=== PATIENT | male | born 1955 | race American Indian/Alaskan Native ===

== ENCOUNTER 2016-09-02 10:16 | Inpatient (IN) | payer MEDICARE ==
[2016-09-02 11:08] LABS: Basophils % (Auto) 0.3 % (0.0-1.8); Eosinophils % (Auto) 2.5 % (0.0-4.3); Hematocrit 35.3 % (35.5-45.6); Mean Corpuscular HGB Conc 31 % (32-34); Mean Corpuscular Volume 80 fl (84-94); Platelet Count 161 K/mm3 (140-440); Red Cell Distribution Width 15.4 % (13.2-15.2); White Blood Count 7.6 K/mm3 (4.5-11.0)
[2016-09-02 11:09] LABS: Mean Corpuscular Hemoglobin 25 pg (28-32)
[2016-09-02 11:24] LABS: Anion Gap 18 mmol/L; BUN/Creatinine Ratio 12.72; Blood Urea Nitrogen 14 mg/dL (9-20); Calcium 8.6 mg/dL (8.4-10.2); Carbon Dioxide 25 mmol/L (22-30); Chloride 98.9 mmol/L (98-107); Glucose 236 mg/dL (75-100); Potassium 3.7 mmol/L (3.6-5.0); Sodium 138 mmol/L (137-145)
[2016-09-02] MEDS ORDERED: ZOFRAN IV ONE (11:33)
[2016-09-02] MEDS ORDERED: MORPHINE IV ONE (11:33)
[2016-09-02] MEDS ORDERED: NITRO-BID 2% TP ONE (11:33)
--- NOTE | 2016-09-02 11:38 | Emergency Department Report ---
HPI - General Chief Complaint: Dyspnea/Respdistress Time Seen by Provider: 09/02/16 11:25 - HPI HPI: Room 17 The patient is a 60-year-old male presenting with a chief complaint of chest pain. The patient states his symptoms began 2-3 days ago with a cough that became slightly productive this morning. The patient states he coughed up some yellow sputum this morning. The patient states yesterday he developed a constant sharp chest pain unrelated to his cough. Patient admits to shortness of breath and nausea/vomiting with this chest pain. Patient denies diaphoresis. The patient states yesterday he awakened short of breath and had to sit up in order for his symptoms to improve. Patient currently gives his pain a score of 10/10. 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) Hx COPD: Yes (NO HOME ) Additional medical history: high cholesterol - Surgical History Past Surgical History?: Yes Hx Open Heart Surgery: Yes Hx Pacemaker: Yes (2013) Additional Surgical History: Mitral valve replacement (mechanical), left ankle surgery - Family History Family history: no significant - Social History Smoking Status: Former Smoker (none for over 20 years) Substance Use Type: None - Medications Home Medications: Home Medications Medication Instructions Recorded Confirmed Last Taken Type ALBUTEROL Inhaler [ProAir HFA 2 puff IH QID PRN 09/30/13 09/02/16 10/28/13 History Inhaler] Furosemide [Lasix TAB] 80 mg PO BID 09/30/13 09/02/16 09/10/14 History Insulin Aspart [NovoLOG 100 10 unit SQ QAC 09/30/13 09/02/16 09/09/14 History UNITS/ML VIAL] Insulin Glargine,Hum.rec.anlog 40 units SQ QHS 09/30/13 09/02/16 09/09/14 History [Lantus Solostar] Ipratropium (Nf) [Atrovent HFA 2 puff IH Q6HR PRN 09/30/13 09/02/16 09/09/14 History 17MCG/PUFF] Nitroglycerin [Nitrostat] 0.4 mg SL Q5M PRN 09/30/13 09/02/16 07/10/14 History Potassium Chloride 20 meq PO BID 09/30/13 09/02/16 09/10/14 History Ranolazine [Ranexa] 500 mg PO BID 09/30/13 09/02/16 09/10/14 History Tamsulosin [Flomax] 0.4 mg PO QDAY 09/30/13 09/02/16 09/09/14 History Zolpidem Tartrate 6.25 mg PO QHS 09/30/13 09/02/16 09/02/14 History Esomeprazole Magnesium [NexIUM] 40 mg PO DAILY 10/29/13 09/02/16 10/28/13 History Colchicine [Colchicine] 0.6 mg PO DAILY 09/04/14 09/02/16 09/10/14 History Diazepam Tab [Valium] 5 tab PO DAILY 09/04/14 09/02/16 08/27/14 History Gabapentin [Gabapentin] 1 cap PO TID 09/04/14 09/02/16 09/11/14 History Sennosides/Docusate Sodium [Cvs 1 tab PO DAILY 09/04/14 09/02/16 08/10/09 History Stool Softener-Laxative Tb] Spironolactone [Aldactone] 25 mg PO QDAY 11/02/15 09/02/16 Unknown History Warfarin [Coumadin] 5 mg PO QDAY 11/02/15 09/02/16 Unknown History Metolazone [Zaroxolyn] 2.5 mg PO DAILY 09/02/16 09/02/16 Unknown History ED Review of Systems ROS: Stated complaint: CHEST PAIN, COUGH, OFELIA Other details as noted in HPI Comment: All other systems reviewed and negative Constitutional: denies: diaphoresis Eyes: denies: eye pain, eye discharge, vision change ENT: denies: ear pain, throat pain Respiratory: cough, shortness of breath Cardiovascular: chest pain Endocrine: no symptoms reported Gastrointestinal: nausea, vomiting Genitourinary: denies: urgency, dysuria Musculoskeletal: denies: back pain, joint swelling, arthralgia Skin: denies: rash, lesions Neurological: denies: headache, weakness, paresthesias Psychiatric: denies: anxiety, depression Hematological/Lymphatic: denies: easy bleeding, easy bruising Physical Exam - Physical Exam Vital Signs: Vital Signs 09/02/16 09/02/16 09/02/16 10:21 10:30 10:40 Temperature 98.5 F Pulse Rate 74 75 80 Respiratory 9 L 16 20 Rate Blood Pressure 121/89 121/89 Blood Pressure 121/89 [Left] O2 Sat by Pulse 100 98 100 Oximetry 09/02/16 09/02/16 09/02/16 10:46 10:49 11:09 Temperature Pulse Rate 74 78 Respiratory 15 20 Rate Blood Pressure 115/25 Blood Pressure [Left] O2 Sat by Pulse 96 100 Oximetry Physical Exam: GENERAL: The patient is well-developed well-nourished male lying on stretcher not appearing to be in acute distress. [] HEENT: Normocephalic. Atraumatic. Extraocular motions are intact. Patient has moist mucous membranes. NECK: Supple. Trachea midline CHEST/LUNGS: Clear to auscultation. There is no respiratory distress noted. HEART/CARDIOVASCULAR: Regular. There is no tachycardia. ABDOMEN: Abdomen is soft, nontender. Patient has normal bowel sounds. There is no abdominal distention. SKIN: There is no rash. There is no diaphoresis. NEURO: The patient is awake, alert, and oriented. The patient is cooperative. The patient has normal speech MUSCULOSKELETAL: There is no evidence of acute injury. ED Course Vital Signs 09/02/16 09/02/16 09/02/16 10:21 10:30 10:40 Temperature 98.5 F Pulse Rate 74 75 80 Respiratory 9 L 16 20 Rate Blood Pressure 121/89 121/89 Blood Pressure 121/89 [Left] O2 Sat by Pulse 100 98 100 Oximetry 09/02/16 09/02/16 09/02/16 10:46 10:49 11:09 Temperature Pulse Rate 74 78 Respiratory 15 20 Rate Blood Pressure 115/25 Blood Pressure [Left] O2 Sat by Pulse 96 100 Oximetry ED Medical Decision Making - Lab Data Result diagrams: 09/02/16 10:37 09/02/16 10:37 Laboratory Tests 09/02/16 09/02/16 10:37 10:37 WBC 7.6 RBC 4.40 Hgb 11.0 L Hct 35.3 L MCV 80 L MCH 25 L MCHC 31 L RDW 15.4 H Plt Count 161 Lymph % (Auto) 19.8 [place] % (Auto) 7.7 H Eos % (Auto) 2.5 Baso % (Auto) 0.3 Lymph # 1.5 [place] # 0.6 Eos # 0.2 Baso # 0.0 Seg Neutrophils % 69.7 Seg Neutrophils # 5.3 Sodium 138 Potassium 3.7 Chloride 98.9 Carbon Dioxide 25 Anion Gap 18 BUN 14 Creatinine 1.1 Estimated GFR > 60 BUN/Creatinine Ratio 12.72 Glucose 236 H Calcium 8.6 Troponin T 0.026 Laboratory Tests 09/02/16 09/02/16 09/02/16 10:37 10:37 10:37 WBC 7.6 RBC 4.40 Hgb 11.0 L Hct 35.3 L MCV 80 L MCH 25 L MCHC 31 L RDW 15.4 H Plt Count 161 Lymph % (Auto) 19.8 [place] % (Auto) 7.7 H Eos % (Auto) 2.5 Baso % (Auto) 0.3 Lymph # 1.5 [place] # 0.6 Eos # 0.2 Baso # 0.0 Seg Neutrophils % 69.7 Seg Neutrophils # 5.3 PT 24.1 H INR 2.16 H APTT 45.7 H Sodium 138 Potassium 3.7 Chloride 98.9 Carbon Dioxide 25 Anion Gap 18 BUN 14 Creatinine 1.1 Estimated GFR > 60 BUN/Creatinine Ratio 12.72 Glucose 236 H Calcium 8.6 Troponin T 0.026 - EKG Data Rate: normal - EKG Data When compared to previous EKG there are: no significant change Interpretation: unchanged when compared t (04/13/2016), other (left bundle- branch block) - Radiology Data Radiology results: image reviewed (chest x-ray) interpreted by me: Chest [id number]. No pneumothorax, no focal infiltrate - Differential Diagnosis ACS, CHF exacerbation, bronchitis Critical care attestation.: If time is entered above; I have spent that time in minutes in the direct care of this critically ill patient, excluding procedure time. ED Disposition Clinical Impression: Chest pain Disposition: OP ADMITTED IP TO THIS HOSP Is pt being admited?: Yes Does the pt Need Aspirin: No Condition: Fair Instructions: Chest Pain (ED) Referrals: PRIMARY CARE, [Primary Care Provider] - 3-5 Days Time of Disposition: 11:39 (hospitalist paged)
[2016-09-02 11:44] LABS: INR 2.16 (0.87-1.13)
[2016-09-02 11:45] LABS: Partial Thromboplastin Time 45.7 Sec. (24.2-36.6)
--- NOTE | 2016-09-02 12:18 | Admit Criteria Form ---
Admission Criteria Documentation: CHEST PAIN Clinical Indications for Admission to Inpatient Care (Place 'X' for any and all applicable criteria): Admission is indicated for chest pain and ANY ONE of the following(1)(2)(3)(4)(5 ): [ ]I. Angina with acute coronary syndrome (Also use Myocardial Infarction or Angina guideline) [ ]II. Hemodynamic instability [X ]III. Angina needing acute intervention as indicated by ALL of the following (11)(12): [X ]a) Unstable angina is present as indicated by angina that is ANY ONE of the following: [ ]i) New onset [ ]ii) Nocturnal [X ]iii) Prolonged at rest [ ]iv) Progressive [ ]b) Angina warrants acute intervention as indicated by ANY ONE of the following: [ ]i) Recurrent angina (e.g, not responding as previously to treatment) [ ]ii) Angina at rest or with low-level activities despite initial medical therapy [ ]iii) New or presumably new ST-segment depression on ECG [ ]iv) Signs or symptoms of heart failure (eg, dyspnea, pulmonary edema) [ ]v) New or worsening mitral regurgitation [ ]vi) Hemodynamic instability [ ]vii) Dangerous arrhythmia (eg, sustained ventricular tachycardia) [ ]viii) History of percutaneous coronary intervention within 6 months [ ]ix) History of coronary artery bypass graft surgery [ ]x) CRISTO risk score of 2 or greater[A] [X ]xi) History of Diabetes(14) [ ]xii) High-risk cardiac ischemia findings on noninvasive testing (e.g, echocardiogram, treadmill testing, nuclear scan) [ ]xiii) Chronic renal insufficiency (ie, estimated GFR less than 60 mL/min/1.732m) [ ]xiv) Left ventricular ejection fraction less than 40% [ ]IV. Evidence of WI (eg, cardiac biomarkers positive, ST-segment elevation on ECG) also use Myocardial Infarction Criteria Form. [ ]V. Pulmonary edema [ ]. Respiratory distress [ ]VII. Chest pain indicative of serious diagnosis other than coronary artery disease (eg, aortic dissection) [ ]VIII. Contraindications and/or Inappropriate clinical situations for Observational Care in patients with Chest Pain, when ANY ONE of the following is required: [ ]a) Patient with risk factor for pulmonary embolism, acute coronary syndrome and myocardial infarction (18) [ ]b) Patient with Pulmonary embolism require an average LOS of 4.3 days, therefore emergency department observation management is inappropriate 18,23 [ ]c) Painful condition/s in the elderly, have the highest rate of recidivism after emergency department observation management (10.8%) 20,21,22 [ ]d) Elevated cardiac biomarker requires intensive and exhaustive care (19) [ ]IX. General contraindications and/or Inappropriate clinical situations for Observational Care in patients with Chest Pain, when ANY ONE of the following is required: [ ]a) Prediction of prolongation of LOS based on ANY ONE of the following may be considered as a contraindication for observational care 2, 3, 4, 5, 6, 7, 8, 9, 10, 11 [ ]i) Age > 65 yrs. [ ]ii) Patient arriving by ambulance [ ]iii) Patient with high acuity [ ]iv) Patient requiring vital sign monitoring [ ]v) Patient on IV medication [ ]b) Systolic blood pressures 180mmHg 3,12 [ ]c) Patient with altered mental status including delirium and other alteration of consciousness, (3) [ ]d) Patient whose discharge disposition will be to a [facility] home or rehabilitation home should not be managed in Emergency Department Observation Unit. CMS rule requires 3 days hospital stay before such placement. 3,13 [ ]e) Patient with failure to thrive due to broad array of etiologies 3,16,17 [ ]f) Inability to ambulate 3,14 Extended stay beyond goal length of stay may be needed for (1)(28): [ ]a) Specific condition diagnosed after evaluation (eg, pulmonary embolism, aortic dissection) [ ]b) Unstable angina [ ]c) Continued suspicion of acute coronary syndrome with inability to complete needed cardiac evaluation (eg, patient clinically unable to undergo stress testing) [ ]d) Myocardial infarction (Contents from ANGINA and CHEST PAIN clinical indications for admission to inpatient care have been integrated in this form) The original [employer] content created by [employer] has been revised. The portions of the content which have been revised are identified through the use of italic text or in bold, and [facility] [email or web address] has neither reviewed nor approved the modified material. All other unmodified content is copyright [employer]. Please see references footnoted in the original [facility] [email or web address] edition 2016 Admission Criteria Met: Yes
[2016-09-02] MEDS ORDERED: PROAIR IH PRN (14:35)
[2016-09-02] MEDS ORDERED: NITROSTAT SL PRN (14:35)
[2016-09-02] MEDS ORDERED: NON-FORMULARY (Ipratropium (Nf) 2 PUFF) IH PRN (14:35)
[2016-09-02] MEDS ORDERED: SODIUM CHLORIDE FLUSH SYRINGE 10 ML IV PRN (14:43)
[2016-09-02] MEDS ORDERED: NON-FORMULARY (Esomeprazole Magnesium [Nexium] 40 MG) PO SCH (14:45)
[2016-09-02] MEDS ORDERED: NON-FORMULARY (Furosemide [Lasix Tab] 80 MG) PO SCH (14:45)
--- NOTE | 2016-09-02 14:48 | Event Note ---
Date: 09/02/16 See H/p in reports ACS Costochondritis IDDM BPH Paraparesis CHF Gout CAD
--- NOTE | 2016-09-02 14:51 | XRay Report ---
CHEST 2 VIEWS INDICATION: Shortness of breath. COMPARISON: 11/02/2015 FINDINGS: Frontal and lateral chest radiographs, 3 images, demonstrate poorer inspiration with grossly stable, exaggerated cardiomediastinal structures/possible cardiomegaly. Post CABG changes, left-sided pacemaker with dual chamber leads and partially imaged cervicothoracic fusion hardware noted. Prosthetic heart valve. No pleural effusions or CHF. EKG leads. Stable bones, including left shoulder degenerative changes. CONCLUSION: No acute chest process or significant interval change, providing for the difference in technique with cardiomegaly and various iatrogenic changes again noted, as described. Thank you for the opportunity to participate in this patient's care.
[2016-09-02] MEDS ORDERED: RANEXA ER PO SCH (15:00)
[2016-09-02] MEDS ORDERED: POTASSIUM CHLORIDE PO SCH (15:00)
[2016-09-02] MEDS ORDERED: PROVENTIL IH PRN (15:29)
[2016-09-02] MEDS ORDERED: PROTONIX PO SCH (16:00)
[2016-09-02] MEDS: LASIX PO SCH (17:29)
[2016-09-02] MEDS: COUMADIN PO SCH (17:29)
[2016-09-02] MEDS: NOVOLOG SUB-Q SCH ×2 (18:23→22:03)
[2016-09-02 19:24] LABS: Creatine Kinase MB 2.9 ng/mL (0.0-4.0)
[2016-09-02 21:59] LABS: Creatine Kinase MB 3.3 ng/mL (0.0-4.0)
[2016-09-02] MEDS: RANEXA ER PO SCH (22:00)
[2016-09-02] MEDS ORDERED: LEVEMIR SUB-Q SCH (22:00)
[2016-09-02] MEDS ORDERED: AMBIEN PO SCH (22:00)
[2016-09-02] MEDS ORDERED: NON-FORMULARY (Insulin Glargine,Hum.Rec.Anlog [Lantus Solostar] 40 UNITS) SQ SCH (22:00)
[2016-09-02] MEDS: NEURONTIN PO SCH (22:00)
[2016-09-02] MEDS ORDERED: VALIUM PO SCH (22:00)
[2016-09-02] MEDS: POTASSIUM CHLORIDE PO SCH (22:01)
[2016-09-02] MEDS: DILAUDID IV PRN (22:07)
[2016-09-02] MEDS: PROTONIX PO SCH (22:24)
[2016-09-03 03:54] LABS: INR 2.14 (0.87-1.13)
[2016-09-03] MEDS: DILAUDID IV PRN ×2 (05:06→14:02)
[2016-09-03] MEDS: LASIX PO SCH ×2 (05:07→17:39)
[2016-09-03] MEDS ORDERED: LEXISCAN IV ONE ×2 (08:01→08:16)
--- NOTE | 2016-09-03 08:14 | History and Physical Report ---
CHIEF COMPLAINT: Left-sided chest pain for 3 days. 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 More so with cough. Cough is productive. Chest pain is intermittent, not radiating. No diaphoresis. No palpitations. The patient admits to some shortness of breath and nausea. Also, chest wall tenderness present as per patient. Also, cough productive of slightly yellowish sputum. TB score is 0. Insulin-dependent diabetes, continue insulin and coverage. PAST MEDICAL HISTORY: As mentioned, hypertension, congestive heart failure, insulin-dependent diabetes, spinal cord surgery secondary to questionable clot in spinal cord region, COPD, and hyperlipidemia. PAST SURGICAL HISTORY: Open heart surgery, pacemaker insertion 2013, mitral valve replacement, and left ankle surgery. FAMILY HISTORY: No hypertension. No diabetes. SOCIAL HISTORY: Former smoker about 20 years ago. He used to smoke a pack a day. He smoked for ABOUT 20 years from age 20 to 40. CURRENT MEDICATIONS: Insulin 10 units before each meal, Lasix 80 mg twice a day, albuterol 2 puffs q.i.d., Atrovent inhaler 2 puffs q.6., potassium chloride 20 mEq twice a day, tamsulosin 0.4 daily, Nexium 40 mg p.o. daily, colchicine 0.6 p.o. daily, gabapentin 1 cap p.o. t.i.d., spironolactone 25 mg p.o. daily, Coumadin 5 mg p.o. daily, and Zaroxolyn 2.5 mg p.o. daily. REVIEW OF SYSTEMS: CONSTITUTIONAL: No weight loss. No weight gain. No fever. No chills. HEENT: No sore throat. No postnasal drop. CVS: Left-sided intermittent chest pain; more so with coughing and also chest wall tenderness present as per the patient. No diaphoresis. No palpitations. RESPIRATORY: Cough and yellow sputum present. No shortness of breath. GI: No nausea. No vomiting. No diarrhea. GENITOURINARY SYSTEM: No dysuria. No flank pain. Occasional urinary retention present secondary to paraplegia. The patient stated that he was constipated, but now he is paraplegic versus paraparetic. MUSCULOSKELETAL SYSTEMS: No joint pain. No muscle pains. CENTRAL NERVOUS SYSTEM: Significant ____. Wheelchair bound. Occasional intermittent urinary retention present. SKIN: Normal. No rashes. LYMPHATIC AND HEMATOLOGIC SYSTEMS: No rashes. No bruising. No lymphedema. PSYCHIATRIC: No suicidal or homicidal tendencies. No depression. A 14-point review of systems done and essentially negative. PHYSICAL EXAMINATION: GENERAL: Middle-aged male obese weighed about 118 kg. VITAL SIGNS: BMI is 38.6, blood pressure 115/25, temperature is 98.5, pulse is 74, and respirations are 16. HEENT: Unremarkable. Pupils equal and reactive. NECK: Supple. No lymphadenopathy. No thyromegaly. LUNGS: Clear to auscultation and percussion. Good air entry. CVS: S1 and S2 heard. No gallop. No murmur. No rub. Apical impulse in left fifth intercostal space and midclavicular line. Chest wall tenderness present. ABDOMEN: Soft and benign. No hepatosplenomegaly. No guarding. No rigidity. Hernial orifices are normal. EXTREMITIES: Good pedal pulses. Power is 3/5 in both lower extremities. SKIN: Normal. LABORATORY DATA: Significant for white count of 7,600, H and H 11.2 and 35.3, and platelet count is 161,000. INR is 2.16, sodium is 138, potassium is 3.7, bicarb is 25, chloride is 98.9, BUN and creatinine 14 and 1.1, and glucose is 236. Troponin is 0.026. Lipid profile was normal. DIAGNOSTIC DATA: EKG shows normal sinus rhythm. No significant change. Left bundle branch block present. No change from 04/13/2016. Interpreted by me. Chest x-ray shows cardiomegaly. No pneumothorax. No focal infiltrate. ASSESSMENT AND PLAN: 1. Acute coronary syndrome. The patient is to get Lexiscan. The patient got Lexiscan last about a year ago. There is no recent cardiac catheterization. He has cardiac mitral valve surgery. The patient is on Coumadin. I would definitely do a Lexiscan. 2. Chest wall costochondritis. The patient has chest wall tenderness present. I am more in favor of costochondritis. NSAIDs at the time of discharge. Lexiscan was negative. 3. Coronary artery disease. Continue Ranexa and nitroglycerin p.r.n. basis. 4. Chronic obstructive pulmonary disease. Continue albuterol and DuoNeb on a p.r.n. basis. 5. Congestive heart failure. Continue Lasix 80 mg twice a day. 6. Benign prostatic hypertrophy. Continue Flomax 0.4 mg daily. 7. Gastroesophageal reflux disease. Continue Nexium 40 mg p.o. daily. 8. Gout. Continue colchicine 0.6 daily. 9. Anticoagulation adequate. Continue Coumadin 5 mg p.o. daily. 10. Deep vein thrombosis prophylaxis. The patient's anticoagulation is adequate. We will not initiate Lovenox. NSAIDs only. PLAN: In summary, the patient to be ruled out for acute [place]. Probable diagnosis is more in favor of costochondritis because of the chest wall tenderness present and also cough. The patient will be discharged in 24-48 hours depending on the Lexiscan and serial cardiac enzymes [facility]# [id number] JEN/DASH
[2016-09-03] MEDS: NOVOLOG SUB-Q SCH ×6 (08:25→17:41)
[2016-09-03] MEDS: NEURONTIN PO SCH ×2 (09:00→13:54)
[2016-09-03] MEDS ORDERED: COLCRYS PO SCH (10:00)
[2016-09-03] MEDS ORDERED: SENOKOT S PO SCH (10:00)
[2016-09-03] MEDS ORDERED: ZAROXOLYN PO SCH (10:00)
[2016-09-03] MEDS ORDERED: ECOTRIN PO SCH (10:00)
[2016-09-03] MEDS ORDERED: ALDACTONE PO SCH (10:00)
[2016-09-03] MEDS ORDERED: NON-FORMULARY (Colchicine [Colchicine] 0.6 MG) PO SCH (10:00)
[2016-09-03] MEDS ORDERED: COUMADIN PO SCH (10:00)
[2016-09-03] MEDS ORDERED: FLOMAX PO SCH (10:00)
[2016-09-03] MEDS: RANEXA ER PO SCH (13:54)
[2016-09-03] MEDS: POTASSIUM CHLORIDE PO SCH (14:01)
[2016-09-03] MEDS: PROTONIX PO SCH (14:02)
[2016-09-03 15:39] VITALS: BP 117/59
--- NOTE | 2016-09-03 15:49 | Discharge Summary ---
Providers - Providers Date of Admission: 09/02/16 11:39 Attending physician: SHELIA NORTON MD 09/02/16 Consult to Cardiac Rehabilitation [CONS] Routine Reason For Exam: Phase I Primary care physician: BUNDLE SHAKER Hospitalization Condition: Fair Hospital course: 60M w pmh of htn, CHF, DM, hx of Spinal cord surgery leading to paralysis who presents with Chest pain, he went on to have serial troponins that were negative , does have a nuclear stress test that was negative. Chest pain was attributed to costochondritis for which she is advised to take Tylenol as needed. Discharge diagnoses 1. Chest pain due to costochondritis Disposition: DISCHARGED TO HOME OR SELFCARE Time spent for discharge: 35 minutes Core Measure Documentation - Palliative Care Palliative Care/ Comfort Measures: Not Applicable - Core Measures Any of the following diagnoses?: none Exam - Constitutional Vitals: Temp Pulse Resp BP Pulse Ox 97.8 F 72 20 117/59 94 09/03/16 15:38 09/03/16 15:38 09/03/16 15:38 09/03/16 15:38 09/03/16 15:38 General appearance: Present: no acute distress, well-nourished - EENT Eyes: Present: PERRL ENT: hearing intact, clear oral mucosa - Neck Neck: Present: supple, normal ROM - Respiratory Respiratory effort: normal Respiratory: bilateral: CTA - Cardiovascular Rhythm: other (chest wall tender) Heart Sounds: Present: S1 & S2. Absent: rub, click - Extremities Extremities: pulses symmetrical, No edema Peripheral Pulses: within normal limits - Abdominal General gastrointestinal: Present: soft, non-tender, non-distended, normal bowel sounds Male genitourinary: Present: normal - Integumentary Integumentary: Present: clear, warm, dry - Musculoskeletal Musculoskeletal: gait normal, strength equal bilaterally - Psychiatric Psychiatric: appropriate mood/affect, intact judgment & insight - Neurologic Neurologic: CNII-XII intact, moves all extremities Plan Follow up with: PRIMARY CARE, [Primary Care Provider] - 3-5 Days Forms: Warfarin Discharge Instruction Prescriptions: Acetaminophen [Tylenol Arthritis] 650 mg PO Q8H PRN #60 tablet.er PRN Reason: Pain Aspirin EC [Aspirin Enteric Coated TAB] 81 mg PO QDAY #30 tablet.
[2016-09-03] MEDS: COUMADIN PO SCH (17:40)
--- NOTE | 2016-09-05 23:56 | Treadmill Report ---
THALLIUM STRESS TEST LEFT VENTRICLE: Left ventricular chamber size is within normal. Perfusion study demonstrates homogeneous uptake of the tracer in all segments, no significant defects identified. Gated analysis demonstrates normal left ventricular systolic function, ejection fraction 67%. CONCLUSION: Normal myocardial perfusion study. [facility]# [id number] CA/NTS
== END 2016-09-03 18:45 | disposition home or self-care (01) | DRG 206 ==
LOC: ED 10:16 → 4A 11:39
PROVIDERS: ADMIT Internal Medicine; ATTEND Internal Medicine
DX: M94.0 Chondrocostal junction syndrome [Tietze] (principal); I11.0 Hypertensive heart disease with heart failure; I50.9 Heart failure, unspecified; E11.9 Type 2 diabetes mellitus without complications
CPT/HCPCS: 36415; 71020; 78452; 80048; 80061; 82550; 82553; 82962; 83036; 84484; 85025; 85610; 85730; 93005; 93010; 93017; 94640; 96374; 96375; A9502; J1170; J1815; J1818; J2270; J2405; J2785

== ENCOUNTER 2018-08-27 17:12 | Inpatient (IN) | payer MEDICARE ==
[2018-08-27] MEDS ORDERED: ASPIRIN PO ONE (17:34)
[2018-08-27] MEDS ORDERED: PEPCID IV ONE (17:53)
[2018-08-27] MEDS ORDERED: ZOFRAN IV ONE (17:53)
[2018-08-27] MEDS ORDERED: NITROSTAT SL PRN (17:53)
--- NOTE | 2018-08-27 18:03 | Emergency Department Report ---
ED General Adult HPI - General Chief complaint: Chest Pain Stated complaint: CHEST PAIN/OFELIA Time Seen by Provider: 08/27/18 17:39 Source: patient, EMS (ems notes not available at time of chart dictation), RN notes reviewed, old records reviewed Mode of arrival: Stretcher Limitations: Physical Limitation - History of Present Illness Initial comments: This is a 62-year-old gentleman. Cardiology: [facility] Past medical history: Spinal cord injury, lower extremity paraplegia, self catheterizes, diabetes, hypertension, pacemaker, mechanical mitral valve, on systemic anticoagulation had a cardiac catheterization at this hospital May 2018, demonstrated normal angiographic coronary arteries The patient presents to the emergency room today with multiple complaints. He complains of headache, chest pain, shortness of breath, syncope/loss of consciousness, and foul-smelling urine, accompanied by nausea, vomiting. Symptoms are intermittent since Monday, today is Monday, they do not radiate anywhere, they do not appear to have exacerbating or relieving factors. The patient complains of chest pain now, shortness of breath now, and nausea now. He endorses compliance with his medications. He endorses a low-grade fever at home subjectively. Of note, patient admitted to this hospital May 2018, found to have multidrug resistant Escherichia coli, bacteremia, and was discharged on antibiotics. -: Gradual, days(s) Location: head, chest Radiation: non-radiation Severity scale (0 -10): 8 Quality: aching Consistency: intermittent Improves with: none Worsens with: none Associated Symptoms: chest pain, cough, fever/chills, headaches, loss of appetite, malaise, nausea/vomiting, shortness of breath, syncope, weakness. denies: confusion, diaphoresis, rash, seizure - Related Data Home Medications Medication Instructions Recorded Confirmed Last Taken RX: ALBUTEROL Inhaler (OR & NICU) 2 puff IH QID PRN 09/30/13 08/27/18 10/28/13 [ProAir HFA Inhaler] RX: Furosemide [Lasix TAB] 80 mg PO BID 09/30/13 08/27/18 09/10/14 RX: Insulin Aspart [NovoLOG 100 10 unit SQ QAC 09/30/13 08/27/18 09/09/14 UNITS/ML VIAL] RX: Insulin Glargine,Hum.rec.anlog 40 units SQ QHS 09/30/13 08/27/18 09/09/14 [Lantus Solostar] RX: Zolpidem Tartrate 6.25 mg PO QHS 09/30/13 08/27/18 09/02/14 RX: Esomeprazole Magnesium [NexIUM] 40 mg PO DAILY 10/29/13 08/27/18 10/28/13 RX: Gabapentin 1 cap PO TID 09/04/14 08/27/18 09/11/14 RX: Sennosides/Docusate Sodium 1 tab PO DAILY 09/04/14 08/27/18 08/10/09 [[facility] Stool Softener-Laxative Tb] RX: diazePAM TAB [Valium] 5 tab PO DAILY 09/04/14 08/27/18 08/27/14 Previous Rx's Medication Instructions Recorded Last Taken Type RX: Acetaminophen [Tylenol 650 mg PO Q8H PRN #60 tablet.er 09/03/16 Unknown Rx Arthritis] RX: guaiFENesin/CODEINE 5 ml PO Q6H PRN #4 oz 09/03/16 Unknown Rx [Robitussin AC] RX: Aspirin EC [Aspirin Enteric 81 mg PO QDAY #30 tablet.dr 05/12/18 Unknown Rx Coated TAB] RX: Colchicine 0.6 mg PO DAILY #15 powder 05/12/18 Unknown Rx RX: Ipratropium (Nf) [Atrovent HFA 2 puff IH Q6HR PRN #10 inha 05/12/18 Unknown Rx 17MCG/PUFF] RX: Nitroglycerin [Nitrostat] 0.4 mg SL Q5M PRN #30 tablet 05/12/18 Unknown Rx RX: Potassium Chloride 20 meq PO BID #60 packet 05/12/18 Unknown Rx RX: Ranolazine [Ranexa] 500 mg PO BID #60 tab.er.12h 05/12/18 Unknown Rx RX: Spironolactone [Aldactone] 25 mg PO QDAY #30 tablet 05/12/18 Unknown Rx RX: Tamsulosin [Flomax] 0.4 mg PO QDAY #30 capsule 05/12/18 Unknown Rx RX: Warfarin [Coumadin] 2.5 mg PO DAILY@1700 tablet 05/12/18 Unknown Rx RX: Warfarin [Coumadin] 5 mg PO QDAY #30 tablet 05/12/18 Unknown Rx RX: Zolpidem [Ambien] 5 mg PO QHS PRN tablet 05/12/18 Unknown Rx RX: metOLazone [Zaroxolyn] 2.5 mg PO DAILY #30 tablet 05/12/18 Unknown Rx HYDROcodone/APAP 5-325 [[place] 1 each PO Q6HR PRN #10 tablet 05/16/18 Unknown Rx 5/325] Insulin Aspart [Novolog] 5 unit SQ AC #1 vial 05/16/18 Unknown Rx Insulin Glargine,Hum.rec.anlog 20 units SQ QHS #1 pen 05/16/18 Unknown Rx [Lantus Solostar] Allergies Allergy/AdvReac Type Severity Reaction Status Date / Time propoxyphene napsylate Allergy Intermediate Rash Verified 09/04/14 14:39 [From Darvocet-N 100] Sulfa (Sulfonamide Allergy Intermediate Rash Verified 09/04/14 14:39 Antibiotics) ED Review of Systems ROS: Stated complaint: CHEST PAIN/OFELIA Other details as noted in HPI Constitutional: fever, malaise, weakness. denies: chills Eyes: denies: vision change ENT: denies: epistaxis Respiratory: cough, shortness of breath Cardiovascular: chest pain, syncope Gastrointestinal: nausea, vomiting. denies: hematemesis, melena, hematochezia Genitourinary: dysuria, frequency Musculoskeletal: denies: back pain, arthralgia, myalgia Skin: denies: lesions Neurological: weakness Psychiatric: anxiety ED Past Medical Hx - Past Medical History Previous Medical History?: Yes Hx Hypertension: Yes Hx Heart Attack/AMI: No Hx Congestive Heart Failure: Yes Hx Diabetes: Yes Hx Deep Vein Thrombosis: No Hx Pulmonary Embolism: No Hx Liver Disease: No Hx Sickle Cell Disease: No Hx Arthritis: No Hx Asthma: No Hx COPD: Yes (NO HOME 02) Hx Tuberculosis: No Hx HIV: No Additional medical history: high cholesterol, paraplegic, bronchitis, A Fib - Surgical History Hx Coronary Stent: No Hx Open Heart Surgery: Yes Hx Pacemaker: Yes Hx Internal Defibrillator: No Additional Surgical History: Mitral valve replacement (mechanical), left ankle surgery - Social History Smoking Status: Former Smoker Substance Use Type: None - Medications Home Medications: Home Medications Medication Instructions Recorded Confirmed Last Taken Type RX: ALBUTEROL Inhaler (OR & NICU) 2 puff IH QID PRN 09/30/13 08/27/18 10/28/13 History [ProAir HFA Inhaler] RX: Furosemide [Lasix TAB] 80 mg PO BID 09/30/13 08/27/18 09/10/14 History RX: Insulin Aspart [NovoLOG 100 10 unit SQ QAC 09/30/13 08/27/18 09/09/14 History UNITS/ML VIAL] RX: Insulin Glargine,Hum.rec.anlog 40 units SQ QHS 09/30/13 08/27/18 09/09/14 History [Lantus Solostar] RX: Zolpidem Tartrate 6.25 mg PO QHS 09/30/13 08/27/18 09/02/14 History RX: Esomeprazole Magnesium [NexIUM] 40 mg PO DAILY 10/29/13 08/27/18 10/28/13 History RX: Gabapentin 1 cap PO TID 09/04/14 08/27/18 09/11/14 History RX: Sennosides/Docusate Sodium 1 tab PO DAILY 09/04/14 08/27/18 08/10/09 History [[facility] Stool Softener-Laxative Tb] RX: diazePAM TAB [Valium] 5 tab PO DAILY 09/04/14 08/27/18 08/27/14 History RX: Acetaminophen [Tylenol 650 mg PO Q8H PRN #60 tablet.er 09/03/16 08/27/18 Unknown Rx Arthritis] RX: guaiFENesin/CODEINE 5 ml PO Q6H PRN #4 oz 09/03/16 08/27/18 Unknown Rx [Robitussin AC] RX: Aspirin EC [Aspirin Enteric 81 mg PO QDAY #30 tablet.dr 05/12/18 08/27/18 Unknown Rx Coated TAB] RX: Colchicine 0.6 mg PO DAILY #15 powder 05/12/18 08/27/18 Unknown Rx RX: Ipratropium (Nf) [Atrovent HFA 2 puff IH Q6HR PRN #10 inha 05/12/18 08/27/18 Unknown Rx 17MCG/PUFF] RX: Nitroglycerin [Nitrostat] 0.4 mg SL Q5M PRN #30 tablet 05/12/18 08/27/18 Unknown Rx RX: Potassium Chloride 20 meq PO BID #60 packet 05/12/18 08/27/18 Unknown Rx RX: Ranolazine [Ranexa] 500 mg PO BID #60 tab.er.12h 05/12/18 08/27/18 Unknown Rx RX: Spironolactone [Aldactone] 25 mg PO QDAY #30 tablet 05/12/18 08/27/18 Unknown Rx RX: Tamsulosin [Flomax] 0.4 mg PO QDAY #30 capsule 05/12/18 08/27/18 Unknown Rx RX: Warfarin [Coumadin] 2.5 mg PO DAILY@1700 tablet 05/12/18 08/27/18 Unknown Rx RX: Warfarin [Coumadin] 5 mg PO QDAY #30 tablet 05/12/18 08/27/18 Unknown Rx RX: Zolpidem [Ambien] 5 mg PO QHS PRN tablet 05/12/18 08/27/18 Unknown Rx RX: metOLazone [Zaroxolyn] 2.5 mg PO DAILY #30 tablet 05/12/18 08/27/18 Unknown Rx HYDROcodone/APAP 5-325 [[place] 1 each PO Q6HR PRN #10 tablet 05/16/18 08/27/18 Unknown Rx 5/325] Insulin Aspart [Novolog] 5 unit SQ AC #1 vial 05/16/18 08/27/18 Unknown Rx Insulin Glargine,Hum.rec.anlog 20 units SQ QHS #1 pen 05/16/18 08/27/18 Unknown Rx [Lantus Solostar] ED Physical Exam - General Limitations: Physical Limitation General appearance: alert, in no apparent distress - Head Head exam: Present: atraumatic, normocephalic - Eye Eye exam: Present: normal appearance, EOMI. Absent: nystagmus - ENT ENT exam: Present: normal exam, normal orophraynx, mucous membranes moist, normal external ear exam - Neck Neck exam: Present: normal inspection, full ROM. Absent: tenderness, meningismus - Respiratory Respiratory exam: Present: normal lung sounds bilaterally. Absent: respiratory distress - Cardiovascular Cardiovascular Exam: Present: regular rate, normal rhythm, normal heart sounds. Absent: bradycardia, tachycardia, irregular rhythm, systolic murmur, diastolic murmur, rubs, gallop - GI/Abdominal GI/Abdominal exam: Present: soft. Absent: distended, tenderness, guarding, re bound, rigid, pulsatile mass - Rectal Rectal exam: Present: deferred - Extremities Exam Extremities exam: Present: normal inspection, full ROM (full range of motion in the bilateral upper extremities. Baseline paraplegia in the bilateral lower extremities, neither new, worsening or different), pedal edema, other (2+ pulses noted in the bilateral upper, lower extremities. Compartments soft. No long bony tenderness. The pelvis is stable.). Absent: calf tenderness - Back Exam Back exam: Present: normal inspection, full ROM. Absent: tenderness, CVA tenderness (R), paraspinal tenderness, vertebral tenderness - Neurological Exam Neurological exam: Present: alert, oriented X3, motor sensory deficit (there is no facial droop. The tongue is midline. Extraocular movements are intact bilaterally. 5 out of 5 strength in the bilateral upper extremities. 0 out of 5 strength in the bilateral lower extremities.) - Psychiatric Psychiatric exam: Present: anxious - Skin Skin exam: Present: warm, dry, intact, normal color. Absent: rash ED Course Vital Signs 08/27/18 08/27/18 08/27/18 17:39 17:45 17:50 Temperature 98 F Pulse Rate 70 70 70 Respiratory 13 17 12 Rate Blood Pressure 136/56 Blood Pressure 136/56 [Right] O2 Sat by Pulse 100 98 Oximetry 08/27/18 08/27/18 08/27/18 18:00 18:12 18:15 Temperature 98.5 F Pulse Rate 70 70 Respiratory 16 15 Rate Blood Pressure 140/54 140/54 Blood Pressure [Right] O2 Sat by Pulse 98 98 Oximetry 08/27/18 08/27/18 08/27/18 18:22 18:30 18:45 Temperature Pulse Rate 70 70 70 Respiratory 12 15 Rate Blood Pressure 130/61 140/62 132/65 Blood Pressure [Right] O2 Sat by Pulse 93 97 Oximetry 08/27/18 08/27/18 08/27/18 19:00 19:15 19:30 Temperature Pulse Rate 70 70 70 Respiratory 15 12 12 Rate Blood Pressure 137/67 137/68 137/65 Blood Pressure [Right] O2 Sat by Pulse 99 100 100 Oximetry 08/27/18 08/27/18 08/27/18 20:19 20:20 20:31 Temperature Pulse Rate 70 70 Respiratory 16 18 Rate Blood Pressure 143/61 142/60 Blood Pressure [Right] O2 Sat by Pulse 100 Oximetry 08/27/18 08/27/18 08/27/18 20:45 21:01 21:15 Temperature Pulse Rate 71 70 70 Respiratory 13 16 10 L Rate Blood Pressure 125/56 151/69 141/71 Blood Pressure [Right] O2 Sat by Pulse 100 100 Oximetry 08/27/18 08/27/18 08/27/18 21:30 21:45 22:00 Temperature Pulse Rate 70 70 70 Respiratory 15 11 L 14 Rate Blood Pressure 128/63 142/83 143/66 Blood Pressure [Right] O2 Sat by Pulse 99 100 100 Oximetry 08/27/18 08/27/18 08/27/18 22:15 22:45 23:01 Temperature Pulse Rate 70 70 70 Respiratory 12 16 12 Rate Blood Pressure 137/68 140/54 147/63 Blood Pressure [Right] O2 Sat by Pulse 100 99 98 Oximetry - Reevaluation(s) Reevaluation #1: 08/27/18 18:02 Differential diagnosis, including but not limited to: Viral syndrome, pneumonia, bacteremia, viremia, urinary tract infection, intracranial hemorrhage, pulmonary embolus, intra-abdominal hemorrhage, retroperitoneal hematoma, electrolyte derangement, endocarditis, myocarditis, pericarditis, acute coronary syndrome Orthostasis, vagal event, structural cardiac disease Assessment and plan: 62-year-old gentleman with numerous chronic medical conditions, clinically does not appear to be acutely decompensated at this point in time, chronic lower extremity weakness, complaint of headache, chest pain, syncope, shortness of breath, nausea, vomiting, dysuria. We will obtain screening laboratory studies, influenza screen, urinalysis, x-ray of the chest, rectal temperature, in addition to CT scan of the brain, chest, abdomen, pelvis. We will obtain blood cultures, discussed with his private monument setter helper. I clinically do not suspect bacteremia at this point in time, the patient is not tachycardic, not hypoxic, does not appear to have shaking or chills, and thus far does not have a fever. 08/27/18 18:04 Reevaluation #2: 08/27/18 21:42 CT scan of the brain is negative for acute disease. CT scan of the chest is negative for acute disease. CT scan of the abdomen and pelvis is negative for acute disease, with the exception of possible cirrhosis. Patient has not had recurrent syncope or loss of consciousness while in the emergency room. Reevaluation #3: 08/27/18 23:02 Dr. Thapa accepts the patient to the medical service. - Consultations Consultation #1: 08/27/18 18:22 Discussed with cardiology, Dr. Rosana Sandoval, who agrees to follow the patient in consultation. ED Medical Decision Making - Lab Data Result diagrams: 08/27/18 18:04 08/27/18 18:04 Vital Signs 08/27/18 17:50 Temperature 98 F Pulse Rate 70 Respiratory 12 Rate Blood Pressure 136/56 [Right] O2 Sat by Pulse 98 Oximetry - EKG Data -: EKG Interpreted by Ri - EKG Data 08/27/18 18:06 Ventricular paced rhythm, couldn't capture, left axis deviation, QTC prolonged, left anterior fascicular block, not consistent with ST elevation myocardial i nfarction. Unchanged from prior EKG from May 2018. - Radiology Data Radiology results: pending, report reviewed, image reviewed Print Report Referring Physician: CRUZ BURLESON Patient Name: CHARLIE COBURN Date of : 1955 Sex: Male Report Date: 2018-08-27 Report Status: [place] [address] XRay Report Signed Patient: CHARLIE COBURN MR#: [id number] : 1955 Acct:[id number] Age/Sex: 62 / M ADM Date: 08/27/18 Loc: ED Attending Dr: Ordering Physician: CRUZ BURLESON MD Date of Service: 08/27/18 Procedure(s): XR chest 1V ap Accession Number(s): [id number] cc: CRUZ BURLESON MD Fluoro Time In Minutes: FINAL REPORT EXAM: XR CHEST 1V AP HISTORY: chest pain, shortness of breath TECHNIQUE: Chest single AP PRIORS: Comparison is May 16, 2018 FINDINGS: Cardiac silhouette is enlarged. There is a left-sided pacemaker lead wires appear intact. Cardiac valve prosthesis is noted. No focal pulmonary infiltrate identified. No pleural fluid collection seen. There is mild pulmonary vascular congestion. Noted is fusion hardware S cervical thoracic spine. One of the fixation screws appears fractured. IMPRESSION: Cardiomegaly Pacemaker and cardiac valve prosthesis Pulmonary vascular congestion suggestive of mild CHF Transcribed By: CLEMENCIA Dictated By: CEDRIC WOOTEN MD Electronically Authenticated By: CEDRIC WOOTEN MD Signed Date/Time: 08/27/18 1830 Critical care attestation.: If time is entered above; I have spent that time in minutes in the direct care of this critically ill patient, excluding procedure time. ED Disposition Clinical Impression: Syncope, UTI (urinary tract infection) Chest pain Qualifiers: Chest pain type: unspecified Qualified Code(s): R07.9 - Chest pain, unspecified Disposition: DC-09 OP ADMIT IP TO THIS HOSP Is pt being admited?: Yes Does the pt Need Aspirin: Yes Condition: Stable
[2018-08-27] MEDS ORDERED: ROCEPHIN/NS 2 GM/100 ML 2 GM/100 ML BAG IV STA (18:09)
--- NOTE | 2018-08-27 18:30 | XRay Report ---
FINAL REPORT EXAM: XR CHEST 1V AP HISTORY: chest pain, shortness of breath TECHNIQUE: Chest single AP PRIORS: Comparison is May 16, 2018 FINDINGS: Cardiac silhouette is enlarged. There is a left-sided pacemaker lead wires appear intact. Cardiac flakita ve prosthesis is noted. No focal pulmonary infiltrate identified. No pleural fluid collection seen. There is mild pulmonary vascular congestion. Noted is fusion hardware S cervical thoracic spine. One of the fixation screws a ppears fractured. IMPRESSION: Cardiomegaly Pacemaker and cardiac valve prosthesis Pulmonary vascular congestion suggestive of mild CHF
[2018-08-27 18:45] LABS: Bacteria,Urine 4+ /HPF (Negative); Bilirubin,Urine NEG (Negative); Blood,Urine NEG (Negative); Color,Urine Amber (Yellow); Mucus,Urine 1+ /HPF; Protein,Urine <15 mg/dL mg/dL (Negative)
[2018-08-27 18:51] LABS: Hematocrit 30.7 % (35.5-45.6); Mean Corpuscular HGB Conc 33 % (32-34); Mean Corpuscular Volume 76 fl (84-94); Red Blood Count 4.05 M/mm3 (3.65-5.03)
[2018-08-27 19:03] LABS: INR 2.16 (0.87-1.13)
[2018-08-27 19:04] LABS: Partial Thromboplastin Time 43.8 Sec. (24.2-36.6)
[2018-08-27] MEDS ORDERED: TYLENOL PO ONE (19:06)
[2018-08-27 19:08] LABS: Red Cell Distribution Width 21.3 % (13.2-15.2)
[2018-08-27 19:10] LABS: Platelet Count 176 K/mm3 (140-440)
[2018-08-27 19:24] LABS: BUN/Creatinine Ratio 14; Blood Urea Nitrogen 11 mg/dL (9-20); Calcium 8.9 mg/dL (8.4-10.2); Hemolysis Index 29
[2018-08-27 19:50] LABS: Anisocytosis 2+; Basophils % (Manual) 0 % (0.0-1.8); Eosinophils % (Manual) 0 % (0.0-4.3); Poikilocytosis 1+; Total Cells Counted 100
[2018-08-27 19:51] LABS: Hypochromasia 1+; Ovalocytes 1+; Schistocytes Few
[2018-08-27 19:52] LABS: Large Platelets Few; Platelet Estimate Consistent w Auto
--- NOTE | 2018-08-27 21:18 | Cat Scan Report ---
FINAL REPORT EXAM: CT HEAD/BRAIN WO CON HISTORY: plasencia on coumadin syncope TECHNIQUE: CT head without contrast PRIORS: None. FINDINGS: No acute intra-axial or extra-axial hemorrhage is identified. There is no evidence of midline shift or mass effect. The ventricles and sulci are within normal limits. Monterroso-white matter differentiation is intact. No acute parenchymal abnormalities seen. Bony calvarium is grossly intact. Visualized portions of the mastoids and paranasal sinuses are unre markable. IMPRESSION: Negative CT head
--- NOTE | 2018-08-27 21:23 | Cat Scan Report ---
FINAL REPORT EXAM: CT ANGIO CHEST HISTORY: cp syncope on coumadin TECHNIQUE: CT chest CT angiogram with reconstructions PRIORS: None. FINDINGS: There is no evidence of filling defect within the central pulmonary vasculature to suggest the presen ce of acute pulmonary embolus. No evidence of mediastinal pathologic lymph node enlargement Heart and great vessels are unremarkable. The aorta is normal in caliber. No focal pulmonary infiltrate identified. No pleural fluid collection seen. No acute pulmonary abnor mality noted. There is nodular contour the liver suggestive of underlying cirrhosis. Spleen is mildly enlarged 13 c entimeters in length. IMPRESSION: Mild splenomegaly Nodular liver contour suggestive of cirrhosis No CT evidence for acute pulmonary embolus
--- NOTE | 2018-08-27 21:28 | Cat Scan Report ---
FINAL REPORT EXAM: CT ABDOMEN PELVIS W CON HISTORY: n /v on coumadin syncope TECHNIQUE: CT abdomen and pelvis with intravenous contrast PRIORS: None. FINDINGS: No acute abnormality identified in the lung bases. Liver demonstrates heterogeneous enhancement nodular contour likely reflecting cirrhosis. Spleen is mildly enlarged. There is a low-density focus seen posteriorly within the spleen measuring 2 centimeters most likely hemangioma. No pancreatic abnormalities seen. The kidneys demonstrate symmetric contrast enhancement. No evidence of hydronephrosis. The adrenal glands are unremarkable Abdominal aorta is normal in caliber. No pathologically enlarged lymph nodes are identified. No signs of free fluid or free air No evidence of small bowel dilatation. Colon is nondistended. No pericolonic inflammatory change. There is concentric bladder wall thickening. There is some air within the urinary bladder please walt elate for any history of recent instrumentation. IMPRESSION: Findings most consistent with cirrhosis Mild splenomegaly Low-density focus in the spleen probable cyst or hemangioma bladder wall thickening. Some air within the urinary bladder. Please correlate with any history recent instrumentation.
[2018-08-27] MEDS ORDERED: BENTYL PO ONE (22:33)
[2018-08-27] MEDS ORDERED: LIDOCAINE VISCOUS 2% PO ONE (22:33)
[2018-08-27] MEDS ORDERED: TYLENOL PO PRN (22:57)
[2018-08-27] MEDS ORDERED: ZOFRAN IV PRN (22:57)
[2018-08-27] MEDS ORDERED: D50W (25GM) Syringe IV PRN (22:57)
[2018-08-27] MEDS ORDERED: SODIUM CHLORIDE FLUSH SYRINGE 10 ML IV PRN (22:57)
--- NOTE | 2018-08-27 23:00 | History and Physical Report ---
History of Present Illness Date of examination: 08/27/18 History of present illness: 62 year old man with CHF, hypertension, hypertension, diabetes A. fib, diabetes and COPD, BPH came to the emergency room with complaints of chest pain started yesterday, located in the epigastic, intermittent for one hour, relieved pain medication. Admits to nausea, Shortness of breath , palpitations, vomiting diaphoresis. Also stated he had a brief syncopal episode. He had a cardiac cath in May 2018 which showed normal coronaries Review of systems Constitutional: no weight loss Ears, eyes, nose, mouth and throat: no nasal congestion, no nasal discharge, no sinus pressure, no vision change, no red eye. Neck: No neck pain or rigidity. Cardiovascular: no palpitations Respiratory: no cough, shortness of breath Gastrointestinal: no abdominal pain hematochezia Genitourinary : no frequency , no hematuria Musculoskeletal: no joint swelling or muscle ache Integumentary: no rash, no pruritis Neurological: no parathesias, no numbness, no focal weakness Endocrine: no cold or heat intolerance, no polyuria or polydipsia Hematologic/Lymphatic: no easy bruising, no easy bleeding, no gland swelling Allergic/Immunologic: no urticaria, no angioedema. PAST MEDICAL HISTORY: CHF, hypertension, hypertension, diabetes A. fib, diabetes and COPD, BPH PAST SURGICAL HISTORY: Pacemaker, mitral valve replacement SOCIAL HISTORY: Denies alcohol, tobacco, drugs FAMILY HISTORY: Hypertension Medications and Allergies Allergies Allergy/AdvReac Type Severity Reaction Status Date / Time propoxyphene napsylate Allergy Intermediate Rash Verified 09/04/14 14:39 [From Darvocet-N 100] Sulfa (Sulfonamide Allergy Intermediate Rash Verified 09/04/14 14:39 Antibiotics) Home Medications Medication Instructions Recorded Confirmed Last Taken Type ALBUTEROL Inhaler (OR & NICU) 2 puff IH QID PRN 09/30/13 08/27/18 10/28/13 History [ProAir HFA Inhaler] Furosemide [Lasix TAB] 80 mg PO BID 09/30/13 08/27/18 09/10/14 History Insulin Aspart [NovoLOG 100 10 unit SQ QAC 09/30/13 08/27/18 09/09/14 History UNITS/ML VIAL] Insulin Glargine,Hum.rec.anlog 40 units SQ QHS 09/30/13 08/27/18 09/09/14 History [Lantus Solostar] Zolpidem Tartrate 6.25 mg PO QHS 09/30/13 08/27/18 09/02/14 History Esomeprazole Magnesium [NexIUM] 40 mg PO DAILY 10/29/13 08/27/18 10/28/13 History Gabapentin 1 cap PO TID 09/04/14 08/27/18 09/11/14 History Sennosides/Docusate Sodium [Cvs 1 tab PO DAILY 09/04/14 08/27/18 08/10/09 History Stool Softener-Laxative Tb] diazePAM TAB [Valium] 5 tab PO DAILY 09/04/14 08/27/18 08/27/14 History Acetaminophen [Tylenol Arthritis] 650 mg PO Q8H PRN #60 tablet.er 09/03/16 08/27/18 Unknown Rx guaiFENesin/CODEINE [Robitussin AC] 5 ml PO Q6H PRN #4 oz 09/03/16 08/27/18 Unknown Rx Aspirin EC [Aspirin Enteric Coated 81 mg PO QDAY #30 tablet.dr 05/12/18 08/27/18 Unknown Rx TAB] Colchicine 0.6 mg PO DAILY #15 powder 05/12/18 08/27/18 Unknown Rx Ipratropium (Nf) [Atrovent HFA 2 puff IH Q6HR PRN #10 inha 05/12/18 08/27/18 Unknown Rx 17MCG/PUFF] Nitroglycerin [Nitrostat] 0.4 mg SL Q5M PRN #30 tablet 05/12/18 08/27/18 Unknown Rx Potassium Chloride 20 meq PO BID #60 packet 05/12/18 08/27/18 Unknown Rx Ranolazine [Ranexa] 500 mg PO BID #60 tab.er.12h 05/12/18 08/27/18 Unknown Rx Spironolactone [Aldactone] 25 mg PO QDAY #30 tablet 05/12/18 08/27/18 Unknown Rx Tamsulosin [Flomax] 0.4 mg PO QDAY #30 capsule 05/12/18 08/27/18 Unknown Rx Warfarin [Coumadin] 2.5 mg PO DAILY@1700 tablet 05/12/18 08/27/18 Unknown Rx Warfarin [Coumadin] 5 mg PO QDAY #30 tablet 05/12/18 08/27/18 Unknown Rx Zolpidem [Ambien] 5 mg PO QHS PRN tablet 05/12/18 08/27/18 Unknown Rx metOLazone [Zaroxolyn] 2.5 mg PO DAILY #30 tablet 05/12/18 08/27/18 Unknown Rx HYDROcodone/APAP 5-325 [[place] 1 each PO Q6HR PRN #10 tablet 05/16/18 08/27/18 Unknown Rx 5/325] Insulin Aspart [Novolog] 5 unit SQ AC #1 vial 05/16/18 08/27/18 Unknown Rx Insulin Glargine,Hum.rec.anlog 20 units SQ QHS #1 pen 05/16/18 08/27/18 Unknown Rx [Lantus Solostar] Active Meds: Active Medications Nitroglycerin (Nitrostat) 0.4 mg SL .Q5MIN PRN PRN Reason: Chest Pain Last Admin: 08/27/18 18:22 Dose: 0.4 mg Documented by: Exam - Physical Exam Narrative exam: General Apperance: The patient lying in bed, breathing comfortable HEENT: Normocephalic, atraumatic. Pupils equally round and reactive to light, EOMI, no sclericterus or JVD or thyromegaly or nodule. , no carotid bruit, m ucous membranes moist, no exudate or erythema Heart: S1-S2, regular is rhythm Lungs: Clear to auscultation bilaterally, breathing comfortable Abdomen: Positive bowel sounds, soft, nontender, nondistended, no organomegaly Extremities: No edema cyanosis clubbing Skin: no rash, nodule, warm and dry Neuro: cranial nerves 2-12 intact, speech is fluent, motor/sensory intact - Constitutional Vitals: Temp Pulse Resp BP Pulse Ox 98.5 F 70 16 137/65 100 08/27/18 18:12 08/27/18 19:30 08/27/18 20:20 08/27/18 19:30 08/27/18 19:30 Results - Labs CBC & Chem 7: 08/27/18 18:04 08/27/18 18:04 Labs: Abnormal lab results 08/27/18 08/27/18 08/27/18 Range/Units 18:04 18:04 18:04 Hgb 10.0 L (11.8-15.2) gm/dl Hct 30.7 L (35.5-45.6) % MCV 76 L (84-94) fl MCH 25 L (28-32) pg RDW 21.3 H (13.2-15.2) % Monocytes % (Manual) 11.0 H (0.0-7.3) % PT 25.6 H (12.2-14.9) Sec. INR 2.16 H (0.87-1.13) APTT 43.8 H (24.2-36.6) Sec. Glucose 140 H (75-100) mg/dL - Imaging and Cardiology CT scan - chest: report reviewed CT Scan - head: report reviewed Assessment and Plan Assessment Chest pain/syncope CHF, stable hypertension hypertension diabetes A. fib COPD BPH Plan Admit to medicine Check cardiac enzymes, echo, orthostatics, carotid Doppler consult cardiology Continue Coumadin for valve replacement Check finger sticks and initiate insulin sliding scale DVT prophylaxis
[2018-08-27] MEDS: MORPHINE IV PRN (23:23)
[2018-08-28 00:20] LABS: Creatine Kinase MB 2.6 ng/mL (0.0-4.0)
[2018-08-28 02:19] LABS: Chol/HDL Ratio 3.87 %
[2018-08-28] MEDS: MORPHINE IV PRN ×4 (03:10→21:16)
[2018-08-28 06:16] LABS: Hematocrit 30.2 % (35.5-45.6); Hemoglobin 9.7 gm/dl (11.8-15.2); Mean Corpuscular HGB Conc 32 % (32-34); Mean Corpuscular Volume 77 fl (84-94); Red Blood Count 3.93 M/mm3 (3.65-5.03)
[2018-08-28 06:21] LABS: INR 2.02 (0.87-1.13); Partial Thromboplastin Time 41.9 Sec. (24.2-36.6)
[2018-08-28 06:26] LABS: Creatine Kinase MB 2.8 ng/mL (0.0-4.0)
[2018-08-28 06:33] LABS: BUN/Creatinine Ratio 11; Blood Urea Nitrogen 10 mg/dL (9-20); Calcium 8.5 mg/dL (8.4-10.2); Hemolysis Index 2
[2018-08-28 06:51] LABS: Platelet Count 156 K/mm3 (140-440); Red Cell Distribution Width 20.1 % (13.2-15.2)
[2018-08-28 08:40] LABS: Total Cells Counted 100
[2018-08-28 08:42] LABS: Basophils % (Manual) 0 % (0.0-1.8)
[2018-08-28 08:44] LABS: Anisocytosis 2+; Hypochromasia 1+; Ovalocytes 1+; Platelet Estimate Consistent w Auto; Poikilocytosis 1+; Schistocytes Few
[2018-08-28] MEDS: SODIUM CHLORIDE FLUSH SYRINGE 10 ML IV SCH ×2 (09:16→21:18)
--- NOTE | 2018-08-28 09:27 | Consultation ---
History of Present Illness Consult date: 08/28/18 Consult reason: syncope History of present illness: Patient presented with complaints of chest pain, shortness of breath and headaches. Cardiac consultation was requested. Chest x-ray reports cardiomegaly with mild heart failure. Chest CT scan is suggestive of underlying cirrhosis. There is no evidence of pulmonary embolism. Cardiac enzymes are normal and his ECG shows a ventricular paced rhythm. Just 3 months ago patient underwent a cardiac cath that revealed normal coronaries. Left ventricular ejection fraction was not documented. Patient has a history of multiple chronic medical problems. Patient has a cardiac history of mitral valve disease and is status post mechanical mitral valve replacement. After his mechanical mitral valve replacement, he developed heart block, and has an indwelling cardiac pacemaker. He is on Coumadin with therapeutic range of INR recommended at 2.5-3.5. He has an INR of 2.16 on presentation. Medications and Allergies Allergies Allergy/AdvReac Type Severity Reaction Status Date / Time propoxyphene napsylate Allergy Intermediate Rash Verified 09/04/14 14:39 [From Darvocet-N 100] Sulfa (Sulfonamide Allergy Intermediate Rash Verified 09/04/14 14:39 Antibiotics) Home Medications Medication Instructions Recorded Confirmed Last Taken Type ALBUTEROL Inhaler (OR & NICU) 2 puff IH QID PRN 09/30/13 08/27/18 10/28/13 History [ProAir HFA Inhaler] Furosemide [Lasix TAB] 80 mg PO BID 09/30/13 08/27/18 09/10/14 History Insulin Aspart [NovoLOG 100 10 unit SQ QAC 09/30/13 08/27/18 09/09/14 History UNITS/ML VIAL] Insulin Glargine,Hum.rec.anlog 40 units SQ QHS 09/30/13 08/27/18 09/09/14 Hi story [Lantus Solostar] Zolpidem Tartrate 6.25 mg PO QHS 09/30/13 08/27/18 09/02/14 History Esomeprazole Magnesium [NexIUM] 40 mg PO DAILY 10/29/13 08/27/18 10/28/13 History Gabapentin 1 cap PO TID 09/04/14 08/27/18 09/11/14 History Sennosides/Docusate Sodium [Cvs 1 tab PO DAILY 09/04/14 08/27/1808/10/10 History Stool Softener-Laxative Tb] diazePAM TAB [Valium] 5 tab PO DAILY 09/04/14 08/27/18 08/27/14 History Acetaminophen [Tylenol Arthritis] 650 mg PO Q8H PRN #60 tablet.er 09/03/16 08/27/18 Unknown Rx guaiFENesin/CODEINE [Robitussin AC] 5 ml PO Q6H PRN #4 oz 09/03/16 08/27/18 Unknown Rx Aspirin EC [Aspirin Enteric Coated 81 mg PO QDAY #30 tablet.dr 05/12/18 08/27/18 Unknown Rx TAB] Colchicine 0.6 mg PO DAILY #15 powder 05/12/18 08/27/18 Unknown Rx Ipratropium (Nf) [Atrovent HFA 2 puff IH Q6HR PRN #10 inha 05/12/18 08/27/18 Unknown Rx 17MCG/PUFF] Nitroglycerin [Nitrostat] 0.4 mg SL Q5M PRN #30 tablet 05/12/18 08/27/18 Unknown Rx Potassium Chloride 20 meq PO BID #60 packet 05/12/18 08/27/18 Unknown Rx Ranolazine [Ranexa] 500 mg PO BID #60 tab.er.12h 05/12/18 08/27/18 Unknown Rx Spironolactone [Aldactone] 25 mg PO QDAY #30 tablet 05/12/18 08/27/18 Unknown Rx Tamsulosin [Flomax] 0.4 mg PO QDAY #30 capsule 05/12/18 08/27/18 Unknown Rx Warfarin [Coumadin] 2.5 mg PO DAILY@1700 tablet 05/12/18 08/27/18 Unknown Rx Warfarin [Coumadin] 5 mg PO QDAY #30 tablet 05/12/18 08/27/18 Unknown Rx Zolpidem [Ambien] 5 mg PO QHS PRN tablet 05/12/18 08/27/18 Unknown Rx metOLazone [Zaroxolyn] 2.5 mg PO DAILY #30 tablet 05/12/18 08/27/18 Unknown Rx HYDROcodone/APAP 5-325 [[place] 1 each PO Q6HR PRN #10 tablet 05/16/18 08/27/18 Unknown Rx 5/325] Insulin Aspart [Novolog] 5 unit SQ AC #1 vial 05/16/18 08/27/18 Unknown Rx Insulin Glargine,Hum.rec.anlog 20 units SQ QHS #1 pen 05/16/18 08/27/18 Unknown Rx [Lantus Solostar] Active Meds: Active Medications Acetaminophen (Tylenol) 650 mg PO Q4H PRN PRN Reason: Pain MILD(1-3)/Fever >100.5/PRADHAN Dextrose (D50w (25gm) Syringe) 50 ml IV PRN PRN PRN Reason: Hypoglycemia Enoxaparin Sodium (Lovenox) 40 mg SUB-Q QDAY@1000 [facility] Last Admin: 08/28/18 09:16 Dose: 40 mg Documented by: Morphine Sulfate (Morphine) 2 mg IV Q4H PRN PRN Reason: Pain, Moderate (4-6) Last Admin: 08/28/18 09:16 Dose: 2 mg Documented by: Nitroglycerin (Nitrostat) 0.4 mg SL .Q5MIN PRN PRN Reason: Chest Pain Last Admin: 08/27/18 18:22 Dose: 0.4 mg Documented by: Ondansetron HCl (Zofran) 4 mg IV Q8H PRN PRN Reason: Nausea And Vomiting Last Admin: 08/27/18 23:22 Dose: 4 mg Documented by: Sodium Chloride (Sodium Chloride Flush Syringe 10 Ml) 10 ml IV BID [facility] Last Admin: 08/28/18 09:16 Dose: 10 ml Documented by: Sodium Chloride (Sodium Chloride Flush Syringe 10 Ml) 10 ml IV PRN PRN PRN Reason: LINE FLUSH Physical Examination Vital Signs Pulse Resp 70 13 08/27/18 17:39 08/27/18 17:39 Results 08/28/18 04:43 08/28/18 04:43 Cardiac Enzymes 08/27/18 08/28/18 Range/Units 23:19 04:43 CK-MB (CK-2) 2.6 2.8 (0.0-4.0) ng/mL Coagulation 08/27/18 08/28/18 Range/Units 18:04 04:43 PT 25.6 H 24.2 H (12.2-14.9) Sec. INR 2.16 H 2.02 H (0.87-1.13) APTT 43.8 H 41.9 H (24.2-36.6) Sec. Lipids 08/27/18 Range/Units 23:19 Triglycerides 60 (2-149) mg/dL Cholesterol 155 (50-199) mg/dL HDL Cholesterol 40 (40-59) mg/dL Cholesterol/HDL Ratio 3.87 % CBC 08/27/18 08/28/18 Range/Units 18:04 04:43 WBC 4.9 4.2 L (4.5-11.0) K/mm3 RBC 4.05 3.93 (3.65-5.03) M/mm3 Hgb 10.0 L 9.7 L (11.8-15.2) gm/dl Hct 30.7 L 30.2 L (35.5-45.6) % Plt Count 176 156 (140-440) K/mm3 Comprehensive Metabolic Panel 08/27/18 08/28/18 Range/Units 18:04 04:43 Sodium 140 141 (137-145) mmol/L Potassium 4.0 3.8 (3.6-5.0) mmol/L Chloride 102.9 102.8 (98-107) mmol/L Carbon Dioxide 28 28 (22-30) mmol/L BUN 11 10 (9-20) mg/dL Creatinine 0.8 0.9 (0.8-1.5) mg/dL Glucose 140 H 227 H (75-100) mg/dL Calcium 8.9 8.5 (8.4-10.2) mg/dL Assessment and Plan Chest pain, atypical chest CT scan is suggestive of underlying cirrhosis. There is no evidence of pulmonary embolism. normal coronaries by [facility] 05/2018 Mechanical mitral valve replacement He is on Coumadin with therapeutic range of INR recommended at 2.5-3.5. Hx of heart block s/p indwelling pacemaker Hypertension Diabetes Hx of Sleep apnea Resume warfarin for medial management of mechanical MVR. Therapeutic range of INR recommended at 2.5-3.5. Otherwise, conservative cardiac management.
[2018-08-28] MEDS ORDERED: LOVENOX SUB-Q SCH ×2 (10:00)
--- NOTE | 2018-08-28 11:15 | Vascular Lab Report ---
FINAL REPORT EXAM: VL CAROTID DUPLEX BILAT HISTORY: syncope TECHNIQUE: Carotid ultrasound. Degree of carotid stenosis calculated by indirect methods via the pea k systolic velocities of the ICA and CCA and reference with the society of Radiologist and Ultrasound consensus conference radiology 2003. PRIORS: None currently available. FINDINGS: RIGHT CCA, ICA, and ECA (cm/s): 118, 119, and 111. LEFT CCA, ICA, and ECA (cm/s): 94, 130, and 76. There is plaque in both carotids. Both vertebral arteries demonstrate antegrade flow. Normal spectral rhythm is identified. IMPRESSION: No hemodynamically significant (> 50%) stenosis noted based on the ratios, velocities, and color D oppler images.
--- NOTE | 2018-08-28 12:20 | Progress Note ---
Assessment and Plan Chest pain, atypical, likely from GERD - conservative mx per cardiology - chest CT scan is suggestive of underlying cirrhosis. There is no evidence of pulmonary embolism. - normal coronaries by [facility] 05/2018 Dyspnea on exertion, multifactorial, - likely from untreated sleep apnea vs Cor-pulmonale - Echocardiogram this admission reports dilated right heart chambers with moderate to severe pulmonary hypertension, PASP 62mmHg. Findings consistent with cor-pulmonale. Normal left ventricular systolic function, ejection fraction 55- 60%. - will follow up with pulmonary outpt hepatic cirrhosis, likely from right heart failure, hepatitis pannel outpt CHF with RHF, outpt follow up hypertension, stable on home meds diabetes type 2, cont SSI Hx of heart block, s/p indwelling pacemaker h/o mechanical valve - cont coumadon, INR goal 2.5-3.5 - INR suntherapeutic today DVT prophylaxis, coumadin Disposition: home when INR therapeutic brief History: 62 y/o male with h/o mitral valve disease and is status post mechanical mitral valve replacement, heart block, and has an indwelling cardiac pacemaker, anticoa gulated on coumadin presented with complaints of chest pain, shortness of breath and headaches. Chest x-ray reports cardiomegaly with mild heart failure. Chest CT scan is suggestive of underlying cirrhosis. There is no evidence of pulmonary embolism. Cardiac enzymes are normal and his ECG shows a ventricular paced rhythm. Just 3 months ago patient underwent a cardiac cath that revealed normal coronaries. Left ventricular ejection fraction was not documented. cardiology is consulted for further recommendation. He has an INR of 2.16 on presentation. Subjective Date of service: 08/28/18 Interval history: Pt seen and examined tolerating diet, no acute issue denies any chest pain now Objective - Constitutional Vitals: Vital Signs - 12hr 08/28/18 08/28/18 08/28/18 02:23 03:10 03:40 Temperature Pulse Rate Pulse Rate [ 80 Right Radial] Respiratory 17 18 18 Rate Respiratory 18 Rate [ Generalized] Blood Pressure O2 Sat by Pulse Oximetry 08/28/18 08/28/18 04:26 07:46 Temperature 98.0 F 97.8 F Pulse Rate 71 71 Pulse Rate [ Right Radial] Respiratory 18 16 Rate Respiratory Rate [ Generalized] Blood Pressure 129/53 118/51 O2 Sat by Pulse 97 100 Oximetry General appearance: Present: no acute distress, well-nourished - EENT Eyes: PERRL, EOM intact ENT: hearing intact, clear oral mucosa Ears: bilateral: normal - Neck Neck: supple, normal ROM - Respiratory Respiratory effort: normal Respiratory: bilateral: CTA - Cardiovascular Rhythm: regular Heart Sounds: Present: S1 & S2. Absent: gallop, rub Extremities: pulses intact, No edema, normal color, Full ROM - Gastrointestinal General gastrointestinal: Present: soft, non-tender, non-distended, normal bowel sounds - Integumentary Integumentary: clear, warm, dry - Musculoskeletal Musculoskeletal: 1, strength equal bilaterally - Neurologic Neurologic: moves all extremities - Psychiatric Psychiatric: memory intact, appropriate mood/affect, intact judgment & insight - Labs CBC & Chem 7: 08/28/18 04:43 08/29/18 04:20 Labs: Abnormal lab results 08/27/18 08/27/18 08/27/18 Range/Units 18:04 18:04 18:04 WBC (4.5-11.0) K/mm3 Hgb 10.0 L (11.8-15.2) gm/dl Hct 30.7 L (35.5-45.6) % MCV 76 L (84-94) fl MCH 25 L (28-32) pg RDW 21.3 H (13.2-15.2) % Monocytes % (Manual) 11.0 H (0.0-7.3) % Lymphocytes # (Manual) (1.2-5.4) K/mm3 PT 25.6 H (12.2-14.9) Sec. INR 2.16 H (0.87-1.13) APTT 43.8 H (24.2-36.6) Sec. Glucose 140 H (75-100) mg/dL Troponin T (0.00-0.029) ng/mL 08/27/18 08/28/18 08/28/18 Range/Units 23:19 04:43 04:43 WBC 4.2 L (4.5-11.0) K/mm3 Hgb 9.7 L (11.8-15.2) gm/dl Hct 30.2 L (35.5-45.6) % MCV 77 L (84-94) fl MCH 25 L (28-32) pg RDW 20.1 H (13.2-15.2) % Monocytes % (Manual) (0.0-7.3) % Lymphocytes # (Manual) 1.0 L (1.2-5.4) K/mm3 PT (12.2-14.9) Sec. INR (0.87-1.13) APTT (24.2-36.6) Sec. Glucose 227 H (75-100) mg/dL Troponin T 0.035 H D (0.00-0.029) ng/mL 08/28/18 Range/Units 04:43 WBC (4.5-11.0) K/mm3 Hgb (11.8-15.2) gm/dl Hct (35.5-45.6) % MCV (84-94) fl MCH (28-32) pg RDW (13.2-15.2) % Monocytes % (Manual) (0.0-7.3) % Lymphocytes # (Manual) (1.2-5.4) K/mm3 PT 24.2 H (12.2-14.9) Sec. INR 2.02 H (0.87-1.13) APTT 41.9 H (24.2-36.6) Sec. Glucose (75-100) mg/dL Troponin T (0.00-0.029) ng/mL
[2018-08-28] MEDS ORDERED: NON-FORMULARY (Esomeprazole Magnesium [Nexium] 40 MG) PO SCH (16:45)
[2018-08-28] MEDS ORDERED: NON-FORMULARY (Colchicine [Colchicine] 0.6 MG) PO SCH (16:45)
[2018-08-28] MEDS ORDERED: COUMADIN PO SCH (17:00)
[2018-08-28] MEDS: VALIUM PO SCH (17:34)
[2018-08-28] MEDS: NEURONTIN PO SCH (21:17)
[2018-08-28] MEDS ORDERED: LANTUS SUB-Q SCH (22:00)
[2018-08-28] MEDS ORDERED: NON-FORMULARY (Insulin Glargine,Hum.Rec.Anlog [Lantus Solostar] 20 UNITS) SQ SCH (22:00)
[2018-08-28] MEDS ORDERED: AMBIEN PO PRN (22:08)
[2018-08-29 05:39] LABS: INR 2.57 (0.87-1.13)
[2018-08-29 05:51] LABS: BUN/Creatinine Ratio 11; Blood Urea Nitrogen 9 mg/dL (9-20); Calcium 8.5 mg/dL (8.4-10.2); Hemolysis Index 0
[2018-08-29] MEDS ORDERED: INSULIN ASPART 10 UNIT SQ SCH (07:30)
[2018-08-29] MEDS: HumaLOG SUB-Q SCH ×2 (08:19→12:59)
[2018-08-29] MEDS: NEURONTIN PO SCH ×2 (08:20→13:00)
[2018-08-29 08:37] VITALS: BP 122/59
[2018-08-29] MEDS: VALIUM PO SCH (09:22)
[2018-08-29] MEDS: SODIUM CHLORIDE FLUSH SYRINGE 10 ML IV SCH (09:23)
[2018-08-29] MEDS: MORPHINE IV PRN (09:29)
--- NOTE | 2018-08-29 09:31 | Progress Note ---
Assessment and Plan Shortness of breath, multifactorial untreated sleep apnea Cor-pulmonale Chest pain, atypical chest CT scan is suggestive of underlying cirrhosis. There is no evidence of pulmonary embolism. normal coronaries by [facility] 05/2018 Mechanical mitral valve replacement He is on Coumadin with therapeutic range of INR recommended at 2.5-3.5. Hx of heart block s/p indwelling pacemaker Hypertension Diabetes Echocardiogram this admission reports dilated right heart chambers with moderate to severe pulmonary hypertension, PASP 62mmHg. Findings consistent with cor- pulmonale. Normal left ventricular systolic function, ejection fraction 55-60%. Continue medial management of mechanical MVR. Therapeutic range of INR recommended at 2.5-3.5. Otherwise, conservative cardiac management. Subjective Date of service: 08/29/18 Interval history: Patient reports his breathing is better. He denies chest pain. Objective Vital Signs Temp Pulse Resp Resp BP Pulse Ox 08/29/18 08:36 98.1 F 08/29/18 08:35 70 18 122/59 100 08/29/18 04:16 97.9 F 70 19 116/55 97 08/28/18 23:40 98.1 F 65 12 131/47 97 08/28/18 23:00 70 08/28/18 22:00 20 08/28/18 21:16 20 08/28/18 19:22 98.1 F 70 12 123/58 99 08/28/18 15:16 98.0 F 70 16 122/49 99 - Physical Examination General: No Apparent Distress HEENT: Positive: PERRL Cardiac: Positive: Reg Rate and Rhythm Lungs: Positive: Decreased Breath Sounds - Labs and Meds Coagulation 08/29/18 Range/Units 04:20 PT 29.4 H (12.2-14.9) Sec. INR 2.57 H (0.87-1.13) Comprehensive Metabolic Panel 08/29/18 Range/Units 04:20 Sodium 140 (137-145) mmol/L Potassium 3.7 (3.6-5.0) mmol/L Chloride 101.7 (98-107) mmol/L Carbon Dioxide 29 (22-30) mmol/L BUN 9 (9-20) mg/dL Creatinine 0.8 (0.8-1.5) mg/dL Glucose 196 H (75-100) mg/dL Calcium 8.5 (8.4-10.2) mg/dL
[2018-08-29] MEDS ORDERED: COLCHICINE PO SCH (10:00)
[2018-08-29] MEDS ORDERED: PROTONIX PO SCH (10:00)
--- NOTE | 2018-08-29 12:17 | Discharge Summary ---
Providers - Providers Date of Admission: 08/29/18 10:16 Date of discharge: 08/29/18 Attending physician: JORGITO MCCORMACK 08/27/18 17:53 Consult to Physician [CONS] Urgent Comment: Consulting Provider: SHOSHANA HAMPTON Physician Instructions: Reason For Exam: cp syncop Primary care physician: [facility], Hospitalization Reason for admission: chest pain Condition: Stable Pertinent studies: Chest CTA 2d echo CXR head CT abdomen/pelvis CT Hospital course: brief History: 62 y/o male with h/o mitral valve disease and is status post mechanical mitral valve replacement, heart block, and has an indwelling cardiac pacemaker, anticoagulated on coumadin presented with complaints of chest pain, shortness of breath and headaches. Chest x-ray reports cardiomegaly with mild heart failure. Chest CT scan is suggestive of underlying cirrhosis. There is no evidence of pulmonary embolism. Cardiac enzymes are normal and his ECG shows a ventricular paced rhythm. Just 3 months ago patient underwent a cardiac cath that revealed normal coronaries. Left ventricular ejection fraction was not documented. He had an INR of 2.16 on presentation. Patient was admitted for further management, Cardiology was consulted for further recommendation. Discharge diagnosis and management: Chest pain, atypical, likely from GERD - conservative mx per cardiology - chest CT scan is suggestive of underlying cirrhosis. There is no evidence of pulmonary embolism. - normal coronaries by [facility] 05/2018 Dyspnea on exertion, multifactorial, - likely from untreated sleep apnea vs Cor-pulmonale - Echocardiogram this admission reports dilated right heart chambers with moderate to severe pulmonary hypertension, PASP 62mmHg. Findings consistent with cor-pulmonale. Normal left ventricular systolic function, ejection fraction 55- 60%. - Patient will follow up with pulmonary outpt, sleep study outpt hepatic cirrhosis, likely from right heart failure, hepatitis panel outpt CHF with RHF, outpt follow up hypertension, stable on home meds diabetes type 2, cont SSI Hx of heart block, s/p indwelling pacemaker h/o mechanical valve - cont coumadon, INR goal 2.5-3.5 - INR therapeutic on discharge DVT prophylaxis, coumadin Disposition: home Disposition: [id number] HOME UNDER HOME HL Time spent for discharge: 34 minutes Core Measure Documentation - Palliative Care Palliative Care/ Comfort Measures: Not Applicable - Core Measures Any of the following diagnoses?: history only Exam - Physical Exam Narrative exam: General appearance: Present: no acute distress, well-nourished - EENT Eyes: PERRL, EOM intact ENT: hearing intact, clear oral mucosa Ears: bilateral: normal - Neck Neck: supple, normal ROM - Respiratory Respiratory effort: normal Respiratory: bilateral: CTA - Cardiovascular Rhythm: regular Heart Sounds: Present: S1 & S2. Absent: gallop, rub Extremities: pulses intact, No edema, normal color, Full ROM - Gastrointestinal General gastrointestinal: Present: soft, non-tender, non-distended, normal bowel sounds - Integumentary Integumentary: clear, warm, dry - Musculoskeletal Musculoskeletal: 1, strength equal bilaterally - Neurologic Neurologic: moves all extremities - Psychiatric Psychiatric: memory intact, appropriate mood/affect, intact judgment & insight - Constitutional Vitals: Temp Pulse Resp BP Pulse Ox 98.1 F 70 18 122/59 100 08/29/18 08:36 08/29/18 08:35 08/29/18 08:35 08/29/18 08:35 08/29/18 08:35 Plan Activity: advance as tolerated Weight Bearing Status: Non-Weight Bearing Diet: low fat, low salt Additional Instructions: Out f/u for sleep study to pulmonology clinic. need hepatitis pannel outpt Follow up with: OSWALDO SHARP MD [Primary Care Provider] - 3-5 Days FRANKLIN HORTA MD [Staff Physician] - 7 Days Forms: Warfarin Discharge Instruction Prescriptions: Ciprofloxacin HCl [Ciprofloxacin TAB] 500 mg PO Q12HR #10 tab
[2018-08-29] MEDS ORDERED: COUMADIN PO SCH (17:00)
[2018-09-02] MEDS ORDERED: COUMADIN PO SCH (17:00)
== END 2018-08-29 15:31 | disposition home health service (06) | DRG 392 ==
LOC: ED 17:12 → INTOOBSV 22:57 → 4A 22:57 → OBSVTOIN 08-29 10:16
PROVIDERS: ADMIT Internal Medicine; ATTEND Internal Medicine
DX: K21.9 Gastro-esophageal reflux disease without esophagitis (principal); N39.0 Urinary tract infection, site not specified; E11.9 Type 2 diabetes mellitus without complications; K74.60 Unspecified cirrhosis of liver; I50.9 Heart failure, unspecified; I11.0 Hypertensive heart disease with heart failure; I48.91 Unspecified atrial fibrillation; N40.0 Benign prostatic hyperplasia without lower urinary tract symptoms; G47.30 Sleep apnea, unspecified; I27.20 Pulmonary hypertension, unspecified; Z88.2 Allergy status to sulfonamides; Z95.0 Presence of cardiac pacemaker; Z95.1 Presence of aortocoronary bypass graft; Z95.2 Presence of prosthetic heart valve; Z79.4 Long term (current) use of insulin; Z88.8 Allergy status to other drugs, medicaments and biological substances
CPT/HCPCS: 36415; 70450; 71045; 71275; 74177; 80048; 80061; 81001; 82140; 82550; 82553; 82962; 83735; 84484; 85007; 85025; 85610; 85730; 87040; 87076; 87086; 87186; 87400; 93005; 93010; 93306; 93880; G0378; J0696; J1650; J1815; J2270; J2405; Q9967

== ENCOUNTER 2018-10-30 18:58 | Inpatient (IN) | payer MEDICARE ==
[2018-10-30] MEDS ORDERED: ASPIRIN PO ONE (19:46)
--- NOTE | 2018-10-30 20:19 | Emergency Department Report ---
ED Chest Pain HPI - General Chief Complaint: Chest Pain Stated Complaint: CHEST PAIN Time Seen by Provider: 10/30/18 19:54 Source: patient, EMS Mode of arrival: Stretcher Limitations: No Limitations - History of Present Illness Initial Comments: Patient is 63 years old male with history of hypertension, congestive heart failure. Patient brought to the emergency room via EMS from patient a primary care physician office. Patient is complaining of chest pain and shortness of breath. Patient described his chest pain as heaviness, left sided is no rad iation. Pain associated with shortness of breath. Patient has stated that she stopped taking his Lasix for the last 5 days. Patient denied any fever or chills. No cough. Patient had a cardiac cath in 05/2018 with no evidence of obstructive coronary artery disease. MD Complaint: chest pain Onset: during rest Pain Location: left chest Severity scale (0 -10): 6 Quality: heaviness - Related Data Home Medications Medication Instructions Recorded Confirmed Last Taken ALBUTEROL Inhaler (OR & NICU) 2 puff IH QID PRN 09/30/13 08/27/18 10/28/13 [ProAir HFA Inhaler] Furosemide [Lasix TAB] 80 mg PO BID 09/30/13 08/27/18 09/10/14 Insulin Aspart [NovoLOG 100 10 unit SQ QAC 09/30/13 08/27/18 09/09/14 UNITS/ML VIAL] Esomeprazole Magnesium [NexIUM] 40 mg PO DAILY 10/29/13 08/27/18 10/28/13 Gabapentin 1 cap PO TID 09/04/14 08/27/18 09/11/14 Sennosides/Docusate Sodium [Cvs 1 tab PO DAILY 09/04/14 08/27/18 08/10/09 Stool Softener-Laxative Tb] diazePAM TAB [Valium] 5 tab PO DAILY 09/04/14 08/27/18 08/27/14 Previous Rx's Medication Instructions Recorded Last Taken Type Acetaminophen [Tylenol Arthritis] 650 mg PO Q8H PRN #60 tablet.er 09/03/16 Unknown Rx guaiFENesin/CODEINE [Robitussin AC] 5 ml PO Q6H PRN #4 oz 09/03/16 Unknown Rx Aspirin EC [Aspirin Enteric Coated 81 mg PO QDAY #30 tablet. 05/12/18 Unknown Rx TAB] Colchicine 0.6 mg PO DAILY #15 powder 05/12/18 Unknown Rx Ipratropium (Nf) [Atrovent HFA 2 puff IH Q6HR PRN #10 inha 05/12/18 Unknown Rx 17MCG/PUFF] Nitroglycerin [Nitrostat] 0.4 mg SL Q5M PRN #30 tablet 05/12/18 Unknown Rx Potassium Chloride 20 meq PO BID #60 packet 05/12/18 Unknown Rx Ranolazine [Ranexa] 500 mg PO BID #60 tab.er.12h 05/12/18 Unknown Rx Tamsulosin [Flomax] 0.4 mg PO QDAY #30 capsule 05/12/18 Unknown Rx Warfarin [Coumadin] 2.5 mg PO DAILY@1700 tablet 05/12/18 Unknown Rx Warfarin [Coumadin] 5 mg PO QDAY #30 tablet 05/12/18 Unknown Rx Zolpidem [Ambien] 5 mg PO QHS PRN tablet 05/12/18 Unknown Rx HYDROcodone/APAP 5-325 [Mousie 1 each PO Q6HR PRN #10 tablet 05/16/18 Unknown Rx 5-325 mg TAB] Insulin Glargine,Hum.rec.anlog 20 units SQ QHS #1 pen 05/16/18 Unknown Rx [Lantus Solostar] Ciprofloxacin HCl [Ciprofloxacin 500 mg PO Q12HR #10 tab 08/29/18 Unknown Rx TAB] Allergies Allergy/AdvReac Type Severity Reaction Status Date / Time propoxyphene napsylate Allergy Intermediate Rash Verified 09/04/14 14:39 [From Darvocet-N 100] Sulfa (Sulfonamide Allergy Intermediate Rash Verified 09/04/14 14:39 Antibiotics) Heart Score - HEART Score History: Moderately suspicious EKG: Non-specific Age: 45-65 Risk factors: > 3 risk factors or hx of atherosclerotic disease Troponin: < normal limit HEART Score: 5 - Critical Actions Critical Actions: 4-6 pts:12-16.6% risk of adverse cardiac event. Should be admitted ED Review of Systems ROS: Stated complaint: CHEST PAIN Other details as noted in HPI Comment: All other systems reviewed and negative Constitutional: denies: chills, fever Respiratory: orthopnea, shortness of breath, SOB with exertion, SOB at rest. denies: cough Cardiovascular: chest pain. denies: palpitations, dyspnea on exertion, orth opnea Gastrointestinal: denies: abdominal pain, nausea, vomiting, diarrhea, constipation, hematemesis, melena, hematochezia Genitourinary: denies: urgency, dysuria Musculoskeletal: denies: back pain Neurological: weakness (generalized). denies: headache, numbness, paresthesias, confusion, abnormal gait ED Past Medical Hx - Past Medical History Hx Hypertension: Yes Hx Heart Attack/AMI: No Hx Congestive Heart Failure: Yes Hx Diabetes: Yes Hx Deep Vein Thrombosis: No Hx Pulmonary Embolism: No Hx Liver Disease: No Hx Sickle Cell Disease: No Hx Arthritis: No Hx Asthma: No Hx COPD: Yes (Home O2 2L NC) Hx Tuberculosis: No Hx HIV: No Additional medical history: high cholesterol, paraplegic, bronchitis, A Fib - Surgical History Hx Coronary Stent: No Hx Open Heart Surgery: Yes Hx Pacemaker: Yes Hx Internal Defibrillator: No Additional Surgical History: Mitral valve replacement (mechanical), left ankle surgery - Social History Smoking Status: Never Smoker Substance Use Type: None - Medications Home Medications: Home Medications Medication Instructions Recorded Confirmed Last Taken Type ALBUTEROL Inhaler (OR & NICU) 2 puff IH QID PRN 09/30/13 08/27/18 10/28/13 History [ProAir HFA Inhaler] Furosemide [Lasix TAB] 80 mg PO BID 09/30/13 08/27/18 09/10/14 History Insulin Aspart [NovoLOG 100 10 unit SQ QAC 09/30/13 08/27/18 09/09/14 History UNITS/ML VIAL] Esomeprazole Magnesium [NexIUM] 40 mg PO DAILY 10/29/13 08/27/18 10/28/13 H istory Gabapentin 1 cap PO TID 09/04/14 08/27/18 09/11/14 History Sennosides/Docusate Sodium [Cvs 1 tab PO DAILY 09/04/14 08/27/18 08/10/09 History Stool Softener-Laxative Tb] diazePAM TAB [Valium] 5 tab PO DAILY 09/04/14 08/27/18 08/27/14 History Acetaminophen [Tylenol Arthritis] 650 mg PO Q8H PRN #60 tablet.er 09/03/16 08/27/18 Unknown Rx guaiFENesin/CODEINE [Robitussin AC] 5 ml PO Q6H PRN #4 oz 09/03/16 08/27/18 Unknown Rx Aspirin EC [Aspirin Enteric Coated 81 mg PO QDAY #30 tablet.dr 05/12/18 08/27/18 Unknown Rx TAB] Colchicine 0.6 mg PO DAILY #15 powder 05/12/18 08/27/18 Unknown Rx Ipratropium (Nf) [Atrovent HFA 2 puff IH Q6HR PRN #10 inha 05/12/18 08/27/18 U nknown Rx 17MCG/PUFF] Nitroglycerin [Nitrostat] 0.4 mg SL Q5M PRN #30 tablet 05/12/18 08/27/18 Unknown Rx Potassium Chloride 20 meq PO BID #60 packet 05/12/18 08/27/18 Unknown Rx Ranolazine [Ranexa] 500 mg PO BID #60 tab.er.12h 05/12/18 08/27/18 Unknown Rx Tamsulosin [Flomax] 0.4 mg PO QDAY #30 capsule 05/12/18 08/27/18 Unknown Rx Warfarin [Coumadin] 2.5 mg PO DAILY@1700 tablet 05/12/18 08/27/18 Unknown Rx Warfarin [Coumadin] 5 mg PO QDAY #30 tablet 05/12/18 08/27/18 Unknown Rx Zolpidem [Ambien] 5 mg PO QHS PRN tablet 05/12/18 08/27/18 Unknown Rx HYDROcodone/APAP 5-325 [Mousie 1 each PO Q6HR PRN #10 tablet 05/16/18 08/27/18 Unknown Rx 5-325 mg TAB] Insulin Glargine,Hum.rec.anlog 20 units SQ QHS #1 pen 05/16/18 08/27/18 Unknown Rx [Lantus Solostar] Ciprofloxacin HCl [Ciprofloxacin 500 mg PO Q12HR #10 tab 08/29/18 Unknown Rx TAB] ED Physical Exam - General Limitations: No Limitations General appearance: alert, in no apparent distress - Head Head exam: Present: atraumatic, normocephalic, normal inspection - Eye Eye exam: Present: normal appearance, PERRL - ENT ENT exam: Present: normal exam, normal orophraynx, mucous membranes moist - Neck Neck exam: Present: normal inspection, full ROM. Absent: tenderness, meningismus - Respiratory Respiratory exam: Present: normal lung sounds bilaterally, rales. Absent: wheezes, rhonchi, stridor, accessory muscle use, decreased breath sounds, prolonged expiratory - Cardiovascular Cardiovascular Exam: Present: regular rate, normal rhythm, normal heart sounds - GI/Abdominal GI/Abdominal exam: Present: soft, normal bowel sounds. Absent: distended, tenderness, guarding, rebound, rigid, mass, bruit, pulsatile mass - Extremities Exam Extremities exam: Present: normal inspection, full ROM, normal capillary refill, pedal edema - Back Exam Back exam: Present: normal inspection, full ROM. Absent: CVA tenderness (R), CVA tenderness (L), muscle spasm - Neurological Exam Neurological exam: Present: alert, oriented X3, CN II-XII intact - Skin Skin exam: Present: warm, intact, normal color ED Course Vital Signs 10/30/18 10/30/18 10/30/18 19:42 19:47 22:12 Temperature 98 F 98 F Pulse Rate 70 70 77 Respiratory 20 20 13 Rate Blood Pressure 140/71 Blood Pressure 140/71 142/71 [Right] O2 Sat by Pulse 99 99 98 Oximetry - Consultations Consultation #1: 10/30/18 21:03 I discussed the patient is Dr. Valderrama, he stated that he will follow-up with the patient in the hospital. WILLIS score - Willis Score Age > 65: (0) No Aspirin use within the Past 7 Days: (1) Yes 3 or more CAD Risk Factors: (1) Yes 2 or more Angina events in past 24 hrs: (1) Yes Known CAD with more than 50% Stenosis: (0) No Elevated Cardiac Markers: (0) No ST Deviation Greater than 0.5mm: (0) No WILLIS Score: 3 ED Medical Decision Making - Lab Data Result diagrams: 10/30/18 19:52 10/30/18 19:52 - EKG Data -: EKG Interpreted by Me EKG shows normal: sinus rhythm Rate: normal - EKG Data Interpretation: no acute changes - Radiology Data Radiology results: report reviewed Referring Physician: AMERICA RAGLAND Patient Name: CHARLIE COBURN Date of : 1955 Sex: Male Report Date: 2018-10-30 Report Status: Finalized Findings [facility] [address] [place] [address] XRay Report Signed Patient: CHARLIE COBURN MR#: [id number] : 1955 Acct:[id number] Age/Sex: 63 / M ADM Date: 10/30/18 Loc: ED Attending Dr: Ordering Physician: AMERICA RAGLAND Date of Service: 10/30/18 Procedure(s): XR chest 1V ap Accession Number(s): [id number] cc: AMERICA RAGLAND Fluoro Time In Minutes: PROCEDURE: XR CHEST 1V AP TECHNIQUE: Chest radiograph single view. HISTORY: Chest Pain COMPARISONS: May 16, 2018. CT chest May 10 2018 . FINDINGS: Heart: Cardiac silhouette is enlarged.There is evidence of a prosthetic cardiac valve. Mediastinum/Vessels: Sternal sutures and surgical clips are identified. There is evidence of mediastinal widening. Lungs/Pleural space: Lungs are hyperinflated. There are no confluent infiltrates or mass lesions. Pleural spaces are clear.. Bony thorax: No acute osseous abnormality. Life support devices: A bipolar cardiac device is noted on the left side. . IMPRESSION: COPD No acute pulmonary process Widening of the superior mediastinum and enlarged cardiac shadow are consistent with mediastinal lipomatosis as seen on prior CT chest. . This document is electronically signed by Niru Goode MD., October 30 2018 08:31:57 PM ET Transcribed By: [facility] [place] Dictated By: NIRU GOODE Electronically Authenticated By: NIRU GOODE Signed Date/Time: 10/30/182033 DD/ 11 TD/TT: 10/30/182011 - Medical Decision Making Patient is 63 years old male with history of hypertension, congestive heart failure. Patient brought to the emergency room via EMS from patient a primary care physician office. Patient is complaining of chest pain and shortness of breath. Patient described his chest pain as heaviness, left sided is no radiation. Pain associated with shortness of breath. Patient has stated that she stopped taking his Lasix for the last 5 days. Patient denied any fever or chills. No cough. Patient had a cardiac cath in 05/2018 with no evidence of obstructive coronary artery disease. EKG did not show any ST elevation. First set of troponin is slightly elevated at 0.04. I discussed the patient is Dr. Valderrama from cardiology. I also discuss ed the patient is Dr. Vang, he agreed to admit the patient to medical service. Critical Care Time: Yes Critical care time in (mins) excluding proc time.: 30 Critical care attestation.: If time is entered above; I have spent that time in minutes in the direct care of this critically ill patient, excluding procedure time. ED Disposition Clinical Impression: Acute chest pain, Elevated troponin, CHF exacerbation Disposition: OP ADMIT IP TO THIS HOSP Is pt being admited?: Yes Condition: Stable Instructions: Chest Pain (ED) Referrals: SHRUTHI HERCULES MD [Primary Care Provider] - 3-5 Days
[2018-10-30 20:21] LABS: Hemoglobin 9.9 gm/dl (11.8-15.2); Mean Corpuscular HGB Conc 32 % (32-34); Mean Corpuscular Volume 76 fl (84-94); Red Blood Count 4.07 M/mm3 (3.65-5.03)
[2018-10-30 20:22] LABS: INR 2.2 (0.87-1.13)
[2018-10-30 20:23] LABS: Partial Thromboplastin Time 45.6 Sec. (24.2-36.6)
[2018-10-30 20:25] LABS: Platelet Count 172 K/mm3 (140-440); Red Cell Distribution Width 20.7 % (13.2-15.2)
[2018-10-30 20:29] LABS: BUN/Creatinine Ratio 10; Blood Urea Nitrogen 11 mg/dL (9-20); Calcium 8.9 mg/dL (8.4-10.2); Hemolysis Index 13
--- NOTE | 2018-10-30 20:34 | XRay Report ---
PROCEDURE: XR CHEST 1V AP TECHNIQUE: Chest radiograph single view. HISTORY: Chest Pain COMPARISONS: May 16, 2018. CT chest May 10 2018 . FINDINGS: Heart: Cardiac silhouette is enlarged.There is evidence of a prosthetic cardiac valve. Mediastinum/Vessels: Sternal sutures and surgical clips are identified. There is evidence of mediasti nal widening. Lungs/Pleural space: Lungs are hyperinflated. There are no confluent infiltrates or mass lesions. Pl eural spaces are clear.. Bony thorax: No acute osseous abnormality. Life support devices: A bipolar cardiac device is noted on the left side. . IMPRESSION: COPD No acute pulmonary process Widening of the superior mediastinum and enlarged cardiac shadow are consistent with mediastinal lipo matosis as seen on prior CT chest. . This document is electronically signed by Jason Goode MD., October 30 2018 08:31:57 PM ET
[2018-10-30] MEDS ORDERED: LASIX IV ONE (20:43)
[2018-10-30] MEDS ORDERED: MORPHINE IV ONE (20:43)
[2018-10-30] MEDS ORDERED: ZOFRAN IV ONE (20:44)
[2018-10-30 20:52] LABS: Chol/HDL Ratio 3.03 %; HDL Cholesterol 33 mg/dL (40-59); LDL Cholesterol,Direct 66 mg/dL (50-130)
[2018-10-30 21:44] LABS: Anisocytosis 1+; Basophils % (Manual) 0 % (0.0-1.8); Total Cells Counted 100
[2018-10-30 21:45] LABS: Hypochromasia 1+; Schistocytes 1+; Tear Drop Cells 1+
[2018-10-30 21:46] LABS: Platelet Estimate Consistent w Auto
[2018-10-30] MEDS ORDERED: HEPARIN SUB-Q SCH (23:30)
[2018-10-30] MEDS ORDERED: NITROSTAT SL PRN (23:32)
[2018-10-30] MEDS ORDERED: ZOFRAN IV PRN (23:33)
[2018-10-30] MEDS ORDERED: TYLENOL PO PRN (23:34)
[2018-10-30] MEDS ORDERED: PROVENTIL IH PRN (23:39)
[2018-10-30] MEDS ORDERED: HEPARIN ONE (23:54)
[2018-10-31] MEDS ORDERED: MORPHINE ONE (00:07)
[2018-10-31] MEDS: MORPHINE IV PRN ×5 (00:08→22:35)
[2018-10-31 01:20] LABS: Creatine Kinase MB 3.1 ng/mL (0.0-4.0)
[2018-10-31] MEDS ORDERED: D50W (25GM) Syringe IV PRN (04:51)
[2018-10-31] MEDS: NITRO-BID 2% TP SCH ×4 (06:04→17:55)
[2018-10-31] MEDS: HumuLIN R SUB-Q SCH ×5 (06:29→22:35)
--- NOTE | 2018-10-31 09:07 | History and Physical Report ---
CHIEF COMPLAINT: Chest pain. HISTORY OF PRESENT ILLNESS: The patient is a 63-year-old male, who presented to the Emergency Room because of chest pain and shortness of breath. The patient described the chest pain as heaviness and located in the precordial area, was associated with shortness of breath. There was no history of fever or chills. No history of cough. Also there was no history of nausea or vomiting. The patient presented for evaluation. PAST MEDICAL HISTORY: Pertinent for hypertension, congestive heart failure, diabetes mellitus, COPD, home O2 dependent, high cholesterol, paraplegia, bronchitis, and atrial fibrillation. PAST SURGICAL HISTORY: Pertinent for open heart surgery, pacemaker placement, and mitral valve replacement, mechanical valve. Also the patient has left ankle surgery and had cardiac catheterization in 05/2018 with no evidence of blockage seen. FAMILY HISTORY: Noncontributory. SOCIAL HISTORY: The patient does not smoke, does not drink alcohol, and does not use illicit drug. MEDICATIONS: The patient is on albuterol inhaler 2 puffs q.i.d., Lasix 80 mg by mouth twice daily, insulin Aspart 10 units subcutaneously a.c., Nexium 40 mg by mouth daily, gabapentin 1 capsule by mouth 3 times daily, stool softener 1 by mouth daily, diazepam 5 mg by mouth daily, Tylenol 650 mg by mouth every 8 hours as needed for pain and fever, Robitussin-AC 5 mL by mouth every 6 hours as needed for cough. The patient is also on aspirin 81 mg by mouth daily, colchicine 0.6 mg by mouth daily, ipratropium inhaler 2 puffs every 6 hours, Nitrostat 0.4 mg sublingual every 5 minutes as needed for pain, potassium chloride 20 mEq by mouth twice daily, Ranexa 500 mg by mouth twice daily, tamsulosin 0.4 mg by mouth daily, Coumadin 2.5 mg by mouth daily and 5 mg on some days, Ambien 5 mg by mouth at bedtime, Braggs, hydrocodone/APAP 5/325 mg one by mouth every 6 hours as needed for pain. The patient is also on Lantus insulin 20 units subcutaneously at bedtime, and ciprofloxacin 500 mg, he is on ____ the patient is still taking the tablet. ALLERGIES: The patient is allergic to propoxyphene napsylate and sulfa drugs. REVIEW OF SYSTEMS: CONSTITUTIONAL: There is no fever, chills, or diaphoresis. HEENT: There is no headache or sore throat. CARDIOVASCULAR SYSTEM: Chest pain is present. No orthopnea. RESPIRATORY SYSTEM: Shortness of breath is present. No cough. GASTROINTESTINAL SYSTEM: There is no nausea, no vomiting. No abdominal pain, diarrhea or constipation. NEUROLOGICAL SYSTEM: There is no numbness, no dizziness, no altered mental status. MUSCULOSKELETAL SYSTEM: There is no joint pain or swelling. DERMATOLOGICAL SYSTEM: There is no skin rash or itching. GENITOURINARY SYSTEM: There is no dysuria, hematuria or flank pain. Rest of system review is normal. PHYSICAL EXAMINATION: GENERAL: At the time of exam, the patient was found to be alert, oriented x3, and not in acute distress. VITAL SIGNS: At the initial time of presentation shows temperature of 98 degrees Fahrenheit, pulse of 70, respiration 20, blood pressure 140/71, and O2 sat of 99% on room air. HEENT: Showed pupils to be equal, round, and reactive to light and accommodation. Extraocular muscles are intact. NECK: Supple with no JVD or carotid bruit. CARDIOVASCULAR SYSTEM: Showed normal first and second heart sounds, with some irregularly irregular rhythm. RESPIRATORY SYSTEM: Showed good air entry on both sides of the lungs with no abnormal breath sounds. GASTROINTESTINAL SYSTEM: Show abdomen to be full, soft, and nontender with no organomegaly or rigidity. NEUROLOGICAL: Shows no focal deficit. MUSCULOSKELETAL SYSTEM: Shows no joint swelling or tenderness. DERMATOLOGICAL SYSTEM: Shows no skin rash. GENITOURINARY SYSTEM: Showing no costovertebral angle tenderness. PERTINENT LABORATORY DATA AND IMAGING STUDIES: The patient has chest x-ray done that shows COPD picture with no acute pulmonary process. There is widening of the superior mediastinum and enlarged cardiac shadow consistent with mediastinal lipomatosis that is seen on the prior CT chest according to the radiologist. Lab results: The patient has CBC done with normal white count, low hemoglobin of 9.9 and low hematocrit 31.0. CBC differential showed elevated monocyte count of 8%. Coagulation studies show high PT of 25.9 with INR of 2.2, and PTT of 45.6, which is reflective of the patient's treatment with Coumadin. The patient's chemistry showed low blood glucose level of 60 and elevated troponin level of 0.047. The patient's brain natriuretic peptide level is normal. Rest of chemistry is unremarkable. DIAGNOSES: 1. [id number] myocardial infarction. 2. Dyspnea. PLAN OF CARE: 1. The patient will be admitted to telemetry. 2. The patient will have serial cardiac enzymes involving troponin, total CK and CK-MB checked every 6 hours x 2 more levels. 3. The patient will continue Cardiology consult with Dr. Valderrama. Requested by the Emergency Room physician and who said that Dr. Valderrama said to admit the patient and he will take the necessary action of treatment in the morning. 4. The patient will remain NPO until seen by the tool and die maker level five. 5. The patient will be on IV Lasix 40 mg daily. 6. The patient will be on IV morphine 2 mg every 3 hours as needed for pain. 7. The patient will be on IV Zofran 4 mg every 8 hours as needed for nausea and vomiting and will be on nitro paste 1 inch to anterior chest wall q.i.d. 8. The patient will also be on Nitrostat 0.4 mg sublingual every 5 minutes as needed for breakthrough chest pain. 9. The patient will be on Tylenol 650 mg by mouth every 4 hours for fever and headache. 10. The patient will be on oxygen by nasal cannula at 2 liters per minute. JOB# [id number] SHARLENEN/DASH LOWE
--- NOTE | 2018-10-31 09:17 | Consultation ---
History of Present Illness Consult date: 10/31/18 Consult reason: chest pain History of present illness: Patient is a 63 year old male who is admitted with chest pain and and volume overload thus this cardiac consultation. Patient admits he missed a day of his medications and dietary indiscretions. Patient has a cardiac history of mitral valve disease and is status post mechanical mitral valve replacement. After his mechanical mitral valve replacement, he developed heart block, and has an indwelling cardiac pacemaker. He is on Coumadin with therapeutic range of INR recommended at 2.5-3.5. He has an INR of 2.2 on presentation. Chest x-ray reports cardiomegaly but no evidence of interstitial edema. In May of 2018, he underwent a left heart cath that reports normal coronaries. An echocardiogram done 2 months ago reports dilated right heart chambers with moderate to severe pulmonary hypertension, RVSP 66 mmHg. Normal functioning mechanical mitral valve with a normal left ventricular systolic function, ejection fraction 55%. Medications and Allergies Allergies Allergy/AdvReac Type Severity Reaction Status Date / Time propoxyphene napsylate Allergy Intermediate Rash Verified 09/04/14 14:39 [From Darvocet-N 100] Sulfa (Sulfonamide Allergy Intermediate Rash Verified 09/04/14 14:39 Antibiotics) Home Medications Medication Instructions Recorded Confirmed Last Taken Type ALBUTEROL Inhaler (OR & NICU) 2 puff IH QID PRN 09/30/13 10/31/18 10/28/13 History [ProAir HFA Inhaler] Furosemide [Lasix TAB] 80 mg PO BID 09/30/13 10/31/18 10/26/18 History Insulin Aspart [NovoLOG 100 10 unit SQ QAC 09/30/13 10/31/18 09/09/14 History UNITS/ML VIAL] Esomeprazole Magnesium [NexIUM] 40 mg PO DAILY 10/29/13 10/31/18 10/30/18 10:00 History Gabapentin 1 cap PO TID 09/04/14 10/31/18 09/11/14 History Sennosides/Docusate Sodium [Cvs 1 tab PO DAILY 09/04/14 10/31/18 10/30/18 10:00 History Stool Softener-Laxative Tb] diazePAM TAB [Valium] 5 tab PO DAILY 09/04/14 10/31/18 08/27/14 History Acetaminophen [Tylenol Arthritis] 650 mg PO Q8H PRN #60 tablet.er 09/03/16 10/31/18 Unknown Rx guaiFENesin/CODEINE [Robitussin AC] 5 ml PO Q6H PRN #4 oz 09/03/16 10/31/18 Unknown Rx Aspirin EC [Aspirin Enteric Coated 81 mg PO QDAY #30 tablet. 05/12/18 10/31/18 10/29/18 10:00 Rx TAB] Colchicine 0.6 mg PO DAILY #15 powder 05/12/18 10/31/18 10/29/18 10:00 Rx Ipratropium (Nf) [Atrovent HFA 2 puff IH Q6HR PRN #10 inha 05/12/18 10/31/18 Unknown Rx 17MCG/PUFF] Nitroglycerin [Nitrostat] 0.4 mg SL Q5M PRN #30 tablet 05/12/18 10/31/18 10/30/18 10:00 Rx Potassium Chloride 20 meq PO BID #60 packet 05/12/18 10/31/18 10/30/18 10:00 Rx Ranolazine [Ranexa] 500 mg PO BID #60 tab.er.12h 05/12/18 10/31/18 10/30/18 10:00 Rx Tamsulosin [Flomax] 0.4 mg PO QDAY #30 capsule 05/12/18 10/31/18 10/30/18 Rx Warfarin [Coumadin] 2.5 mg PO DAILY@1700 tablet 05/12/18 10/31/18 10/30/18 14:00 Rx Warfarin [Coumadin] 5 mg PO QDAY #30 tablet 05/12/18 10/31/18 10/30/18 14:00 Rx Zolpidem [Ambien] 5 mg PO QHS PRN tablet 05/12/18 10/31/18 10/29/18 22:00 Rx HYDROcodone/APAP 5-325 [[place] 1 each PO Q6HR PRN #10 tablet 05/16/18 10/31/18 10/29/18 21:00 Rx 5-325 mg TAB] Insulin Glargine,Hum.rec.anlog 20 units SQ QHS #1 pen 05/16/18 10/31/18 Unknown Rx [Lantus Solostar] Ciprofloxacin HCl [Ciprofloxacin 500 mg PO Q12HR #10 tab 08/29/18 10/31/18 10/30/18 Rx TAB] Active Meds: Active Medications Acetaminophen (Tylenol) 650 mg PO Q4H PRN PRN Reason: Headache Albuterol (Proventil) 2.5 mg IH Q6HRT PRN PRN Reason: Shortness Of Breath Dextrose (D50w (25gm) Syringe) 50 ml IV PRN PRN PRN Reason: Hypoglycemia Last Admin: 10/31/18 06:36 Dose: 50 ml Documented by: Furosemide (Lasix) 40 mg IV QDAY [facility] Insulin Human Regular (Humulin R) 0 units SUB-Q Q4HR [facility]; Protocol Last Admin: 10/31/18 06:29 Dose: Not Given Documented by: Morphine Sulfate (Morphine) 2 mg IV Q3H PRN PRN Reason: Pain, Moderate (4-6) Last Admin: 10/31/18 03:56 Dose: 2 mg Documented by: Nitroglycerin (Nitrostat) 0.4 mg SL .Q5MIN PRN PRN Reason: Chest Pain Nitroglycerin (Nitro-Bid 2%) 1 inch TP QIDNTG [facility]; Protocol Last Admin: 10/31/18 06:04 Dose: 1 inch Documented by: Ondansetron HCl (Zofran) 4 mg IV Q8H PRN PRN Reason: Nausea And Vomiting Physical Examination Vital Signs Temp Pulse Resp BP Pulse Ox 98 F 70 20 140/71 99 10/30/18 19:42 10/30/18 19:42 10/30/18 19:42 10/30/18 19:42 10/30/18 19:42 General appearance: no acute distress HEENT: Positive: PERRL Cardiac: Positive: Other (v-oaced) Lungs: Positive: Decreased Breath Sounds Neuro: Positive: Grossly Intact Results 10/30/18 19:52 10/30/18 19:52 Cardiac Enzymes 10/31/18 Range/Units 00:48 CK-MB (CK-2) 3.1 (0.0-4.0) ng/mL Coagulation 10/30/18 Range/Units 20:01 PT 25.9 H (12.2-14.9) Sec. INR 2.20 H (0.87-1.13) APTT 45.6 H (24.2-36.6) Sec. Lipids 10/30/18 Range/Units 19:52 Triglycerides 60 (2-149) mg/dL Cholesterol 100 (50-199) mg/dL HDL Cholesterol 33 L (40-59) mg/dL Cholesterol/HDL Ratio 3.03 % CBC 10/30/18 Range/Units 19:52 WBC 5.6 (4.5-11.0) K/mm3 RBC 4.07 (3.65-5.03) M/mm3 Hgb 9.9 L (11.8-15.2) gm/dl Hct 31.0 L (35.5-45.6) % Plt Count 172 (140-440) K/mm3 Lymph # Tab Cutter [place] # Tab Cutter Eos # Tab Cutter Baso # Tab Cutter Comprehensive Metabolic Panel 10/30/18 Range/Units 19:52 Sodium 141 (137-145) mmol/L Potassium 4.1 (3.6-5.0) mmol/L Chloride 105.2 (98-107) mmol/L Carbon Dioxide 25 (22-30) mmol/L BUN 11 (9-20) mg/dL Creatinine 1.1 (0.8-1.5) mg/dL Glucose 60 L (75-100) mg/dL Calcium 8.9 (8.4-10.2) mg/dL Assessment and Plan Cor-pulmonale Chest pain, atypical normal coronaries by [facility] 05/2018 Mechanical mitral valve replacement He is on Coumadin with therapeutic range of INR recommended at 2.5-3.5. Hx of heart block s/p indwelling pacemaker Hypertension Diabetes Echocardiogram 08/2018 reports dilated right heart chambers with moderate to severe pulmonary hypertension, PASP 62mmHg. Findings consistent with cor-p ulmonale. Normal left ventricular systolic function, ejection fraction 55-60%. Continue medial management of mechanical MVR. Therapeutic range of INR recommended at 2.5-3.5. Continue IV diuresis. Conservative cardiac management
[2018-10-31 09:30] LABS: Creatine Kinase MB 3.3 ng/mL (0.0-4.0)
[2018-10-31] MEDS ORDERED: LASIX IV SCH (10:00)
[2018-10-31 15:57] LABS: INR 2.38 (0.87-1.13)
[2018-10-31] MEDS ORDERED: COUMADIN PO SCH ×3 (17:00)
[2018-10-31] MEDS: LASIX IV SCH (17:54)
--- NOTE | 2018-10-31 19:13 | Progress Note ---
Assessment and Plan Assessment and plan: --Cor-pulmonale; continue anti-failure medications Consider pulmonary evaluation if needed --Atypical Chest pain : normal coronaries per [facility] 05/2018 No further cardiac workup intended, cardiology following Optimize medications --Mechanical mitral valve replacement; on Coumadin Therapeutic INR 2.5-3.5, 2.4 today --Hx of heart block: s/p PPM, stable stable --Hypertension; moderate control continue current antihypertensives, When necessary medications --2Diabetes; Accu-Chek sliding scale coverage and ADA diet and insulin --DVT prophylaxis; on Coumadin --Obesity; BMI 34.2 Advised weight reduction when medically stable Plan of care is reviewed with the patient Consultations and recommendations noted and appreciated History Interval history: Patient seen and examined medical records reviewed Patient feels slightly better mild shortness of breath Vital signs noted Hospitalist Physical - Constitutional Vitals: Temp Pulse Resp BP Pulse Ox 97.3 F L 70 18 116/60 99 10/31/18 16:06 10/31/18 17:00 10/31/18 16:06 10/31/18 16:06 10/31/18 13:00 General appearance: Present: no acute distress, well-nourished, obese - EENT Eyes: Present: PERRL, EOM intact - Neck Neck: Present: supple, normal ROM - Respiratory Respiratory effort: normal Respiratory: bilateral: diminished, negative: rales, rhonchi, wheezing - Cardiovascular Rhythm: regular Heart Sounds: Present: S1 & S2 - Extremities Extremities: no ischemia Extremity abnormal: edema - Abdominal General gastrointestinal: soft, non-tender, non-distended, normal bowel sounds - Integumentary Integumentary: Present: clear, warm - Psychiatric Psychiatric: appropriate mood/affect, cooperative - Neurologic Neurologic: CNII-XII intact, moves all extremities Results - Labs CBC & Chem 7: 10/30/18 19:52 10/30/18 19:52 Labs: Laboratory Last Values WBC 5.6 K/mm3 (4.5-11.0) 10/30/18 19:52 RBC 4.07 M/mm3 (3.65-5.03) 10/30/18 19:52 Hgb 9.9 gm/dl (11.8-15.2) L 10/30/18 19:52 Hct 31.0 % (35.5-45.6) L 10/30/18 19:52 MCV 76 fl (84-94) L 10/30/18 19:52 MCH 24 pg (28-32) L 10/30/18 19:52 MCHC 32 % (32-34) 10/30/18 19:52 RDW 20.7 % (13.2-15.2) H 10/30/18 19:52 Plt Count 172 K/mm3 (140-440) 10/30/18 19:52 Lymph % (Auto) Pasteurizer 10/30/18 19:52 [place] % (Auto) Pasteurizer 10/30/18 19:52 Eos % (Auto) Pasteurizer 10/30/18 19:52 Baso % (Auto) Pasteurizer 10/30/18 19:52 Lymph # Pasteurizer 10/30/18 19:52 [place] # Pasteurizer 10/30/18 19:52 Eos # Pasteurizer 10/30/18 19:52 Baso # Pasteurizer 10/30/18 19:52 Add Manual Diff Complete 10/30/18 19:52 Total Counted 100 10/30/18 19:52 Seg Neutrophils % Pasteurizer 10/30/18 19:52 Seg Neuts % (Manual) 68.0 % (40.0-70.0) 10/30/18 19:52 Band Neutrophils % 0 % 10/30/18 19:52 Lymphocytes % (Manual) 22.0 % (13.4-35.0) 10/30/18 19:52 Reactive Lymphs % (Man) 0 % 10/30/18 19:52 Monocytes % (Manual) 8.0 % (0.0-7.3) H 10/30/18 19:52 Eosinophils % (Manual) 2.0 % (0.0-4.3) 10/30/18 19:52 Basophils % (Manual) 0 % (0.0-1.8) 10/30/18 19:52 Metamyelocytes % 0 % 10/30/18 19:52 Myelocytes % 0 % 10/30/18 19:52 Promyelocytes % 0 % 10/30/18 19:52 Blast Cells % 0 % 10/30/18 19:52 Nucleated RBC % Not Reportable 10/30/18 19:52 Seg Neutrophils # Pasteurizer 10/30/18 19:52 Seg Neutrophils # Man 3.8 K/mm3 (1.8-7.7) 10/30/18 19:52 Band Neutrophils # 0.0 K/mm3 10/30/18 19:52 Lymphocytes # (Manual) 1.2 K/mm3 (1.2-5.4) 10/30/18 19:52 Abs React Lymphs (Man) 0.0 K/mm3 10/30/18 19:52 Monocytes # (Manual) 0.4 K/mm3 (0.0-0.8) 10/30/18 19:52 Eosinophils # (Manual) 0.1 K/mm3 (0.0-0.4) 10/30/18 19:52 Basophils # (Manual) 0.0 K/mm3 (0.0-0.1) 10/30/18 19:52 Metamyelocytes # 0.0 K/mm3 10/30/18 19:52 Myelocytes # 0.0 K/mm3 10/30/18 19:52 Promyelocytes # 0.0 K/mm3 10/30/18 19:52 Blast Cells # 0.0 K/mm3 10/30/18 19:52 WBC Morphology Not Reportable 10/30/18 19:52 Hypersegmented Neuts Not Reportable 10/30/18 19:52 Hyposegmented Neuts Not Reportable 10/30/18 19:52 Hypogranular Neuts Not Reportable 10/30/18 19:52 Smudge Cells Not Reportable 10/30/18 19:52 Toxic Granulation Not Reportable 10/30/18 19:52 Toxic Vacuolation Not Reportable 10/30/18 19:52 Dohle Bodies Not Reportable 10/30/18 19:52 Pelger-Huet Anomaly Not Reportable 10/30/18 19:52 Merry Rods Not Reportable 10/30/18 19:52 Platelet Estimate Consistent w auto 10/30/18 19:52 Clumped Platelets Not Reportable 10/30/18 19:52 Plt Clumps, EDTA Not Reportable 10/30/18 19:52 Large Platelets Not Reportable 10/30/18 19:52 Giant Platelets Not Reportable 10/30/18 19:52 Platelet Satelliting Not Reportable 10/30/18 19:52 Plt Morphology Comment Not Reportable 10/30/18 19:52 RBC Morphology Not Reportable 10/30/18 19:52 Dimorphic RBCs Not Reportable 10/30/18 19:52 Polychromasia Not Reportable 10/30/18 19:52 Hypochromasia 1+ 10/30/18 19:52 Poikilocytosis Not Reportable 10/30/18 19:52 Anisocytosis 1+ 10/30/18 19:52 Microcytosis Not Reportable 10/30/18 19:52 Macrocytosis Not Reportable 10/30/18 19:52 Spherocytes Not Reportable 10/30/18 19:52 Pappenheimer Bodies Not Reportable 10/30/18 19:52 Sickle Cells Not Reportable 10/30/18 19:52 Target Cells Not Reportable 10/30/18 19:52 Tear Drop Cells 1+ 10/30/18 19:52 Ovalocytes Not Reportable 10/30/18 19:52 Helmet Cells Not Reportable 10/30/18 19:52 [place] Bodies Not Reportable 10/30/18 19:52 [place] Rings Not Reportable 10/30/18 19:52 Lalo Cells Not Reportable 10/30/18 19:52 Bite Cells Not Reportable 10/30/18 19:52 Crenated Cell Not Reportable 10/30/18 19:52 Elliptocytes Rare 10/30/18 19:52 Acanthocytes (Spur) Not Reportable 10/30/18 19:52 Rouleaux Not Reportable 10/30/18 19:52 Hemoglobin C Crystals Not Reportable 10/30/18 19:52 Schistocytes 1+ 10/30/18 19:52 Malaria parasites Not Reportable 10/30/18 19:52 Jaison Bodies Not Reportable 10/30/18 19:52 Hem Pathologist Commnt No 10/30/18 19:52 PT 27.6 Sec. (12.2-14.9) H 10/31/18 15:14 INR 2.38 (0.87-1.13) H 10/31/18 15:14 APTT 45.6 Sec. (24.2-36.6) H 10/30/18 20:01 Sodium 141 mmol/L (137-145) 10/30/18 19:52 Potassium 4.1 mmol/L (3.6-5.0) 10/30/18 19:52 Chloride 105.2 mmol/L (98-107) 10/30/18 19:52 Carbon Dioxide 25 mmol/L (22-30) 10/30/18 19:52 Anion Gap 15 mmol/L 10/30/18 19:52 BUN 11 mg/dL (9-20) 10/30/18 19:52 Creatinine 1.1 mg/dL (0.8-1.5) 10/30/18 19:52 Estimated GFR > 60 ml/min 10/30/18 19:52 BUN/Creatinine Ratio 10 % 10/30/18 19:52 Glucose 60 mg/dL (75-100) L 10/30/18 19:52 POC Glucose 237 (70-105) H 10/31/18 16:08 Calcium 8.9 mg/dL (8.4-10.2) 10/30/18 19:52 Total Creatine Kinase 275 units/L (55-170) H 10/31/18 Unknown CK-MB (CK-2) 3.3 ng/mL (0.0-4.0) 10/31/18 Unknown CK-MB (CK-2) Rel Index 1.2 (0-4) 10/31/18 Unknown Troponin T 0.053 ng/mL (0.00-0.029) H D 10/31/18 Unknown NT-Pro-B Natriuret Pep 481.1 pg/mL (0-900) 10/30/18 19:52 Triglycerides 60 mg/dL (2-149) 10/30/18 19:52 Cholesterol 100 mg/dL (50-199) 10/30/18 19:52 LDL Cholesterol Direct 66 mg/dL (50-130) 10/30/18 19:52 HDL Cholesterol 33 mg/dL (40-59) L 10/30/18 19:52 Cholesterol/HDL Ratio 3.03 % 10/30/18 19:52 Active Medications - Current Medications Current Medications: Generic Name Dose Route Start Last Admin Trade Name Freq PRN Reason Stop Dose Admin Acetaminophen 650 mg 10/30/18 23:34 Tylenol PO Q4H PRN Headache Albuterol 2.5 mg 10/30/18 23:39 Proventil IH Q6HRT PRN Shortness Of Breath Dextrose 50 ml 10/31/18 04:51 10/31/18 06:36 D50w (25gm) Syringe IV 50 ml PRN PRN Administration Hypoglycemia Furosemide 80 mg 10/31/18 18:00 10/31/18 17:54 Lasix IV 80 mg 0600,1800 [facility] Administration Insulin Human Regular 0 units 10/31/18 06:00 10/31/18 17:54 Humulin R SUB-Q 2 units Q4HR [facility] Administration Protocol Morphine Sulfate 2 mg 10/30/18 23:33 10/31/18 17:56 Morphine IV 2 mg Q3H PRN Administration Pain, Moderate (4-6) Nitroglycerin 0.4 mg 10/30/18 23:32 Nitrostat SL .Q5MIN PRN Chest Pain Nitroglycerin 1 inch 10/31/18 06:00 10/31/18 17:55 Nitro-Bid 2% TP 1 inch QIDNTG [facility] Administration Protocol Ondansetron HCl 4 mg 10/30/18 23:33 Zofran IV Q8H PRN Nausea And Vomiting Potassium Chloride 20 meq 11/01/18 10:00 K-Dur PO QDAY [facility] Warfarin Sodium 7.5 mg 10/31/18 17:00 10/31/18 16:45 Coumadin PO 7.5 mg DAILY@1700 [facility] Administration Nutrition/Malnutrition Assess - Dietary Evaluation Nutrition/Malnutrition Findings: Nutrition Notes Start: 10/31/18 10:37 Freq: Status: Active Protocol: Document 10/31/18 10:37 CP (Rec: 10/31/18 10:49 CP [id number]) Co-Sign 10/31/18 10:37 LP Nutrition Notes Need for Assessment generated from: MD Order,Education Initial or Follow up Assessment Current Diagnosis Respiratory Failure Current Diet NPO after midnight Labs/Tests POC Glu: 56 Pertinent Medications Insulin Height 5 ft 9 in Weight 106 kg [place] Body Weight (kg) 72.72 BMI 34.4 Weight Status Obese Subjective/Other Information MD consult for diet education. Pt had a good understanding of CHO and how it relates to blood sugar. Pt also aware to have consistent vitamin K due to warfarin medication (not noted in chart medication list ). Pt reports taking lantus and novalog at home at the appropriate times. Percent of energy/protein needs met: 0%/0% Burn Absent Trauma Absent Is patient on ventilator? No Is Patient Ambulatory and/or Out of Bed No REE-([facility]-confined to bed) 2231.040 Kcal/Kg value to use for calculation 15 Approximate Energy Requirements Using 1590 kcal/Kg Calculation Used for Recommendations Kcal/kg Additional Notes Pro: 89-107g/day (89kg AdBW 1- 1.2g/kg) Fluid: 1mL/kcal or per MD request Nutrition Intervention Change Diet Order: Advance per MD request Teaching Recipient Patient Learning Readiness Good Teaching Methods Discussion,Handout Response to Teaching Verbalize understanding Education Handouts Provided Heart healthy, consistent carbohydrate Barriers to Learning No Barriers RD phone number provided Yes Patient aware of follow up options Yes Goal #1 Diet advancement Goal #2 Adherence to diet education Anticipated Discharge Needs: Cardiac/consistent carbohydrate Revisit per MD consult or patient Sign Off request:
[2018-11-01] MEDS: HumuLIN R SUB-Q SCH ×4 (03:12→14:00)
[2018-11-01] MEDS: MORPHINE IV PRN ×2 (04:10→11:12)
[2018-11-01] MEDS: LASIX IV SCH (05:26)
[2018-11-01] MEDS: NITRO-BID 2% TP SCH ×3 (05:28→15:45)
[2018-11-01 07:14] LABS: INR 2.41 (0.87-1.13)
[2018-11-01] MEDS ORDERED: K-DUR PO SCH (10:00)
--- NOTE | 2018-11-01 10:16 | Progress Note ---
Assessment and Plan Assessment and plan: --Cor-pulmonale; continue anti-failure medications Consider pulmonary evaluation if needed --Atypical Chest pain : normal coronaries per [facility] 05/2018 No further cardiac workup intended, cardiology following Optimize medications --Mechanical mitral valve replacement; on Coumadin Therapeutic INR 2.5-3.5, 2.4 today --Hx of heart block: s/p PPM, stable stable --Hypertension; moderate control continue current antihypertensives, When necessary medications --2Diabetes; Accu-Chek sliding scale coverage and ADA diet and insulin --DVT prophylaxis; on Coumadin --Obesity; BMI 34.2 Advised weight reduction when medically stable Plan of care is reviewed with the patient Consultations and recommendations noted and appreciated Hospitalist Physical - Constitutional Vitals: Temp Pulse Resp BP Pulse Ox 97.8 F 72 18 123/63 99 11/01/18 08:04 11/01/18 08:04 11/01/18 08:04 11/01/18 08:04 11/01/18 08:04 General appearance: Present: no acute distress Results - Labs CBC & Chem 7: 10/30/18 19:52 10/30/18 19:52 Labs: Laboratory Last Values WBC 5.6 K/mm3 (4.5-11.0) 10/30/18 19:52 RBC 4.07 M/mm3 (3.65-5.03) 10/30/18 19:52 Hgb 9.9 gm/dl (11.8-15.2) L 10/30/18 19:52 Hct 31.0 % (35.5-45.6) L 10/30/18 19:52 MCV 76 fl (84-94) L 10/30/18 19:52 MCH 24 pg (28-32) L 10/30/18 19:52 MCHC 32 % (32-34) 10/30/18 19:52 RDW 20.7 % (13.2-15.2) H 10/30/18 19:52 Plt Count 172 K/mm3 (140-440) 10/30/18 19:52 Lymph % (Auto) [employer]visor [employer] 10/30/18 19:52 [place] % (Auto) [employer] 10/30/18 19:52 Eos % (Auto) [employer] 10/30/18 19:52 Baso % (Auto) [employer] 10/30/18 19:52 Lymph # [employer] 10/30/18 19:52 [place] # [employer]visor [employer] 10/30/18 19:52 Eos # Supervisor [employer] 10/30/18 19:52 Baso # [employer]visor [employer] 10/30/18 19:52 Add Manual Diff Complete 10/30/18 19:52 Total Counted 100 10/30/18 19:52 Seg Neutrophils % [employer] 10/30/18 19:52 Seg Neuts % (Manual) 68.0 % (40.0-70.0) 10/30/18 19:52 Band Neutrophils % 0 % 10/30/18 19:52 Lymphocytes % (Manual) 22.0 % (13.4-35.0) 10/30/18 19:52 Reactive Lymphs % (Man) 0 % 10/30/18 19:52 Monocytes % (Manual) 8.0 % (0.0-7.3) H 10/30/18 19:52 Eosinophils % (Manual) 2.0 % (0.0-4.3) 10/30/18 19:52 Basophils % (Manual) 0 % (0.0-1.8) 10/30/18 19:52 Metamyelocytes % 0 % 10/30/18 19:52 Myelocytes % 0 % 10/30/18 19:52 Promyelocytes % 0 % 10/30/18 19:52 Blast Cells % 0 % 10/30/18 19:52 Nucleated RBC % Not Reportable 10/30/18 19:52 Seg Neutrophils # Supervisor [employer] Maintenance 10/30/18 19:52 Seg Neutrophils # Man 3.8 K/mm3 (1.8-7.7) 10/30/18 19:52 Band Neutrophils # 0.0 K/mm3 10/30/18 19:52 Lymphocytes # (Manual) 1.2 K/mm3 (1.2-5.4) 10/30/18 19:52 Abs React Lymphs (Man) 0.0 K/mm3 10/30/18 19:52 Monocytes # (Manual) 0.4 K/mm3 (0.0-0.8) 10/30/18 19:52 Eosinophils # (Manual) 0.1 K/mm3 (0.0-0.4) 10/30/18 19:52 Basophils # (Manual) 0.0 K/mm3 (0.0-0.1) 10/30/18 19:52 Metamyelocytes # 0.0 K/mm3 10/30/18 19:52 Myelocytes # 0.0 K/mm3 10/30/18 19:52 Promyelocytes # 0.0 K/mm3 10/30/18 19:52 Blast Cells # 0.0 K/mm3 10/30/18 19:52 WBC Morphology Not Reportable 10/30/18 19:52 Hypersegmented Neuts Not Reportable 10/30/18 19:52 Hyposegmented Neuts Not Reportable 10/30/18 19:52 Hypogranular Neuts Not Reportable 10/30/18 19:52 Smudge Cells Not Reportable 10/30/18 19:52 Toxic Granulation Not Reportable 10/30/18 19:52 Toxic Vacuolation Not Reportable 10/30/18 19:52 Dohle Bodies Not Reportable 10/30/18 19:52 Pelger-Huet Anomaly Not Reportable 10/30/18 19:52 Merry Rods Not Reportable 10/30/18 19:52 Platelet Estimate Consistent w auto 10/30/18 19:52 Clumped Platelets Not Reportable 10/30/18 19:52 Plt Clumps, EDTA Not Reportable 10/30/18 19:52 Large Platelets Not Reportable 10/30/18 19:52 Giant Platelets Not Reportable 10/30/18 19:52 Platelet Satelliting Not Reportable 10/30/18 19:52 Plt Morphology Comment Not Reportable 10/30/18 19:52 RBC Morphology Not Reportable 10/30/18 19:52 Dimorphic RBCs Not Reportable 10/30/18 19:52 Polychromasia Not Reportable 10/30/18 19:52 Hypochromasia 1+ 10/30/18 19:52 Poikilocytosis Not Reportable 10/30/18 19:52 Anisocytosis 1+ 10/30/18 19:52 Microcytosis Not Reportable 10/30/18 19:52 Macrocytosis Not Reportable 10/30/18 19:52 Spherocytes Not Reportable 10/30/18 19:52 Pappenheimer Bodies Not Reportable 10/30/18 19:52 Sickle Cells Not Reportable 10/30/18 19:52 Target Cells Not Reportable 10/30/18 19:52 Tear Drop Cells 1+ 10/30/18 19:52 Ovalocytes Not Reportable 10/30/18 19:52 Helmet Cells Not Reportable 10/30/18 19:52 [place] Bodies Not Reportable 10/30/18 19:52 [place] Rings Not Reportable 10/30/18 19:52 [place] Cells Not Reportable 10/30/18 19:52 Bite Cells Not Reportable 10/30/18 19:52 Crenated Cell Not Reportable 10/30/18 19:52 Elliptocytes Rare 10/30/18 19:52 Acanthocytes (Spur) Not Reportable 10/30/18 19:52 Rouleaux Not Reportable 10/30/18 19:52 Hemoglobin C Crystals Not Reportable 10/30/18 19:52 Schistocytes 1+ 10/30/18 19:52 Malaria parasites Not Reportable 10/30/18 19:52 Jaison Bodies Not Reportable 10/30/18 19:52 Hem Pathologist Commnt No 10/30/18 19:52 PT 27.9 Sec. (12.2-14.9) H 11/01/18 05:51 INR 2.41 (0.87-1.13) H 11/01/18 05:51 APTT 45.6 Sec. (24.2-36.6) H 10/30/18 20:01 Sodium 141 mmol/L (137-145) 10/30/18 19:52 Potassium 4.1 mmol/L (3.6-5.0) 10/30/18 19:52 Chloride 105.2 mmol/L (98-107) 10/30/18 19:52 Carbon Dioxide 25 mmol/L (22-30) 10/30/18 19:52 Anion Gap 15 mmol/L 10/30/18 19:52 BUN 11 mg/dL (9-20) 10/30/18 19:52 Creatinine 1.1 mg/dL (0.8-1.5) 10/30/18 19:52 Estimated GFR > 60 ml/min 10/30/18 19:52 BUN/Creatinine Ratio 10 % 10/30/18 19:52 Glucose 60 mg/dL (75-100) L 10/30/18 19:52 POC Glucose 128 (70-105) H 11/01/18 08:09 Calcium 8.9 mg/dL (8.4-10.2) 10/30/18 19:52 Total Creatine Kinase 275 units/L (55-170) H 10/31/18 Unknown CK-MB (CK-2) 3.3 ng/mL (0.0-4.0) 10/31/18 Unknown CK-MB (CK-2) Rel Index 1.2 (0-4) 10/31/18 Unknown Troponin T 0.053 ng/mL (0.00-0.029) H D 10/31/18 Unknown NT-Pro-B Natriuret Pep 481.1 pg/mL (0-900) 10/30/18 19:52 Triglycerides 60 mg/dL (2-149) 10/30/18 19:52 Cholesterol 100 mg/dL (50-199) 10/30/18 19:52 LDL Cholesterol Direct 66 mg/dL (50-130) 10/30/18 19:52 HDL Cholesterol 33 mg/dL (40-59) L 10/30/18 19:52 Cholesterol/HDL Ratio 3.03 % 10/30/18 19:52 Active Medications - Current Medications Current Medications: Generic Name Dose Route Start Last Admin Trade Name Freq PRN Reason Stop Dose Admin Acetaminophen 650 mg 10/30/18 23:34 Tylenol PO Q4H PRN Headache Albuterol 2.5 mg 10/30/18 23:39 Proventil IH Q6HRT PRN Shortness Of Breath Dextrose 50 ml 10/31/18 04:51 10/31/18 06:36 D50w (25gm) Syringe IV 50 ml PRN PRN Administration Hypoglycemia Furosemide 80 mg 10/31/18 18:00 11/01/18 05:26 Lasix IV 80 mg 0600,1800 MADELIN Administration Insulin Human Regular 0 units 10/31/18 06:00 11/01/18 09:50 Humulin R SUB-Q Not Given Q4HR MADELIN Protocol Morphine Sulfate 2 mg 10/30/18 23:33 11/01/18 04:10 Morphine IV 2 mg Q3H PRN Administration Pain, Moderate (4-6) Nitroglycerin 0.4 mg 10/30/18 23:32 Nitrostat SL .Q5MIN PRN Chest Pain Nitroglycerin 1 inch 10/31/18 06:00 11/01/18 09:52 Nitro-Bid 2% TP 1 inch QIDNTG MADELIN Administration Protocol Ondansetron HCl 4 mg 10/30/18 23:33 Zofran IV Q8H PRN Nausea And Vomiting Potassium Chloride 20 meq 11/01/18 10:00 11/01/18 09:52 K-Dur PO 20 meq QDAY MADELIN Administration Warfarin Sodium 7.5 mg 10/31/18 17:00 10/31/18 16:45 Coumadin PO 7.5 mg DAILY@1700 MADELIN Administration Nutrition/Malnutrition Assess - Dietary Evaluation Nutrition/Malnutrition Findings: Nutrition Notes Start: 10/31/18 10:37 Freq: Status: Active Protocol: Document 10/31/18 10:37 CP (Rec: 10/31/18 10:49 CP [id number]) Co-Sign 10/31/18 10:37 LP Nutrition Notes Need for Assessment generated from: MD Order,Education Initial or Follow up Assessment Current Diagnosis Respiratory Failure Current Diet NPO after midnight Labs/Tests POC Glu: 56 Pertinent Medications Insulin Height 5 ft 9 in Weight 106 kg [place] Body Weight (kg) 72.72 BMI 34.4 Weight Status Obese Subjective/Other Information MD consult for diet education. Pt had a good understanding of CHO and how it relates to blood sugar. Pt also aware to have consistent vitamin K due to warfarin medication (not noted in chart medication list ). Pt reports taking lantus and novalog at home at the appropriate times. Percent of energy/protein needs met: 0%/0% Burn Absent Trauma Absent Is patient on ventilator? No Is Patient Ambulatory and/or Out of Bed No REE-([facility]-confined to bed) 2231.040 Kcal/Kg value to use for calculation 15 Approximate Energy Requirements Using 1590 kcal/Kg Calculation Used for Recommendations Kcal/kg Additional Notes Pro: 89-107g/day (89kg AdBW 1- 1.2g/kg) Fluid: 1mL/kcal or per MD request Nutrition Intervention Change Diet Order: Advance per MD request Teaching Recipient Patient Learning Readiness Good Teaching Methods Discussion,Handout Response to Teaching Verbalize understanding Education Handouts Provided Heart healthy, consistent carbohydrate Barriers to Learning No Barriers RD phone number provided Yes Patient aware of follow up options Yes Goal #1 Diet advancement Goal #2 Adherence to diet education Anticipated Discharge Needs: Cardiac/consistent carbohydrate Revisit per MD consult or patient Sign Off request:
--- NOTE | 2018-11-01 12:21 | Progress Note ---
Assessment and Plan Cor-pulmonale Volume overload secondary to noncompliance with fluid restrictions and medications Chest pain, atypical normal coronaries by [facility] 05/2018 Mechanical mitral valve replacement He is on Coumadin with therapeutic range of INR recommended at 2.5-3.5. Hx of heart block s/p indwelling pacemaker Hypertension Diabetes Echocardiogram 08/2018 reports dilated right heart chambers with moderate to severe pulmonary hypertension, PASP 62mmHg. Findings consistent with cor- pulmonale. Normal left ventricular systolic function, ejection fraction 55-60%. Continue warfarin for mechanical MVR. Conservative cardiac management. Stable, cardiac caputo, for discharge. Subjective Date of service: 11/01/18 Interval history: Patient reports he feels much better and wants to go home. Patient admits he is diuresing well. Objective Vital Signs Temp Pulse Pulse Resp BP BP Pulse Ox 11/01/18 08:04 97.8 F 72 18 123/63 99 11/01/18 05:28 71 112/58 11/01/18 04:02 98.2 F 71 20 112/58 96 10/31/18 23:26 98.8 F 71 16 127/57 90 10/31/18 20:00 98.1 F 76 20 146/68 97 10/31/18 17:00 70 10/31/18 16:17 71 10/31/18 16:06 97.3 F L 18 116/60 10/31/18 13:05 97.3 F L 18 132/72 10/31/18 13:00 97.3 F L 70 70 18 132/72 99 - Physical Examination General: No Apparent Distress HEENT: Positive: PERRL Cardiac: Positive: Reg Rate and Rhythm Neuro: Positive: Grossly Intact - Labs and Meds Coagulation 10/31/18 11/01/18 Range/Units 15:14 05:51 PT 27.6 H 27.9 H (12.2-14.9) Sec. INR 2.38 H 2.41 H (0.87-1.13)
--- NOTE | 2018-11-01 12:22 | Progress Note ---
Assessment and Plan - Patient Problems (1) Heart failure with preserved ejection fraction Current Visit: Yes Status: Acute Plan to address problem: Patient looks and feels comfortable, no chest pain and no shortness of breath, he wants to go home. INR is therapeutic at 2.4. Chest x-ray reveals clear lungs, and enlarged cardiac silhouette with the cardiomegaly mostly representing enlargement of the right atrial and left atrial silhouettes. Okay for cardiac discharge on medical therapy. (2) H/O mitral valve replacement with mechanical valve Current Visit: Yes Status: Acute Plan to address problem: Stable cardiac status, INR is 2.4 on warfarin therapy. Okay for discharge. Subjective Date of service: 11/01/18 Interval history: Patient looks and feels comfortable, no chest pain and no shortness of breath, he wants to go home. INR is therapeutic at 2.4. Chest x-ray reveals clear lungs, and enlarged cardiac silhouette with the cardiomegaly mostly representing enlargement of the right atrial and left atrial silhouettes. Objective Vital Signs Temp Pulse Pulse Resp BP BP Pulse Ox 11/01/18 08:04 97.8 F 72 18 123/63 99 11/01/18 05:28 71 112/58 11/01/18 04:02 98.2 F 71 20 112/58 96 10/31/18 23:26 98.8 F 71 16 127/57 90 10/31/18 20:00 98.1 F 76 20 146/68 97 10/31/18 17:00 70 10/31/18 16:17 71 10/31/18 16:06 97.3 F L 18 116/60 10/31/18 13:05 97.3 F L 18 132/72 10/31/18 13:00 97.3 F L 70 70 18 132/72 99 - Physical Examination General: Appears Well, No Apparent Distress HEENT: Positive: PERRL Neck: Positive: neck supple Cardiac: Positive: Irregularly Regular Lungs: Positive: Decreased Breath Sounds Neuro: Positive: Grossly Intact Abdomen: Positive: Soft Skin: Positive: Clear Extremities: Present: +1 Edema - Labs and Meds Coagulation 10/31/18 11/01/18 Range/Units 15:14 05:51 PT 27.6 H 27.9 H (12.2-14.9) Sec. INR 2.38 H 2.41 H (0.87-1.13)
[2018-11-01 13:05] VITALS: BP 130/63
--- NOTE | 2018-11-01 13:43 | Discharge Summary ---
Providers - Providers Date of Admission: 10/30/18 23:23 Date of discharge: 11/01/18 Attending physician: ANDRESSA AVERY 10/30/18 21:02 Consult to Physician [CONS] Stat Comment: Dr. Priest spoke with Dr. Valderrama @ 2058 Consulting Provider: DILEEP VALDERRAMA Physician Instructions: Reason For Exam: chest pain, sob 10/31/18 05:01 Consult to Dietitian/Nutrition [CONS] Routine Physician Instructions: Reason For Exam: Reason for Consult: Diet education 10/31/18 17:34 Physical Therapy Evaluation and Treat [CONS] Routine Comment: walks short distances Reason For Exam: lower extremity weakness, use of wc/walker. Mode of Transport?: Wheelchair Weight bearing status?: Full wt bearing Assistive devices?: Yes: walker Primary care physician: SHRUTHI HERCULES Hospitalization Reason for admission: Chest pain and fluid overload Condition: Stable Pertinent studies: CXR : widened mediastinum and cardiomegaly ,posible lipomatosis, as seen on previous CT scans,f/u cardiology upon dc Hospital course: 63 year old male who is admitted with chest pain and and volume overload, symptomatically managed,evaluated by padded products finisher,medications optimised the medications.Patient has history of MVR with mechanical valve on coumadin,non compliant, with subtherapeutic INR. target INR 2.5 - 3.5 .Patient also has heart block s/p PPM.Resumed his home meds includin coumadin, INR improved to 2.4, Patient advised to comply with medications,verbalised understanding. Today patient is better,no new complaints, Vital signs stable,Physical exam is unremarkable. Cleared by padded products finisher for discharge. Discharge diagnosis; --Cor-pulmonale; continue anti-failure medications --Atypical Chest pain : normal coronaries per [facility] 05/2018 cardiology following No further cardiac workup advised,Optimize medications --Mechanical mitral valve replacement; on Coumadin Therapeutic INR 2.5-3.5, 2.4 today --Hx of heart block: s/p PPM, stable stable --Hypertension; moderate control continue current antihypertensives, When necessary medications --2Diabetes; Accu-Chek sliding scale coverage and ADA diet and insulin --DVT prophylaxis; on Coumadin --Obesity; BMI 34.2 Advised weight reduction when medically stable Stable at discharge Disposition: [id number] HOME UNDER HOME [facility] Time spent for discharge: 32 min Core Measure Documentation - Palliative Care Palliative Care/ Comfort Measures: Not Applicable - Core Measures Any of the following diagnoses?: none Exam - Constitutional Vitals: Temp Pulse Resp BP Pulse Ox 97.9 F 72 18 130/63 94 11/01/18 13:02 11/01/18 13:02 11/01/18 13:02 11/01/18 13:02 11/01/18 13:02 General appearance: Present: no acute distress, well-nourished - EENT Eyes: Present: PERRL, EOM intact - Neck Neck: Present: supple, normal ROM - Respiratory Respiratory effort: normal Respiratory: bilateral: diminished, negative: rales, rhonchi, wheezing - Cardiovascular Rhythm: regular Heart Sounds: Present: S1 & S2 - Extremities Extremities: no ischemia, No edema - Abdominal General gastrointestinal: Present: soft, non-tender, non-distended, normal bowel sounds - Integumentary Integumentary: Present: clear, warm - Musculoskeletal Musculoskeletal: strength equal bilaterally - Psychiatric Psychiatric: appropriate mood/affect, cooperative - Neurologic Neurologic: CNII-XII intact, moves all extremities Plan Activity: advance as tolerated, fall precautions Diet: diabetic, other (cardiac diet) Additional Instructions: Frequent INR checks at PMD/cardiology office. Target INR 2.5-3.5. Next INR check in 2 days. If you notice bleeding stop Coumadin contact M.D. No new prescriptions Follow up with: SHRUTHI HERCULES MD [Primary Care Provider] - 3-5 Days NATALIIA MCNALLY MD [Staff Physician] - 7 Days Forms: Warfarin Discharge Instruction
== END 2018-11-01 16:05 | disposition home health service (06) | DRG 313 ==
LOC: ED 18:58 → 4A 23:23
PROVIDERS: ADMIT Internal Medicine; ATTEND Internal Medicine
DX: R07.89 Other chest pain (principal); E87.70 Fluid overload, unspecified; I27.81 Cor pulmonale (chronic); E11.9 Type 2 diabetes mellitus without complications; E66.9 Obesity, unspecified; I11.0 Hypertensive heart disease with heart failure; I48.91 Unspecified atrial fibrillation; J44.9 Chronic obstructive pulmonary disease, unspecified; I50.9 Heart failure, unspecified; Z71.3 Dietary counseling and surveillance; Z95.0 Presence of cardiac pacemaker; Z95.2 Presence of prosthetic heart valve; Z79.01 Long term (current) use of anticoagulants; Z91.19 Patient's noncompliance with other medical treatment and regimen; Z88.2 Allergy status to sulfonamides; Z91.14 Patient's other noncompliance with medication regimen
CPT/HCPCS: 36415; 71045; 80048; 80061; 82550; 82553; 82962; 83880; 84484; 85007; 85025; 85610; 85730; 93005; 93010; 94760; 96372; 96374; 96375; G0378; J1644; J1815; J1940; J2270; J2405

== ENCOUNTER 2019-01-17 12:30 | Day surgery (SDC) | payer MEDICARE ==
[~2019-01-17 12:30] MED LIST: IOPIDINE ONE; MYDRIACYL ONE; NEOFRIN ONE
[2019-01-17] MEDS ORDERED: NEOFRIN OD ONE (12:57)
[2019-01-17] MEDS ORDERED: MYDRIACYL OD ONE (12:57)
[2019-01-17] MEDS ORDERED: IOPIDINE OD ONE (12:57)
[2019-01-17 15:26] VITALS: BP 121/55
== END 2019-01-17 13:26 | disposition home or self-care (01) ==
LOC: OR 12:30
PROVIDERS: ATTEND Specialist
DX: E11.36 Type 2 diabetes mellitus with diabetic cataract (principal); H26.491 Other secondary cataract, right eye; I11.0 Hypertensive heart disease with heart failure; I50.30 Unspecified diastolic (congestive) heart failure; K21.9 Gastro-esophageal reflux disease without esophagitis; J44.9 Chronic obstructive pulmonary disease, unspecified; G47.30 Sleep apnea, unspecified; F32.9 Major depressive disorder, single episode, unspecified; E78.00 Pure hypercholesterolemia, unspecified; Z95.4 Presence of other heart-valve replacement; Z88.2 Allergy status to sulfonamides; Z79.899 Other long term (current) drug therapy; Z79.4 Long term (current) use of insulin; Z79.82 Long term (current) use of aspirin; Z95.2 Presence of prosthetic heart valve; Z79.01 Long term (current) use of anticoagulants; Z91.14 Patient's other noncompliance with medication regimen; Z87.891 Personal history of nicotine dependence; Z87.440 Personal history of urinary (tract) infections; Z72.89 Other problems related to lifestyle; Z98.890 Other specified postprocedural states; Z83.3 Family history of diabetes mellitus; Z80.8 Family history of malignant neoplasm of other organs or systems; Z88.8 Allergy status to other drugs, medicaments and biological substances; Z86.2 Personal history of diseases of the blood and blood-forming organs and certain disorders involving the immune mechanism; Z82.49 Family history of ischemic heart disease and other diseases of the circulatory system
CPT/HCPCS: 82962

== ENCOUNTER 2019-01-24 12:11 | Day surgery (SDC) | payer MEDICARE ==
[2019-01-24] MEDS ORDERED: IOPIDINE OS ONE ×2 (12:27→13:13)
[2019-01-24] MEDS ORDERED: MYDRIACYL OS ONE (12:27)
[2019-01-24] MEDS ORDERED: NEOFRIN OS ONE (12:27)
[2019-01-24 14:20] VITALS: BP 116/47
== END 2019-01-24 13:44 | disposition home or self-care (01) ==
LOC: OR 12:11
PROVIDERS: ATTEND Specialist
DX: E11.36 Type 2 diabetes mellitus with diabetic cataract (principal); H26.492 Other secondary cataract, left eye; I11.0 Hypertensive heart disease with heart failure; I50.30 Unspecified diastolic (congestive) heart failure; K21.9 Gastro-esophageal reflux disease without esophagitis; E78.00 Pure hypercholesterolemia, unspecified; J44.9 Chronic obstructive pulmonary disease, unspecified; G47.30 Sleep apnea, unspecified; F32.9 Major depressive disorder, single episode, unspecified; Z80.8 Family history of malignant neoplasm of other organs or systems; Z83.3 Family history of diabetes mellitus; Z88.2 Allergy status to sulfonamides; Z79.899 Other long term (current) drug therapy; Z79.01 Long term (current) use of anticoagulants; Z79.4 Long term (current) use of insulin; Z87.891 Personal history of nicotine dependence; Z95.0 Presence of cardiac pacemaker; Z87.440 Personal history of urinary (tract) infections; Z95.2 Presence of prosthetic heart valve; Z95.4 Presence of other heart-valve replacement; Z91.14 Patient's other noncompliance with medication regimen; Z98.41 Cataract extraction status, right eye; Z98.42 Cataract extraction status, left eye; Z72.89 Other problems related to lifestyle; Z98.890 Other specified postprocedural states; Z82.49 Family history of ischemic heart disease and other diseases of the circulatory system
CPT/HCPCS: 82962

== ENCOUNTER 2019-01-24 17:55 | Inpatient (IN) | payer MEDICARE ==
--- NOTE | 2019-01-24 18:35 | Emergency Department Report ---
ED Chest Pain HPI - General Chief Complaint: Chest Pain Stated Complaint: CHEST PAIN/DIZZINESS Time Seen by Provider: 01/24/19 18:25 Source: patient, family, EMS Mode of arrival: Stretcher Limitations: No Limitations - History of Present Illness Initial Comments: Patient is 63 years old male with history of CABG, 20 years ago, congestive heart failure, diabetes hypertension and paraplegia. Patient presented to the ER by EMS stating that his symptoms started yesterday with dizziness associated with nausea but no vomiting. Patient stated that while he is coming to the ER he started having left-sided chest pain, described as heaviness with no radia tion. Patient is also complaining of shortness of breath but denied any fever or cough. MD Complaint: chest pain -: This afternoon Onset: during rest Pain Location: left chest Pain Radiation: none Severity: moderate Severity scale (0 -10): 9 Quality: heaviness Improves With: nitroglycerin - Related Data Home Medications Medication Instructions Recorded Confirmed Last Taken ALBUTEROL Inhaler (OR & NICU) 2 puff IH QID PRN 09/30/13 01/23/19 10/28/13 [ProAir HFA Inhaler] Furosemide [Lasix TAB] 80 mg PO BID 09/30/13 01/23/19 10/26/18 Insulin Aspart [NovoLOG 100 10 unit SQ QAC 09/30/13 01/23/19 09/09/14 UNITS/ML VIAL] Esomeprazole Magnesium [NexIUM] 40 mg PO DAILY 10/29/13 01/23/19 10/30/18 10:00 Gabapentin 1 cap PO TID 09/04/14 01/23/19 09/11/14 Sennosides/Docusate Sodium [[facility]vs 1 tab PO DAILY 09/04/14 01/23/19 10/30/18 10:00 Stool Softener-Laxative Tb] diazePAM TAB [Valium] 5 tab PO DAILY 09/04/14 01/23/19 08/27/14 Previous Rx's Medication Instructions Recorded Last Taken Type Acetaminophen [Tylenol Arthritis] 650 mg PO Q8H PRN #60 tablet.er 09/03/16 Unknown Rx guaiFENesin/CODEINE [Robitussin AC] 5 ml PO Q6H PRN #4 oz 09/03/16 Unknown Rx Aspirin EC 81 mg PO QDAY #30 tablet. 05/12/18 10/29/18 10:00 Rx Colchicine 0.6 mg PO DAILY #15 powder 05/12/18 10/29/18 10:00 Rx Ipratropium (Nf) [Atrovent HFA 2 puff IH Q6HR PRN #10 inha 05/12/18 Unknown Rx 17MCG/PUFF] Nitroglycerin [Nitrostat] 0.4 mg SL Q5M PRN #30 tablet 05/12/18 10/30/18 10:00 Rx Potassium Chloride 20 meq PO BID #60 packet 05/12/18 10/30/18 10:00 Rx Ranolazine [Ranexa] 500 mg PO BID #60 tab.er.12h 05/12/18 10/30/18 10:00 Rx Tamsulosin [Flomax] 0.4 mg PO QDAY #30 capsule 05/12/18 10/30/18 Rx Warfarin [Coumadin] 5 mg PO QDAY #30 tablet 05/12/18 10/30/18 14:00 Rx Zolpidem [Ambien] 5 mg PO QHS PRN tablet 05/12/18 10/29/18 22:00 Rx HYDROcodone/APAP 5-325 [[place] 1 each PO Q6HR PRN #10 tablet 05/16/18 10/29/18 21:00 Rx 5-325 mg TAB] Insulin Glargine,Hum.rec.anlog 20 units SQ QHS #1 pen 05/16/18 Unknown Rx [Lantus Solostar] Allergies Allergy/AdvReac Type Severity Reaction Status Date / Time propoxyphene napsylate Allergy Intermediate Rash Verified 01/23/19 09:50 [From Darvocet-N 100] Sulfa (Sulfonamide Allergy Intermediate Rash Verified 01/23/19 09:50 Antibiotics) Heart Score - HEART Score History: Moderately suspicious EKG: Non-specific Age: 45-65 Risk factors: > 3 risk factors or hx of atherosclerotic disease Troponin: < normal limit HEART Score: 5 - Critical Actions Critical Actions: 4-6 pts:12-16.6% risk of adverse cardiac event. Should be admitted ED Review of Systems ROS: Stated complaint: CHEST PAIN/DIZZINESS Other details as noted in HPI Comment: All other systems reviewed and negative Constitutional: denies: chills, fever Respiratory: orthopnea, shortness of breath Cardiovascular: chest pain Gastrointestinal: nausea. denies: abdominal pain, vomiting, diarrhea Neurological: vertigo ED Past Medical Hx - Past Medical History Hx Hypertension: Yes Hx Congestive Heart Failure: Yes Hx Diabetes: Yes Hx GERD: Yes Hx COPD: Yes Hx HIV: No Additional medical history: high cholesterol, paraplegic, bronchitis, A Fib - Surgical History Hx Open Heart Surgery: Yes Hx Pacemaker: Yes Additional Surgical History: Mitral valve replacement (mechanical), left ankle surgery - Social History Smoking Status: Never Smoker Substance Use Type: None - Medications Home Medications: Home Medications Medication Instructions Recorded Confirmed Last Taken Type ALBUTEROL Inhaler (OR & NICU) 2 puff IH QID PRN 09/30/13 01/23/19 10/28/13 History [ProAir HFA Inhaler] Furosemide [Lasix TAB] 80 mg PO BID 09/30/13 01/23/19 10/26/18 History Insulin Aspart [NovoLOG 100 10 unit SQ QAC 09/30/13 01/23/19 09/09/14 History UNITS/ML VIAL] Esomeprazole Magnesium [NexIUM] 40 mg PO DAILY 10/29/13 01/23/19 10/30/18 10:00 History Gabapentin 1 cap PO TID 09/04/14 01/23/19 09/11/14 History Sennosides/Docusate Sodium [[facility] 1 tab PO DAILY 09/04/14 01/23/19 10/30/18 10:00 History Stool Softener-Laxative Tb] diazePAM TAB [Valium] 5 tab PO DAILY 09/04/14 01/23/19 08/27/14 History Acetaminophen [Tylenol Arthritis] 650 mg PO Q8H PRN #60 tablet.er 09/03/16 01/23/19 Unknown Rx guaiFENesin/CODEINE [Robitussin AC] 5 ml PO Q6H PRN #4 oz 09/03/16 01/23/19 Unknown Rx Aspirin EC 81 mg PO QDAY #30 tablet. 05/12/18 01/23/19 10/29/18 10:00 Rx Colchicine 0.6 mg PO DAILY #15 powder 05/12/18 01/23/19 10/29/18 10:00 Rx Ipratropium (Nf) [Atrovent HFA 2 puff IH Q6HR PRN #10 inha 05/12/18 01/23/19 Unknown Rx 17MCG/PUFF] Nitroglycerin [Nitrostat] 0.4 mg SL Q5M PRN #30 tablet 05/12/18 01/23/19 10/30/18 10:00 Rx Potassium Chloride 20 meq PO BID #60 packet 05/12/18 01/23/19 10/30/18 10:00 Rx Ranolazine [Ranexa] 500 mg PO BID #60 tab.er.12h 05/12/18 01/23/19 10/30/18 10:00 Rx Tamsulosin [Flomax] 0.4 mg PO QDAY #30 capsule 05/12/18 01/23/19 10/30/18 Rx Warfarin [Coumadin] 5 mg PO QDAY #30 tablet 05/12/18 01/23/19 10/30/18 14:00 Rx Zolpidem [Ambien] 5 mg PO QHS PRN tablet 05/12/18 01/23/19 10/29/18 22:00 Rx HYDROcodone/APAP 5-325 [[place] 1 each PO Q6HR PRN #10 tablet 05/16/18 01/23/19 10/29/18 21:00 Rx 5-325 mg TAB] Insulin Glargine,Hum.rec.anlog 20 units SQ QHS #1 pen 05/16/18 01/23/19 Unknown Rx [Lantus Solostar] ED Physical Exam - General Limitations: No Limitations General appearance: alert, in no apparent distress - Head Head exam: Present: atraumatic, normocephalic, normal inspection - Eye Eye exam: Present: normal appearance, PERRL - ENT ENT exam: Present: normal exam, normal orophraynx, mucous membranes moist - Neck Neck exam: Present: normal inspection, full ROM. Absent: tenderness, meningismus, lymphadenopathy, thyromegaly - Respiratory Respiratory exam: Present: normal lung sounds bilaterally - Cardiovascular Cardiovascular Exam: Present: regular rate. Absent: systolic murmur, diastolic murmur - GI/Abdominal GI/Abdominal exam: Present: soft, normal bowel sounds. Absent: distended, tenderness, guarding, rebound, rigid - Extremities Exam Extremities exam: Present: normal inspection, full ROM, normal capillary refill - Back Exam Back exam: Present: normal inspection, full ROM. Absent: tenderness, CVA tenderness (R), CVA tenderness (L), muscle spasm, paraspinal tenderness, vertebral tenderness - Neurological Exam Neurological exam: Present: alert, oriented X3, CN II-XII intact - Skin Skin exam: Present: warm, intact, normal color ED Course Vital Signs 01/24/19 01/24/19 01/24/19 18:16 18:28 18:42 Temperature 98.2 F Pulse Rate 70 70 Respiratory 19 20 18 Rate Blood Pressure Blood Pressure 134/68 126/46 [Left] O2 Sat by Pulse 99 99 100 Oximetry 01/24/19 19:25 Temperature Pulse Rate 70 Respiratory 13 Rate Blood Pressure 160/79 Blood Pressure [Left] O2 Sat by Pulse 95 Oximetry CRISTO score - Cristo Score Age > 65: (0) No Aspirin use within the Past 7 Days: (1) Yes 3 or more CAD Risk Factors: (1) Yes 2 or more Angina events in past 24 hrs: (1) Yes Known CAD with more than 50% Stenosis: (0) No Elevated Cardiac Markers: (0) No ST Deviation Greater than 0.5mm: (0) No CRISTO Score: 3 ED Medical Decision Making - Lab Data Result diagrams: 01/24/19 18:48 01/24/19 18:48 - EKG Data -: EKG Interpreted by Me EKG shows normal: sinus rhythm Rate: normal - EKG Data 01/24/19 20:01 Left bundle branch block. Old. - Radiology Data Radiology results: report reviewed - Medical Decision Making Patient is 63 years old male with history of CABG, 20 years ago, congestive heart failure, diabetes hypertension and paraplegia. Patient presented to the ER by EMS stating that his symptoms started yesterday with dizziness associated with nausea but no vomiting. Patient stated that while he is coming to the ER he started having left-sided chest pain, described as heaviness with no radiation. Patient is also complaining of shortness of breath but denied any fever or cough. EKG showed a left bundle branch block which is old. Labs reviewed and is unremarkable except for slightly elevated d-dimer. Patient had a CTA chest in August of this year and it was negative for PE. I discussed the patient is Dr. Olsen, he agreed to admit the patient to medical service. Critical care attestation.: If time is entered above; I have spent that time in minutes in the direct care of this critically ill patient, excluding procedure time. ED Disposition Clinical Impression: Chest pain Disposition: 09 OP ADMIT IP TO THIS HOSP Is pt being admited?: Yes Condition: Stable Instructions: Chest Pain (ED) Referrals: PRIMARY CARE,MD [Primary Care Provider] - 3-5 Days
--- NOTE | 2019-01-24 19:17 | XRay Report ---
CHEST 1 VIEW INDICATION: Chest Pain. COMPARISON: None. FINDINGS: Support devices: Cardiac leads project in expected position. Heart: Enlarged. Lungs/Pleura: There is pulmonary venous hypertension. No consolidation, significant effusion, or pneu mothorax. IMPRESSION: 1. Enlargement of the cardiac silhouette with pulmonary venous hypertension. Signer Name: Adriano Juarez MD Signed: 01/24/2019 7:12 PM Workstation Name: [id number]
[2019-01-24 19:21] LABS: Hematocrit 32.3 % (35.5-45.6); Hemoglobin 10.3 gm/dl (11.8-15.2); Mean Corpuscular HGB Conc 32 % (32-34); Mean Corpuscular Volume 77 fl (84-94); Red Blood Count 4.19 M/mm3 (3.65-5.03)
[2019-01-24 19:26] LABS: Platelet Count 158 K/mm3 (140-440); Red Cell Distribution Width 23.4 % (13.2-15.2)
[2019-01-24 19:30] LABS: INR 2.55 (0.87-1.13); Partial Thromboplastin Time 47.5 Sec. (24.2-36.6)
[2019-01-24 19:31] LABS: Bilirubin,Urine NEG (Negative); Color,Urine Amber (Yellow)
[2019-01-24 19:32] LABS: Blood,Urine SM (Negative); Mucus,Urine FEW /HPF; Protein,Urine <15 mg/dL mg/dL (Negative)
[2019-01-24 19:35] LABS: BUN/Creatinine Ratio 13; Blood Urea Nitrogen 14 mg/dL (9-20); Calcium 9.1 mg/dL (8.4-10.2); Hemolysis Index 5
[2019-01-24] MEDS ORDERED: MORPHINE IV ONE (19:37)
[2019-01-24] MEDS ORDERED: ZOFRAN IV ONE (19:37)
--- NOTE | 2019-01-24 19:45 | Cat Scan Report ---
CT BRAIN: 01/24/2019 INDICATION / CLINICAL INFORMATION: dizziness. Headache. COMPARISON: None available. FINDINGS: BRAIN/INTRACRANIAL STRUCTURES: Unenhanced CT images of the brain demonstrate no evidence of acute int racranial abnormality. Ventricles and sulci are somewhat prominent in size, consistent with diffuse cerebral atrophy. There is no evidence of acute ischemic injury, hemorrhage, or mass. There are no abnormal extra-axial fluid collections. EXTRACRANIAL STRUCTURES: Unremarkable. IMPRESSION: No acute abnormality. All CT scans at this location are performed using dose reduction to ALARA by means of automated expos ure control. Signer Name: Adonay Hernandez MD Signed: 01/24/2019 7:41 PM Workstation Name: [id number]
[2019-01-24] MEDS ORDERED: TYLENOL PO PRN (20:22)
[2019-01-24] MEDS ORDERED: D50W (25GM) Syringe IV PRN (20:22)
[2019-01-24] MEDS ORDERED: SODIUM CHLORIDE FLUSH SYRINGE 10 ML IV PRN (20:22)
[2019-01-24] MEDS ORDERED: PROVENTIL IH PRN (20:22)
[2019-01-24] MEDS ORDERED: PERCOCET 5/325 PO PRN (20:22)
[2019-01-24] MEDS ORDERED: ZOFRAN IV PRN (20:22)
[2019-01-24] MEDS ORDERED: DILAUDID IV PRN (20:24)
[2019-01-24] MEDS ORDERED: NITROSTAT SL PRN (20:24)
[2019-01-24 20:38] LABS: Basophils % (Manual) 0 % (0.0-1.8); Total Cells Counted 100
[2019-01-24 20:39] LABS: Anisocytosis 1+; Hypochromasia 2+; Schistocytes 1+
[2019-01-24 20:40] LABS: Large Platelets 1+; Platelet Estimate Consistent w Auto; Tear Drop Cells Rare
[2019-01-24] MEDS ORDERED: AMBIEN PO PRN (21:43)
[2019-01-24] MEDS ORDERED: ATROVENT IH PRN (21:49)
--- NOTE | 2019-01-24 21:58 | History and Physical Report ---
History of Present Illness Date of examination: 01/24/19 Date of admission: 01/24/2019 Chief complaint: Chest pain and dizziness History of present illness: 63-year-old -[place] paraplegic male with history of mitral valve disease S/P mitral valve replacement, Heart Block s/p indwelling pacemaker on Coumadin, HTN, pulmonary hypertension, cor-pulmonale, DM2, GERD, and obesity who present to [facility] ED via EMS with c/o chest pain and dizziness. Patient states that he started feeling dizzy and experiencing intermittent left-sided substernal nonradiating chest pain for one day. He describes his pain as heaviness and rates it 5/10. There are no aggravating or relieving factors. Denies: n/v/d, diaphoresis, headache, cough, hemoptysis, or recent contact Past History Past Medical History: COPD, diabetes, GERD, heart failure, hypertension, other (pulmonary hypertension, spinal cord injury paralyzed from waist down, urinary retention) Past Surgical History: CABG (20yrs ago), Other (mitral valve replacement, indwelling pacemaker) Social history: lives with family Family history: no significant family history Medications and Allergies Allergies Allergy/AdvReac Type Severity Reaction Status Date / Time propoxyphene napsylate Allergy Intermediate Rash Verified 01/23/19 09:50 [From Darvocet-N 100] Sulfa (Sulfonamide Allergy Intermediate Rash Verified 01/23/19 09:50 Antibiotics) Home Medications Medication Instructions Recorded Confirmed Last Taken Type ALBUTEROL Inhaler (OR & NICU) 2 puff IH QID PRN 09/30/13 01/24/19 10/28/13 History [ProAir HFA Inhaler] Furosemide [Lasix TAB] 80 mg PO BID 09/30/13 01/24/19 10/26/18 History Insulin Aspart [NovoLOG 100 10 unit SQ QAC 09/30/13 01/24/19 09/09/14 History UNITS/ML VIAL] Esomeprazole Magnesium [NexIUM] 40 mg PO DAILY 10/29/13 01/24/19 10/30/18 10:00 History Gabapentin 1 cap PO TID 09/04/14 01/24/19 09/11/14 History Sennosides/Docusate Sodium [[facility] 1 tab PO DAILY 09/04/14 01/24/19 10/30/18 10:00 History Stool Softener-Laxative Tb] diazePAM TAB [Valium] 5 tab PO DAILY 09/04/14 01/24/19 08/27/14 History Aspirin EC 81 mg PO QDAY #30 tablet. 05/12/18 01/24/19 10/29/18 10:00 Rx Colchicine 0.6 mg PO DAILY #15 powder 05/12/18 01/24/19 10/29/18 10:00 Rx Ipratropium (Nf) [Atrovent HFA 2 puff IH Q6HR PRN #10 inha 05/12/18 01/24/19 Unknown Rx 17MCG/PUFF] Nitroglycerin [Nitrostat] 0.4 mg SL Q5M PRN #30 tablet 05/12/18 01/24/19 10/30/18 10:00 Rx Potassium Chloride 20 meq PO BID #60 packet 05/12/18 01/24/19 10/30/18 10:00 Rx Ranolazine [Ranexa] 500 mg PO BID #60 tab.er.12h 05/12/18 01/24/19 10/30/18 10:00 Rx Tamsulosin [Flomax] 0.4 mg PO QDAY #30 capsule 05/12/18 01/24/19 10/30/18 Rx Warfarin [Coumadin] 5 mg PO QDAY #30 tablet 05/12/18 01/24/19 10/30/18 14:00 Rx Zolpidem [Ambien] 5 mg PO QHS PRN tablet 05/12/18 01/24/19 10/29/18 22:00 Rx Insulin Glargine,Hum.rec.anlog 40 units SQ QHS 01/24/19 01/24/19 Unknown History [Lantus Solostar] Active Meds: Active Medications Acetaminophen (Tylenol) 650 mg PO Q4H PRN PRN Reason: Pain MILD(1-3)/Fever >100.5/PRADHAN Albuterol (Proventil) 2.5 mg IH Q4HRT PRN PRN Reason: Shortness Of Breath Aspirin (Halfprin Ec) 81 mg PO QDAY MADELIN Atorvastatin Calcium (Lipitor) 40 mg PO QHS MADELIN Budesonide (Pulmicort) 0.5 mg IH Q12HRT MADELIN Colchicine (Colchicine) 0.6 mg PO QDAY [facility] Dextrose (D50w (25gm) Syringe) 50 ml IV PRN PRN PRN Reason: Hypoglycemia Docusate Sodium (Colace) 100 mg PO BID [facility] Furosemide (Lasix) 40 mg IV BID [facility] Gabapentin (Neurontin) 300 mg PO TID [facility] Hydromorphone HCl (Dilaudid) 0.5 mg IV Q3H PRN PRN Reason: Pain , Severe (7-10) Stop: 01/25/19 23:59 Insulin Glargine (Lantus) 40 units SUB-Q QHS [facility] Insulin Human Regular (Humulin R) 0 units SUB-Q ACHS [facility]; Protocol Ipratropium [place] (Atrovent) 0.5 mg IH Q4HRT PRN PRN Reason: Shortness Of Breath Morphine Sulfate (Morphine) 2 mg IV Q4H PRN PRN Reason: Pain, Moderate (4-6) Stop: 01/25/19 23:59 Nitroglycerin (Nitrostat) 0.4 mg SL Q5M PRN PRN Reason: Chest Pain Ondansetron HCl (Zofran) 4 mg IV Q8H PRN PRN Reason: Nausea And Vomiting Oxycodone/Acetaminophen (Percocet 5/325) 1 tab PO Q6H PRN PRN Reason: Pain, Moderate (4-6) Pantoprazole Sodium (Protonix) 40 mg PO QDAY [facility] Potassium Chloride (Potassium Chloride) 20 meq PO BID [facility] Ranolazine (Ranexa Er) 500 mg PO BID [facility] Sodium Chloride (Sodium Chloride Flush Syringe 10 Ml) 10 ml IV BID [facility] Sodium Chloride (Sodium Chloride Flush Syringe 10 Ml) 10 ml IV PRN PRN PRN Reason: LINE FLUSH Tamsulosin HCl (Flomax) 0.4 mg PO QDAY [facility] Warfarin Sodium (Coumadin) 5 mg PO DAILY@1700 [facility]; Protocol Zolpidem Tartrate (Ambien) 5 mg PO QHS PRN PRN Reason: Sleep Review of Systems All systems: negative (reviewed and no additional remarkable complaints except as noted below) Cardiovascular: chest pain, leg edema, other (Dora hypertension) Neurological: other (dizzinesss) Exam - Physical Exam Narrative exam: Physical exam General appearance: Present: No acute distress, well-developed, well-nourished -[place] male slightly anxious - EENT Eyes: Present: PERRL, EOM intact ENT: hearing intact, normal dentition - Neck Neck: Present: supple, normal ROM - Respiratory Respiratory effort: Non-labored Respiratory: bilateral: diminished (bases) - Cardiovascular Heart rate: 70 (bpm) Rhythm: V-paced Heart Sounds: Present: S1 & S2. Absent: rub, click - Extremities Extremities: no ischemia, pulses intact, abnormal (bilateral lower extremity pitting edema) - Peripheral Assessment Peripheral Pulses: within normal limits - Abdominal General gastrointestinal: soft, non-tender, normal bowel sounds - Integumentary Integumentary: Present: warm, dry - Musculoskeletal Musculoskeletal: Lives from waist down, able to move upper extremities - Psychiatric Psychiatric: cooperative - Constitutional Vitals: Temp Pulse Resp BP Pulse Ox 98.2 F 70 13 160/79 95 01/24/19 18:28 01/24/19 19:25 01/24/19 19:25 01/24/19 19:25 01/24/19 19:25 Results - Labs CBC & Chem 7: 01/24/19 18:48 01/24/19 18:48 Labs: Laboratory Last Values WBC 4.8 K/mm3 (4.5-11.0) 01/24/19 18:48 RBC 4.19 M/mm3 (3.65-5.03) 01/24/19 18:48 Hgb 10.3 gm/dl (11.8-15.2) L 01/24/19 18:48 Hct 32.3 % (35.5-45.6) L 01/24/19 18:48 MCV 77 fl (84-94) L 01/24/19 18:48 MCH 25 pg (28-32) L 01/24/19 18:48 MCHC 32 % (32-34) 01/24/19 18:48 RDW 23.4 % (13.2-15.2) H 01/24/19 18:48 Plt Count 158 K/mm3 (140-440) 01/24/19 18:48 Add Manual Diff Complete 1819 18:48 Total Counted 100 01/24/19 18:48 Seg Neuts % (Manual) 73.0 % (40.0-70.0) H 01/24/19 18:48 0 % 01/24/19 18:48 16.0 % (13.4-35.0) 01/24/19 18:48 Reactive Lymphs % (Man) 0 % 01/24/19 18:48 8.0 % (0.0-7.3) H 01/24/19 18:48 2.0 % (0.0-4.3) 01/24/19 18:48 0 % (0.0-1.8) 01/24/19 18:48 0 % 01/24/19 18:48 1.0 % 01/24/19 18:48 0 % 01/24/19 18:48 0 % 01/24/19 18:48 Nucleated RBC % Not Reportable 01/24/19 18:48 Seg Neutrophils # Man 3.5 K/mm3 (1.8-7.7) 01/24/19 18:48 Band Neutrophils # 0.0 K/mm3 01/24/19 18:48 0.8 K/mm3 (1.2-5.4) L 01/24/19 18:48 Abs React Lymphs (Man) 0.0 K/mm3 01/24/19 18:48 0.4 K/mm3 (0.0-0.8) 01/24/19 18:48 0.1 K/mm3 (0.0-0.4) 01/24/19 18:48 0.0 K/mm3 (0.0-0.1) 01/24/19 18:48 0.0 K/mm3 01/24/19 18:48 0.0 K/mm3 01/24/19 18:48 0.0 K/mm3 01/24/19 18:48 Blast Cells # 0.0 K/mm3 01/24/19 18:48 WBC Morphology Not Reportable 01/24/19 18:48 Hypersegmented Neuts Not Reportable 01/24/19 18:48 Hyposegmented Neuts Not Reportable 01/24/19 18:48 Hypogranular Neuts Not Reportable 01/24/19 18:48 Not Reportable 01/24/19 18:48 Not Reportable 01/24/19 18:48 Not Reportable 01/24/19 18:48 Not Reportable 01/24/19 18:48 Not Reportable 01/24/19 18:48 Not Reportable 01/24/19 18:48 Consistent w auto 01/24/19 18:48 Not Reportable 01/24/19 18:48 Plt Clumps, EDTA Not Reportable 01/24/19 18:48 1+ 01/24/19 18:48 Not Reportable 01/24/19 18:48 Not Reportable 01/24/19 18:48 Plt Morphology Comment Not Reportable 01/24/19 18:48 RBC Morphology Not Reportable 01/24/19 18:48 Dimorphic RBCs Not Reportable 01/24/19 18:48 Not Reportable 01/24/19 18:48 2+ 01/24/19 18:48 Not Reportable 01/24/19 18:48 1+ 01/24/19 18:48 Not Reportable 01/24/19 18:48 Not Reportable 01/24/19 18:48 Not Reportable 01/24/19 18:48 Not Reportable 01/24/19 18:48 Not Reportable 01/24/19 18:48 Not Reportable 01/24/19 18:48 Rare 01/24/19 18:48 Not Reportable 01/24/19 18:48 Not Reportable 01/24/19 18:48 Not Reportable 01/24/19 18:48 Not Reportable 01/24/19 18:48 Not Reportable 01/24/19 18:48 Not Reportable 01/24/19 18:48 Not Reportable 01/24/19 18:48 Not Reportable 01/24/19 18:48 Acanthocytes (Spur) Not Reportable 01/24/19 18:48 Rouleaux Not Reportable 01/24/19 18:48 Not Reportable 01/24/19 18:48 1+ 01/24/19 18:48 Not Reportable 01/24/19 18:48 Not Reportable 01/24/19 18:48 Hem Pathologist Commnt No 01/24/19 18:48 PT 27.0 Sec. (12.2-14.9) H 01/24/19 18:48 INR 2.55 (0.87-1.13) H 01/24/19 18:48 APTT 47.5 Sec. (24.2-36.6) H 01/24/19 18:48 273.11 ng/mlDDU (0-234) H 01/24/19 18:48 Sodium 140 mmol/L (137-145) 01/24/19 18:48 Potassium 3.3 mmol/L (3.6-5.0) L 01/24/19 18:48 Chloride 98.9 mmol/L (98-107) 01/24/19 18:48 Carbon Dioxide 31 mmol/L (22-30) H 01/24/19 18:48 13 mmol/L 01/24/19 18:48 BUN 14 mg/dL (9-20) 01/24/19 18:48 1.1 mg/dL (0.8-1.5) 18 18:48 Estimated GFR > 60 ml/min 01/24/19 18:48 13 % 01/24/19 18:48 Glucose 84 mg/dL (75-100) 01/24/19 18:48 Calcium 9.1 mg/dL (8.4-10.2) 01/24/19 18:48 0.021 ng/mL (0.00-0.029) 01/24/19 18:48 NT-Pro-B Natriuret Pep 336.1 pg/mL (0-900) 01/24/19 18:48 Maya (Yellow) 01/24/19 18:57 Clear (Clear) 01/24/19 18:57 5.0 (5.0-7.0) 01/24/19 18:57 Ur Specific Frederick 1.014 (1.003-1.030) 01/24/19 18:57 <15 mg/dl mg/dL (Negative) 01/24/19 18:57 Neg mg/dL (Negative) 01/24/19 18:57 Neg mg/dL (Negative) 01/24/19 18:57 Sm (Negative) 01/24/19 18:57 Neg (Negative) 01/24/19 18:57 Neg (Negative) 01/24/19 18:57 4.0 mg/dL (<2.0) 01/24/19 18:57 Ur Leukocyte Esterase Sm (Negative) 01/24/19 18:57 18.0 /HPF (0.0-6.0) H 01/24/19 18:57 3.0 /HPF (0.0-6.0) 01/24/19 18:57 U Epithel Cells (Auto) 2.0 /HPF (0-13.0) 01/24/19 18:57 Few /HPF 01/24/19 18:57 - Imaging and Cardiology Chest x-ray: report reviewed (Lungs/Pleura: There is pulmonary venous hypertension. No consolidation, significant effusion, or pneumothorax. ), image reviewed Imaging and Cardiology: CT Head: FINDINGS: BRAIN/INTRACRANIAL STRUCTURES: Unenhanced CT images of the brain demonstrate no evidence of acute intracranial abnormality. Ventricles and sulci are somewhat prominent in size, consistent with diffuse cerebral atrophy. There is no evidence of acute ischemic injury, hemorrhage, or mass. There are no abnormal extra axial fluid collections. EXTRACRANIAL STRUCTURES: Unremarkable. IMPRESSION: No acute abnormality. Assessment and Plan Assessment and plan: 63-year-old -[place] paraplegic male with history of mitral valve disease S/P mitral valve replacement, Heart Block s/p indwelling pacemaker on Coumadin, HTN, pulmonary hypertension, cor-pulmonale, DM2, GERD, and obesity who present to [facility] ED with c/o chest pain and dizziness. Patient had left heart cath in May, 2018, showed normal coronary arteries. Echocardiogram done Aug, 2018 showed weighted right heart chambers, moderate to severe pulmonary hypertension, EF 55%. CT head negative for acute abnormalities. CXR showed pulmonary venous hypertension with no evidence of consolidation, significant effusion, or pneumothorax. Will admit to Telemetry for further evaluation. Will consult [facility]. Acute chest pain Urinary tract infection Hypokalemia Cor-pulmonale Volume Overload Mechanical mitral valve replacement; on Coumadin Hx of heart block Hypertension Pulmonary hypertension Diabetes type 2 GERD Anemia Obesity Plan: Continue supportive care Cardiology consulted ([facility]) Troponin negative times one, we will continue to trend troponin and defer need for Lexiscan to Cardiology Start IV Lasix 40mg BID Monitor INR; this admission therapeutic at 2.55 Continue Coumadin Monitor electrolytes, replete as needed Continue By mouth potassium 40 mEq 1, continue daily potassium replete of 20Meq BID Start Rocephin 1 g every 24 hours Urine culture pending Monitor BP IV hydralazine when necessary POC BG Monitoring Sliding scale coverage and Lantus 40 units daily at bedtime Pulmicort twice a day, albuterol when necessary, Atrovent when necessary Continue gabapentin Protonix 40 mg daily Continue Flomax 0.4 mg daily Monitor Hgb, Stable for now, no s/s of active bleeding Hgb on admission 10.3; transfuse when necessary DVT PPX on Lovenox Advance Directives: No VTE prophylaxis?: Chemical Plan of care discussed with patient/family: Yes
[2019-01-24] MEDS ORDERED: POTASSIUM CHLORIDE PO SCH (22:00)
[2019-01-24] MEDS ORDERED: NON-FORMULARY (Insulin Glargine,Hum.Rec.Anlog [Lantus Solostar] 20 UNITS) SQ SCH (22:00)
[2019-01-24] MEDS ORDERED: LANTUS SUB-Q SCH ×2 (22:00)
[2019-01-24] MEDS ORDERED: K-DUR PO ONE (22:12)
[2019-01-24] MEDS ORDERED: APRESOLINE IV PRN (22:20)
[2019-01-24 22:43] VITALS: BP 128/68
[2019-01-24] MEDS: LASIX IV SCH (22:57)
[2019-01-24] MEDS: COLACE PO SCH (22:58)
[2019-01-24] MEDS: MORPHINE IV PRN (22:58)
[2019-01-24] MEDS: SODIUM CHLORIDE FLUSH SYRINGE 10 ML IV SCH (22:59)
[2019-01-24] MEDS: HumuLIN R SUB-Q SCH (23:00)
[2019-01-24] MEDS: RANEXA ER PO SCH (23:00)
[2019-01-25] MEDS: MORPHINE IV PRN ×3 (03:27→13:18)
[2019-01-25 04:54] LABS: Hematocrit 33.2 % (35.5-45.6); Hemoglobin 10.8 gm/dl (11.8-15.2); Mean Corpuscular HGB Conc 33 % (32-34); Mean Corpuscular Volume 77 fl (84-94); Red Blood Count 4.33 M/mm3 (3.65-5.03)
[2019-01-25 05:10] LABS: Red Cell Distribution Width 22.7 % (13.2-15.2)
[2019-01-25 05:37] LABS: BUN/Creatinine Ratio 16; Blood Urea Nitrogen 14 mg/dL (9-20); Calcium 8.7 mg/dL (8.4-10.2); Hemolysis Index 43
[2019-01-25] MEDS: HumuLIN R SUB-Q SCH ×2 (07:30→11:30)
[2019-01-25 07:48] LABS: Anisocytosis 1+; Basophils % (Manual) 0 % (0.0-1.8); Hypochromasia 1+; Total Cells Counted 100
[2019-01-25 07:49] LABS: Large Platelets Few; Platelet Estimate Consistent w Auto; Schistocytes 1+; Target Cells Rare; Tear Drop Cells Rare
[2019-01-25 07:50] LABS: Platelet Count 170 K/mm3 (140-440)
[2019-01-25] MEDS ORDERED: PULMICORT IH SCH (08:00)
[2019-01-25] MEDS: K-DUR PO SCH ×2 (08:41→13:17)
[2019-01-25] MEDS: NEURONTIN PO SCH ×2 (08:41→13:17)
--- NOTE | 2019-01-25 08:42 | Consultation ---
History of Present Illness Consult date: 01/25/19 Consult reason: chest pain, other (MVR) History of present illness: This is a 63-year old male with an extensive cardiac history. Patient has a h istory of mitral valve disease and is status post mechanical mitral valve replacement. After his mechanical mitral valve replacement, he developed heart block, and has an indwelling cardiac pacemaker. He is on Coumadin with therapeutic range of INR recommended at 2.5-3.5. In May of 2018, he und erwent a left heart cath that reports normal coronaries. An echocardiogram done 5 months ago reports dilated right heart chambers with moderate to severe pulmonary hypertension, RVSP 66 mmHg. Normal functioning mechanical mitral valve with a normal left ventricular systolic function, ejection fraction 55%. Patient presented with complaints of dizziness, headaches, faint feeling, admitted for further evaluation. Cardiac consultation has been requested. Patient reports symptoms began shortly after he completed outpatient eye surgery. Therapeutic INR of 2.55. Systolic blood pressure of 160 on p [address]ation. Head CT scan is normal. An ECG shows an AV paced rhythm. Past History Past Medical History: COPD, diabetes, GERD, heart failure, hypertension, other (pulmonary hypertension, spinal cord injury paralyzed from waist down, urinary retention) Past Surgical History: CABG (20yrs ago), Other (mitral valve replacement, indwelling pacemaker) Social history: lives with family Family history: no significant family history Medications and Allergies Allergies Allergy/AdvReac Type Severity Reaction Status Date / Time propoxyphene napsylate Allergy Intermediate Rash Verified 01/23/19 09:50 [From Darvocet-N 100] Sulfa (Sulfonamide Allergy Intermediate Rash Verified 01/23/19 09:50 Antibiotics) Home Medications Medication Instructions Recorded Confirmed Last Taken Type ALBUTEROL Inhaler (OR & NICU) 2 puff IH QID PRN 09/30/13 01/24/19 10/28/13 History [ProAir HFA Inhaler] Furosemide [Lasix TAB] 80 mg PO BID 09/30/13 01/24/19 10/26/18 History Insulin Aspart [NovoLOG 100 10 unit SQ QAC 09/30/13 01/24/19 09/09/14 History UNITS/ML VIAL] Esomeprazole Magnesium [NexIUM] 40 mg PO DAILY 10/29/13 01/24/19 10/30/18 10:00 History Gabapentin 1 cap PO TID 09/04/14 01/24/19 09/11/14 History Sennosides/Docusate Sodium [Cvs 1 tab PO DAILY 09/04/14 01/24/19 10/30/18 10:00 History Stool Softener-Laxative Tb] diazePAM TAB [Valium] 5 tab PO DAILY 09/04/14 01/24/19 08/27/14 History Aspirin EC 81 mg PO QDAY #30 tablet.dr 05/12/18 01/24/19 10/29/18 10:00 Rx Colchicine 0.6 mg PO DAILY #15 powder 05/12/18 01/24/19 10/29/18 10:00 Rx Ipratropium (Nf) [Atrovent HFA 2 puff IH Q6HR PRN #10 inha 05/12/18 01/24/19 Unknown Rx 17MCG/PUFF] Nitroglycerin [Nitrostat] 0.4 mg SL Q5M PRN #30 tablet 05/12/18 01/24/19 10/30/18 10:00 Rx Potassium Chloride 20 meq PO BID #60 packet 05/12/18 01/24/19 10/30/18 10:00 Rx Ranolazine [Ranexa] 500 mg PO BID #60 tab.er.12h 05/12/18 01/24/19 10/30/18 10:00 Rx Tamsulosin [Flomax] 0.4 mg PO QDAY #30 capsule 05/12/18 01/24/19 10/30/18 Rx Warfarin [Coumadin] 5 mg PO QDAY #30 tablet 05/12/18 01/24/19 10/30/18 14:00 Rx Zolpidem [Ambien] 5 mg PO QHS PRN tablet 05/12/18 01/24/19 10/29/18 22:00 Rx Insulin Glargine,Hum.rec.anlog 40 units SQ QHS 01/24/19 01/24/19 Unknown History [Lantus Solostar] Active Meds: Active Medications Acetaminophen (Tylenol) 650 mg PO Q4H PRN PRN Reason: Pain MILD(1-3)/Fever >100.5/PRADHAN Albuterol (Proventil) 2.5 mg IH Q4HRT PRN PRN Reason: Shortness Of Breath Last Admin: 07/19/19 07:31 Dose: 2.5 mg Documented by: Aspirin (Halfprin Ec) 81 mg PO QDAY [facility] Atorvastatin Calcium (Lipitor) 40 mg PO QHS [facility] Last Admin: 01/24/19 22:58 Dose: 40 mg Documented by: Budesonide (Pulmicort) 0.5 mg IH Q12HRT [facility] Last Admin: 01/25/19 07:31 Dose: 0.5 mg Documented by: Colchicine (Colchicine) 0.6 mg PO QDAY [facility] Dextrose (D50w (25gm) Syringe) 50 ml IV PRN PRN PRN Reason: Hypoglycemia Docusate Sodium (Colace) 100 mg PO BID [facility] Last Admin: 01/24/19 22:58 Dose: 100 mg Documented by: Furosemide (Lasix) 40 mg IV BID [facility] Last Admin: 01/24/19 22:57 Dose: 40 mg Documented by: Gabapentin (Neurontin) 300 mg PO TID [facility] Hydralazine HCl (Apresoline) 10 mg IV Q4HR PRN PRN Reason: Blood Pressure Hydromorphone HCl (Dilaudid) 0.5 mg IV Q3H PRN PRN Reason: Pain , Severe (7-10) Stop: 01/25/19 23:59 Ceftriaxone Sodium (Rocephin/Ns 1 Gm/50 Ml) 1 gm in 50 mls @ 100 mls/hr IV Q24HR [facility]; Protocol Insulin Glargine (Lantus) 40 units SUB-Q QHS [facility] Last Admin: 01/24/19 23:00 Dose: Not Given Documented by: Insulin Human Regular (Humulin R) 0 units SUB-Q [facility]; Protocol Last Admin: 01/24/19 23:00 Dose: Not Given Documented by: Ipratropium [place] (Atrovent) 0.5 mg IH Q4HRT PRN PRN Reason: Shortness Of Breath Morphine Sulfate (Morphine) 2 mg IV Q4H PRN PRN Reason: Pain, Moderate (4-6) Stop: 01/25/19 23:59 Last Admin: 01/25/19 03:27 Dose: 2 mg Documented by: Nitroglycerin (Nitrostat) 0.4 mg SL Q5M PRN PRN Reason: Chest Pain Ondansetron HCl (Zofran) 4 mg IV Q8H PRN PRN Reason: Nausea And Vomiting Oxycodone/Acetaminophen (Percocet 5/325) 1 tab PO Q6H PRN PRN Reason: Pain, Moderate (4-6) Pantoprazole Sodium (Protonix) 40 mg PO QDAY [facility] Potassium Chloride (K-Dur) 40 meq PO Q6H [facility] Stop: 01/25/19 14:01 Ranolazine (Ranexa Er) 500 mg PO BID [facility] Last Admin: 01/24/19 23:00 Dose: 500 mg Documented by: Sodium Chloride (Sodium Chloride Flush Syringe 10 Ml) 10 ml IV BID [facility] Last Admin: 01/24/19 22:59 Dose: 10 ml Documented by: Sodium Chloride (Sodium Chloride Flush Syringe 10 Ml) 10 ml IV PRN PRN PRN Reason: LINE FLUSH Tamsulosin HCl (Flomax) 0.4 mg PO QDAY [facility] Warfarin Sodium (Coumadin) 5 mg PO DAILY@1700 MADELIN; Protocol Zolpidem Tartrate (Ambien) 5 mg PO QHS PRN PRN Reason: Sleep Last Admin: 01/24/19 23:07 Dose: 5 mg Documented by: Physical Examination Vital Signs Pulse Resp BP Pulse Ox 70 19 134/68 99 01/24/19 18:16 01/24/19 18:16 01/24/19 18:16 01/24/19 18:16 General appearance: no acute distress HEENT: Positive: PERRL Neck: Positive: trachea midline Cardiac: Positive: Other (AV paced) Lungs: Positive: Decreased Breath Sounds Neuro: Positive: Grossly Intact Extremities: Absent: edema Results 01/25/19 04:38 01/25/19 04:38 Cardiac Enzymes 01/24/19 01/24/19 01/24/19 Range/Units 18:48 18:48 18:48 WBC 4.8 (4.5-11.0) K/mm3 RBC 4.19 (3.65-5.03) M/mm3 Hgb 10.3 L (11.8-15.2) gm/dl Hct 32.3 L (35.5-45.6) % MCV 77 L (84-94) fl MCH 25 L (28-32) pg MCHC 32 (32-34) % RDW 23.4 H (13.2-15.2) % Plt Count 158 (140-440) K/mm3 Add Manual Diff Complete Total Counted 100 Seg Neuts % (Manual) 73.0 H (40.0-70.0) % Band Neutrophils % 0 % Lymphocytes % (Manual) 16.0 (13.4-35.0) % Reactive Lymphs % (Man) 0 % Monocytes % (Manual) 8.0 H (0.0-7.3) % Eosinophils % (Manual) 2.0 (0.0-4.3) % Basophils % (Manual) 0 (0.0-1.8) % Metamyelocytes % 0 % Myelocytes % 1.0 % Promyelocytes % 0 % Blast Cells % 0 % Nucleated RBC % Not Reportable Seg Neutrophils # Man 3.5 (1.8-7.7) K/mm3 Band Neutrophils # 0.0 K/mm3 Lymphocytes # (Manual) 0.8 L (1.2-5.4) K/mm3 Abs React Lymphs (Man) 0.0 K/mm3 Monocytes # (Manual) 0.4 (0.0-0.8) K/mm3 Eosinophils # (Manual) 0.1 (0.0-0.4) K/mm3 Basophils # (Manual) 0.0 (0.0-0.1) K/mm3 Metamyelocytes # 0.0 K/mm3 Myelocytes # 0.0 K/mm3 Promyelocytes # 0.0 K/mm3 Blast Cells # 0.0 K/mm3 WBC Morphology Not Reportable Hypersegmented Neuts Not Reportable Hyposegmented Neuts Not Reportable Hypogranular Neuts Not Reportable Smudge Cells Not Reportable Toxic Granulation Not Reportable Toxic Vacuolation Not Reportable Dohle Bodies Not Reportable Pelger-Huet Anomaly Not Reportable Merry Rods Not Reportable Platelet Estimate Consistent w auto Clumped Platelets Not Reportable Plt Clumps, EDTA Not Reportable Large Platelets 1+ Giant Platelets Not Reportable Platelet Satelliting Not Reportable Plt Morphology Comment Not Reportable RBC Morphology Not Reportable Dimorphic RBCs Not Reportable Polychromasia Not Reportable Hypochromasia 2+ Poikilocytosis Not Reportable Anisocytosis 1+ Microcytosis Not Reportable Macrocytosis Not Reportable Spherocytes Not Reportable Pappenheimer Bodies Not Reportable Sickle Cells Not Reportable Target Cells Not Reportable Tear Drop Cells Rare Ovalocytes Not Reportable Helmet Cells Not Reportable Rajan[place] Bodies Not Reportable [place] Rings Not Reportable [place] Cells Not Reportable Bite Cells Not Reportable Crenated Cell Not Reportable Elliptocytes Not Reportable Acanthocytes (Spur) Not Reportable Rouleaux Not Reportable Hemoglobin C Crystals Not Reportable Schistocytes 1+ Malaria parasites Not Reportable Jaison Bodies Not Reportable Hem Pathologist Commnt No PT 27.0 H (12.2-14.9) Sec. INR 2.55 H (0.87-1.13) APTT 47.5 H (24.2-36.6) Sec. D-Dimer 273.11 H (0-234) ng/mlDDU Sodium 140 (137-145) mmol/L Potassium 3.3 L (3.6-5.0) mmol/L Chloride 98.9 (98-107) mmol/L Carbon Dioxide 31 H (22-30) mmol/L Anion Gap 13 mmol/L BUN 14 (9-20) mg/dL Creatinine 1.1 (0.8-1.5) mg/dL Estimated GFR > 60 ml/min BUN/Creatinine Ratio 13 % Glucose 84 (75-100) mg/dL POC Glucose (70-105) Hemoglobin A1c (4-6) % Calcium 9.1 (8.4-10.2) mg/dL Troponin T 0.021 (0.00-0.029) ng/mL NT-Pro-B Natriuret Pep 336.1 (0-900) pg/mL Urine Color (Yellow) Urine Turbidity (Clear) Urine pH (5.0-7.0) Ur Specific [place] (1.003-1.030) Urine Protein (Negative) mg/dL Urine Glucose (UA) (Negative) mg/dL Urine Ketones (Negative) mg/dL Urine Blood (Negative) Urine Nitrite (Negative) Urine Bilirubin (Negative) Urine Urobilinogen (<2.0) mg/dL Ur Leukocyte Esterase (Negative) Urine WBC (Auto) (0.0-6.0) /HPF Urine RBC (Auto) (0.0-6.0) /HPF U Epithel Cells (Auto) (0-13.0) /HPF Urine Mucus /HPF 01/24/19 01/24/19 01/24/19 Range/Units 18:57 21:46 22:47 WBC (4.5-11.0) K/mm3 RBC (3.65-5.03) M/mm3 Hgb (11.8-15.2) gm/dl Hct (35.5-45.6) % MCV (84-94) fl MCH (28-32) pg MCHC (32-34) % RDW (13.2-15.2) % Plt Count (140-440) K/mm3 Add Manual Diff Total Counted Seg Neuts % (Manual) (40.0-70.0) % Band Neutrophils % % Lymphocytes % (Manual) (13.4-35.0) % Reactive Lymphs % (Man) % Monocytes % (Manual) (0.0-7.3) % Eosinophils % (Manual) (0.0-4.3) % Basophils % (Manual) (0.0-1.8) % Metamyelocytes % % Myelocytes % % Promyelocytes % % Blast Cells % % Nucleated RBC % Seg Neutrophils # Man (1.8-7.7) K/mm3 Band Neutrophils # K/mm3 Lymphocytes # (Manual) (1.2-5.4) K/mm3 Abs React Lymphs (Man) K/mm3 Monocytes # (Manual) (0.0-0.8) K/mm3 Eosinophils # (Manual) (0.0-0.4) K/mm3 Basophils # (Manual) (0.0-0.1) K/mm3 Metamyelocytes # K/mm3 Myelocytes # K/mm3 Promyelocytes # K/mm3 Blast Cells # K/mm3 WBC Morphology Hypersegmented Neuts Hyposegmented Neuts Hypogranular Neuts Smudge Cells Toxic Granulation Toxic Vacuolation Dohle Bodies Pelger-Huet Anomaly [place] Platelet Estimate Clumped Platelets Plt Clumps, EDTA Large Platelets Giant Platelets Platelet Satelliting Plt Morphology Comment RBC Morphology Dimorphic RBCs Polychromasia Hypochromasia Poikilocytosis Anisocytosis Microcytosis Macrocytosis Spherocytes Pappenheimer Bodies Sickle Cells Target Cells Tear Drop Cells Ovalocytes Helmet Cells Rajan[place] Bodies [place] Rings [place] Cells Bite Cells Crenated Cell Elliptocytes Acanthocytes (Spur) Rouleaux Hemoglobin C Crystals Schistocytes Malaria parasites Jaison Bodies Hem Pathologist Commnt PT (12.2-14.9) Sec. INR (0.87-1.13) APTT (24.2-36.6) Sec. D-Dimer (0-234) ng/mlDDU Sodium (137-145) mmol/L Potassium (3.6-5.0) mmol/L Chloride (98-107) mmol/L Carbon Dioxide (22-30) mmol/L Anion Gap mmol/L BUN (9-20) mg/dL Creatinine (0.8-1.5) mg/dL Estimated GFR ml/min BUN/Creatinine Ratio % Glucose (75-100) mg/dL POC Glucose 98 (70-105) Hemoglobin A1c (4-6) % Calcium (8.4-10.2) mg/dL Troponin T 0.026 (0.00-0.029) ng/mL NT-Pro-B Natriuret Pep (0-900) pg/mL Urine Color [place] (Yellow) Urine Turbidity Clear (Clear) Urine pH 5.0 (5.0-7.0) Ur Specific [place] 1.014 (1.003-1.030) Urine Protein <15 mg/dl (Negative) mg/dL Urine Glucose (UA) Neg (Negative) mg/dL Urine Ketones Neg (Negative) mg/dL Urine Blood Sm (Negative) Urine Nitrite Neg (Negative) Urine Bilirubin Neg (Negative) Urine Urobilinogen 4.0 (<2.0) mg/dL Ur Leukocyte Esterase Sm (Negative) Urine WBC (Auto) 18.0 H (0.0-6.0) /HPF Urine RBC (Auto) 3.0 (0.0-6.0) /HPF U Epithel Cells (Auto) 2.0 (0-13.0) /HPF Urine Mucus Few /HPF 01/25/19 01/25/19 01/25/19 Range/Units 00:30 04:38 04:38 WBC 5.4 (4.5-11.0) K/mm3 RBC 4.33 (3.65-5.03) M/mm3 Hgb 10.8 L (11.8-15.2) gm/dl Hct 33.2 L (35.5-45.6) % MCV 77 L (84-94) fl MCH 25 L (28-32) pg MCHC 33 (32-34) % RDW 22.7 H (13.2-15.2) % Plt Count 170 (140-440) K/mm3 Add Manual Diff Complete Total Counted 100 Seg Neuts % (Manual) 72.0 H (40.0-70.0) % Band Neutrophils % 0 % Lymphocytes % (Manual) 20.0 (13.4-35.0) % Reactive Lymphs % (Man) 0 % Monocytes % (Manual) 5.0 (0.0-7.3) % Eosinophils % (Manual) 3.0 (0.0-4.3) % Basophils % (Manual) 0 (0.0-1.8) % Metamyelocytes % 0 % Myelocytes % 0 % Promyelocytes % 0 % Blast Cells % 0 % Nucleated RBC % Not Reportable Seg Neutrophils # Man 3.9 (1.8-7.7) K/mm3 Band Neutrophils # 0.0 K/mm3 Lymphocytes # (Manual) 1.1 L (1.2-5.4) K/mm3 Abs React Lymphs (Man) 0.0 K/mm3 Monocytes # (Manual) 0.3 (0.0-0.8) K/mm3 Eosinophils # (Manual) 0.2 (0.0-0.4) K/mm3 Basophils # (Manual) 0.0 (0.0-0.1) K/mm3 Metamyelocytes # 0.0 K/mm3 Myelocytes # 0.0 K/mm3 Promyelocytes # 0.0 K/mm3 Blast Cells # 0.0 K/mm3 WBC Morphology Not Reportable Hypersegmented Neuts Not Reportable Hyposegmented Neuts Not Reportable Hypogranular Neuts Not Reportable Smudge Cells Not Reportable Toxic Granulation Not Reportable Toxic Vacuolation Not Reportable Dohle Bodies Not Reportable Pelger-Huet Anomaly Not Reportable [place]ry Rods Not Reportable Platelet Estimate Consistent w auto Clumped Platelets Not Reportable Plt Clumps, EDTA Not Reportable Large Platelets Few Giant Platelets Not Reportable Platelet Satelliting Not Reportable Plt Morphology Comment Not Reportable RBC Morphology Not Reportable Dimorphic RBCs Not Reportable Polychromasia Not Reportable Hypochromasia 1+ Poikilocytosis Not Reportable Anisocytosis 1+ Microcytosis Not Reportable Macrocytosis Not Reportable Spherocytes Not Reportable Pappenheimer Bodies Not Reportable Sickle Cells Not Reportable Target Cells Rare Tear Drop Cells Rare Ovalocytes Not Reportable Helmet Cells Not Reportable Rajan-[place] Bodies Not Reportable [place] Rings Not Reportable [place] Cells Not Reportable Bite Cells Not Reportable Crenated Cell Not Reportable Elliptocytes Not Reportable Acanthocytes (Spur) Not Reportable Rouleaux Not Reportable Hemoglobin C Crystals Not Reportable Schistocytes 1+ Malaria parasites Not Reportable Jaison Bodies Not Reportable Hem Pathologist Commnt No PT (12.2-14.9) Sec. INR (0.87-1.13) APTT (24.2-36.6) Sec. D-Dimer (0-234) ng/mlDDU Sodium 140 (137-145) mmol/L Potassium 3.5 L (3.6-5.0) mmol/L Chloride 98.7 (98-107) mmol/L Carbon Dioxide 29 (22-30) mmol/L Anion Gap 16 mmol/L BUN 14 (9-20) mg/dL Creatinine 0.9 (0.8-1.5) mg/dL Estimated GFR > 60 ml/min BUN/Creatinine Ratio 16 % Glucose 122 H (75-100) mg/dL POC Glucose (70-105) Hemoglobin A1c (4-6) % Calcium 8.7 (8.4-10.2) mg/dL Troponin T 0.025 (0.00-0.029) ng/mL NT-Pro-B Natriuret Pep (0-900) pg/mL Urine Color (Yellow) Urine Turbidity (Clear) Urine pH (5.0-7.0) Ur Specific [place] (1.003-1.030) Urine Protein (Negative) mg/dL Urine Glucose (UA) (Negative) mg/dL Urine Ketones (Negative) mg/dL Urine Blood (Negative) Urine Nitrite (Negative) Urine Bilirubin (Negative) Urine Urobilinogen (<2.0) mg/dL Ur Leukocyte Esterase (Negative) Urine WBC (Auto) (0.0-6.0) /HPF Urine RBC (Auto) (0.0-6.0) /HPF U Epithel Cells (Auto) (0-13.0) /HPF Urine Mucus /HPF 01/25/19 Range/Units 04:38 WBC (4.5-11.0) K/mm3 RBC (3.65-5.03) M/mm3 Hgb (11.8-15.2) gm/dl Hct (35.5-45.6) % MCV (84-94) fl MCH (28-32) pg MCHC (32-34) % RDW (13.2-15.2) % Plt Count (140-440) K/mm3 Add Manual Diff Total Counted Seg Neuts % (Manual) (40.0-70.0) % Band Neutrophils % % Lymphocytes % (Manual) (13.4-35.0) % Reactive Lymphs % (Man) % Monocytes % (Manual) (0.0-7.3) % Eosinophils % (Manual) (0.0-4.3) % Basophils % (Manual) (0.0-1.8) % Metamyelocytes % % Myelocytes % % Promyelocytes % % Blast Cells % % Nucleated RBC % Seg Neutrophils # Man (1.8-7.7) K/mm3 Band Neutrophils # K/mm3 Lymphocytes # (Manual) (1.2-5.4) K/mm3 Abs React Lymphs (Man) K/mm3 Monocytes # (Manual) (0.0-0.8) K/mm3 Eosinophils # (Manual) (0.0-0.4) K/mm3 Basophils # (Manual) (0.0-0.1) K/mm3 Metamyelocytes # K/mm3 Myelocytes # K/mm3 Promyelocytes # K/mm3 Blast Cells # K/mm3 WBC Morphology Hypersegmented Neuts Hyposegmented Neuts Hypogranular Neuts Smudge Cells Toxic Granulation Toxic Vacuolation Dohle Bodies Pelger-Huet Anomaly [place]s Platelet Estimate Clumped Platelets Plt Clumps, EDTA Large Platelets Giant Platelets Platelet Satelliting Plt Morphology Comment RBC Morphology Dimorphic RBCs Polychromasia Hypochromasia Poikilocytosis Anisocytosis Microcytosis Macrocytosis Spherocytes Pappenheimer Bodies Sickle Cells Target Cells Tear Drop Cells Ovalocytes Helmet Cells Rajan[place] Bodies [place] Rings [place] Cells Bite Cells Crenated Cell Elliptocytes Acanthocytes (Spur) Rouleaux Hemoglobin C Crystals Schistocytes Malaria parasites Jaison Bodies Hem Pathologist Commnt PT (12.2-14.9) Sec. INR (0.87-1.13) APTT (24.2-36.6) Sec. D-Dimer (0-234) ng/mlDDU Sodium (137-145) mmol/L Potassium (3.6-5.0) mmol/L Chloride (98-107) mmol/L Carbon Dioxide (22-30) mmol/L Anion Gap mmol/L BUN (9-20) mg/dL Creatinine (0.8-1.5) mg/dL Estimated GFR ml/min BUN/Creatinine Ratio % Glucose (75-100) mg/dL POC Glucose (70-105) Hemoglobin A1c 5.3 (4-6) % Calcium (8.4-10.2) mg/dL Troponin T (0.00-0.029) ng/mL NT-Pro-B Natriuret Pep (0-900) pg/mL Urine Color (Yellow) Urine Turbidity (Clear) Urine pH (5.0-7.0) Ur Specific [place] (1.003-1.030) Urine Protein (Negative) mg/dL Urine Glucose (UA) (Negative) mg/dL Urine Ketones (Negative) mg/dL Urine Blood (Negative) Urine Nitrite (Negative) Urine Bilirubin (Negative) Urine Urobilinogen (<2.0) mg/dL Ur Leukocyte Esterase (Negative) Urine WBC (Auto) (0.0-6.0) /HPF Urine RBC (Auto) (0.0-6.0) /HPF U Epithel Cells (Auto) (0-13.0) /HPF Urine Mucus /HPF Coagulation 01/24/19 Range/Units 18:48 PT 27.0 H (12.2-14.9) Sec. INR 2.55 H (0.87-1.13) APTT 47.5 H (24.2-36.6) Sec. CBC 01/24/19 01/25/19 Range/Units 18:48 04:38 WBC 4.8 5.4 (4.5-11.0) K/mm3 RBC 4.19 4.33 (3.65-5.03) M/mm3 Hgb 10.3 L 10.8 L (11.8-15.2) gm/dl Hct 32.3 L 33.2 L (35.5-45.6) % Plt Count 158 170 (140-440) K/mm3 Comprehensive Metabolic Panel 01/24/19 01/25/19 Range/Units 18:48 04:38 Sodium 140 140 (137-145) mmol/L Potassium 3.3 L 3.5 L (3.6-5.0) mmol/L Chloride 98.9 98.7 (98-107) mmol/L Carbon Dioxide 31 H 29 (22-30) mmol/L BUN 14 14 (9-20) mg/dL Creatinine 1.1 0.9 (0.8-1.5) mg/dL Glucose 84 122 H (75-100) mg/dL Calcium 9.1 8.7 (8.4-10.2) mg/dL Assessment and Plan Dizziness with headaches post eye surgery head CT can is negative Chest pain, atypical normal coronaries by [facility] 05/2018 Mechanical mitral valve replacement He is on Coumadin with therapeutic range of INR recommended at 2.5-3.5. Hx of heart block s/p indwelling pacemaker Hypertension Diabetes Echocardiogram 08/2018 reports dilated right heart chambers with moderate to severe pulmonary hypertension, PASP 62mmHg. Findings consistent with cor- pulmonale. Normal left ventricular systolic function, ejection fraction 55-60%. Continue warfarin for mechanical MVR. Conservative cardiac management. Stable, cardiac caputo, for discharge.
[2019-01-25] MEDS: RANEXA ER PO SCH (09:41)
[2019-01-25] MEDS: COLACE PO SCH (09:41)
[2019-01-25] MEDS: SODIUM CHLORIDE FLUSH SYRINGE 10 ML IV SCH (09:42)
[2019-01-25] MEDS: LASIX IV SCH (09:42)
[2019-01-25] MEDS ORDERED: COLCHICINE PO SCH (10:00)
[2019-01-25] MEDS ORDERED: ROCEPHIN/NS 1 GM/50 ML 1 GM/50 ML BAG IV SCH (10:00)
[2019-01-25] MEDS ORDERED: FLOMAX PO SCH (10:00)
[2019-01-25] MEDS ORDERED: NON-FORMULARY (Colchicine [Colchicine] 0.6 MG) PO SCH (10:00)
[2019-01-25] MEDS ORDERED: PROTONIX PO SCH (10:00)
[2019-01-25] MEDS ORDERED: HALFPRIN EC PO SCH (10:00)
--- NOTE | 2019-01-25 11:23 | Discharge Summary ---
Providers - Providers Date of Admission: 01/24/19 20:22 Date of discharge: 01/25/19 Attending physician: CRUZ FRANCO 01/24/19 20:24 Consult to Physician [CONS] Routine Comment: Consulting Provider: NATALIIA MCNALLY Physician Instructions: Reason For Exam: acute CP, hx MVR, Pul HTN, Corpulmonale Primary care physician: SHRUTHI HERCULES Hospitalization Condition: Fair Hospital course: Patient is 63-year-old -[place] paraplegic male with history of mitral valve disease S/P mitral valve replacement, Heart Block s/p indwelling pacemaker on Coumadin, HTN, pulmonary hypertension, cor-pulmonale, DM2, GERD, and obesity. He presented to [facility] ED via EMS with c/o chest pain and dizziness for one day. He was seen and evaluated in ED and admitted. Patient was evaluated by cardiology. By then chest pain had resolved. Cardiology determined chest pain is non carduiac. Chest pain due to GERD. He was then discharged home. Disposition: DC- TO HOME OR SELFCARE - Discharge Diagnoses (1) Chest pain Status: Acute (2) Diabetes Status: Chronic (3) HTN (hypertension) Status: Chronic (4) Mechanical heart valve present Status: Chronic (5) Pacemaker Status: Chronic (6) S/P mitral valve replacement with metallic valve Status: Chronic (7) UTI (urinary tract infection) Status: Acute (8) Volume overload Status: Acute (9) GERD (gastroesophageal reflux disease) Status: Acute Core Measure Documentation - Palliative Care Palliative Care/ Comfort Measures: Not Applicable - Core Measures Any of the following diagnoses?: none Exam - Constitutional Vitals: Temp Pulse Resp BP Pulse Ox 98.0 F 70 18 128/68 97 01/24/19 22:37 01/25/19 03:30 01/25/19 03:30 01/24/19 22:37 01/25/19 03:30 Plan Activity: advance as tolerated Diet: low fat, low cholesterol, low salt Additional Instructions: 1.follow up with PCP in 1 week. 2.follow up with Dr. Rees, Cardiology in 1 week. 3.Check INR in 1 week Follow up with: PRIMARY CAREMD [Referring] - 3-5 Days Forms: Warfarin Discharge Instruction Prescriptions: cefUROXime [Ceftin] 500 mg PO Q12H 5 Days #20 tablet
[2019-01-25] MEDS ORDERED: COUMADIN PO SCH (17:00)
== END 2019-01-25 15:47 | disposition home or self-care (01) | DRG 313 ==
LOC: ED 17:55 → 4A 20:22
PROVIDERS: ADMIT Internal Medicine; ATTEND Internal Medicine
PROC: 5A09357 Assistance with Respiratory Ventilation, Less than 24 Consecutive Hours, Continuous Positive Airway Pressure (ICD-10-PCS; principal; 2019-01-25)
DX: R07.89 Other chest pain (principal); N39.0 Urinary tract infection, site not specified; E87.6 Hypokalemia; I27.20 Pulmonary hypertension, unspecified; I11.0 Hypertensive heart disease with heart failure; E11.9 Type 2 diabetes mellitus without complications; K21.9 Gastro-esophageal reflux disease without esophagitis; E66.9 Obesity, unspecified; J44.9 Chronic obstructive pulmonary disease, unspecified; I50.9 Heart failure, unspecified; E87.70 Fluid overload, unspecified; I27.81 Cor pulmonale (chronic); I48.91 Unspecified atrial fibrillation; G47.30 Sleep apnea, unspecified; D64.9 Anemia, unspecified; Z95.2 Presence of prosthetic heart valve; Z68.35 Body mass index [BMI] 35.0-35.9, adult; Z88.2 Allergy status to sulfonamides; Z95.1 Presence of aortocoronary bypass graft; Z79.899 Other long term (current) drug therapy; Z95.0 Presence of cardiac pacemaker; Z79.01 Long term (current) use of anticoagulants
CPT/HCPCS: 36415; 70450; 71045; 80048; 81001; 82962; 83036; 83880; 84484; 85007; 85025; 85379; 85610; 85730; 87076; 87086; 87186; 93005; 93010; 94640; 94660; 94760; 96374; 96375; G0378; A9270-GY; J0696; J1815; J1940; J2270; J2405; J3246

== ENCOUNTER 2019-12-20 11:36 | Emergency (ER) | payer MEDICARE ==
[2019-12-20 13:10] LABS: Hematocrit 27.6 % (35.5-45.6); Hemoglobin 9.1 gm/dl (11.8-15.2); Mean Corpuscular HGB Conc 33 % (32-34); Mean Corpuscular Volume 83 fl (84-94); Red Blood Count 3.33 M/mm3 (3.65-5.03); Red Cell Distribution Width 18.4 % (13.2-15.2)
[2019-12-20] MEDS ORDERED: MORPHINE 4 MG/1 ML INJ IV ONE (13:32)
[2019-12-20] MEDS ORDERED: ONDANSETRON 4 MG/2 ML INJ IV ONE (13:32)
--- NOTE | 2019-12-20 13:39 | XRay Report ---
CHEST 1 VIEW INDICATION: Chest Pain. COMPARISON: 11/23/2019 FINDINGS: Support devices: Cardiac leads unchanged. Heart: Enlarged, unchanged. Lungs/Pleura: No acute pulmonary or pleural findings. IMPRESSION: 1. No acute findings. Signer Name: Adriano Juarez MD Signed: 12/20/2019 1:35 PM Workstation Name: [id number]
[2019-12-20 13:58] LABS: INR 5.93 (0.87-1.13)
[2019-12-20] MEDS ORDERED: FUROSEMIDE 40 MG/4 ML INJ IV ONE (14:05)
[2019-12-20 14:15] LABS: BUN/Creatinine Ratio 46; Blood Urea Nitrogen 55 mg/dL (9-20); Hemolysis Index 10
[2019-12-20 14:21] LABS: Basophils % (Manual) 0 % (0.0-1.8); Total Cells Counted 100
[2019-12-20 14:22] LABS: Anisocytosis 1+; Large Platelets Few; Platelet Estimate Consistent w Auto
[2019-12-20 14:24] LABS: Platelet Count 170 K/mm3 (140-440)
--- NOTE | 2019-12-20 14:37 | Emergency Department Report ---
ED General Adult HPI - General Chief complaint: Chest Pain Stated complaint: ABDNORMAL LABS Time Seen by Provider: 12/20/19 12:54 Source: patient, EMS Mode of arrival: Stretcher Limitations: Physical Limitation - History of Present Illness Initial comments: Mr. Donahue is a 64 yo male with hx of DM, HTN, MVR, GERD, CHF, pulmonary hypertension who presents with elevated INR. 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 He was referred to the ED. He has "pain all over". He has left shoulder pain and chest pain. Pain is persistent at rest. He has been compliant with potassium tablets. He also has persistent lower extremity swelling. 2017 LHC: normal coronary arteries -: This morning Severity scale (0 -10): 10 Consistency: constant Improves with: none Worsens with: none Associated Symptoms: shortness of breath, other (leg swelling bilaterally ) - Related Data Home Medications Medication Instructions Recorded Confirmed Last Taken Albuterol INH(or & Nicu Only) 2 puff IH QID PRN 09/30/13 11/24/19 10/28/13 [ProAir HFA Inhaler] Insulin Aspart (Nf) [NovoLOG 100 10 unit SQ QAC 09/30/13 11/24/19 09/09/14 UNITS/ML VIAL] Esomeprazole Magnesium [NexIUM] 40 mg PO DAILY 10/29/13 11/24/19 10/30/18 10:00 Gabapentin 1 cap PO TID 09/04/14 11/24/19 09/11/14 Sennosides/Docusate Sodium [Cvs 1 tab PO DAILY 09/04/14 11/24/19 10/30/18 10:00 Stool Softener-Laxative Tb] Insulin Glargine,Hum.rec.anlog 40 units SQ QHS 01/24/19 11/24/19 Unknown [Lantus Solostar] Albuterol INH(or & Nicu Only) 2 puff IH QID PRN 11/24/19 11/24/19 Unknown [ProAir HFA Inhaler] Amiodarone [Cordarone 200 MG TAB] 200 mg PO BID 11/24/19 11/24/19 Unknown Docusate Sodium [Colace CAP] 100 mg PO BID PRN 11/24/19 11/24/19 Unknown Pantoprazole [Protonix TAB] 40 mg PO QDAY 11/24/19 11/24/19 Unknown Pravastatin [Pravachol] 20 mg PO QHS 11/24/19 11/24/19 Unknown Warfarin [Coumadin] 7.5 mg PO QDAY 11/24/19 11/24/19 Unknown polyethylene glycoL 3350 [Miralax 17 gm PO QDAY PRN 11/24/19 11/24/19 Unknown 3350] Previous Rx's Medication Instructions Recorded Last Taken Type Aspirin EC [Halfprin EC] 81 mg PO QDAY #30 tablet. 05/12/18 10/29/18 10:00 Rx Colchicine 0.6 mg PO DAILY #15 powder 05/12/18 10/29/18 10:00 Rx Ipratropium (Nf) [Atrovent HFA 2 puff IH Q6HR PRN #10 inha 05/12/18 Unknown Rx 17MCG/PUFF] Nitroglycerin [Nitrostat] 0.4 mg SL Q5M PRN #30 tablet 05/12/18 10/30/18 10:00 Rx Tamsulosin [Flomax] 0.4 mg PO QDAY #30 capsule 05/12/18 10/30/18 Rx Zolpidem [Ambien] 5 mg PO QHS PRN tablet 05/12/18 10/29/18 22:00 Rx Furosemide [Lasix TAB] 40 mg PO QDAY #30 tablet 11/26/19 Unknown Rx Potassium Chloride 20 meq PO DAILY #60 packet 11/26/19 10/30/18 10:00 Rx metOLazone [Metolazone] 5 mg PO DAILY #30 tablet 11/26/19 Unknown Rx oxyCODONE /ACETAMINOPHEN [Percocet 1 tab PO Q6HR PRN #10 tablet 12/20/19 Unknown Rx 5/325] Allergies Allergy/AdvReac Type Severity Reaction Status Date / Time propoxyphene napsylate Allergy Intermediate Rash Verified 01/23/19 09:50 [From [employer]-N 100] Sulfa (Sulfonamide Allergy Intermediate Rash Verified 01/23/19 09:50 Antibiotics) ED Review of Systems ROS: Stated complaint: ABDNORMAL LABS Other details as noted in HPI Comment: All other systems reviewed and negative Constitutional: denies: fever, malaise Respiratory: shortness of breath Cardiovascular: chest pain, edema ED Past Medical Hx - Past Medical History Previous Medical History?: Yes Hx Hypertension: Yes Hx Congestive Heart Failure: Yes Hx Diabetes: Yes Hx GERD: Yes Hx Asthma: Yes Hx COPD: Yes Hx HIV: No Additional medical history: high cholesterol, paraplegic, bronchitis, A Fib - Surgical History Hx Open Heart Surgery: Yes Hx Pacemaker: Yes Additional Surgical History: Mitral valve replacement (mechanical), left ankle surgery - Social History Smoking Status: Former Smoker Substance Use Type: None - Medications Home Medications: Home Medications Medication Instructions Recorded Confirmed Last Taken Type Albuterol INH(or & Nicu Only) 2 puff IH QID PRN 09/30/13 11/24/19 10/28/13 H istory [ProAir HFA Inhaler] Insulin Aspart (Nf) [NovoLOG 100 10 unit SQ QAC 09/30/13 11/24/19 09/09/14 History UNITS/ML VIAL] Esomeprazole Magnesium [NexIUM] 40 mg PO DAILY 10/29/13 11/24/19 10/30/18 10:00 History Gabapentin 1 cap PO TID 09/04/14 11/24/19 09/11/14 History Sennosides/Docusate Sodium [Cvs 1 tab PO DAILY 09/04/14 11/24/19 10/30/18 10:00 History Stool Softener-Laxative Tb] Aspirin EC [Halfprin EC] 81 mg PO QDAY #30 tablet. 05/12/18 11/24/19 10/29/18 10:00 Rx Colchicine 0.6 mg PO DAILY #15 powder 05/12/18 11/24/19 10/29/18 10:00 Rx Ipratropium (Nf) [Atrovent HFA 2 puff IH Q6HR PRN #10 inha 05/12/18 11/24/19 Unknown Rx 17MCG/PUFF] Nitroglycerin [Nitrostat] 0.4 mg SL Q5M PRN #30 tablet 05/12/18 11/24/19 10/30/18 10:00 Rx Tamsulosin [Flomax] 0.4 mg PO QDAY #30 capsule 05/12/18 11/24/19 10/30/18 Rx Zolpidem [Ambien] 5 mg PO QHS PRN tablet 05/12/18 11/24/19 10/29/18 22:00 Rx Insulin Glargine,Hum.rec.anlog 40 units SQ QHS 01/24/19 11/24/19 Unknown History [Lantus Solostar] Albuterol INH(or & Nicu Only) 2 puff IH QID PRN 11/24/19 11/24/19 Unknown History [ProAir HFA Inhaler] Amiodarone [Cordarone 200 MG TAB] 200 mg PO BID 11/24/19 11/24/19 Unknown History Docusate Sodium [Colace CAP] 100 mg PO BID PRN 11/24/19 11/24/19 Unknown History Pantoprazole [Protonix TAB] 40 mg PO QDAY 11/24/19 11/24/19 Unknown History Pravastatin [Pravachol] 20 mg PO QHS 11/24/19 11/24/19 Unknown History Warfarin [Coumadin] 7.5 mg PO QDAY 11/24/19 11/24/19 Unknown History polyethylene glycoL 3350 [Miralax 17 gm PO QDAY PRN 11/24/19 11/24/19 Unknown History 3350] Furosemide [Lasix TAB] 40 mg PO QDAY #30 tablet 11/26/19 Unknown Rx Potassium Chloride 20 meq PO DAILY #60 packet 11/26/19 11/24/19 10/30/18 10:00 Rx metOLazone [Metolazone] 5 mg PO DAILY #30 tablet 11/26/19 Unknown Rx oxyCODONE /ACETAMINOPHEN [Percocet 1 tab PO Q6HR PRN #10 tablet 12/20/19 Unknown Rx 5/325] ED Physical Exam - General Limitations: Physical Limitation General appearance: alert, in no apparent distress - Head Head exam: Present: atraumatic, normocephalic - Eye Eye exam: Present: normal appearance, scleral icterus - ENT ENT exam: Present: mucous membranes moist - Neck Neck exam: Present: normal inspection, full ROM - Respiratory Respiratory exam: Present: normal lung sounds bilaterally. Absent: respiratory distress, wheezes, rales, rhonchi - Cardiovascular Cardiovascular Exam: Present: regular rate, normal rhythm, normal heart sounds. Absent: rubs - GI/Abdominal GI/Abdominal exam: Present: soft. Absent: distended, tenderness, guarding, rebound - Rectal Rectal exam: Present: deferred - Extremities Exam Extremities exam: Present: pedal edema, other (4+ pitting edema with bandages wrapping both extremities) - Neurological Exam Neurological exam: Present: alert, oriented X3 - Psychiatric Psychiatric exam: Present: normal affect, normal mood - Skin Skin exam: Present: warm, dry, normal color. Absent: rash ED Course Vital Signs 12/20/19 12:01 Temperature 98.5 F Pulse Rate 70 Respiratory 18 Rate Blood Pressure 129/63 O2 Sat by Pulse 100 Oximetry ED Medical Decision Making - Lab Data Result diagrams: 12/20/19 12:58 12/20/19 12:58 Laboratory Results - last 24 hr 12/20/19 12/20/19 12/20/19 12:58 12:58 13:04 WBC 5.5 RBC 3.33 L Hgb 9.1 L Hct 27.6 L MCV 83 L MCH 27 L MCHC 33 RDW 18.4 H Plt Count 170 Add Manual Diff Complete Total Counted 100 Seg Neuts % (Manual) 77.0 H Band Neutrophils % 0 Lymphocytes % (Manual) 10.0 L Reactive Lymphs % (Man) 0 Monocytes % (Manual) 9.0 H Eosinophils % (Manual) 4.0 Basophils % (Manual) 0 Metamyelocytes % 0 Myelocytes % 0 Promyelocytes % 0 Blast Cells % 0 Nucleated RBC % Not Reportable Seg Neutrophils # Man 4.2 Band Neutrophils # 0.0 Lymphocytes # (Manual) 0.6 L Abs React Lymphs (Man) 0.0 Monocytes # (Manual) 0.5 Eosinophils # (Manual) 0.2 Basophils # (Manual) 0.0 Metamyelocytes # 0.0 Myelocytes # 0.0 Promyelocytes # 0.0 Blast Cells # 0.0 WBC Morphology Not Reportable Hypersegmented Neuts Not Reportable Hyposegmented Neuts Not Reportable Hypogranular Neuts Not Reportable Smudge Cells Not Reportable Toxic Granulation Not Reportable Toxic Vacuolation Not Reportable Dohle Bodies Not Reportable Pelger-Huet Anomaly Not Reportable Merry Rods Not Reportable Platelet Estimate Consistent w auto Clumped Platelets Not Reportable Plt Clumps, EDTA Not Reportable Large Platelets Few Giant Platelets Not Reportable Platelet Satelliting Not Reportable Plt Morphology Comment Not Reportable RBC Morphology Not Reportable Dimorphic RBCs Not Reportable Polychromasia Not Reportable Hypochromasia Not Reportable Poikilocytosis Not Reportable Anisocytosis 1+ Microcytosis 1+ Macrocytosis Not Reportable Spherocytes Not Reportable Pappenheimer Bodies Not Reportable Sickle Cells Not Reportable Target Cells Not Reportable Tear Drop Cells Not Reportable Ovalocytes Not Reportable Helmet Cells Not Reportable [place] Bodies Not Reportable [place] Rings Not Reportable [place] Cells Not Reportable Bite Cells Not Reportable Crenated Cell Not Reportable Elliptocytes Not Reportable Acanthocytes (Spur) Not Reportable Rouleaux Not Reportable Hemoglobin C Crystals Not Reportable Schistocytes Not Reportable Malaria parasites Not Reportable Jaison Bodies Not Reportable Hem Pathologist Commnt No PT 50.6 H INR 5.93 H* Sodium 136 L Potassium 2.7 L* Chloride 92.9 L Carbon Dioxide 29 Anion Gap 17 BUN 55 H Creatinine 1.2 Estimated GFR > 60 BUN/Creatinine Ratio 46 Glucose 202 H Calcium 9.0 Troponin T 0.129 H* - EKG Data 12/20/19 14:36 EKG obtained at 1359 Paced rhythm at 70 bpm abnormal axis widened QRS no ST elevation - Radiology Data Radiology results: report reviewed Chest radiograph no acute findings AP portable chest 1 view - Medical Decision Making 1. Supratherapeutic INR: 5.9. Patient understands to hold INR until his home monitor registers a level of 3 2. Global pain I do not suspect ACS possibly pain due to hypokalemia. I have encouraged Mr. Donahue to double his potassium doses 3. Persistent bilateral lower extremity edema history of right heart failure: Patient requires IV furosemide. Discharged home. Critical care attestation.: If time is entered above; I have spent that time in minutes in the direct care of this critically ill patient, excluding procedure time. ED Disposition Clinical Impression: Pulmonary hypertension, Supratherapeutic INR, Hypokalemia Disposition: DC-01 TO HOME OR SELFCARE Is pt being admited?: No Does the pt Need Aspirin: No Condition: Stable Additional Instructions: Please double your potassium dose. Please hold warfarin/Coumadin until your home monitor INR gets to a level of 3. Prescriptions: oxyCODONE /ACETAMINOPHEN [Percocet 5/325] 1 tab PO Q6HR PRN #10 tablet PRN Reason: Pain Referrals: SHRUTHI HERCULES MD [Primary Care Provider] - 3-5 Days Forms: Accompanied Note
[2019-12-20 14:38] LABS: HDL Cholesterol 57 mg/dL (40-59); LDL Cholesterol,Direct 62 mg/dL (50-130)
[2019-12-20] MEDS ORDERED: oxyCODONE /ACETAMINOPHEN 5-325MG TAB PO ONE (14:45)
[2019-12-20 16:29] VITALS: BP 113/51
== END 2019-12-20 15:05 | disposition home or self-care (01) ==
LOC: ED 11:36
DX: E87.6 Hypokalemia (principal); I27.20 Pulmonary hypertension, unspecified
CPT/HCPCS: 36415; 71045; 80048; 80061; 83880; 84484; 85007; 85025; 85610; 93005; 96374; 96375; 99285; J1940; J2270; J2405

== ENCOUNTER 2020-01-16 13:03 | Observation (INO) | payer MEDICARE ==
[2020-01-16] MEDS ORDERED: ONDANSETRON 4 MG/2 ML INJ IV ONE (14:48)
[2020-01-16] MEDS ORDERED: fentaNYL 100 MCG/2 ML INJ IV ONE ×2 (14:48→18:46)
[2020-01-16 15:01] LABS: Hematocrit 27.6 % (35.5-45.6); Hemoglobin 8.8 gm/dl (11.8-15.2); Mean Corpuscular HGB Conc 32 % (32-34); Mean Corpuscular Volume 84 fl (84-94); Red Blood Count 3.29 M/mm3 (3.65-5.03); Red Cell Distribution Width 18.9 % (13.2-15.2)
[2020-01-16 15:03] LABS: BUN/Creatinine Ratio 21; Blood Urea Nitrogen 21 mg/dL (9-20); Calcium 8.6 mg/dL (8.4-10.2); Hemolysis Index 8
[2020-01-16] MEDS ORDERED: ASPIRIN 325 MG TAB PO ONE (15:10)
--- NOTE | 2020-01-16 15:12 | XRay Report ---
CHEST 1 VIEW INDICATION: Chest Pain. COMPARISON: 12/20/2019 FINDINGS: Support devices: Cardiac leads are unchanged. Heart: Enlarged, unchanged Lungs/Pleura: No acute pulmonary or pleural findings. IMPRESSION: 1. No significant change. Signer Name: Adriano Juarez MD Signed: 01/16/2020 3:07 PM Workstation Name: [id number]
--- NOTE | 2020-01-16 15:13 | Emergency Department Report ---
HPI - General Chief Complaint: Chest Pain Time Seen by Provider: 01/16/20 14:39 - HPI HPI: Room 5 The patient is a 64-year-old male present with a chief complaint of chest pain. The patient states he developed substernal chest pain yesterday but states it resolved. The patient states when he awakened this morning he felt okay but then the chest pain returned. 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 Patient admits to shortness of breath associated with the chest pain in addition to nausea without vomiting or diaphoresis. Patient currently gives his chest pain score of 9/10 ED Past Medical Hx - Past Medical History Previous Medical History?: Yes Hx Hypertension: Yes Hx Congestive Heart Failure: Yes Hx Diabetes: Yes Hx GERD: Yes Hx Asthma: Yes Hx COPD: Yes Additional medical history: high cholesterol, paraplegic, bronchitis, A Fib - Surgical History Past Surgical History?: Yes Hx Open Heart Surgery: Yes Hx Pacemaker: Yes Additional Surgical History: Mitral valve replacement (mechanical), left ankle surgery - Family History Family history: no significant - Social History Smoking Status: Never Smoker Substance Use Type: None - Medications Home Medications: Home Medications Medication Instructions Recorded Confirmed Last Taken Type Insulin Aspart (Nf) [NovoLOG 100 10 unit SQ QAC 09/30/13 01/16/20 01/15/20 History UNITS/ML VIAL] Esomeprazole Magnesium [NexIUM] 40 mg PO DAILY 10/29/13 01/16/20 01/15/20 History Gabapentin 1 cap PO TID 09/04/14 01/16/20 01/15/20 History Sennosides/Docusate Sodium [Cvs 1 tab PO DAILY 09/04/14 01/16/20 01/15/20 History Stool Softener-Laxative Tb] Aspirin EC [Halfprin EC] 81 mg PO QDAY #30 tablet. 05/12/18 01/16/20 01/15/20 Rx Colchicine 0.6 mg PO DAILY #15 powder 05/12/18 01/16/20 01/15/20 Rx Ipratropium (Nf) [Atrovent HFA 2 puff IH Q6HR PRN #10 inha 05/12/18 01/16/20 01/15/20 Rx 17MCG/PUFF] Nitroglycerin [Nitrostat] 0.4 mg SL Q5M PRN #30 tablet 05/12/18 01/16/20 10/30/18 10:00 Rx Tamsulosin [Flomax] 0.4 mg PO QDAY #30 capsule 05/12/18 01/16/20 01/15/20 Rx Zolpidem [Ambien] 5 mg PO QHS PRN tablet 05/12/18 01/16/20 01/15/20 Rx Insulin Glargine,Hum.rec.anlog 40 units SQ QHS 01/24/19 01/16/20 01/15/20 History [Lantus Solostar] Albuterol Mdi (or & Nicu Only) 2 puff IH QID PRN 11/24/19 01/16/20 01/15/20 History [ProAir HFA Inhaler] Amiodarone [Cordarone 200 MG TAB] 200 mg PO BID 11/24/19 01/16/20 01/15/20 History Pravastatin [Pravachol] 20 mg PO QHS 11/24/19 01/16/20 01/15/20 History Warfarin [Coumadin] 7.5 mg PO QDAY 11/24/19 01/16/20 01/15/20 History Potassium Chloride 20 meq PO DAILY #60 packet 11/26/19 01/16/20 01/15/20 Rx Furosemide [Lasix TAB] 80 mg PO BID 01/16/20 01/16/20 01/15/20 History Oxycodone HCl [oxyCODONE] 10 mg PO Q4H PRN 01/16/20 01/16/20 01/15/20 History ED Review of Systems ROS: Stated complaint: GENERAL WEAKNESS Other details as noted in HPI Constitutional: denies: diaphoresis Eyes: denies: eye pain ENT: denies: throat pain Respiratory: shortness of breath Cardiovascular: chest pain Endocrine: no symptoms reported Gastrointestinal: nausea. denies: vomiting Physical Exam - Physical Exam Vital Signs: Vital Signs 01/16/20 13:38 Temperature 98.1 F Pulse Rate 70 Respiratory 13 Rate Blood Pressure 103/48 O2 Sat by Pulse 100 Oximetry Physical Exam: GENERAL: The patient is well-developed well-nourished male lying on stretcher not appearing to be in acute distress. [] HEENT: Normocephalic. Atraumatic. Extraocular motions are intact. Patient has moist mucous membranes. NECK: Supple. Trachea midline CHEST/LUNGS: Clear to auscultation. There is no respiratory distress noted. HEART/CARDIOVASCULAR: Regular. There is no tachycardia. There is no gallop rub or murmur. ABDOMEN: Abdomen is soft, nontender. Patient has normal bowel sounds. There is no abdominal distention. SKIN: There is no rash. There is no edema. There is no diaphoresis. NEURO: The patient is awake, alert, and oriented. The patient is cooperative. The patient has normal speech MUSCULOSKELETAL: There is no evidence of acute injury. ED Course Vital Signs 01/16/20 13:38 Temperature 98.1 F Pulse Rate 70 Respiratory 13 Rate Blood Pressure 103/48 O2 Sat by Pulse 100 Oximetry - Consultations Consultation #1: 01/16/20 15:55 Case discussed with marine insulator Dr. Rees ED Medical Decision Making - Lab Data Result diagrams: 01/16/20 14:36 01/16/20 14:36 Laboratory Tests 01/16/20 01/16/20 14:36 14:36 WBC 4.3 L RBC 3.29 L Hgb 8.8 L Hct 27.6 L MCV 84 MCH 27 L MCHC 32 RDW 18.9 H Plt Count 169 Sodium 139 Potassium 2.6 L* Chloride 97.2 L Carbon Dioxide 28 Anion Gap 16 BUN 21 H Creatinine 1.0 Estimated GFR > 60 BUN/Creatinine Ratio 21 Glucose 136 H Calcium 8.6 Troponin T 0.111 H* Triglycerides 100 Cholesterol 114 LDL Cholesterol Direct 53 HDL Cholesterol 55 Cholesterol/HDL Ratio 2.07 - EKG Data -: EKG Interpreted by Me Rate: normal - EKG Data When compared to previous EKG there are: previous EKG unavailable Interpretation: other (Ventricularly paced rhythm) - Differential Diagnosis ACS, pericarditis, GERD Critical care attestation.: If time is entered above; I have spent that time in minutes in the direct care of this critically ill patient, excluding procedure time. ED Disposition Clinical Impression: Chest pain, Hypokalemia, Elevated troponin Disposition: OP ADMIT IP TO THIS HOSP Is pt being admited?: Yes Does the pt Need Aspirin: Yes Condition: Fair Instructions: Chest Pain (ED) Time of Disposition: 15:55 (Hospitalist paged (Dr. Otto))
[2020-01-16 15:18] LABS: Platelet Count 169 K/mm3 (140-440)
[2020-01-16] MEDS ORDERED: POTASSIUM CHLORIDE ER 20 MEQ TAB PO ONE (15:30)
[2020-01-16 15:47] LABS: Chol/HDL Ratio 2.07 %; HDL Cholesterol 55 mg/dL (40-59); LDL Cholesterol,Direct 53 mg/dL (50-130)
[2020-01-16 15:55] LABS: Anisocytosis 1+; Basophils % (Manual) 0 % (0.0-1.8); Large Platelets Few; Total Cells Counted 100
[2020-01-16] MEDS: POTASSIUM CHLORIDE 10 MEQ 10 MEQ/100 ML BAG IV SCH ×2 (17:14→20:48)
[2020-01-16] MEDS ORDERED: fentaNYL 100 MCG/2 ML INJ ONE (18:49)
[2020-01-16 20:02] LABS: Bacteria,Urine 1+ /HPF (Negative); Bilirubin,Urine NEG (Negative); Blood,Urine MOD (Negative); Color,Urine Yellow (Yellow); Protein,Urine <15 mg/dL mg/dL (Negative)
[2020-01-16] MEDS ORDERED: HEPARIN 10,000 UNITS/10 ML VIAL IV ONE (22:07)
[2020-01-16] MEDS ORDERED: MORPHINE 2 MG/1 ML INJ IV ONE (22:23)
[2020-01-16] MEDS ORDERED: MORPHINE 2 MG/1 ML INJ ONE (22:43)
[2020-01-16] MEDS ORDERED: HEPARIN 10,000 UNITS/10 ML VIAL ONE (22:43)
[2020-01-16] MEDS ORDERED: HEPARIN 5,000 UNIT/1 ML VIAL ONE (22:43)
[2020-01-16] MEDS ORDERED: CEFEPIME/NS 2 GM/100 ML 0 GM/0 ML BAG IV ONE (22:44)
[2020-01-16] MEDS ORDERED: NITROGLYCERIN 0.4 MG TAB SUBL SL PRN (22:55)
[2020-01-16] MEDS ORDERED: DEXTROSE 50% IN WATER (25GM) 50 ML SYRINGE IV PRN (22:55)
[2020-01-16] MEDS ORDERED: HEPARIN/ 0.45% NACL DRIP 25,000 UNIT/500 ML BAG IV SCH (23:00)
--- NOTE | 2020-01-16 23:10 | History and Physical Report ---
History of Present Illness Date of examination: 01/16/20 Date of admission: 01/16/20 22:08 Chief complaint: Chest pain History of present illness: 64-year-old male with known history of hypertension, atrial fibrillation, hyperlipidemia, diabetes mellitus presents to the emergency room today complaining of chest pain. Chest pain is said to be substernal and started yesterday. Pain resolved yesterday however it woke him up again earlier today. 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 He has had some shortness of breath, nausea but denies any vomiting or diarrhea. He denies any headaches or dizziness and denies any diaphoresis. Patient denies any fever or chills, denies any sick contacts and no recent travel. On a scale of 10 pain was about 9/10 in severity. There is no known relieving or exacerbating factor. There was no radiation of the chest pain. Work-up in the emergency room reveals elevated troponin and hypokalemia. EKG shows a paced rhythm. Past History Past Medical History: COPD, diabetes, GERD, hypertension, hyperlipidemia, other (History of asthma, paraplegia,) Past Surgical History: Other (Left ankle surgery) Social history: no significant social history Family history: no significant family history Medications and Allergies Allergies Allergy/AdvReac Type Severity Reaction Status Date / Time propoxyphene napsylate Allergy Intermediate Rash Verified 01/23/19 09:50 [From Darvocet-N 100] Sulfa (Sulfonamide Allergy Intermediate Rash Verified 01/23/19 09:50 Antibiotics) Home Medications Medication Instructions Recorded Confirmed Last Taken Type Insulin Aspart (Nf) [NovoLOG 100 10 unit SQ QAC 09/30/13 01/16/20 01/15/20 History UNITS/ML VIAL] Esomeprazole Magnesium [NexIUM] 40 mg PO DAILY 10/29/13 01/16/20 01/15/20 History Gabapentin 1 cap PO TID 09/04/14 01/16/20 01/15/20 History Sennosides/Docusate Sodium [Cvs 1 tab PO DAILY 09/04/14 01/16/20 01/15/20 Histo ry Stool Softener-Laxative Tb] Aspirin EC [Halfprin EC] 81 mg PO QDAY #30 tablet. 05/12/18 01/16/20 01/15/20 Rx Colchicine 0.6 mg PO DAILY #15 powder 05/12/18 01/16/20 01/15/20 Rx Ipratropium (Nf) [Atrovent HFA 2 puff IH Q6HR PRN #10 inha 05/12/18 01/16/20 01/15/20 Rx 17MCG/PUFF] Nitroglycerin [Nitrostat] 0.4 mg SL Q5M PRN #30 tablet 05/12/18 01/16/20 10/30/18 10:00 Rx Tamsulosin [Flomax] 0.4 mg PO QDAY #30 capsule 05/12/18 01/16/20 01/15/20 Rx Zolpidem [Ambien] 5 mg PO QHS PRN tablet 05/12/18 01/16/20 01/15/20 Rx Insulin Glargine,Hum.rec.anlog 40 units SQ QHS 01/24/19 01/16/20 01/15/20 History [Lantus Solostar] Albuterol Mdi (or & Nicu Only) 2 puff IH QID PRN 11/24/19 01/16/20 01/15/20 History [ProAir HFA Inhaler] Amiodarone [Cordarone 200 MG TAB] 200 mg PO BID 11/24/19 01/16/20 01/15/20 History Pravastatin [Pravachol] 20 mg PO QHS 11/24/19 01/16/20 01/15/20 History Warfarin [Coumadin] 7.5 mg PO QDAY 11/24/19 01/16/20 01/15/20 History Potassium Chloride 20 meq PO DAILY #60 packet 11/26/19 01/16/20 01/15/20 Rx Furosemide [Lasix TAB] 80 mg PO BID 01/16/20 01/16/20 01/15/20 History Oxycodone HCl [oxyCODONE] 10 mg PO Q4H PRN 01/16/20 01/16/20 01/15/20 History Active Meds: Active Medications Heparin Sodium/Sodium Chloride (Heparin/ 0.45% Nacl-25,000 Unit/500 Ml) 25,000 unit in 500 mls @ 27 mls/hr IV TITR MADELIN; Protocol Review of Systems Constitutional: no fever, no chills Ears, nose, mouth and throat: no nasal congestion, no sore throat Cardiovascular: chest pain, no palpitations Respiratory: no cough, no shortness of breath Gastrointestinal: nausea, no abdominal pain, no vomiting, no diarrhea Genitourinary Male: no dysuria, no hematuria Musculoskeletal: no neck pain, no low back pain Integumentary: no rash, no pruritis Neurological: no headaches, no confusion Psychiatric: no anxiety, no depression Exam - Constitutional Vitals: Temp Pulse Resp BP Pulse Ox 98.1 F 81 12 104/63 100 01/16/20 13:38 01/16/20 20:45 01/16/20 20:45 01/16/20 20:45 01/16/20 20:45 General appearance: Present: no acute distress, well-nourished - EENT Eyes: Present: PERRL, EOM intact. Absent: scleral icterus ENT: hearing intact, clear oral mucosa, dentition normal - Neck Neck: Present: supple, normal ROM - Respiratory Respiratory effort: normal Respiratory: bilateral: CTA - Cardiovascular Rhythm: regular Heart Sounds: Present: S1 & S2, systolic murmur, click. Absent: gallop, diastolic murmur, rub - Extremities Extremities: no ischemia, pulses intact, pulses symmetrical, Full ROM, abnormal (Right renal extremity dressing) Extremity abnormal: edema (1+ bilateral lower extremity edema) Peripheral Pulses: within normal limits - Abdominal General gastrointestinal: Present: soft, non-tender, non-distended, normal bowel sounds. Absent: mass - Integumentary Integumentary: Present: clear, warm, dry. Absent: rash - Musculoskeletal Musculoskeletal: strength equal bilaterally - Psychiatric Psychiatric: appropriate mood/affect, intact judgment & insight, memory intact, cooperative - Neurologic Neurologic: CNII-XII intact, no focal deficits, moves all extremities, no gait normal HEART Score - HEART Score Troponin: Troponin T 0.103 ng/mL (0.00-0.029) H* 01/16/20 19:54 Results - Labs CBC & Chem 7: 01/16/20 22:37 01/17/20 00:28 Labs: Abnormal lab results 01/16/20 01/16/20 01/16/20 Range/Units 14:36 14:36 17:12 WBC 4.3 L (4.5-11.0) K/mm3 RBC 3.29 L (3.65-5.03) M/mm3 Hgb 8.8 L (11.8-15.2) gm/dl Hct 27.6 L (35.5-45.6) % MCH 27 L (28-32) pg RDW 18.9 H (13.2-15.2) % Seg Neuts % (Manual) 80.0 H (40.0-70.0) % Lymphocytes % (Manual) 13.0 L (13.4-35.0) % Lymphocytes # (Manual) 0.6 L (1.2-5.4) K/mm3 Potassium 2.6 L* (3.6-5.0) mmol/L Chloride 97.2 L (98-107) mmol/L BUN 21 H (9-20) mg/dL Glucose 136 H (75-100) mg/dL Troponin T 0.111 H* 0.099 H (0.00-0.029) ng/mL Urine WBC (Auto) (0.0-6.0) /HPF 01/16/20 01/16/20 Range/Units 19:35 19:54 WBC (4.5-11.0) K/mm3 RBC (3.65-5.03) M/mm3 Hgb (11.8-15.2) gm/dl Hct (35.5-45.6) % MCH (28-32) pg RDW (13.2-15.2) % Seg Neuts % (Manual) (40.0-70.0) % Lymphocytes % (Manual) (13.4-35.0) % Lymphocytes # (Manual) (1.2-5.4) K/mm3 Potassium (3.6-5.0) mmol/L Chloride (98-107) mmol/L BUN (9-20) mg/dL Glucose (75-100) mg/dL Troponin T 0.103 H* (0.00-0.029) ng/mL Urine WBC (Auto) 33.0 H (0.0-6.0) /HPF Assessment and Plan - Patient Problems (1) Chest pain Current Visit: Yes Status: Acute Plan to address problem: Patient admitted and placed on telemetry. Will check serial cardiac enzymes. Patient placed on aspirin, sublingual nitroglycerin and IV morphine as needed for chest pain. (2) Non-STEMI (non-ST elevated myocardial infarction) Current Visit: No Status: Acute Plan to address problem: We will await further evaluation by assistant director of financial aid. Patient currently on heparin drip. (3) Hypokalemia Current Visit: Yes Status: Acute Plan to address problem: Potassium will be repleted and will monitor chemistry. (4) DVT prophylaxis Current Visit: No Status: Acute Plan to address problem: Patient currently on anticoagulation. (5) Full code status Current Visit: No Status: Acute
[2020-01-16 23:29] LABS: Hemoglobin 8.6 gm/dl (11.8-15.2); Mean Corpuscular HGB Conc 33 % (32-34); Mean Corpuscular Volume 83 fl (84-94); Red Blood Count 3.14 M/mm3 (3.65-5.03); Red Cell Distribution Width 19.1 % (13.2-15.2)
[2020-01-16 23:37] LABS: Platelet Count 127 K/mm3 (140-440)
[2020-01-16 23:41] LABS: INR 2.77 (0.87-1.13)
[2020-01-16 23:42] LABS: Partial Thromboplastin Time 43.7 Sec. (24.2-36.6)
[2020-01-17 00:12] LABS: Basophils % (Auto) 0.6 % (0.0-1.8); Eosinophils # (Auto) 0.1 K/mm3 (0.0-0.4); Eosinophils % (Auto) 1.8 % (0.0-4.3); Lymphocytes # (Auto) 1.1 K/mm3 (1.2-5.4); Lymphocytes % (Auto) 24.8 % (13.4-35.0); Monocytes # (Auto) 0.4 K/mm3 (0.0-0.8); Monocytes % (Auto) 10.1 % (0.0-7.3)
[2020-01-17] MEDS ORDERED: HEPARIN/ 0.45% NACL DRIP 25,000 UNIT/500 ML BAG ONE (00:15)
[2020-01-17] MEDS ORDERED: HEPARIN 10,000 UNITS/10 ML VIAL ONE ×2 (00:17→01:23)
[2020-01-17 01:00] LABS: BUN/Creatinine Ratio 21; Blood Urea Nitrogen 21 mg/dL (9-20); Calcium 8.4 mg/dL (8.4-10.2); Hemolysis Index 7
[2020-01-17] MEDS: MORPHINE 2 MG/1 ML INJ IV PRN ×3 (02:05→13:04)
[2020-01-17] MEDS ORDERED: POTASSIUM CHLORIDE 10 MEQ 10 MEQ/100 ML BAG IV ONE (06:00)
[2020-01-17 06:17] LABS: Anisocytosis Few; Basophils % (Manual) 0 % (0.0-1.8); Total Cells Counted 100
[2020-01-17 06:18] LABS: Hypochromasia 1+; Platelet Estimate Consistent w Auto; Schistocytes Few
[2020-01-17] MEDS: INSULIN LISPRO 100 UNIT/ML SUB-Q SCH ×2 (07:49→12:05)
[2020-01-17] MEDS ORDERED: REGADENOSON 0.4 MG/5 ML INJ IV ONE (08:47)
[2020-01-17] MEDS ORDERED: ASPIRIN EC 325 MG TAB PO SCH (10:00)
--- NOTE | 2020-01-17 10:58 | Consultation ---
History of Present Illness Consult date: 01/17/20 Consult reason: chest pain, elevated troponin History of present illness: This is a 64-year old male with an extensive cardiac history. Patient has a history of mitral valve disease and is status post mechanical mitral valve replacement. After his mechanical mitral valve replacement, he developed heart block, and has an indwelling cardiac pacemaker. He is on Coumadin with therapeutic range of INR recommended at 2.5-3.5. In May of 2018, he underwent a left heart cath that reports normal coronaries. An echocardiogram done just a month ago reports dilated right heart chambers with moderate to severe pulmonary hypertension, PASP 74 mmHg. Normal functioning mechanical mitral valve with a normal left ventricular systolic function, ejection fraction 55%. Patient was brought in and admitted with hypotension and dehydration. Found with a blood pressure 103/48 on presentation. His furosemide 40mg was placed on hold. Initial labs showed a potassium of 3.1. He had a therapeutic INR of 2.7. An ECG show a ventricular paced rhythm with underlying afib. Past History Past Medical History: COPD, diabetes, GERD, hypertension, hyperlipidemia, other (History of asthma, paraplegia,) Past Surgical History: Other (Left ankle surgery) Social history: no significant social history Family history: no significant family history Medications and Allergies Allergies Allergy/AdvReac Type Severity Reaction Status Date / Time propoxyphene napsylate Allergy Intermediate Rash Verified 01/23/19 09:50 [From Darvocet-N 100] Sulfa (Sulfonamide Allergy Intermediate Rash Verified 01/23/19 09:50 Antibiotics) Home Medications Medication Instructions Recorded Confirmed Last Taken Type Insulin Aspart (Nf) [NovoLOG 100 10 unit SQ QAC 09/30/13 01/16/20 01/15/20 History UNITS/ML VIAL] Esomeprazole Magnesium [NexIUM] 40 mg PO DAILY 10/29/13 01/16/20 01/15/20 History Gabapentin 1 cap PO TID 09/04/14 01/16/20 01/15/20 History Sennosides/Docusate Sodium [Cvs 1 tab PO DAILY 09/04/14 01/16/20 01/15/20 History Stool Softener-Laxative Tb] Aspirin EC [Halfprin EC] 81 mg PO QDAY #30 tablet. 05/12/18 01/16/20 01/15/20 Rx Colchicine 0.6 mg PO DAILY #15 powder 05/12/18 01/16/20 01/15/20 Rx Ipratropium (Nf) [Atrovent HFA 2 puff IH Q6HR PRN #10 inha 05/12/18 01/16/20 01/15/20 Rx 17MCG/PUFF] Nitroglycerin [Nitrostat] 0.4 mg SL Q5M PRN #30 tablet 05/12/18 01/16/20 10/30/18 10:00 Rx Tamsulosin [Flomax] 0.4 mg PO QDAY #30 capsule 05/12/18 01/16/20 01/15/20 Rx Zolpidem [Ambien] 5 mg PO QHS PRN tablet 05/12/18 01/16/20 01/15/20 Rx Insulin Glargine,Hum.rec.anlog 40 units SQ QHS 01/24/19 01/16/20 01/15/20 H istory [Lantus Solostar] Albuterol Mdi (or & Nicu Only) 2 puff IH QID PRN 11/24/19 01/16/20 01/15/20 History [ProAir HFA Inhaler] Amiodarone [Cordarone 200 MG TAB] 200 mg PO BID 11/24/19 01/16/20 01/15/20 History Pravastatin [Pravachol] 20 mg PO QHS 11/24/19 01/16/20 01/15/20 History Warfarin [Coumadin] 7.5 mg PO QDAY 11/24/19 01/16/20 01/15/20 History Potassium Chloride 20 meq PO DAILY #60 packet 11/26/19 01/16/20 01/15/20 Rx Furosemide [Lasix TAB] 80 mg PO BID 01/16/20 01/16/20 01/15/20 History Oxycodone HCl [oxyCODONE] 10 mg PO Q4H PRN 01/16/20 01/16/20 01/15/20 History Active Meds: Active Medications Aspirin (Ecotrin) 325 mg PO QDAY MADELIN Dextrose (D50w (25gm) Syringe) 0 ml IV Q30MIN PRN; Protocol PRN Reason: Hypoglycemia Heparin Sodium/Sodium Chloride (Heparin/ 0.45% Nacl-25,000 Unit/500 Ml) 25,000 unit in 500 mls @ 27 mls/hr IV TITR MADELIN; Protocol Last Titration: 01/17/20 10:15 Dose: 1,450 units/hr, 29 mls/hr Documented by: Insulin Human Lispro (Humalog) 0 unit SUB-Q ACHS MADELIN; Protocol Last Admin: 01/17/20 07:49 Dose: Not Given Documented by: Morphine Sulfate (Morphine) 2 mg IV Q5MIN PRN PRN Reason: Chest Pain unrelieved by NTG Last Admin: 01/17/20 08:28 Dose: 2 mg Documented by: Nitroglycerin (Nitrostat) 0.4 mg SL Q5M PRN PRN Reason: Chest Pain Sodium Chloride (Sodium Chloride Flush Syringe 10 Ml) 10 ml IV PRN PRN PRN Reason: LINE FLUSH Physical Examination Vital Signs Temp Pulse Resp BP Pulse Ox 98.1 F 70 13 103/48 100 01/16/20 13:38 01/16/20 13:38 01/16/20 13:38 01/16/20 13:38 01/16/20 13:38 General appearance: no acute distress HEENT: Positive: PERRL Neck: Positive: trachea midline Cardiac: Positive: Other (v paced) Results 01/16/20 22:37 01/17/20 00:28 Coagulation 01/16/20 Range/Units 22:37 PT 28.5 H (12.2-14.9) Sec. INR 2.77 H (0.87-1.13) APTT 43.7 H (24.2-36.6) Sec. Lipids 01/16/20 Range/Units 14:36 Triglycerides 100 (2-149) mg/dL Cholesterol 114 (50-199) mg/dL HDL Cholesterol 55 (40-59) mg/dL Cholesterol/HDL Ratio 2.07 % CBC 01/16/20 01/16/20 Range/Units 14:36 22:37 WBC 4.3 L 4.4 L (4.5-11.0) K/mm3 RBC 3.29 L 3.14 L (3.65-5.03) M/mm3 Hgb 8.8 L 8.6 L (11.8-15.2) gm/dl Hct 27.6 L 26.0 L (35.5-45.6) % Plt Count 169 127 L (140-440) K/mm3 Lymph # 1.1 L (1.2-5.4) K/mm3 [place] # 0.4 (0.0-0.8) K/mm3 Eos # 0.1 (0.0-0.4) K/mm3 Baso # 0.0 (0.0-0.1) K/mm3 Comprehensive Metabolic Panel 01/16/20 01/17/20 Range/Units 14:36 00:28 Sodium 139 137 (137-145) mmol/L Potassium 2.6 L* 3.1 L (3.6-5.0) mmol/L Chloride 97.2 L 99.1 (98-107) mmol/L Carbon Dioxide 28 26 (22-30) mmol/L BUN 21 H 21 H (9-20) mg/dL Creatinine 1.0 1.0 (0.8-1.5) mg/dL Glucose 136 H 130 H (75-100) mg/dL Calcium 8.6 8.4 (8.4-10.2) mg/dL Assessment and Plan Hypotension -resolved Dehydration Cor-pulmonale Echocardiogram 11/2019 reports dilated right heart chambers with severe pulmonary hypertension, PASP 74mmHg. Findings consistent with cor-pulmonale. Normal left ventricular systolic function, EF 55-60%. Mechanical mitral valve replacement normal function by echo 11/2019 he is on Coumadin with therapeutic range of INR recommended at 2.5-3.5. normal coronaries by [facility] 05/2018 Hx of heart block s/p indwelling pacemaker Diabetes Hx of Sleep apnea Recommendations: Continue warfarin for mechanical MVR. Stable cardiac caputo. On discharge, decrease furosemide 40mg to once a day. Patient will follow up with Dr Peters in 3-5 days.
--- NOTE | 2020-01-17 13:12 | Discharge Summary ---
Providers - Providers Date of Admission: 01/16/20 22:08 Date of discharge: 01/17/20 Attending physician: LESLY ABBOTT 01/16/20 Consult to Cardiac Rehabilitation [CONS] Routine Reason For Exam: Phase I 01/16/20 15:51 Consult to Physician [CONS] Urgent Comment: Consulting Provider: NATALIIA MCANLLY Physician Instructions: Reason For Exam: Chest pain, elevated troponin 01/16/20 22:58 Consult to Dietitian/Nutrition [CONS] Routine Physician Instructions: Reason For Exam: Reason for Consult: Diet education Primary care physician: MANAGER INSIDE Hospitalization Condition: Fair Hospital course: Patient is 62-year-old with history of hypertension A. fib hyperlipidemia diabetes presented with weakness chest pain well-known to the [place] [facility]. Patient had cardiology appointment which showed patient to be tachycardic hypoxemic. And increased troponin. It was secondary to overdiuresis with Lasix. Patient stabilized evaluated by cardiology stable to go home. Will be discharged today. Follow with cardiology 5 to 7 days. Disposition: TO HOME OR SELFCARE - Discharge Diagnoses (1) Acute kidney injury Status: Acute Comment: Secondary to vasomotor nephropathy. (2) Chest pain Status: Acute Comment: Chest pain resolved secondary to vasomotor nephropathy over diuresis. Will decrease Lasix to 40 mg. (3) Elevated troponin Status: Acute Comment: Secondary to volume depletion. Vasomotor nephropathy. Decrease Lasix. (4) Hypokalemia Status: Acute (5) Abnormal EKG Status: Acute (6) Diabetes Status: Chronic Comment: Fair control on current present home medications. Core Measure Documentation - Palliative Care Palliative Care/ Comfort Measures: Not Applicable - Core Measures Any of the following diagnoses?: none Exam - Constitutional Vitals: Temp Pulse Resp BP Pulse Ox 97.6 F 73 20 110/57 97 01/17/20 03:30 01/17/20 09:04 01/17/20 09:04 01/17/20 09:04 01/17/20 09:04 Plan Follow up with: DOREEN FERREIRA MD [Primary Care Provider] - 7 Days
[2020-01-17 18:51] VITALS: BP 98/55
== END 2020-01-17 19:00 | disposition home or self-care (01) ==
LOC: ED 13:03 → 4A 22:08 → INTOOBSV 22:08 → 4A 23:20
PROVIDERS: ADMIT Internal Medicine Geriatric Medicine; ATTEND Internal Medicine
DX: R07.89 Other chest pain (principal); I21.4 Non-ST elevation (NSTEMI) myocardial infarction; I11.0 Hypertensive heart disease with heart failure; I50.9 Heart failure, unspecified; E87.6 Hypokalemia; R74.8 Abnormal levels of other serum enzymes; J44.9 Chronic obstructive pulmonary disease, unspecified; E86.0 Dehydration; G47.30 Sleep apnea, unspecified; K21.9 Gastro-esophageal reflux disease without esophagitis; E11.9 Type 2 diabetes mellitus without complications; E78.5 Hyperlipidemia, unspecified; J45.909 Unspecified asthma, uncomplicated; Z98.890 Other specified postprocedural states; Z79.4 Long term (current) use of insulin; Z79.01 Long term (current) use of anticoagulants; Z79.82 Long term (current) use of aspirin; Z95.0 Presence of cardiac pacemaker; Z79.899 Other long term (current) drug therapy
CPT/HCPCS: 36415; 71045; 80048; 80061; 81001; 82962; 84484; 85007; 85025; 85520; 85610; 85730; 87076; 87086; 87186; 93005; 96365; 96366; 96367; 96368; 96375; 96376; 99285; G0378; J1644; J2270; J2405; J3010; J3480; J0692; J2785

== ENCOUNTER 2020-01-29 10:55 | Emergency (ER) | payer MEDICARE ==
[2020-01-29] MEDS ORDERED: SODIUM CHLORIDE IRRI 500 ML 500 ML IR ONE (12:07)
[2020-01-29] MEDS ORDERED: LIDOCAINE (1%) 10 MG/1 ML VIAL 20 ML MDV ONE (12:07)
[2020-01-29] MEDS ORDERED: MORPHINE 4 MG/1 ML INJ ONE (12:08)
[2020-01-29] MEDS ORDERED: oxyCODONE /ACETAMINOPHEN 5-325MG TAB PO ONE (12:59)
[2020-01-29] MEDS ORDERED: LIDOCAINE (1%) 10 MG/1 ML VIAL 20 ML MDV INFILTRATI ONE (12:59)
[2020-01-29] MEDS ORDERED: MORPHINE 4 MG/1 ML INJ IV ONE (12:59)
[2020-01-29] MEDS ORDERED: SODIUM CHLORIDE 0.9% IRR 500 ML BOTTLE IR ONE (13:00)
--- NOTE | 2020-01-29 13:01 | Emergency Department Report ---
ED Lower Extremity HPI - General Chief Complaint: Laceration/Recheck/Suture Stated Complaint: right toe laceration Time Seen by Provider: 01/29/20 12:58 Source: patient, EMS ( EMS documentation not available at time of chart dictation ), RN notes reviewed, old records reviewed Mode of arrival: Stretcher - History of Present Illness Initial Comments: The patient is a 64-year-old gentleman presenting with a complaint of right plantar great toe laceration, sustained just prior to arrival. The patient has an extensive past medical history, including mechanical mitral valve replacement, A. fib, on Coumadin, diabetes, chronic lower extremity edema, chronic pain, typically on Percocet 10 mg as needed pain. Patient is also on home oxygen for chronic respiratory failure. His main complaint is acute right plantar toe laceration. He endorses chronic pain which is typically relieved with rest and Percocet. He denies additional injuries and denies additional complaints that are new. He specifically denies new onset shortness of breath, worsening edema, chest pain, abdominal pain, hematemesis and bright red blood per rectum. In addition, he was seen and evaluated by ca rdiology earlier on this month. He also has a known history of pulmonary hypertension and cor pulmonale. Patient endorses that he is up-to-date with tetanus vaccination status. MD Complaint: foot injury -: Sudden Injury: Toes: Right Type of Injury: other (Patient reports that he accidentally cut his toe on the corner of an object) Place: home Severity: moderate Improves With: rest Worsens With: movement, palpation Context: other (As per history of present illness) Associated Symptoms: unable to bear weight, other (Sharp throbbing and tingling) - Related Data Home Medications Medication Instructions Recorded Confirmed Last Taken Insulin Aspart (Nf) [NovoLOG 100 10 unit SQ QAC 09/30/13 01/16/20 01/15/20 UNITS/ML VIAL] Esomeprazole Magnesium [NexIUM] 40 mg PO DAILY 10/29/13 01/16/20 01/15/20 Gabapentin 1 cap PO TID 09/04/14 01/16/20 01/15/20 Sennosides/Docusate Sodium [Cvs 1 tab PO DAILY 09/04/14 01/16/20 01/15/20 Stool Softener-Laxative Tb] Insulin Glargine,Hum.rec.anlog 40 units SQ QHS 01/24/19 01/16/20 01/15/20 [Lantus Solostar] Albuterol Mdi (or & Nicu Only) 2 puff IH QID PRN 11/24/19 01/16/20 01/15/20 [ProAir HFA Inhaler] Amiodarone [Cordarone 200 MG TAB] 200 mg PO BID 11/24/19 01/16/20 01/15/20 Pravastatin [Pravachol] 20 mg PO QHS 11/24/19 01/16/20 01/15/20 Warfarin [Coumadin] 7.5 mg PO QDAY 11/24/19 01/16/20 01/15/20 Furosemide [Lasix TAB] 80 mg PO BID 01/16/20 01/16/20 01/15/20 Oxycodone HCl [oxyCODONE] 10 mg PO Q4H PRN 01/16/20 01/16/20 01/15/20 Previous Rx's Medication Instructions Recorded Last Taken Type Aspirin EC [Halfprin EC] 81 mg PO QDAY #30 tablet. 05/12/18 01/15/20 Rx Colchicine 0.6 mg PO DAILY #15 powder 05/12/18 01/15/20 Rx Ipratropium (Nf) [Atrovent HFA 2 puff IH Q6HR PRN #10 inha 05/12/18 01/15/20 Rx 17MCG/PUFF] Nitroglycerin [Nitrostat] 0.4 mg SL Q5M PRN #30 tablet 05/12/18 10/30/18 10:00 Rx Tamsulosin [Flomax] 0.4 mg PO QDAY #30 capsule 05/12/18 01/15/20 Rx Zolpidem [Ambien] 5 mg PO QHS PRN tablet 05/12/18 01/15/20 Rx Potassium Chloride 20 meq PO DAILY #60 packet 11/26/19 01/15/20 Rx Doxycycline Hyclate [Doxycycline 100 mg PO Q12HR #9 tab 01/29/20 Unknown Rx Hyclate TAB] Doxycycline Monohydrate 100 mg PO BID #9 capsule 01/29/20 Unknown Rx [Doxycycline Monohydrate CAP] Potassium Chloride 20 meq PO BID #14 packet 01/29/20 Unknown Rx Allergies Allergy/AdvReac Type Severity Reaction Status Date / Time propoxyphene napsylate Allergy Intermediate Rash Verified 01/23/19 09:50 [From Darvocet-N 100] Sulfa (Sulfonamide Allergy Intermediate Rash Verified 01/23/19 09:50 Antibiotics) ED Review of Systems ROS: Stated complaint: Other details as noted in HPI Constitutional: denies: fever Respiratory: shortness of breath (Chronic shortness of breath). denies: cough Cardiovascular: edema (Chronic edema) Gastrointestinal: denies: hematemesis, melena, hematochezia Musculoskeletal: myalgia Skin: other (Laceration) ED Past Medical Hx - Past Medical History Hx Hypertension: Yes Hx Congestive Heart Failure: Yes Hx Diabetes: Yes Hx GERD: Yes Hx Asthma: Yes Hx COPD: Yes Hx HIV: No Additional medical history: high cholesterol, paraplegic, bronchitis, A Fib - Surgical History Hx Open Heart Surgery: Yes Hx Pacemaker: Yes Additional Surgical History: Mitral valve replacement (mechanical), left ankle surgery - Social History Smoking Status: Never Smoker - Medications Home Medications: Home Medications Medication Instructions Recorded Confirmed Last Taken Type Insulin Aspart (Nf) [NovoLOG 100 10 unit SQ QAC 09/30/13 01/16/20 01/15/20 History UNITS/ML VIAL] Esomeprazole Magnesium [NexIUM] 40 mg PO DAILY 10/29/13 01/16/20 01/15/20 History Gabapentin 1 cap PO TID 09/04/14 01/16/20 01/15/20 History Sennosides/Docusate Sodium [Cvs 1 tab PO DAILY 09/04/14 01/16/20 01/15/20 History Stool Softener-Laxative Tb] Aspirin EC [Halfprin EC] 81 mg PO QDAY #30 tablet. 05/12/18 01/16/20 01/15/20 Rx Colchicine 0.6 mg PO DAILY #15 powder 05/12/18 01/16/20 01/15/20 Rx Ipratropium (Nf) [Atrovent HFA 2 puff IH Q6HR PRN #10 inha 05/12/18 01/16/20 01/15/20 Rx 17MCG/PUFF] Nitroglycerin [Nitrostat] 0.4 mg SL Q5M PRN #30 tablet 05/12/18 01/16/20 10/30/18 10:00 Rx Tamsulosin [Flomax] 0.4 mg PO QDAY #30 capsule 05/12/18 01/16/20 01/15/20 Rx Zolpidem [Ambien] 5 mg PO QHS PRN tablet 05/12/18 01/16/20 01/15/20 Rx Insulin Glargine,Hum.rec.anlog 40 units SQ QHS 01/24/19 01/16/20 01/15/20 History [Lantus Solostar] Albuterol Mdi (or & Nicu Only) 2 puff IH QID PRN 11/24/19 01/16/20 01/15/20 History [ProAir HFA Inhaler] Amiodarone [Cordarone 200 MG TAB] 200 mg PO BID 11/24/19 01/16/20 01/15/20 History Pravastatin [Pravachol] 20 mg PO QHS 11/24/19 01/16/20 01/15/20 History Warfarin [Coumadin] 7.5 mg PO QDAY 11/24/19 01/16/20 01/15/20 History Potassium Chloride 20 meq PO DAILY #60 packet 11/26/19 01/16/20 01/15/20 Rx Furosemide [Lasix TAB] 80 mg PO BID 01/16/20 01/16/20 01/15/20 History Oxycodone HCl [oxyCODONE] 10 mg PO Q4H PRN 01/16/20 01/16/20 01/15/20 History Doxycycline Hyclate [Doxycycline 100 mg PO Q12HR #9 tab 01/29/20 Unknown Rx Hyclate TAB] Doxycycline Monohydrate 100 mg PO BID #9 capsule 01/29/20 Unknown Rx [Doxycycline Monohydrate CAP] Potassium Chloride 20 meq PO BID #14 packet 01/29/20 Unknown Rx ED Physical Exam - General Limitations: Physical Limitation General appearance: alert, anxious, obese - Head Head exam: Present: atraumatic, normocephalic - Eye Eye exam: Present: normal appearance, EOMI. Absent: nystagmus - ENT ENT exam: Present: normal exam, normal orophraynx, mucous membranes moist, normal external ear exam - Neck Neck exam: Present: normal inspection, full ROM. Absent: tenderness, meningismus - Respiratory Respiratory exam: Present: decreased breath sounds. Absent: respiratory distress - Cardiovascular Cardiovascular Exam: Present: regular rate, irregular rhythm. Absent: rubs, gallop - GI/Abdominal GI/Abdominal exam: Present: soft. Absent: distended, tenderness, guarding, rebound, rigid, pulsatile mass - Rectal Rectal exam: Present: deferred - Extremities Exam Extremities exam: Present: pedal edema (3+ edema in the bilateral lower extremities), other (2+ pulses noted in the bilateral upper and lower ex tremities. There is no palpable cord. negative Homans sign. Muscular compartments are soft. The pelvis is stable.). Absent: normal inspection (On the plantar aspect of the right great toe, there is a circumferential sick centimeter laceration. No foreign body is noted. No arterial bleeding is noted. Gentle oozing is noted. Sensation is intact to light touch and pinch in the bilateral upper and lower extremities.) - Back Exam Back exam: Present: normal inspection, full ROM. Absent: tenderness, CVA tenderness (R), CVA tenderness (L), paraspinal tenderness, vertebral tenderness - Neurological Exam Neurological exam: Present: alert, other (No facial droop. Tongue midline. Extraocular movements intact bilaterally. Facial sensation intact to light touch in V1, V2, V3 distribution bilaterally. 5 and a 5 strength in 4 extremities. Sensation intact to light touch in 4 extremities.). Absent: motor sensory deficit - Skin Skin exam: Present: warm, dry, intact, normal color, other (On the plantar aspect of the right second toe, there is a linear 1 cm laceration noted. No foreign body is noted). Absent: rash ED Course - Reevaluation(s) Reevaluation #1: 01/29/20 13:44 While in the emergency room, during laceration repair, the patient developed left-sided nonradiating chest pain, without shortness of breath which is new or different, which is now resolved. Repeat EKG, x-ray the chest, laboratory studies ordered. As per review of recent medical records, patient has no known coronary artery disease, has had multiple cardiac catheterizations, most recently in June 2018, which showed normal coronary arteries. 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 He had an echocardiogram last month which showed evidence of cor pulmonale and dilated right heart chambers, pulmonary hypertension, and pulmonary artery systolic pressure of 74. He has a well-functioning mechanical mitral valve, LV ejection fraction is 60 to 65%. He was supposed to decrease Lasix to 40 mg daily, and follow-up with outpatient cardiology within 3 to 5 days, we will discuss with his private calculus teacher audit control clerk. Reevaluation #2: 01/29/20 13:56 Case discussed with cardiology on-call, Dr. Nikolas Mcnally He is very familiar with this patient. He even consulted on this patient earlier on this month. He advises that no cardiac risk ratification is necess mylene or indicated at this time, patient has had multiple cardiac work-ups in the stratifications within the recent past. Specifically advises that troponin not necessary from a diagnostic or risk ratification standpoint as the patient has a chronically elevated troponin leak, likely secondary to his pulmonary hypertension, and is most likely a chronic type II troponin leak. I will check a CBC, electrolytes, repeat EKG, x-ray of the chest, and reassess. We both agree the patient does not require admission to the hospital for cardiac risk ratification. Patient is not currently tachycardic, tachypneic or acutely hypoxic, he is on chronic home oxygen and he is systemically anticoagulated, the refore, a pulmonary embolism is unlikely. Do not clinically suspect COVID or pneumonia based off of the history. The aforementioned calculus teacher agrees the patient can follow-up in the office as an outpatient. Reevaluation #3: 01/29/20 15:15 EKG #2 was unchanged from prior. Anemia is chronic. Hypokalemia is chronic. Patient has chronic pain. He has already been given 10 of Percocet, and 4 mg of morphine. He can continue his current home medications for his chronic pain. We will replating his potassium at this time. Mild hypoglycemia reviewed and appreciated and asymptomatic. Patient will be fed, and be given dextrose. He is noted to be talking on his cellular phone at this time, and in no acute distress. Reevaluation #4: 01/29/20 15:52 Accu-Chek is improved. X-ray of the chest is reviewed and appreciated. Patient will be given an extra dose of Lasix here. He is not hypoxic on supplemental oxygen and he has not endorsed any additional complaint of shortness of breath. He endorsed chronic edema which is not a new, worsened or different. I have contacted his primary calculus teacher who is agreed to follow him up closely as an outpatient, the patient will need to call to make an appointment. X-ray the right toes reviewed and appreciated, we irrigated the patient very thoroughly, nonspecific high density material the radiologist is referring to in her x-ray report is likely the Xeroform covering that I applied to the lateral laceration site after I repaired the laceration. I thoroughly inspected the laceration sites, I did not find any foreign body. Accu-Chek is improved to greater than 230. Patient observed in this department for hours without clinical decompensation is suitable for discharge at this p oint in time. He is noted to be producing urine. - Laceration /Wound Repair Right Lower Proximal Plantar Toe Wound Location: lower extremity Irrigated w/ Saline (ccs): 6 Betadine Prep?: Yes Anesthesia: 1% Lidocaine Volume Anesthetic (ccs): 10 Wound Debrided: minimal Suture Size/Type: 4:0 (Monofilament interrupted) Number of Sutures: 8 Layer Closure?: No Sterile Dressing Applied?: Yes Right Lower Plantar Toe Wound Location: lower extremity Irrigated w/ Saline (ccs): 1 Betadine Prep?: Yes Anesthesia: 1% Lidocaine Volume Anesthetic (ccs): 5 Suture Size/Type: 4:0 (3 interrupted monofilament) Layer Closure?: No Sterile Dressing Applied?: Yes Progress: Patient found to have a linear 1 cm plantar laceration on the plantar aspect of the second toe. ED Lower Extremity MDM - Lab Data Result diagrams: 01/29/20 13:51 01/29/20 13:51 Lab Results 01/29/20 01/29/20 01/29/20 Range/Units 13:51 13:51 13:51 Hgb 8.7 L (11.8-15.2) gm/dl Hct 26.7 L (35.5-45.6) % Plt Count 168 (140-440) K/mm3 PT 36.6 H (12.2-14.9) Sec. INR 3.59 H (0.87-1.13) Sodium 137 (137-145) mmol/L Potassium 2.4 L* (3.6-5.0) mmol/L Chloride 93.6 L (98-107) mmol/L Carbon Dioxide 31 H (22-30) mmol/L Anion Gap 15 mmol/L BUN 38 H (9-20) mg/dL Creatinine 1.2 (0.8-1.5) mg/dL Estimated GFR > 60 ml/min BUN/Creatinine Ratio 32 % Glucose 73 L (75-100) mg/dL Calcium 8.6 (8.4-10.2) mg/dL Magnesium 1.70 (1.7-2.3) mg/dL - EKG Data -: EKG Interpreted by Sd - EKG Data 01/29/20 13:08 The EKG shows a ventricular paced rate, 71 bpm, good capture, left axis deviation, QTC prolonged, motion artifact, abnormal EKG, not a STEMI - Radiology Data Radiology results: pending, report reviewed, image reviewed Print Report Referring Physician: CRUZ BURLESON Patient Name: CHARLIE COBURN Date of : 1955 Sex: Male Report Date: 2020-01-29 Report Status: [place] [address] XRay Report Signed Patient: CHARLIE COBURN MR#: [id number] : 1955 Acct:[id number] Age/Sex: 64 / M ADM Date: 01/29/20 Loc: ED Attending Dr: Ordering Physician: CRUZ BURLESON MD Date of Service: 01/29/20 Procedure(s): XR toe(s) 2+V RT Accession Number(s): [id number] cc: CRUZ BURLESON MD Fluoro Time In Minutes: RIGHT TOES, 3 VIEWS INDICATION / CLINICAL INFORMATION: right great toe laceration. COMPARISON: None available. FINDINGS: There is a mildly displaced slightly comminuted fracture involving the mid to distal diaphysis of the proximal phalanx of the great toe. No dislocation. No definite intra- articular involvement. There is surrounding soft tissue edema. Soft tissue trauma is noted in the general area. There is high density material in the web region between the first and second digit, unclear if this is within the skin or on top of the scan. The bones are mildly diffusely demineralized. IMPRESSION: There is fracture involving the mid to distal diaphysis of the proximal phalanx of the great toe. There is prominent surrounding soft tissue edema with known laceration. Questionable high density material noted between the first and second digit may be on the skin or very superficially located within the skin. Clinical correlation is recommended. Signer Name: Myranda Blanco MD Signed: 01/29/2020 3:25 PM Workstation Name: [id number] Transcribed By: Dictated By: Myranda Blanco MD Electronically Authenticated By: Myranda Blanco MD Signed Date/Time: 01/29/20 152 DD/ 1522 Print Report Referring Physician: CRUZ BURLESON Patient Name: CHARLIE COBURN Date of : 1955 Sex: Male Report Date: 2020-01-29 Report Status: Finalized Findings [address] [address] XRay Report Signed Patient: CHARLIE COBURN MR#: [id number] : 1955 Acct:[id number] Age/Sex: 64 / M ADM Date: 01/29/20 Loc: ED Attending Dr: Ordering Physician: CRUZ BURLESON MD Date of Service: 01/29/20 Procedure(s): XR chest 1V ap Accession Number(s): [id number] cc: CRUZ BURLESON MD Fluoro Time In Minutes: CHEST 1 VIEW INDICATION: Chest pain. COMPARISON: 01/16/2020 FINDINGS: Support devices: Stable positioning of the pacemaker device. Heart: Stable moderate cardiomegaly. Cardiac valve replacement changes are noted. Lungs/Pleura: Mild interval increase in pulmonary venous congestion. The lungs are clear otherwise. No pleural effusion or pneumothorax. Additional findings: None. IMPRESSION: Cardiomegaly and pulmonary venous congestion Signer Name: Eric Santos Jr, MD Signed: 01/29/2020 3:22 PM Workstation Name: [id number] Transcribed By: MARIBEL Dictated By: ERIC SANTOS JR, MD Electronically Authenticated By: ERIC SANTOS JR, MD Signed Date/Time: 01/29/20 152 DD/ 1521 TD/TT: - Medical Decision Making Blood pressure: 108/46; pulse 70 bpm, respirations 16/min, pulse ox, 100% on supplemental oxygen, chronic, temperature 97 F Differential diagnosis, including but not limited to: Laceration, fracture Assessment and plan: 64-year-old gentleman with multiple chronic medical issues which do not appear to be acutely decompensated, with an acute complaint of right plantar foot laceration. He gave verbal informed consent for laceration repair which was achieved. The laceration site was identified, cleansed with Betadine, and in typical aseptic fashion, irrigated with sterile saline and Betadine at adequate pressure. The wound was explored on a relatively bloodless field, no foreign bodies were noted, no pulsatile bleeding was noted, no hard signs of arterial bleeding was noted. Patient had gross flexion extension intact of the right great toe. After the laceration was repaired, a Xeroform gauze was applied, pressure dressing applied, hard soled shoe was applied, weightbearing as tolerated, prophylactic antibiotics, patient is on chronic Percocet at home for pain, he can therefore take this, no need to follow-up with an outpatient foot and ankle orthopedist or senior director of strategy for further management. Discussed this plan of care with the patient who verbalized understanding. Critical care attestation.: If time is entered above; I have spent that time in minutes in the direct care of this critically ill patient, excluding procedure time. ED Disposition Clinical Impression: S/P mitral valve replacement with metallic valve, Anticoagulant long-term use, History of chest pain, Hypokalemia Laceration of right great toe Qualifiers: Encounter type: initial encounter Damage to nail status: without damage Foreign body presence: without foreign body Qualified Code(s): S91.111A - Laceration without foreign body of right great toe without damage to nail, initial encounter Edema Qualifiers: Edema type: localized Qualified Code(s): R60.0 - Localized edema Laceration of toe Qualifiers: Encounter type: initial encounter Toe: lesser toe Damage to nail status: without damage Foreign body presence: without foreign body Laterality: right Qualified Code(s): S91.114A - Laceration without foreign body of right lesser toe(s) without damage to nail, initial encounter Disposition: - TO HOME OR SELFCARE Is pt being admited?: No Does the pt Need Aspirin: No Condition: Stable Instructions: Chest Pain (ED), Suture Care (ED), Laceration (ED) Additional Instructions: Continue to use home wheelchair. Please continue current outpatient medications. Take the antibiotics as directed. Do not consume alcohol. Wash the laceration with gentle soap and water once every 12-24 hours. Use the hard soled shoe Follow-up with a foot and ankle orthopedist or senior director of strategy within the next 7 days. Please return to the emergency room right away with new pain, worsening pain, migration of pain, projectile vomiting, change in mental status, confusion, inability to tolerate liquid feeds, redness, pus, streaking, or any new, worsened or different symptoms not present on the initial emergency room evaluation Please continue outpatient medications, please follow-up with your outpatient calculus teacher within the next 3 to 5 days. Take the potassium supplementation as directed. Please make certain to eat a cardiac friendly diet low in salt. Prescriptions: Doxycycline Hyclate [Doxycycline Hyclate TAB] 100 mg PO Q12HR #9 tab Doxycycline Monohydrate [Doxycycline Monohydrate CAP] 100 mg PO BID #9 capsule Potassium Chloride 20 meq PO BID #14 packet Referrals: [facility] [Provider Group] - 3-5 Days NURA ESTES DPM [Staff Physician] - 3-5 Days NATALIIA MCNALLY MD [Staff Physician] - 3-5 Days
[2020-01-29 14:04] LABS: Hematocrit 26.7 % (35.5-45.6); Hemoglobin 8.7 gm/dl (11.8-15.2)
[2020-01-29 14:09] LABS: INR 3.59 (0.87-1.13)
[2020-01-29 14:23] LABS: BUN/Creatinine Ratio 32; Blood Urea Nitrogen 38 mg/dL (9-20); Calcium 8.6 mg/dL (8.4-10.2); Hemolysis Index 6
[2020-01-29] MEDS ORDERED: POTASSIUM CHLORIDE ER 20 MEQ TAB PO ONE (14:26)
[2020-01-29] MEDS ORDERED: DEXTROSE 50% IN WATER (25GM) 50 ML SYRINGE IV ONE (14:27)
[2020-01-29] MEDS: POTASSIUM CHLORIDE 10 MEQ 10 MEQ/100 ML BAG IV SCH ×2 (15:01→16:14)
--- NOTE | 2020-01-29 15:27 | XRay Report ---
CHEST 1 VIEW INDICATION: Chest pain. COMPARISON: 01/16/2020 FINDINGS: Support devices: Stable positioning of the pacemaker device. Heart: Stable moderate cardiomegaly. Cardiac valve replacement changes are noted. Lungs/Pleura: Mild interval increase in pulmonary venous congestion. The lungs are clear otherwise. N o pleural effusion or pneumothorax. Additional findings: None. IMPRESSION: Cardiomegaly and pulmonary venous congestion Signer Name: Eric Santos Jr, MD Signed: 01/29/2020 3:22 PM Workstation Name: [id number]
--- NOTE | 2020-01-29 15:30 | XRay Report ---
RIGHT TOES, 3 VIEWS INDICATION / CLINICAL INFORMATION: right great toe laceration. COMPARISON: None available. FINDINGS: There is a mildly displaced slightly comminuted fracture involving the mid to distal diaphysis of the proximal phalanx of the great toe. No dislocation. No definite intra-articular involvement. There is surrounding soft tissue edema. Soft tissue trauma is noted in the general area. There is hig h density material in the web region between the first and second digit, unclear if this is within th e skin or on top of the scan. The bones are mildly diffusely demineralized. IMPRESSION: There is fracture involving the mid to distal diaphysis of the proximal phalanx of the gr eat toe. There is prominent surrounding soft tissue edema with known laceration. Questionable high de nsity material noted between the first and second digit may be on the skin or very superficially loca lyndsey within the skin. Clinical correlation is recommended. Signer Name: Myranda Blanco MD Signed: 01/29/2020 3:25 PM Workstation Name: [id number]
[2020-01-29] MEDS ORDERED: FUROSEMIDE 40 MG/4 ML INJ IV ONE (15:52)
[2020-01-29 18:57] VITALS: BP 105/43
== END 2020-01-29 17:30 | disposition home or self-care (01) ==
LOC: ED 10:55
DX: S91.111A Laceration without foreign body of right great toe without damage to nail, initial encounter (principal); S91.114A Laceration without foreign body of right lesser toe(s) without damage to nail, initial encounter; Z95.2 Presence of prosthetic heart valve; E87.6 Hypokalemia; I11.0 Hypertensive heart disease with heart failure; I50.9 Heart failure, unspecified; E11.9 Type 2 diabetes mellitus without complications; K21.9 Gastro-esophageal reflux disease without esophagitis; J44.9 Chronic obstructive pulmonary disease, unspecified; Z98.890 Other specified postprocedural states; Z79.4 Long term (current) use of insulin; Z79.82 Long term (current) use of aspirin; Z79.01 Long term (current) use of anticoagulants; Z88.2 Allergy status to sulfonamides; Z88.8 Allergy status to other drugs, medicaments and biological substances; W26.8XXA Contact with other sharp object(s), not elsewhere classified, initial encounter; Y93.89 Activity, other specified; Y92.89 Other specified places as the place of occurrence of the external cause; Y99.8 Other external cause status
CPT/HCPCS: 12042; 36415; 71045; 73660; 80048; 82550; 82962; 83735; 85014; 85018; 85049; 85610; 93005; 96365; 96366; 96375; 99284; J1940; J2270; J3480

== ENCOUNTER 2020-03-19 10:13 | Outpatient (CLI) | payer MEDICARE ==
[2020-03-19] MEDS ORDERED: LIDOCAINE (4%) 40 MG/ML TOPICAL SOLN 50 ML BOTTLE TP ONE (10:26)
== END 2020-03-19 10:14 | disposition home or self-care (01) ==
LOC: WOUND 10:13
PROVIDERS: ATTEND Surgery
DX: E11.621 Type 2 diabetes mellitus with foot ulcer (principal); L97.513 Non-pressure chronic ulcer of other part of right foot with necrosis of muscle; E11.622 Type 2 diabetes mellitus with other skin ulcer; L97.822 Non-pressure chronic ulcer of other part of left lower leg with fat layer exposed; L97.222 Non-pressure chronic ulcer of left calf with fat layer exposed; I11.0 Hypertensive heart disease with heart failure; I50.9 Heart failure, unspecified; K21.9 Gastro-esophageal reflux disease without esophagitis; M10.9 Gout, unspecified; J45.909 Unspecified asthma, uncomplicated; I87.8 Other specified disorders of veins; I48.91 Unspecified atrial fibrillation; Z95.0 Presence of cardiac pacemaker; Z87.891 Personal history of nicotine dependence
CPT/HCPCS: 11042; 11043; G0463; 99205; 99215

== ENCOUNTER 2020-03-25 10:02 | Outpatient (CLI) | payer MEDICARE ==
--- NOTE | 2020-03-25 12:39 | Cat Scan Report ---
CT OF THE ABDOMEN AND PELVIS WITHOUT CONTRAST INDICATION / CLINICAL INFORMATION: N39.0 UTI. TECHNIQUE: All CT scans at this location are performed using CT dose reduction for ALARA by means of automated e xposure control. COMPARISON: 08/27/2018. FINDINGS: ABDOMEN: The liver has a cirrhotic contour without focal lesion. The spleen is not enlarged. A small low-density lesion in the posterior spleen is stable. There are multiple calcified stones in the gall bladder. The gallbladder is normal in size without wall thickening or bile duct dilatation. There is mild ascites which is new. Moderate, generalized body wall edema is also a new finding. There is a ne w small right pleural effusion. There is associated right basilar subsegmental atelectasis. The pancreas, adrenal glands, kidneys and bowel demonstrate no significant abnormality. No adenopathy is seen. PELVIS: The distal ureters, urinary bladder and prostate gland are normal. There is moderate pelvic a scites. Generalized body wall edema is present. There is no evidence of appendicitis or diverticuliti s. I do not identify a mass. There is no evidence of hernia. Mild spondylosis is present. IMPRESSION: 1. Findings characteristic of hepatic cirrhosis. Mild ascites and a small right pleural effusion are new. Moderate generalized body wall edema was also not present previously. 2. Cholelithiasis without CT evidence of acute cholecystitis. 3. No urinary tract abnormality is seen on this noncontrast exam. Signer Name: Wilberto Menjivar MD Signed: 03/25/2020 12:34 PM Workstation Name: [id number]
--- NOTE | 2020-03-25 13:54 | Vascular Lab Report ---
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 TECHNIQUE: Duplex doppler imaging was performed through the veins of both lower extremities using ve nous compression and other maneuvers. COMPARISON: No relevant prior imaging study available. FINDINGS: Right Common femoral vein: Negative. Right Superficial femoral vein: Negative. Right Popliteal vein: Negative. Right Calf veins: Negative. Left Common femoral vein: Negative. Left Superficial femoral vein: Negative. Left Popliteal vein: Negative. Left Calf veins: Negative. Additional findings: None.. IMPRESSION: No sonographic evidence for DVT in either lower extremity. Signer Name: Eric Santos Jr, MD Signed: 03/25/2020 1:50 PM Workstation Name: [id number]
--- NOTE | 2020-03-25 14:00 | XRay Report ---
RIGHT FOOT 3 VIEWS INDICATION: L97.513Non-pressure chronic ulcer of other part of right foot wit. COMPARISON: None. IMPRESSION: A mildly displaced fracture is identified through the proximal phalanx of the great toe. The remaining bony structures are intact. No erosive joint pathology. Chronic deformity of the fourt h metatarsal is noted. The bony structures appear mildly demineralized. There is severe diffuse soft tissue swelling or edema. Signer Name: Eric Santos Jr, MD Signed: 03/25/2020 1:56 PM Workstation Name: [id number]
--- NOTE | 2020-03-25 14:08 | Vascular Lab Report ---
DUPLEX DOPPLER LOWER EXTREMITY ARTERIAL, BILATERAL INDICATION: E11.621Type 2 diabetes mellitus with foot ulcer. TECHNIQUE: Arterial duplex examination of both lower extremities performed using B-mode, color flow and spectral Doppler assessment. FINDINGS: RIGHT: Common Femoral Artery: PSV 114 cm/sec. Triphasic waveform. Proximal SFA: PSV 142 cm/sec. Triphasic waveform. Mid SFA: PSV 127 cm/sec. Triphasic waveform. Distal SFA: PSV 135 cm/sec. Triphasic waveform. Popliteal artery: PSV 128 cm/sec. Triphasic waveform. Posterior tibial artery: PSV 84 cm/sec. Biphasic waveform. Dorsalis Pedis Artery: PSV 76 cm/sec. Monophasic waveform. LEFT: Common Femoral Artery: PSV 145 cm/sec. Triphasic waveform. Proximal SFA: PSV 145 cm/sec. Triphasic waveform. Mid SFA: PSV 151 cm/sec. Triphasic waveform. Distal SFA: PSV 141 cm/sec. Triphasic waveform. Popliteal artery: PSV 100 cm/sec. Triphasic waveform. Posterior tibial artery: PSV 66 cm/sec. Monophasic waveform. Dorsalis Pedis Artery: PSV 66 cm/sec. Biphasic waveform. IMPRESSION: Lower extremity arterial structures are patent although monophasic waveforms are noted in the right d orsalis pedis artery and left posterior tibial artery. Doppler Waveform: * Triphasic is normal. * Biphasic is abnormal if clear transition from triphasic signal along vascular tree. * Monophasic is abnormal. Signer Name: Eric Santos Jr, MD Signed: 03/25/2020 2:04 PM Workstation Name: [id number]
== END 2020-03-25 10:03 | disposition home or self-care (01) ==
LOC: CT 10:02
PROVIDERS: ATTEND Urology
DX: S92.411A Displaced fracture of proximal phalanx of right great toe, initial encounter for closed fracture (principal); K74.60 Unspecified cirrhosis of liver; L97.513 Non-pressure chronic ulcer of other part of right foot with necrosis of muscle; N39.0 Urinary tract infection, site not specified; E11.621 Type 2 diabetes mellitus with foot ulcer; J90 Pleural effusion, not elsewhere classified; R60.1 Generalized edema; K80.20 Calculus of gallbladder without cholecystitis without obstruction; X58.XXXA Exposure to other specified factors, initial encounter; Y93.89 Activity, other specified; Y92.89 Other specified places as the place of occurrence of the external cause; Y99.8 Other external cause status
CPT/HCPCS: 74176; 93925; 93970

== ENCOUNTER 2020-04-30 13:11 | Outpatient (CLI) | payer MEDICARE ==
[2020-04-30] MEDS ORDERED: LIDOCAINE (4%) 40 MG/ML TOPICAL SOLN 50 ML BOTTLE TP ONE (13:18)
== END 2020-04-30 13:12 | disposition home or self-care (01) ==
LOC: WOUND 13:11
PROVIDERS: ATTEND Surgery
DX: E11.621 Type 2 diabetes mellitus with foot ulcer (principal); L97.513 Non-pressure chronic ulcer of other part of right foot with necrosis of muscle; E11.622 Type 2 diabetes mellitus with other skin ulcer; L97.822 Non-pressure chronic ulcer of other part of left lower leg with fat layer exposed; L97.222 Non-pressure chronic ulcer of left calf with fat layer exposed; L89.893 Pressure ulcer of other site, stage 3; L98.492 Non-pressure chronic ulcer of skin of other sites with fat layer exposed; R21 Rash and other nonspecific skin eruption; I11.0 Hypertensive heart disease with heart failure; I50.9 Heart failure, unspecified; K21.9 Gastro-esophageal reflux disease without esophagitis; M10.9 Gout, unspecified; J45.909 Unspecified asthma, uncomplicated; I87.8 Other specified disorders of veins; I48.91 Unspecified atrial fibrillation; Z95.0 Presence of cardiac pacemaker; Z87.891 Personal history of nicotine dependence

== ENCOUNTER 2020-06-18 13:02 | Inpatient (IN) | payer MEDICARE ==
--- NOTE | 2020-06-18 14:22 | XRay Report ---
CHEST 1 VIEW INDICATION: AMS. COMPARISON: 03/01/2020 FINDINGS: SUPPORT DEVICES: Stable satisfactory device positioning. HEART: Stable cardiomegaly and sternotomy changes. LUNGS/PLEURA: Persistent mild central vascular congestion and new streaky left basilar airspace disea se. No effusion. ADDITIONAL FINDINGS: None. IMPRESSION: 1. Pulmonary findings as above. Signer Name: Jon Delgado MD Signed: 06/18/2020 2:17 PM Workstation Name: [id number]
[2020-06-18 14:48] LABS: Amphetamine Screen,Urine Negative; Benzodiazepines Screen,Urine Negative; Cannabinoid Screen,Urine Negative; Cocaine Screen,Urine Negative; Methadone Screen,Urine Negative; Opiate Screen,Urine Negative
[2020-06-18 14:48] LABS: Eosinophils % (Auto) 1.5 % (0.0-4.3); Monocytes % (Auto) 8.2 % (0.0-7.3)
[2020-06-18] MEDS ORDERED: SODIUM CHLORIDE 0.9% 1000 ML IV SOLN IV ONE (14:49)
[2020-06-18 14:52] LABS: Hematocrit 22.3 % (35.5-45.6); Hemoglobin 7.6 gm/dl (11.8-15.2); Mean Corpuscular HGB Conc 34 % (32-34); Mean Corpuscular Volume 81 fl (84-94); Red Blood Count 2.75 M/mm3 (3.65-5.03)
[2020-06-18 14:53] LABS: Basophils % (Auto) 0.3 % (0.0-1.8); Eosinophils # (Auto) 0.1 K/mm3 (0.0-0.4); Lymphocytes # (Auto) 0.4 K/mm3 (1.2-5.4); Lymphocytes % (Auto) 3.6 % (13.4-35.0); Monocytes # (Auto) 0.8 K/mm3 (0.0-0.8); Platelet Count 153 K/mm3 (140-440)
[2020-06-18 14:55] LABS: INR 2.14 (0.87-1.13)
[2020-06-18 14:56] LABS: Partial Thromboplastin Time 48.7 Sec. (24.2-36.6)
[2020-06-18] MEDS ORDERED: CEFEPIME/NS 2 GM/100 ML 2 GM/100 ML BAG IV SCH (15:00)
[2020-06-18] MEDS ORDERED: VANCOMYCIN PHARMACY TO DOSE IV SCH (15:00)
[2020-06-18 15:07] LABS: Albumin 3.2 g/dL (3.9-5); Bilirubin,Direct 1.3 mg/dL (0-0.2); Calcium 8.5 mg/dL (8.4-10.2)
[2020-06-18 15:18] LABS: Free T4 (Free Thyroxine) 1.66 ng/dL (0.76-1.46)
[2020-06-18 15:31] LABS: Color,Urine Yellow (Yellow)
[2020-06-18 15:32] LABS: Bilirubin,Urine Negative (Negative); Blood,Urine Moderate (Negative)
[2020-06-18 15:33] LABS: Protein,Urine >500 mg/dL (Negative); RBC,Urine > 182.0 /HPF (0.0-6.0); Urobilinogen,Urine < 2.0 mg/dL (<2.0); WBC,Urine > 182.0 /HPF (0.0-6.0)
[2020-06-18 15:34] LABS: Bacteria,Urine 4+ /HPF (Negative)
--- NOTE | 2020-06-18 15:43 | Cat Scan Report ---
CT head/brain wo con INDICATION / CLINICAL INFORMATION: 64 years Male; AMS. TECHNIQUE: Routine CT head without contrast. All CT scans at this location are performed using CT dos e reduction for ALARA by means of automated exposure control. Motion artifact COMPARISON: 01/24/2019 FINDINGS: BRAIN / INTRACRANIAL CONTENTS: No acute hemorrhage, mass effect, midline shift, hydrocephalus, or acu te, large territorial infarct. cerebral and cerebellar atrophy. There are areas of decreased attenuation in the white matter of the cerebral hemispheres. These are n onspecific findings and may be related to microangiopathy (hypertension, diabetes, atherosclerosis), given the patient's age. It might be difficult to evaluate for small areas of ischemia without diffus ion imaging by MRI. CRANIOCERVICAL JUNCTION: No significant abnormality. ORBITS: No significant abnormality of visualized orbits. SINUSES / MASTOIDS: No significant abnormality in the visualized paranasal sinuses or mastoid air gemma ls. ADDITIONAL FINDINGS: Atherosclerotic disease is seen in the anterior circulation. IMPRESSION: 1. No focal mass, hemorrhage, hydrocephalus, or acute, large territorial infarct. Study somewhat limi lyndsey by motion. Signer Name: Mario Burnham MD, III Signed: 06/18/2020 3:39 PM Workstation Name: [email or web address]
--- NOTE | 2020-06-18 15:55 | Cat Scan Report ---
CT CHEST, ABDOMEN, AND PELVIS WITHOUT IV CONTRAST INDICATION: sepsis. COMPARISON: CT abdomen/pelvis 03/25/2020. No prior chest CTs are available. TECHNIQUE: All CT scans at this location are performed using CT dose reduction for ALARA by means of automated e xposure control. Axial CT images were obtained through the chest, abdomen, and pelvis. FINDINGS: Skeletal System: No acute abnormality. CHEST: Heart: Mitral valve postop changes. Cardiomegaly. No pericardial effusion. Thoracic Aorta: No acute abnormality. Mediastinum & Diamante: No significant abnormality. Lungs: No acute air space or interstitial disease. Pleura: No significant pleural effusion. No pneumothorax. Airways: No significant abnormality. Additional Findings: None. ABDOMEN: Liver: No intrinsic lesions are seen. The liver has a lobular contour, similar to the prior. Gallbladder: No significant abnormality. Bile Ducts: No significant abnormality. Pancreas: No significant abnormality. Spleen: No significant abnormality. Adrenals: No significant abnormality. Right Kidney and Proximal Ureter: No significant abnormality. Left Kidney and Proximal Ureter: No significant abnormality. Stomach and Bowel: No significant abnormality. Lymph Nodes: No significant adenopathy. Aorta: No significant abnormality. IVC: No significant abnormality. Additional Findings: None. PELVIS: Urinary Bladder and Distal Ureters: Moderate gas in the bladder lumen could be due to recent instrume ntation. Appendix: No significant abnormality. Colon: No significant abnormality. Free Fluid: There is trace free fluid in the pelvis. Lymph Nodes: No significant adenopathy. Additional Findings: None. IMPRESSION: 1. No acute process in the chest, abdomen, or pelvis. 2. Moderate gas in the bladder lumen could be due to recent instrumentation but is nonspecific, corre late clinically. 3. As on the prior, the liver has a somewhat nodular configuration suggestive of cirrhosis. 4. There is trace perihepatic fluid and trace free fluid in the pelvis. Signer Name: Adriano Juarez MD Signed: 06/18/2020 3:51 PM Workstation Name: [id number]
[2020-06-18] MEDS ORDERED: VANCOMYCIN 1,750 MG in SODIUM CHLORIDE 0.9% 500 ML 500 ML IV ONE (16:00)
--- NOTE | 2020-06-18 16:21 | Cat Scan Report ---
CT RIGHT LOWER EXTREMITY WITHOUT CONTRAST INDICATION / CLINICAL INFORMATION: sepsis, necrotizing fasciitis. TECHNIQUE: All CT scans at this location are performed using CT dose reduction for ALARA by means of automated e xposure control. COMPARISON: None available. FINDINGS: BONES: No acute fracture. No focal osseous lesion. No evidence of osteomyelitis. JOINT(S): Moderate right hip and knee arthrosis. Moderate knee joint effusion. No intra-articular bod ies. MUSCLES / TENDONS: No significant abnormality. SOFT TISSUES: Circumferential soft tissue swelling and edema is noted of the visualized portion of th e lower extremity, more significant just below the level the knee. No evidence of focal drainable sof t tissue fluid collections or subcutaneous emphysema. ADDITIONAL FINDINGS: Mild vascular calcification are noted. IMPRESSION: 1. Circumferential superficial soft tissue swelling and edema of the lower extremity may represent no nspecific soft tissue edema versus cellulitis given the patient's clinical history. There is no evide nce of focal soft tissue abscess or subcutaneous emphysema. 2. No acute fracture or dislocation. 3. Moderate right hip and knee arthrosis with a moderate knee joint effusion. Signer Name: Ron Mcgraw MD Signed: 06/18/2020 4:17 PM Workstation Name: [id number]
--- NOTE | 2020-06-18 16:28 | Cat Scan Report ---
CT LEFT LOWER EXTREMITY WITHOUT CONTRAST INDICATION / CLINICAL INFORMATION: NECROTIZING FASCITIS. TECHNIQUE: All CT scans at this location are performed using CT dose reduction for ALARA by means of automated e xposure control. COMPARISON: None available. FINDINGS: BONES: No acute fracture. No focal osseous lesion. No evidence of osteomyelitis. JOINT(S): Moderate right hip and knee arthrosis. Small knee joint effusion. No intra-articular bodies . MUSCLES / TENDONS: No significant abnormality. SOFT TISSUES: Mild Circumferential soft tissue swelling and edema is noted of the visualized portion of the lower extremity, more significant just below the level the knee. No evidence of focal drainabl e soft tissue fluid collections or subcutaneous emphysema. ADDITIONAL FINDINGS: Mild vascular calcifications are noted. Partially visualized air noted within th e urinary bladder lumen may be secondary to recent instrumentation. Clinical correlation is a. IMPRESSION: 1. Circumferential superficial soft tissue swelling and edema of the lower extremity may represent no nspecific soft tissue edema versus cellulitis given the patient's clinical history. There is no evide nce of focal soft tissue abscess or subcutaneous emphysema. 2. No acute fracture or dislocation. 3. Moderate right hip and knee arthrosis with a small left knee joint effusion. Signer Name: Ron Mcgraw MD Signed: 06/18/2020 4:24 PM Workstation Name: [id number]
[2020-06-18] MEDS ORDERED: CEFEPIME/NS 1 GM/100 ML 1 GM/100 ML BAG IV SCH (17:00)
[2020-06-18] MEDS: CEFEPIME/NS 1 GM/100 ML 1 GM/100 ML BAG IV SCH ×2 (19:12→21:39)
[2020-06-18] MEDS ORDERED: LIDOCAINE VISCOUS 2% 15 ML ORAL LIQD PO ONE (19:13)
--- NOTE | 2020-06-18 21:07 | Emergency Department Report ---
ED Altered Mental Status HPI - General Chief Complaint: Altered Mental Status Stated Complaint: AMS,HYPERGLYCEMIA PUI?: No Source: EMS Mode of arrival: Stretcher Limitations: Altered Mental Status - History of Present Illness Initial Comments: Chief complaint: Altered mental status, elevated blood sugar HPI: History obtained from EMS electronic medical record and sister per phone. History limited due to patient's altered mental status. HPI: This is a 64-year-old male with history of diastolic heart failure, hypertension, volume overload, mitral valve replacement with metallic valve on warfarin, GERD, sepsis, pulmonary hypertension, atrial fibrillation, insulin- dependent diabetes WHO today patient was evaluated by telehealth nurse. Patient was discovered to be altered with blood glucose greater than 500. Patient treated per EMS. Sister informed triage nurse that patient was recently hospitalized for several weeks at [facility]. He was diagnosed with liver cirrhosis, elevated ammonia, elevated blood sugar, elevated INR. Patient unable to give history due to altered mental status. MD Complaint: altered mental status -: Gradual, days(s) (1 to 2 days), unknown Severity: severe Consistency of Symptoms: waxing and waning Context: diabetes, liver disease Associated Symptoms: other (Unable to obtain due to altered mental status) - Related Data Home Medications Medication Instructions Recorded Confirmed Last Taken Esomeprazole Magnesium [NexIUM] 40 mg PO DAILY 10/29/13 03/02/20 1 Day Ago ~02/04/20 40 mg Gabapentin 1 cap PO TID 09/04/14 03/02/20 1 Day Ago ~02/04/20 1 cap Amiodarone [Cordarone 200 MG TAB] 200 mg PO BID 11/24/19 03/02/20 1 Day Ago ~02/04/20 200 mg Pravastatin [Pravachol] 20 mg PO QHS 11/24/19 03/02/20 1 Day Ago ~02/04/20 20 mg Warfarin [Coumadin] 5 mg PO QDAY 11/24/19 03/02/20 1 Day Ago ~02/04/20 5 mg Previous Rx's Medication Instructions Recorded Last Taken Type Aspirin EC [Halfprin EC] 81 mg PO QDAY #30 tablet. 05/12/18 1 Day Ago Rx ~02/04/20 81 mg Colchicine 0.6 mg PO DAILY #15 powder 05/12/18 1 Day Ago Rx ~02/04/20 0.6 mg Nitroglycerin [Nitrostat] 0.4 mg SL Q5M PRN #30 tablet 05/12/18 10/30/18 10:00 Rx Tamsulosin [Flomax] 0.4 mg PO QDAY #30 capsule 05/12/18 1 Day Ago Rx ~02/04/20 0.4 mg Zolpidem [Ambien] 5 mg PO QHS PRN tablet 05/12/18 2 Days Ago Rx ~02/03/20 5 mg Doxycycline Hyclate [Doxycycline 100 mg PO Q12HR #9 tab 01/29/20 1 Day Ago Rx Hyclate TAB] ~02/04/20 100 mg ALBUTEROL NEB's [Proventil 0.083% 2.5 mg IH QIDRT PRN nebu 02/06/20 Unknown Rx NEBS] Albuterol Mdi (or & Nicu Only) 2 puff IH QID PRN #1 02/06/20 Unknown Rx [ProAir HFA Inhaler] Clindamycin [Clindamycin CAP] 450 mg PO Q6HR #40 capsule 02/06/20 Unknown Rx Furosemide [Lasix TAB] 80 mg PO BID #60 02/06/20 Unknown Rx Insulin Aspart (Nf) [NovoLOG 100 10 unit SQ QAC #5 pen 02/06/20 Unknown Rx UNITS/ML VIAL] Insulin Glargine,Hum.rec.anlog 40 units SQ QHS #5 pen 02/06/20 Unknown Rx [Lantus Solostar] Ipratropium (Nf) [Atrovent HFA 2 puff IH Q6HR PRN 30 Days #10 inha 02/06/20 Unknown Rx 17MCG/PUFF] Oxycodone HCl/Acetaminophen 1 each PO Q6HR PRN #14 tablet 02/06/20 Unknown Rx [Percocet 7.5/325 mg] Pantoprazole [Protonix TAB] 40 mg PO DAILY #30 tablet 02/06/20 Unknown Rx Potassium Chloride 20 meq PO BID packet 02/06/20 Unknown Rx Sennosides/Docusate [Senokot S] 1 tab PO DAILY tablet 02/06/20 Unknown Rx diphenhydrAMINE [Benadryl] 25 mg IV Q4H PRN #30 vial 02/06/20 Unknown Rx oxyCODONE [roxiCODONE] 10 mg PO Q4H PRN tablet 02/06/20 Unknown Rx metOLazone [Zaroxolyn] 5 mg PO QDAY #30 tablet 02/14/20 Unknown Rx Allergies Allergy/AdvReac Type Severity Reaction Status Date / Time propoxyphene napsylate Allergy Intermediate Rash Verified 02/12/20 13:48 [From Darvocet-N 100] Sulfa (Sulfonamide Allergy Intermediate Rash Verified 02/12/20 13:48 Antibiotics) ED Review of Systems ROS: Stated complaint: AMS,HYPERGLYCEMIA Other details as noted in HPI Comment: Unobtainable due to pts medical conditions (Altered mental status) ED Past Medical Hx - Past Medical History Previous Medical History?: Yes Hx Hypertension: Yes Hx Heart Attack/AMI: No Hx Congestive Heart Failure: Yes Hx Diabetes: Yes Hx Deep Vein Thrombosis: No Hx Pulmonary Embolism: No Hx GERD: Yes Hx Liver Disease: Yes (Cirrosis) Hx Asthma: Yes Hx COPD: Yes Hx Tuberculosis: No Hx HIV: No Additional medical history: high cholesterol, paraplegic, bronchitis, A Fib - Surgical History Past Surgical History?: Yes Hx Coronary Stent: No Hx Open Heart Surgery: Yes Hx Pacemaker: Yes Hx Internal Defibrillator: No Additional Surgical History: Mitral valve replacement (mechanical), left ankle surgery, Pace maker - Social History Smoking Status: Unknown if ever smoked Substance Use Type: None - Medications Home Medications: Home Medications Medication Instructions Recorded Confirmed Last Taken Type Esomeprazole Magnesium [NexIUM] 40 mg PO DAILY 10/29/13 03/02/20 1 Day Ago History ~02/04/20 40 mg Gabapentin 1 cap PO TID 09/04/14 03/02/20 1 Day Ago History ~02/04/20 1 cap Aspirin EC [Halfprin EC] 81 mg PO QDAY #30 tablet. 05/12/18 03/02/20 1 Day Ago Rx ~02/04/20 81 mg Colchicine 0.6 mg PO DAILY #15 powder 05/12/18 03/02/20 1 Day Ago Rx ~02/04/20 0.6 mg Nitroglycerin [Nitrostat] 0.4 mg SL Q5M PRN #30 tablet 05/12/18 03/02/20 10/30/18 10:00 Rx Tamsulosin [Flomax] 0.4 mg PO QDAY #30 capsule 05/12/18 03/02/20 1 Day Ago Rx ~02/04/20 0.4 mg Zolpidem [Ambien] 5 mg PO QHS PRN tablet 05/12/18 03/02/20 2 Days Ago Rx ~02/03/20 5 mg Amiodarone [Cordarone 200 MG TAB] 200 mg PO BID 11/24/19 03/02/20 1 Day Ago History ~02/04/20 200 mg Pravastatin [Pravachol] 20 mg PO QHS 11/24/19 03/02/20 1 Day Ago History ~02/04/20 20 mg Warfarin [Coumadin] 5 mg PO QDAY 11/24/19 03/02/20 1 Day Ago History ~02/04/20 5 mg Doxycycline Hyclate [Doxycycline 100 mg PO Q12HR #9 tab 01/29/20 03/02/20 1 Day Ago Rx Hyclate TAB] ~02/04/20 100 mg ALBUTEROL NEB's [Proventil 0.083% 2.5 mg IH QIDRT PRN nebu 02/06/20 03/02/20 Unknown Rx NEBS] Albuterol Mdi (or & Nicu Only) 2 puff IH QID PRN #1 02/06/20 03/02/20 Unknown Rx [ProAir HFA Inhaler] Clindamycin [Clindamycin CAP] 450 mg PO Q6HR #40 capsule 02/06/20 03/02/20 Unknown Rx Furosemide [Lasix TAB] 80 mg PO BID #60 02/06/20 03/02/20 Unknown Rx Insulin Aspart (Nf) [NovoLOG 100 10 unit SQ QAC #5 pen 02/06/20 03/02/20 Unknown Rx UNITS/ML VIAL] Insulin Glargine,Hum.rec.anlog 40 units SQ QHS #5 pen 02/06/20 03/02/20 Unknown Rx [Lantus Solostar] Ipratropium (Nf) [Atrovent HFA 2 puff IH Q6HR PRN 30 Days #10 inha 02/06/20 03/02/20 Unknown Rx 17MCG/PUFF] Oxycodone HCl/Acetaminophen 1 each PO Q6HR PRN #14 tablet 02/06/20 03/02/20 Unknown Rx [Percocet 7.5/325 mg] Pantoprazole [Protonix TAB] 40 mg PO DAILY #30 tablet 02/06/20 03/02/20 Unknown Rx Potassium Chloride 20 meq PO BID packet 02/06/20 03/02/20 Unknown Rx Sennosides/Docusate [Senokot S] 1 tab PO DAILY tablet 02/06/20 03/02/20 Unknown Rx diphenhydrAMINE [Benadryl] 25 mg IV Q4H PRN #30 vial 02/06/20 03/02/20 Unknown Rx oxyCODONE [roxiCODONE] 10 mg PO Q4H PRN tablet 02/06/20 03/02/20 Unknown Rx metOLazone [Zaroxolyn] 5 mg PO QDAY #30 tablet 02/14/20 03/02/20 Unknown Rx ED Physical Exam - General Limitations: Altered Mental Status General appearance: lethargic, other (Appears chronically ill) - Head Head exam: Present: atraumatic, normocephalic - Eye Eye exam: Present: normal appearance - ENT ENT exam: Present: mucous membranes dry (Dry mucous membranes) - Neck Neck exam: Present: normal inspection, full ROM - Respiratory Respiratory exam: Present: normal lung sounds bilaterally. Absent: respiratory distress, wheezes, rales, stridor - Cardiovascular Cardiovascular Exam: Present: regular rate, normal rhythm, normal heart sounds. Absent: systolic murmur, diastolic murmur, rubs, gallop - GI/Abdominal GI/Abdominal exam: Present: soft, normal bowel sounds. Absent: distended, tenderness, guarding, rebound - Neurological Exam Neurological exam: Present: altered - Psychiatric Psychiatric exam: Present: depressed, flat affect - Skin Skin exam: Present: rash, other (Large stage II sacral decubitus ulcer with purulent drainage, multiple hyperpigmented lesions lower extremities) ED Course Vital Signs 06/18/20 06/18/20 06/18/20 13:15 13:38 13:45 Temperature 98.0 F Pulse Rate 72 73 Respiratory 13 12 18 Rate Blood Pressure 95/46 86/53 Blood Pressure [Right] O2 Sat by Pulse 100 99 Oximetry 06/18/20 06/18/20 06/18/20 13:54 14:00 14:15 Temperature 98.0 F Pulse Rate 72 72 72 Respiratory 17 15 20 Rate Blood Pressure 86/53 102/43 Blood Pressure 95/46 [Right] O2 Sat by Pulse 96 99 Oximetry 06/18/20 06/18/20 06/18/20 14:30 14:46 14:50 Temperature Pulse Rate 72 74 74 Respiratory 24 13 13 Rate Blood Pressure 102/43 91/35 Blood Pressure 91/35 [Right] O2 Sat by Pulse 100 98 98 Oximetry 06/18/20 06/18/20 06/18/20 14:53 15:50 16:00 Temperature Pulse Rate Respiratory 13 16 Rate Blood Pressure 91/35 93/33 Blood Pressure [Right] O2 Sat by Pulse 98 98 95 Oximetry 06/18/20 06/18/20 06/18/20 16:16 16:30 16:45 Temperature Pulse Rate Respiratory Rate Blood Pressure 104/26 97/28 104/32 Blood Pressure [Right] O2 Sat by Pulse 96 93 94 Oximetry 06/18/20 06/18/20 06/18/20 17:00 17:16 17:28 Temperature Pulse Rate 74 79 Respiratory 19 18 Rate Blood Pressure 104/32 73/32 Blood Pressure 113/42 [Right] O2 Sat by Pulse 98 98 Oximetry 06/18/20 06/18/20 18:00 20:27 Temperature Pulse Rate 75 73 Respiratory 14 14 Rate Blood Pressure 92/35 Blood Pressure 119/63 [Right] O2 Sat by Pulse 100 98 Oximetry - Lab Data Result diagrams: 06/18/20 14:19 06/18/20 14:19 Lab Results 06/18/20 06/18/20 06/18/20 Range/Units 13:29 14:19 14:19 WBC 9.8 (4.5-11.0) K/mm3 RBC 2.75 L (3.65-5.03) M/mm3 Hgb 7.6 L (11.8-15.2) gm/dl Hct 22.3 L (35.5-45.6) % MCV 81 L (84-94) fl MCH 28 (28-32) pg MCHC 34 (32-34) % RDW 21.0 H (13.2-15.2) % Plt Count 153 (140-440) K/mm3 Lymph % (Auto) 3.6 L (13.4-35.0) % [place] % (Auto) 8.2 H (0.0-7.3) % Eos % (Auto) 1.5 (0.0-4.3) % Baso % (Auto) 0.3 (0.0-1.8) % Lymph # (Auto) 0.4 L (1.2-5.4) K/mm3 [place] # (Auto) 0.8 (0.0-0.8) K/mm3 Eos # (Auto) 0.1 (0.0-0.4) K/mm3 Baso # (Auto) 0.0 (0.0-0.1) K/mm3 Add Manual Diff Complete Seg Neutrophils % 86.4 H (40.0-70.0) % Seg Neutrophils # 8.5 H (1.8-7.7) K/mm3 PT (12.2-14.9) Sec. INR (0.87-1.13) APTT (24.2-36.6) Sec. VBG pH (7.320-7.420) Sodium 115 L* (137-145) mmol/L Potassium 3.4 L (3.6-5.0) mmol/L Chloride 79.5 L (98-107) mmol/L Carbon Dioxide 19 L (22-30) mmol/L Anion Gap 20 mmol/L BUN 52 H (9-20) mg/dL Creatinine 3.7 H (0.8-1.3) mg/dL Estimated GFR 20 ml/min BUN/Creatinine Ratio 14 % Glucose 569 H* (75-100) mg/dL POC Glucose 524 H (70-105) mg/dL Lactic Acid (0.7-2.0) mmol/L Calcium 8.5 (8.4-10.2) mg/dL Total Bilirubin (0.1-1.2) mg/dL Direct Bilirubin (0-0.2) mg/dL Indirect Bilirubin mg/dL AST (5-40) units/L ALT (7-56) units/L Alkaline Phosphatase (35-129) units/L Ammonia (25-60) umol/L Total Protein (6.3-8.2) g/dL Albumin (3.9-5) g/dL Albumin/Globulin Ratio % TSH (0.270-4.200) mlU/mL Free T4 (0.76-1.46) ng/dL Urine Color (Yellow) Urine Turbidity (Clear) Urine pH (5.0-7.0) Ur Specific [place] (1.003-1.030) Urine Protein (Negative) mg/dL Urine Glucose (UA) (Negative) mg/dL Urine Ketones (Negative) mg/dL Urine Blood (Negative) Urine Nitrite (Negative) Urine Bilirubin (Negative) Urine Urobilinogen (<2.0) mg/dL Ur Leukocyte Esterase (Negative) Urine WBC (Auto) (0.0-6.0) /HPF Urine RBC (Auto) (0.0-6.0) /HPF Urine Bacteria (Auto) (Negative) /HPF Urine WBC Clumps /HPF Salicylates (2.8-20.0) mg/dL Urine Opiates Screen Urine Methadone Screen Acetaminophen (10.0-30.0) ug/mL Ur Barbiturates Screen Ur Phencyclidine Scrn Ur Amphetamines Screen U Benzodiazepines Scrn Urine Cocaine Screen U Marijuana (THC) Screen Drugs of Abuse Note Plasma/Serum Alcohol (0-0.07) % 06/18/20 06/18/20 06/18/20 Range/Units 14:19 14:19 14:19 WBC (4.5-11.0) K/mm3 RBC (3.65-5.03) M/mm3 Hgb (11.8-15.2) gm/dl Hct (35.5-45.6) % MCV (84-94) fl MCH (28-32) pg MCHC (32-34) % RDW (13.2-15.2) % Plt Count (140-440) K/mm3 Lymph % (Auto) (13.4-35.0) % [place] % (Auto) (0.0-7.3) % Eos % (Auto) (0.0-4.3) % Baso % (Auto) (0.0-1.8) % Lymph # (Auto) (1.2-5.4) K/mm3 [place] # (Auto) (0.0-0.8) K/mm3 Eos # (Auto) (0.0-0.4) K/mm3 Baso # (Auto) (0.0-0.1) K/mm3 Add Manual Diff Seg Neutrophils % (40.0-70.0) % Seg Neutrophils # (1.8-7.7) K/mm3 PT (12.2-14.9) Sec. INR (0.87-1.13) APTT (24.2-36.6) Sec. VBG pH (7.320-7.420) Sodium (137-145) mmol/L Potassium (3.6-5.0) mmol/L Chloride (98-107) mmol/L Carbon Dioxide (22-30) mmol/L Anion Gap mmol/L BUN (9-20) mg/dL Creatinine (0.8-1.3) mg/dL Estimated GFR ml/min BUN/Creatinine Ratio % Glucose (75-100) mg/dL POC Glucose (70-105) mg/dL Lactic Acid (0.7-2.0) mmol/L Calcium (8.4-10.2) mg/dL Total Bilirubin (0.1-1.2) mg/dL Direct Bilirubin (0-0.2) mg/dL Indirect Bilirubin mg/dL AST (5-40) units/L ALT (7-56) units/L Alkaline Phosphatase (35-129) units/L Ammonia (25-60) umol/L Total Protein (6.3-8.2) g/dL Albumin (3.9-5) g/dL Albumin/Globulin Ratio % TSH (0.270-4.200) mlU/mL Free T4 (0.76-1.46) ng/dL Urine Color (Yellow) Urine Turbidity (Clear) Urine pH (5.0-7.0) Ur Specific [place] (1.003-1.030) Urine Protein (Negative) mg/dL Urine Glucose (UA) (Negative) mg/dL Urine Ketones (Negative) mg/dL Urine Blood (Negative) Urine Nitrite (Negative) Urine Bilirubin (Negative) Urine Urobilinogen (<2.0) mg/dL Ur Leukocyte Esterase (Negative) Urine WBC (Auto) (0.0-6.0) /HPF Urine RBC (Auto) (0.0-6.0) /HPF Urine Bacteria (Auto) (Negative) /HPF Urine WBC Clumps /HPF Salicylates < 0.3 L (2.8-20.0) mg/dL Urine Opiates Screen Urine Methadone Screen Acetaminophen 5.0 L (10.0-30.0) ug/mL Ur Barbiturates Screen Ur Phencyclidine Scrn Ur Amphetamines Screen U Benzodiazepines Scrn Urine Cocaine Screen U Marijuana (THC) Screen Drugs of Abuse Note Plasma/Serum Alcohol < 0.01 (0-0.07) % 06/18/20 06/18/20 06/18/20 Range/Units 14:19 14:19 14:19 WBC (4.5-11.0) K/mm3 RBC (3.65-5.03) M/mm3 Hgb (11.8-15.2) gm/dl Hct (35.5-45.6) % MCV (84-94) fl MCH (28-32) pg MCHC (32-34) % RDW (13.2-15.2) % Plt Count (140-440) K/mm3 Lymph % (Auto) (13.4-35.0) % [place] % (Auto) (0.0-7.3) % Eos % (Auto) (0.0-4.3) % Baso % (Auto) (0.0-1.8) % Lymph # (Auto) (1.2-5.4) K/mm3 [place] # (Auto) (0.0-0.8) K/mm3 Eos # (Auto) (0.0-0.4) K/mm3 Baso # (Auto) (0.0-0.1) K/mm3 Add Manual Diff Seg Neutrophils % (40.0-70.0) % Seg Neutrophils # (1.8-7.7) K/mm3 PT 23.9 H (12.2-14.9) Sec. INR 2.14 H (0.87-1.13) APTT 48.7 H (24.2-36.6) Sec. VBG pH 7.310 L (7.320-7.420) Sodium (137-145) mmol/L Potassium (3.6-5.0) mmol/L Chloride (98-107) mmol/L Carbon Dioxide (22-30) mmol/L Anion Gap mmol/L BUN (9-20) mg/dL Creatinine (0.8-1.3) mg/dL Estimated GFR ml/min BUN/Creatinine Ratio % Glucose (75-100) mg/dL POC Glucose (70-105) mg/dL Lactic Acid (0.7-2.0) mmol/L Calcium (8.4-10.2) mg/dL Total Bilirubin 2.50 H (0.1-1.2) mg/dL Direct Bilirubin 1.3 H (0-0.2) mg/dL Indirect Bilirubin 1.2 mg/dL AST 17 (5-40) units/L ALT 19 (7-56) units/L Alkaline Phosphatase 154 H (35-129) units/L Ammonia (25-60) umol/L Total Protein 6.7 (6.3-8.2) g/dL Albumin 3.2 L (3.9-5) g/dL Albumin/Globulin Ratio 0.9 % TSH (0.270-4.200) mlU/mL Free T4 (0.76-1.46) ng/dL Urine Color (Yellow) Urine Turbidity (Clear) Urine pH (5.0-7.0) Ur Specific [place] (1.003-1.030) Urine Protein (Negative) mg/dL Urine Glucose (UA) (Negative) mg/dL Urine Ketones (Negative) mg/dL Urine Blood (Negative) Urine Nitrite (Negative) Urine Bilirubin (Negative) Urine Urobilinogen (<2.0) mg/dL Ur Leukocyte Esterase (Negative) Urine WBC (Auto) (0.0-6.0) /HPF Urine RBC (Auto) (0.0-6.0) /HPF Urine Bacteria (Auto) (Negative) /HPF Urine WBC Clumps /HPF Salicylates (2.8-20.0) mg/dL Urine Opiates Screen Urine Methadone Screen Acetaminophen (10.0-30.0) ug/mL Ur Barbiturates Screen Ur Phencyclidine Scrn Ur Amphetamines Screen U Benzodiazepines Scrn Urine Cocaine Screen U Marijuana (THC) Screen Drugs of Abuse Note Plasma/Serum Alcohol (0-0.07) % 06/18/20 06/18/20 06/18/20 Range/Units 14:19 14:19 16:07 WBC (4.5-11.0) K/mm3 RBC (3.65-5.03) M/mm3 Hgb (11.8-15.2) gm/dl Hct (35.5-45.6) % MCV (84-94) fl MCH (28-32) pg MCHC (32-34) % RDW (13.2-15.2) % Plt Count (140-440) K/mm3 Lymph % (Auto) (13.4-35.0) % [place] % (Auto) (0.0-7.3) % Eos % (Auto) (0.0-4.3) % Baso % (Auto) (0.0-1.8) % Lymph # (Auto) (1.2-5.4) K/mm3 [place] # (Auto) (0.0-0.8) K/mm3 Eos # (Auto) (0.0-0.4) K/mm3 Baso # (Auto) (0.0-0.1) K/mm3 Add Manual Diff Seg Neutrophils % (40.0-70.0) % Seg Neutrophils # (1.8-7.7) K/mm3 PT (12.2-14.9) Sec. INR (0.87-1.13) APTT (24.2-36.6) Sec. VBG pH (7.320-7.420) Sodium (137-145) mmol/L Potassium (3.6-5.0) mmol/L Chloride (98-107) mmol/L Carbon Dioxide (22-30) mmol/L Anion Gap mmol/L BUN (9-20) mg/dL Creatinine (0.8-1.3) mg/dL Estimated GFR ml/min BUN/Creatinine Ratio % Glucose (75-100) mg/dL POC Glucose (70-105) mg/dL Lactic Acid 2.60 H* 2.80 H* (0.7-2.0) mmol/L Calcium (8.4-10.2) mg/dL Total Bilirubin (0.1-1.2) mg/dL Direct Bilirubin (0-0.2) mg/dL Indirect Bilirubin mg/dL AST (5-40) units/L ALT (7-56) units/L Alkaline Phosphatase (35-129) units/L Ammonia (25-60) umol/L Total Protein (6.3-8.2) g/dL Albumin (3.9-5) g/dL Albumin/Globulin Ratio % TSH 2.480 (0.270-4.200) mlU/mL Free T4 1.66 H (0.76-1.46) ng/dL Urine Color (Yellow) Urine Turbidity (Clear) Urine pH (5.0-7.0) Ur Specific [place] (1.003-1.030) Urine Protein (Negative) mg/dL Urine Glucose (UA) (Negative) mg/dL Urine Ketones (Negative) mg/dL Urine Blood (Negative) Urine Nitrite (Negative) Urine Bilirubin (Negative) Urine Urobilinogen (<2.0) mg/dL Ur Leukocyte Esterase (Negative) Urine WBC (Auto) (0.0-6.0) /HPF Urine RBC (Auto) (0.0-6.0) /HPF Urine Bacteria (Auto) (Negative) /HPF Urine WBC Clumps /HPF Salicylates (2.8-20.0) mg/dL Urine Opiates Screen Urine Methadone Screen Acetaminophen (10.0-30.0) ug/mL Ur Barbiturates Screen Ur Phencyclidine Scrn Ur Amphetamines Screen U Benzodiazepines Scrn Urine Cocaine Screen U Marijuana (THC) Screen Drugs of Abuse Note Plasma/Serum Alcohol (0-0.07) % 06/18/20 06/18/20 06/18/20 Range/Units 17:09 17:40 19:57 WBC (4.5-11.0) K/mm3 RBC (3.65-5.03) M/mm3 Hgb (11.8-15.2) gm/dl Hct (35.5-45.6) % MCV (84-94) fl MCH (28-32) pg MCHC (32-34) % RDW (13.2-15.2) % Plt Count (140-440) K/mm3 Lymph % (Auto) (13.4-35.0) % [place] % (Auto) (0.0-7.3) % Eos % (Auto) (0.0-4.3) % Baso % (Auto) (0.0-1.8) % Lymph # (Auto) (1.2-5.4) K/mm3 [place] # (Auto) (0.0-0.8) K/mm3 Eos # (Auto) (0.0-0.4) K/mm3 Baso # (Auto) (0.0-0.1) K/mm3 Add Manual Diff Seg Neutrophils % (40.0-70.0) % Seg Neutrophils # (1.8-7.7) K/mm3 PT (12.2-14.9) Sec. INR (0.87-1.13) APTT (24.2-36.6) Sec. VBG pH (7.320-7.420) Sodium (137-145) mmol/L Potassium (3.6-5.0) mmol/L Chloride (98-107) mmol/L Carbon Dioxide (22-30) mmol/L Anion Gap mmol/L BUN (9-20) mg/dL Creatinine (0.8-1.3) mg/dL Estimated GFR ml/min BUN/Creatinine Ratio % Glucose (75-100) mg/dL POC Glucose (70-105) mg/dL Lactic Acid 2.50 H* 2.20 H* (0.7-2.0) mmol/L Calcium (8.4-10.2) mg/dL Total Bilirubin (0.1-1.2) mg/dL Direct Bilirubin (0-0.2) mg/dL Indirect Bilirubin mg/dL AST (5-40) units/L ALT (7-56) units/L Alkaline Phosphatase (35-129) units/L Ammonia 69.0 H (25-60) umol/L Total Protein (6.3-8.2) g/dL Albumin (3.9-5) g/dL Albumin/Globulin Ratio % TSH (0.270-4.200) mlU/mL Free T4 (0.76-1.46) ng/dL Urine Color (Yellow) Urine Turbidity (Clear) Urine pH (5.0-7.0) Ur Specific [place] (1.003-1.030) Urine Protein (Negative) mg/dL Urine Glucose (UA) (Negative) mg/dL Urine Ketones (Negative) mg/dL Urine Blood (Negative) Urine Nitrite (Negative) Urine Bilirubin (Negative) Urine Urobilinogen (<2.0) mg/dL Ur Leukocyte Esterase (Negative) Urine WBC (Auto) (0.0-6.0) /HPF Urine RBC (Auto) (0.0-6.0) /HPF Urine Bacteria (Auto) (Negative) /HPF Urine WBC Clumps /HPF Salicylates (2.8-20.0) mg/dL Urine Opiates Screen Urine Methadone Screen Acetaminophen (10.0-30.0) ug/mL Ur Barbiturates Screen Ur Phencyclidine Scrn Ur Amphetamines Screen U Benzodiazepines Scrn Urine Cocaine Screen U Marijuana (THC) Screen Drugs of Abuse Note Plasma/Serum Alcohol (0-0.07) % 06/18/20 06/18/20 Range/Units Unknown Unknown WBC (4.5-11.0) K/mm3 RBC (3.65-5.03) M/mm3 Hgb (11.8-15.2) gm/dl Hct (35.5-45.6) % MCV (84-94) fl MCH (28-32) pg MCHC (32-34) % RDW (13.2-15.2) % Plt Count (140-440) K/mm3 Lymph % (Auto) (13.4-35.0) % [place] % (Auto) (0.0-7.3) % Eos % (Auto) (0.0-4.3) % Baso % (Auto) (0.0-1.8) % Lymph # (Auto) (1.2-5.4) K/mm3 [place] # (Auto) (0.0-0.8) K/mm3 Eos # (Auto) (0.0-0.4) K/mm3 Baso # (Auto) (0.0-0.1) K/mm3 Add Manual Diff Seg Neutrophils % (40.0-70.0) % Seg Neutrophils # (1.8-7.7) K/mm3 PT (12.2-14.9) Sec. INR (0.87-1.13) APTT (24.2-36.6) Sec. VBG pH (7.320-7.420) Sodium (137-145) mmol/L Potassium (3.6-5.0) mmol/L Chloride (98-107) mmol/L Carbon Dioxide (22-30) mmol/L Anion Gap mmol/L BUN (9-20) mg/dL Creatinine (0.8-1.3) mg/dL Estimated GFR ml/min BUN/Creatinine Ratio % Glucose (75-100) mg/dL POC Glucose (70-105) mg/dL Lactic Acid (0.7-2.0) mmol/L Calcium (8.4-10.2) mg/dL Total Bilirubin (0.1-1.2) mg/dL Direct Bilirubin (0-0.2) mg/dL Indirect Bilirubin mg/dL AST (5-40) units/L ALT (7-56) units/L Alkaline Phosphatase (35-129) units/L Ammonia (25-60) umol/L Total Protein (6.3-8.2) g/dL Albumin (3.9-5) g/dL Albumin/Globulin Ratio % TSH (0.270-4.200) mlU/mL Free T4 (0.76-1.46) ng/dL Urine Color Yellow (Yellow) Urine Turbidity Turbid (Clear) Urine pH 5.0 (5.0-7.0) Ur Specific [place] 1.011 (1.003-1.030) Urine Protein >500 (Negative) mg/dL Urine Glucose (UA) 150 (Negative) mg/dL Urine Ketones Negative (Negative) mg/dL Urine Blood Moderate A (Negative) Urine Nitrite Negative (Negative) Urine Bilirubin Negative (Negative) Urine Urobilinogen < 2.0 (<2.0) mg/dL Ur Leukocyte Esterase Moderate (Negative) Urine WBC (Auto) > 182.0 H (0.0-6.0) /HPF Urine RBC (Auto) > 182.0 (0.0-6.0) /HPF Urine Bacteria (Auto) 4+ (Negative) /HPF Urine WBC Clumps 3+ /HPF Salicylates (2.8-20.0) mg/dL Urine Opiates Screen Negative Urine Methadone Screen Negative Acetaminophen (10.0-30.0) ug/mL Ur Barbiturates Screen Negative Ur Phencyclidine Scrn Negative Ur Amphetamines Screen Negative U Benzodiazepines Scrn Negative Urine Cocaine Screen Negative U Marijuana (THC) Screen Negative Drugs of Abuse Note Disclamer Plasma/Serum Alcohol (0-0.07) % Laboratory Results - last 24 hr 06/18/20 06/18/20 06/18/20 13:29 14:19 14:19 WBC 9.8 RBC 2.75 L Hgb 7.6 L Hct 22.3 L MCV 81 L MCH 28 MCHC 34 RDW 21.0 H Plt Count 153 Lymph % (Auto) 3.6 L [place] % (Auto) 8.2 H Eos % (Auto) 1.5 Baso % (Auto) 0.3 Lymph # (Auto) 0.4 L [place] # (Auto) 0.8 Eos # (Auto) 0.1 Baso # (Auto) 0.0 Add Manual Diff Complete Seg Neutrophils % 86.4 H Seg Neutrophils # 8.5 H PT INR APTT VBG pH Sodium 115 L* Potassium 3.4 L Chloride 79.5 L Carbon Dioxide 19 L Anion Gap 20 BUN 52 H Creatinine 3.7 H Estimated GFR 20 BUN/Creatinine Ratio 14 Glucose 569 H* POC Glucose 524 H Lactic Acid Calcium 8.5 Total Bilirubin Direct Bilirubin Indirect Bilirubin AST ALT Alkaline Phosphatase Ammonia Total Protein Albumin Albumin/Globulin Ratio TSH Free T4 Urine Color Urine Turbidity Urine pH Ur Specific [place] Urine Protein Urine Glucose (UA) Urine Ketones Urine Blood Urine Nitrite Urine Bilirubin Urine Urobilinogen Ur Leukocyte Esterase Urine WBC (Auto) Urine RBC (Auto) Urine Bacteria (Auto) Urine WBC Clumps Salicylates Urine Opiates Screen Urine Methadone Screen Acetaminophen Ur Barbiturates Screen Ur Phencyclidine Scrn Ur Amphetamines Screen U Benzodiazepines Scrn Urine Cocaine Screen U Marijuana (THC) Screen Drugs of Abuse Note Plasma/Serum Alcohol 06/18/20 06/18/20 06/18/20 14:19 14:19 14:19 WBC RBC Hgb Hct MCV MCH MCHC RDW Plt Count Lymph % (Auto) [place] % (Auto) Eos % (Auto) Baso % (Auto) Lymph # (Auto) [place] # (Auto) Eos # (Auto) Baso # (Auto) Add Manual Diff Seg Neutrophils % Seg Neutrophils # PT INR APTT VBG pH Sodium Potassium Chloride Carbon Dioxide Anion Gap BUN Creatinine Estimated GFR BUN/Creatinine Ratio Glucose POC Glucose Lactic Acid Calcium Total Bilirubin Direct Bilirubin Indirect Bilirubin AST ALT Alkaline Phosphatase Ammonia Total Protein Albumin Albumin/Globulin Ratio TSH Free T4 Urine Color Urine Turbidity Urine pH Ur Specific [place] Urine Protein Urine Glucose (UA) Urine Ketones Urine Blood Urine Nitrite Urine Bilirubin Urine Urobilinogen Ur Leukocyte Esterase Urine WBC (Auto) Urine RBC (Auto) Urine Bacteria (Auto) Urine WBC Clumps Salicylates < 0.3 L Urine Opiates Screen Urine Methadone Screen Acetaminophen 5.0 L Ur Barbiturates Screen Ur Phencyclidine Scrn Ur Amphetamines Screen U Benzodiazepines Scrn Urine Cocaine Screen U Marijuana (THC) Screen Drugs of Abuse Note Plasma/Serum Alcohol < 0.01 06/18/20 06/18/20 06/18/20 14:19 14:19 14:19 WBC RBC Hgb Hct MCV MCH MCHC RDW Plt Count Lymph % (Auto) [place] % (Auto) Eos % (Auto) Baso % (Auto) Lymph # (Auto) [place] # (Auto) Eos # (Auto) Baso # (Auto) Add Manual Diff Seg Neutrophils % Seg Neutrophils # PT 23.9 H INR 2.14 H APTT 48.7 H VBG pH 7.310 L Sodium Potassium Chloride Carbon Dioxide Anion Gap BUN Creatinine Estimated GFR BUN/Creatinine Ratio Glucose POC Glucose Lactic Acid Calcium Total Bilirubin 2.50 H Direct Bilirubin 1.3 H Indirect Bilirubin 1.2 AST 17 ALT 19 Alkaline Phosphatase 154 H Ammonia Total Protein 6.7 Albumin 3.2 L Albumin/Globulin Ratio 0.9 TSH Free T4 Urine Color Urine Turbidity Urine pH Ur Specific [place] Urine Protein Urine Glucose (UA) Urine Ketones Urine Blood Urine Nitrite Urine Bilirubin Urine Urobilinogen Ur Leukocyte Esterase Urine WBC (Auto) Urine RBC (Auto) Urine Bacteria (Auto) Urine WBC Clumps Salicylates Urine Opiates Screen Urine Methadone Screen Acetaminophen Ur Barbiturates Screen Ur Phencyclidine Scrn Ur Amphetamines Screen U Benzodiazepines Scrn Urine Cocaine Screen U Marijuana (THC) Screen Drugs of Abuse Note Plasma/Serum Alcohol 06/18/20 06/18/20 06/18/20 14:19 14:19 16:07 WBC RBC Hgb Hct MCV MCH MCHC RDW Plt Count Lymph % (Auto) [place] % (Auto) Eos % (Auto) Baso % (Auto) Lymph # (Auto) [place] # (Auto) Eos # (Auto) Baso # (Auto) Add Manual Diff Seg Neutrophils % Seg Neutrophils # PT INR APTT VBG pH Sodium Potassium Chloride Carbon Dioxide Anion Gap BUN Creatinine Estimated GFR BUN/Creatinine Ratio Glucose POC Glucose Lactic Acid 2.60 H* 2.80 H* Calcium Total Bilirubin Direct Bilirubin Indirect Bilirubin AST ALT Alkaline Phosphatase Ammonia Total Protein Albumin Albumin/Globulin Ratio TSH 2.480 Free T4 1.66 H Urine Color Urine Turbidity Urine pH Ur Specific [place] Urine Protein Urine Glucose (UA) Urine Ketones Urine Blood Urine Nitrite Urine Bilirubin Urine Urobilinogen Ur Leukocyte Esterase Urine WBC (Auto) Urine RBC (Auto) Urine Bacteria (Auto) Urine WBC Clumps Salicylates Urine Opiates Screen Urine Methadone Screen Acetaminophen Ur Barbiturates Screen Ur Phencyclidine Scrn Ur Amphetamines Screen U Benzodiazepines Scrn Urine Cocaine Screen U Marijuana (THC) Screen Drugs of Abuse Note Plasma/Serum Alcohol 06/18/20 06/18/20 06/18/20 17:09 17:40 19:57 WBC RBC Hgb Hct MCV MCH MCHC RDW Plt Count Lymph % (Auto) [place] % (Auto) Eos % (Auto) Baso % (Auto) Lymph # (Auto) [place] # (Auto) Eos # (Auto) Baso # (Auto) Add Manual Diff Seg Neutrophils % Seg Neutrophils # PT INR APTT VBG pH Sodium Potassium Chloride Carbon Dioxide Anion Gap BUN Creatinine Estimated GFR BUN/Creatinine Ratio Glucose POC Glucose Lactic Acid 2.50 H* 2.20 H* Calcium Total Bilirubin Direct Bilirubin Indirect Bilirubin AST ALT Alkaline Phosphatase Ammonia 69.0 H Total Protein Albumin Albumin/Globulin Ratio TSH Free T4 Urine Color Urine Turbidity Urine pH Ur Specific [place] Urine Protein Urine Glucose (UA) Urine Ketones Urine Blood Urine Nitrite Urine Bilirubin Urine Urobilinogen Ur Leukocyte Esterase Urine WBC (Auto) Urine RBC (Auto) Urine Bacteria (Auto) Urine WBC Clumps Salicylates Urine Opiates Screen Urine Methadone Screen Acetaminophen Ur Barbiturates Screen Ur Phencyclidine Scrn Ur Amphetamines Screen U Benzodiazepines Scrn Urine Cocaine Screen U Marijuana (THC) Screen Drugs of Abuse Note Plasma/Serum Alcohol 06/18/20 06/18/20 Unknown Unknown WBC RBC Hgb Hct MCV MCH MCHC RDW Plt Count Lymph % (Auto) [place] % (Auto) Eos % (Auto) Baso % (Auto) Lymph # (Auto) [place] # (Auto) Eos # (Auto) Baso # (Auto) Add Manual Diff Seg Neutrophils % Seg Neutrophils # PT INR APTT VBG pH Sodium Potassium Chloride Carbon Dioxide Anion Gap BUN Creatinine Estimated GFR BUN/Creatinine Ratio Glucose POC Glucose Lactic Acid Calcium Total Bilirubin Direct Bilirubin Indirect Bilirubin AST ALT Alkaline Phosphatase Ammonia Total Protein Albumin Albumin/Globulin Ratio TSH Free T4 Urine Color Yellow Urine Turbidity Turbid Urine pH 5.0 Ur Specific [place] 1.011 Urine Protein >500 Urine Glucose (UA) 150 Urine Ketones Negative Urine Blood Moderate A Urine Nitrite Negative Urine Bilirubin Negative Urine Urobilinogen < 2.0 Ur Leukocyte Esterase Moderate Urine WBC (Auto) > 182.0 H Urine RBC (Auto) > 182.0 Urine Bacteria (Auto) 4+ Urine WBC Clumps 3+ Salicylates Urine Opiates Screen Negative Urine Methadone Screen Negative Acetaminophen Ur Barbiturates Screen Negative Ur Phencyclidine Scrn Negative Ur Amphetamines Screen Negative U Benzodiazepines Scrn Negative Urine Cocaine Screen Negative U Marijuana (THC) Screen Negative Drugs of Abuse Note Disclamer Plasma/Serum Alcohol - EKG Data -: EKG Interpreted by Me 06/18/20 21:05 EKG obtained 1650 EKG interpreted by me Ventricular paced rhythm abnormal axis no ST elevation rate [address] elevation - Radiology Data Radiology results: report reviewed Chest radiograph 1 view: Persistent mild central vascular congestion new streaky left basilar airspace disease CT left and right lower extremities without contrast: Soft tissue swelling edema without evidence of abscess or subcutaneous emphysema CT chest abdomen pelvis: No acute process, CT chest revealed mitral valve ca rdiomegaly no effusion, lungs revealed no acute airspace or interstitial disease CT head without contrast: No acute process - Medical Decision Making 1. Acute metabolic toxic encephalopathy due to uremia, sepsis, hyperammonemia. 2. Sepsis: Patient presented with hypotension, without leukocytosis I suspect hypotension is most likely due to hypovolemia volume contraction. Patient takes 2 types of diuretics. He was aggressively diuresed at outside hospital according to sister. Sepsis due to complicated UTI . Patient has chronic indwelling Calderon catheter. Broad-spectrum antibiotics and IV fluid therapy initiated. 3. ELIZABETH: Likely due to recent diuresis at outside hospital sister stated that "a bunch of fluid was pulled off" at outside hospital during several weeks of hospitalization. 4. Infected sacral decubitus ulcer: Anticipate need for wound care 5. Hypovolemic hyponatremia: Corrected value 126. Patient received fluid therapy sepsis protocol normal saline. 6. Acute hyperglycemia: Initially addressed with IV fluid therapy. Will add IV regular insulin. Patient medicine the hospital service in fair condition. Critical Care Time: Yes Critical care time in (mins) excluding proc time.: 70 Critical care attestation.: If time is entered above; I have spent that time in minutes in the direct care of this critically ill patient, excluding procedure time. 70 minutes of critical care time excluding procedures were used in the care of the patient. I came immediately to the bedside upon patient's arrival. I obtained history from EMS at the bedside. I discussed treatment plan with the nursing team members. I reviewed electronic record. I kept the family member informed. I was concerned for septic shock. Concern for impending airway compromise. Patient required multiple interventions and reassessments. ED Disposition Clinical Impression: Acute metabolic encephalopathy, Liver cirrhosis, Diastolic heart failure, S eptic shock, Complicated UTI (urinary tract infection), Chronic indwelling Calderon catheter, Sacral decubitus ulcer, stage II, Wound infection Disposition: OP ADMIT IP TO THIS HOSP Is pt being admited?: Yes Does the pt Need Aspirin: No Condition: Fair
[2020-06-18] MEDS ORDERED: INSULIN REGULAR, HUMAN 100 UNIT/ML 3ML VIAL IV ONE (21:17)
[2020-06-18] MEDS ORDERED: INSULIN REGULAR, HUMAN 100 UNITS/1 ML ONE (21:45)
[2020-06-18] MEDS ORDERED: DEXTROSE 50% IN WATER (25GM) 50 ML SYRINGE IV PRN ×2 (22:32→23:00)
[2020-06-18] MEDS ORDERED: ONDANSETRON 4 MG/2 ML INJ IV PRN (22:32)
[2020-06-18] MEDS ORDERED: MAGNESIUM HYDROXIDE (MOM) ORAL LIQD UDC PO PRN (22:32)
--- NOTE | 2020-06-18 22:41 | History and Physical Report ---
History of Present Illness Date of examination: 06/18/20 Date of admission: 06/18/20 21:14 Chief complaint: Altered mental Status History of present illness: 64-year-old -M[place]ese male with known history of hypertension, diastolic heart failure, history of mitral valve replacement with metallic valve on Coumadin, GERD, pulmonary hypertension, diabetes mellitus, atrial fibrillation and history of sepsis in the past was brought into the emergency room today by EMS for changes in mental status and elevated blood glucose. Patient was evaluated by telehealth nurse who noted that patient had changes in mental status and the blood glucose greater than 500. Most of the history was gotten from the ER staff as patient is not able to give any coherent history. Patient had recently been discharged from [facility] where he was treated for elevated INR, liver cirrhosis and hyperglycemia. Work-up in the emergency room today reveals hyperglycemia, dehydration, hyponatremia and UTI. Patient was commenced on empiric IV antibiotics and IV fluid. Past History Past Medical History: atrial fib, diabetes, GERD, heart failure (Diastolic), hypertension, other (Liver Cirrhosis, Pulmonary hypertension,) Past Surgical History: Other (Mitral valve replacement,Pacemaker placement,Left ankle surgery.) Social history: no significant social history Family history: no significant family history Medications and Allergies Allergies Allergy/AdvReac Type Severity Reaction Status Date / Time propoxyphene napsylate Allergy Intermediate Rash Verified 02/12/20 13:48 [From Darvocet-N 100] Sulfa (Sulfonamide Allergy Intermediate Rash Verified 02/12/20 13:48 Antibiotics) Home Medications Medication Instructions Recorded Confirmed Last Taken Type Esomeprazole Magnesium [NexIUM] 40 mg PO DAILY 10/29/13 03/02/20 1 Day Ago History ~02/04/20 40 mg Gabapentin 1 cap PO TID 09/04/14 03/02/20 1 Day Ago History ~02/04/20 1 cap Aspirin EC [Halfprin EC] 81 mg PO QDAY #30 tablet. 05/12/18 03/02/20 1 Day Ago Rx ~02/04/20 81 mg Colchicine 0.6 mg PO DAILY #15 powder 05/12/18 03/02/20 1 Day Ago Rx ~02/04/20 0.6 mg Nitroglycerin [Nitrostat] 0.4 mg SL Q5M PRN #30 tablet 11/09/2403/02/20 9 10:00 Rx Tamsulosin [Flomax] 0.4 mg PO QDAY #30 capsule 05/12/18 03/02/20 1 Day Ago Rx ~02/04/20 0.4 mg Zolpidem [Ambien] 5 mg PO QHS PRN tablet 05/12/18 03/02/20 2 Days Ago Rx ~02/03/20 5 mg Amiodarone [Cordarone 200 MG TAB] 200 mg PO BID 11/24/19 03/02/20 1 Day Ago History ~02/04/20 200 mg Pravastatin [Pravachol] 20 mg PO QHS 11/24/19 03/02/20 1 Day Ago History ~02/04/20 20 mg Warfarin [Coumadin] 5 mg PO QDAY 11/24/19 03/02/20 1 Day Ago History ~02/04/20 5 mg Doxycycline Hyclate [Doxycycline 100 mg PO Q12HR #9 tab 01/29/20 03/02/20 1 Day Ago Rx Hyclate TAB] ~02/04/20 100 mg ALBUTEROL NEB's [Proventil 0.083% 2.5 mg IH QIDRT PRN nebu 02/06/20 03/02/20 Unknown Rx NEBS] Albuterol Mdi (or & Nicu Only) 2 puff IH QID PRN #1 02/06/20 03/02/20 Unknown Rx [ProAir HFA Inhaler] Clindamycin [Clindamycin CAP] 450 mg PO Q6HR #40 capsule 02/06/20 03/02/20 Unknown Rx Furosemide [Lasix TAB] 80 mg PO BID #60 02/06/20 03/02/20 Unknown Rx Insulin Aspart (Nf) [NovoLOG 100 10 unit SQ QAC #5 pen 02/06/20 03/02/20 Unknown Rx UNITS/ML VIAL] Insulin Glargine,Hum.rec.anlog 40 units SQ QHS #5 pen 02/06/20 03/02/20 Unknown Rx [Lantus Solostar] Ipratropium (Nf) [Atrovent HFA 2 puff IH Q6HR PRN 30 Days #10 inha 02/06/20 03/02/20 Unknown Rx 17MCG/PUFF] Oxycodone HCl/Acetaminophen 1 each PO Q6HR PRN #14 tablet 02/06/20 03/02/20 Unknown Rx [Percocet 7.5/325 mg] Pantoprazole [Protonix TAB] 40 mg PO DAILY #30 tablet 02/06/20 03/02/20 Unknown Rx Potassium Chloride 20 meq PO BID packet 02/06/20 03/02/20 Unknown Rx Sennosides/Docusate [Senokot S] 1 tab PO DAILY tablet 02/06/20 03/02/20 Unknown Rx diphenhydrAMINE [Benadryl] 25 mg IV Q4H PRN #30 vial 02/06/20 03/02/20 Unknown Rx oxyCODONE [roxiCODONE] 10 mg PO Q4H PRN tablet 02/06/20 03/02/20 Unknown Rx metOLazone [Zaroxolyn] 5 mg PO QDAY #30 tablet 02/14/20 03/02/20 Unknown Rx Active Meds: Active Medications Acetaminophen (Acetaminophen 325 Mg Tab) 650 mg PO Q4H PRN PRN Reason: Pain MILD(1-3)/Fever >100.5/PRADHAN Dextrose (Dextrose 50% In Water (25gm) 50 Ml Syringe) 50 ml IV Q30MIN PRN; Protocol PRN Reason: Hypoglycemia Cefepime HCl (Cefepime/Ns 1 Gm/100 Ml) 1 gm in 100 mls @ 200 mls/hr IV Q12H MADELIN Last Admin: 06/18/20 21:39 Dose: Not Given Documented by: Sodium Chloride (Nacl 0.9% 1000 Ml) 1,000 mls @ 125 mls/hr IV DIRECT MADELIN Insulin Human Lispro (Insulin Lispro 100 Unit/Ml Vial 3 Ml) 0 unit SUB-Q ACHS MADELIN; Protocol Magnesium Hydroxide (Magnesium Hydroxide (Mom) Oral Liqd Udc) 30 ml PO Q4H PRN PRN Reason: Constipation Morphine Sulfate (Morphine 2 Mg/1 Ml Inj) 2 mg IV Q4H PRN PRN Reason: Pain, Moderate (4-6) Ondansetron HCl (Ondansetron 4 Mg/2 Ml Inj) 4 mg IV Q8H PRN PRN Reason: Nausea And Vomiting Sodium Chloride (Sodium Chloride 0.9% 10 Ml Flush Syringe) 10 ml IV BID MADELIN Sodium Chloride (Sodium Chloride 0.9% 10 Ml Flush Syringe) 10 ml IV PRN PRN PRN Reason: LINE FLUSH Review of Systems ROS unobtainable: due to mental status Exam - Constitutional Vitals: Temp Pulse Resp BP Pulse Ox 98.0 F 73 19 111/61 100 06/18/20 13:54 06/18/20 21:38 06/18/20 21:38 06/18/20 21:38 06/18/20 21:38 General appearance: Present: no acute distress, well-nourished, obese - EENT Eyes: Present: PERRL, EOM intact. Absent: scleral icterus ENT: hearing intact, clear oral mucosa, dentition normal - Neck Neck: Present: supple, normal ROM - Respiratory Respiratory effort: normal Respiratory: bilateral: CTA - Cardiovascular Rhythm: regular Heart Sounds: Present: S1 & S2, systolic murmur. Absent: gallop, rub - Extremities Extremities: no ischemia, pulses intact, pulses symmetrical, Full ROM Extremity abnormal: edema (trace [place]. ankle edema) Peripheral Pulses: within normal limits - Abdominal General gastrointestinal: Present: soft, non-tender, distended, normal bowel sounds. Absent: mass - Integumentary Integumentary: Present: clear, warm, dry. Absent: rash - Musculoskeletal Musculoskeletal: strength equal bilaterally - Psychiatric Psychiatric: cooperative, other (Appears lethargic.) - Neurologic Neurologic: CNII-XII intact, no focal deficits, moves all extremities - Additional findings Additional findings: Dressing over sacral decubitus. Results - Labs CBC & Chem 7: 06/18/20 14:19 06/18/20 14:19 Labs: Abnormal lab results 06/18/20 06/18/20 06/18/20 Range/Units 13:29 14:19 14:19 RBC 2.75 L (3.65-5.03) M/mm3 Hgb 7.6 L (11.8-15.2) gm/dl Hct 22.3 L (35.5-45.6) % MCV 81 L (84-94) fl RDW 21.0 H (13.2-15.2) % Lymph % (Auto) 3.6 L (13.4-35.0) % [place] % (Auto) 8.2 H (0.0-7.3) % Lymph # (Auto) 0.4 L (1.2-5.4) K/mm3 Seg Neutrophils % 86.4 H (40.0-70.0) % Seg Neutrophils # 8.5 H (1.8-7.7) K/mm3 PT (12.2-14.9) Sec. INR (0.87-1.13) APTT (24.2-36.6) Sec. VBG pH (7.320-7.420) Sodium 115 L* (137-145) mmol/L Potassium 3.4 L (3.6-5.0) mmol/L Chloride 79.5 L (98-107) mmol/L Carbon Dioxide 19 L (22-30) mmol/L BUN 52 H (9-20) mg/dL Creatinine 3.7 H (0.8-1.3) mg/dL Glucose 569 H* (75-100) mg/dL POC Glucose 524 H (70-105) mg/dL Lactic Acid (0.7-2.0) mmol/L Total Bilirubin (0.1-1.2) mg/dL Direct Bilirubin (0-0.2) mg/dL Alkaline Phosphatase (35-129) units/L Ammonia (25-60) umol/L Albumin (3.9-5) g/dL Free T4 (0.76-1.46) ng/dL Urine Blood (Negative) Urine WBC (Auto) (0.0-6.0) /HPF Salicylates (2.8-20.0) mg/dL Acetaminophen (10.0-30.0) ug/mL 06/18/20 06/18/20 06/18/20 Range/Units 14:19 14:19 14:19 RBC (3.65-5.03) M/mm3 Hgb (11.8-15.2) gm/dl Hct (35.5-45.6) % MCV (84-94) fl RDW (13.2-15.2) % Lymph % (Auto) (13.4-35.0) % [place] % (Auto) (0.0-7.3) % Lymph # (Auto) (1.2-5.4) K/mm3 Seg Neutrophils % (40.0-70.0) % Seg Neutrophils # (1.8-7.7) K/mm3 PT (12.2-14.9) Sec. INR (0.87-1.13) APTT (24.2-36.6) Sec. VBG pH 7.310 L (7.320-7.420) Sodium (137-145) mmol/L Potassium (3.6-5.0) mmol/L Chloride (98-107) mmol/L Carbon Dioxide (22-30) mmol/L BUN (9-20) mg/dL Creatinine (0.8-1.3) mg/dL Glucose (75-100) mg/dL POC Glucose (70-105) mg/dL Lactic Acid (0.7-2.0) mmol/L Total Bilirubin (0.1-1.2) mg/dL Direct Bilirubin (0-0.2) mg/dL Alkaline Phosphatase (35-129) units/L Ammonia (25-60) umol/L Albumin (3.9-5) g/dL Free T4 (0.76-1.46) ng/dL Urine Blood (Negative) Urine WBC (Auto) (0.0-6.0) /HPF Salicylates < 0.3 L (2.8-20.0) mg/dL Acetaminophen 5.0 L (10.0-30.0) ug/mL 06/18/20 06/18/20 06/18/20 Range/Units 14:19 14:19 14:19 RBC (3.65-5.03) M/mm3 Hgb (11.8-15.2) gm/dl Hct (35.5-45.6) % MCV (84-94) fl RDW (13.2-15.2) % Lymph % (Auto) (13.4-35.0) % [place] % (Auto) (0.0-7.3) % Lymph # (Auto) (1.2-5.4) K/mm3 Seg Neutrophils % (40.0-70.0) % Seg Neutrophils # (1.8-7.7) K/mm3 PT 23.9 H (12.2-14.9) Sec. INR 2.14 H (0.87-1.13) APTT 48.7 H (24.2-36.6) Sec. VBG pH (7.320-7.420) Sodium (137-145) mmol/L Potassium (3.6-5.0) mmol/L Chloride (98-107) mmol/L Carbon Dioxide (22-30) mmol/L BUN (9-20) mg/dL Creatinine (0.8-1.3) mg/dL Glucose (75-100) mg/dL POC Glucose (70-105) mg/dL Lactic Acid 2.60 H* (0.7-2.0) mmol/L Total Bilirubin 2.50 H (0.1-1.2) mg/dL Direct Bilirubin 1.3 H (0-0.2) mg/dL Alkaline Phosphatase 154 H (35-129) units/L Ammonia (25-60) umol/L Albumin 3.2 L (3.9-5) g/dL Free T4 (0.76-1.46) ng/dL Urine Blood (Negative) Urine WBC (Auto) (0.0-6.0) /HPF Salicylates (2.8-20.0) mg/dL Acetaminophen (10.0-30.0) ug/mL 06/18/20 06/18/20 06/18/20 Range/Units 14:19 16:07 17:09 RBC (3.65-5.03) M/mm3 Hgb (11.8-15.2) gm/dl Hct (35.5-45.6) % MCV (84-94) fl RDW (13.2-15.2) % Lymph % (Auto) (13.4-35.0) % [place] % (Auto) (0.0-7.3) % Lymph # (Auto) (1.2-5.4) K/mm3 Seg Neutrophils % (40.0-70.0) % Seg Neutrophils # (1.8-7.7) K/mm3 PT (12.2-14.9) Sec. INR (0.87-1.13) APTT (24.2-36.6) Sec. VBG pH (7.320-7.420) Sodium (137-145) mmol/L Potassium (3.6-5.0) mmol/L Chloride (98-107) mmol/L Carbon Dioxide (22-30) mmol/L BUN (9-20) mg/dL Creatinine (0.8-1.3) mg/dL Glucose (75-100) mg/dL POC Glucose (70-105) mg/dL Lactic Acid 2.80 H* (0.7-2.0) mmol/L Total Bilirubin (0.1-1.2) mg/dL Direct Bilirubin (0-0.2) mg/dL Alkaline Phosphatase (35-129) units/L Ammonia 69.0 H (25-60) umol/L Albumin (3.9-5) g/dL Free T4 1.66 H (0.76-1.46) ng/dL Urine Blood (Negative) Urine WBC (Auto) (0.0-6.0) /HPF Salicylates (2.8-20.0) mg/dL Acetaminophen (10.0-30.0) ug/mL 06/18/20 06/18/20 06/18/20 Range/Units 17:40 19:57 21:43 RBC (3.65-5.03) M/mm3 Hgb (11.8-15.2) gm/dl Hct (35.5-45.6) % MCV (84-94) fl RDW (13.2-15.2) % Lymph % (Auto) (13.4-35.0) % [place] % (Auto) (0.0-7.3) % Lymph # (Auto) (1.2-5.4) K/mm3 Seg Neutrophils % (40.0-70.0) % Seg Neutrophils # (1.8-7.7) K/mm3 PT (12.2-14.9) Sec. INR (0.87-1.13) APTT (24.2-36.6) Sec. VBG pH (7.320-7.420) Sodium (137-145) mmol/L Potassium (3.6-5.0) mmol/L Chloride (98-107) mmol/L Carbon Dioxide (22-30) mmol/L BUN (9-20) mg/dL Creatinine (0.8-1.3) mg/dL Glucose (75-100) mg/dL POC Glucose 432 H (70-105) mg/dL Lactic Acid 2.50 H* 2.20 H* (0.7-2.0) mmol/L Total Bilirubin (0.1-1.2) mg/dL Direct Bilirubin (0-0.2) mg/dL Alkaline Phosphatase (35-129) units/L Ammonia (25-60) umol/L Albumin (3.9-5) g/dL Free T4 (0.76-1.46) ng/dL Urine Blood (Negative) Urine WBC (Auto) (0.0-6.0) /HPF Salicylates (2.8-20.0) mg/dL Acetaminophen (10.0-30.0) ug/mL 06/18/20 Range/Units Unknown RBC (3.65-5.03) M/mm3 Hgb (11.8-15.2) gm/dl Hct (35.5-45.6) % MCV (84-94) fl RDW (13.2-15.2) % Lymph % (Auto) (13.4-35.0) % [place] % (Auto) (0.0-7.3) % Lymph # (Auto) (1.2-5.4) K/mm3 Seg Neutrophils % (40.0-70.0) % Seg Neutrophils # (1.8-7.7) K/mm3 PT (12.2-14.9) Sec. INR (0.87-1.13) APTT (24.2-36.6) Sec. VBG pH (7.320-7.420) Sodium (137-145) mmol/L Potassium (3.6-5.0) mmol/L Chloride (98-107) mmol/L Carbon Dioxide (22-30) mmol/L BUN (9-20) mg/dL Creatinine (0.8-1.3) mg/dL Glucose (75-100) mg/dL POC Glucose (70-105) mg/dL Lactic Acid (0.7-2.0) mmol/L Total Bilirubin (0.1-1.2) mg/dL Direct Bilirubin (0-0.2) mg/dL Alkaline Phosphatase (35-129) units/L Ammonia (25-60) umol/L Albumin (3.9-5) g/dL Free T4 (0.76-1.46) ng/dL Urine Blood Moderate A (Negative) Urine WBC (Auto) > 182.0 H (0.0-6.0) /HPF Salicylates (2.8-20.0) mg/dL Acetaminophen (10.0-30.0) ug/mL Assessment and Plan - Patient Problems (1) Acute metabolic encephalopathy Current Visit: Yes Status: Acute Plan to address problem: Probably secondary to sepsis from UTI and infected sacral decubitus, hyponatremia and dehydration. We will monitor mental status. (2) Sacral decubitus ulcer, stage II Current Visit: Yes Status: Acute Plan to address problem: We will request evaluation by wound care team. We will continue on empiric IV antibiotics. (3) Atrial fibrillation Current Visit: No Status: Acute Qualifiers: Atrial fibrillation type: persistent (not longstanding) Qualified Code(s): I48.19 - Other persistent atrial fibrillation; I48.1 - Persistent atrial fibrillation Plan to address problem: Rate currently controlled. Patient on anticoagulation. (4) Diabetes mellitus Current Visit: No Status: Acute Plan to address problem: We will monitor Accu-Cheks. (5) UTI (urinary tract infection) Current Visit: No Status: Acute Plan to address problem: Patient placed on empiric IV antibiotics. We await urine culture result. (6) DVT prophylaxis Current Visit: No Status: Acute Plan to address problem: Patient on anticoagulation. (7) Full code status Current Visit: No Status: Acute
--- NOTE | 2020-06-19 09:44 | Progress Note ---
Assessment and Plan Assessment and plan: Sepsis. Etiology secondary to UTI and +/-infected sacral decubitus ulcer. Continue IV antibiotics and consult ID for further evaluation. UTI. Follow-up urine and blood cultures. Continue IV antibiotics. Toxic metabolic encephalopathy. Etiology secondary to sepsis/UTI/hyponatremia. Continue to treat underlying causes. Atrial fibrillation. Continue medications for rate control and anticoagulation. Diastolic heart failure/severe cor pulmonale. Continue diuretics. Cardiology consultation Diabetes mellitus type 2, uncontrolled. Continue Accu-Cheks and sliding scale insulin. Sacral decubitus ulcer. Continue per wound team. Liver cirrhosis. Continue supportive care. Mitral valve replacement/mechanical heart valve. Continue anticoagulation with target INR 2.5-3.5. Coagulopathy. As above. Anemia of chronic disease. Follow-up H&H and transfuse for hemoglobin less than 7. Venous stasis dermatitis bilateral lower extremities/leg ulcers. Pulmonary hypertension. Supportive care. GERD. PPI. History Interval history: No new issues overnight. Hospitalist Physical - Constitutional Vitals: Temp Pulse Resp BP Pulse Ox 98.6 F 74 18 108/68 97 06/19/20 05:00 06/19/20 07:15 06/19/20 07:15 06/19/20 05:00 06/19/20 07:15 General appearance: Present: no acute distress, well-nourished, obese - EENT Eyes: Present: PERRL, EOM intact ENT: hearing intact, clear oral mucosa, dentition normal - Neck Neck: Present: supple, normal ROM - Respiratory Respiratory effort: normal Respiratory: bilateral: CTA - Cardiovascular Rhythm: regular Heart Sounds: Present: S1 & S2. Absent: gallop, rub - Extremities Extremities: no ischemia, No edema, Full ROM - Abdominal General gastrointestinal: soft, non-tender, non-distended, normal bowel sounds - Integumentary Integumentary: Present: clear, warm, dry - Neurologic Neurologic: CNII-XII intact, moves all extremities Results - Labs CBC & Chem 7: 06/18/20 14:19 06/18/20 14:19 Labs: Laboratory Last Values WBC 9.8 K/mm3 (4.5-11.0) 06/18/20 14:19 RBC 2.75 M/mm3 (3.65-5.03) L 06/18/20 14:19 Hgb 7.6 gm/dl (11.8-15.2) L 06/18/20 14:19 Hct 22.3 % (35.5-45.6) L 06/18/20 14:19 MCV 81 fl (84-94) L 06/18/20 14:19 MCH 28 pg (28-32) 06/18/20 14:19 MCHC 34 % (32-34) 06/18/20 14:19 RDW 21.0 % (13.2-15.2) H 06/18/20 14:19 Plt Count 153 K/mm3 (140-440) 06/18/20 14:19 Lymph % (Auto) 3.6 % (13.4-35.0) L 06/18/20 14:19 Emanuel % (Auto) 8.2 % (0.0-7.3) H 06/18/20 14:19 Eos % (Auto) 1.5 % (0.0-4.3) 06/18/20 14:19 Baso % (Auto) 0.3 % (0.0-1.8) 06/18/20 14:19 Lymph # (Auto) 0.4 K/mm3 (1.2-5.4) L 06/18/20 14:19 Emanuel # (Auto) 0.8 K/mm3 (0.0-0.8) 06/18/20 14:19 Eos # (Auto) 0.1 K/mm3 (0.0-0.4) 06/18/20 14:19 Baso # (Auto) 0.0 K/mm3 (0.0-0.1) 06/18/20 14:19 Add Manual Diff Complete 06/18/20 14:19 Seg Neutrophils % 86.4 % (40.0-70.0) H 06/18/20 14:19 Seg Neutrophils # 8.5 K/mm3 (1.8-7.7) H 06/18/20 14:19 PT 23.9 Sec. (12.2-14.9) H 06/18/20 14:19 INR 2.14 (0.87-1.13) H 06/18/20 14:19 APTT 48.7 Sec. (24.2-36.6) H 06/18/20 14:19 VBG pH 7.310 (7.320-7.420) L 06/18/20 14:19 Sodium 115 mmol/L (137-145) L* 06/18/20 14:19 Potassium 3.4 mmol/L (3.6-5.0) L 06/18/20 14:19 Chloride 79.5 mmol/L (98-107) L 06/18/20 14:19 Carbon Dioxide 19 mmol/L (22-30) L 06/18/20 14:19 Anion Gap 20 mmol/L 06/18/20 14:19 BUN 52 mg/dL (9-20) H 06/18/20 14:19 Creatinine 3.7 mg/dL (0.8-1.3) H 06/18/20 14:19 Estimated GFR 20 ml/min 06/18/20 14:19 BUN/Creatinine Ratio 14 % 06/18/20 14:19 Glucose 569 mg/dL (75-100) H* 06/18/20 14:19 POC Glucose 306 mg/dL (70-105) H 06/19/20 08:03 Lactic Acid 2.20 mmol/L (0.7-2.0) H* 06/18/20 19:57 Calcium 8.5 mg/dL (8.4-10.2) 06/18/20 14:19 Total Bilirubin 2.50 mg/dL (0.1-1.2) H 06/18/20 14:19 Direct Bilirubin 1.3 mg/dL (0-0.2) H 06/18/20 14:19 Indirect Bilirubin 1.2 mg/dL 06/18/20 14:19 AST 17 units/L (5-40) 06/18/20 14:19 ALT 19 units/L (7-56) 06/18/20 14:19 Alkaline Phosphatase 154 units/L (35-129) H 06/18/20 14:19 Ammonia 69.0 umol/L (25-60) H 06/18/20 17:09 Total Protein 6.7 g/dL (6.3-8.2) 06/18/20 14:19 Albumin 3.2 g/dL (3.9-5) L 06/18/20 14:19 Albumin/Globulin Ratio 0.9 % 06/18/20 14:19 TSH 2.480 mlU/mL (0.270-4.200) 06/18/20 14:19 Free T4 1.66 ng/dL (0.76-1.46) H 06/18/20 14:19 Urine Color Yellow (Yellow) 06/18/20 Unknown Urine Turbidity Turbid (Clear) 06/18/20 Unknown Urine pH 5.0 (5.0-7.0) 06/18/20 Unknown Ur Specific Bandana 1.011 (1.003-1.030) 06/18/20 Unknown Urine Protein >500 mg/dL (Negative) 06/18/20 Unknown Urine Glucose (UA) 150 mg/dL (Negative) 06/18/20 Unknown Urine Ketones Negative mg/dL (Negative) 06/18/20 Unknown Urine Blood Moderate (Negative) A 06/18/20 Unknown Urine Nitrite Negative (Negative) 06/18/20 Unknown Urine Bilirubin Negative (Negative) 06/18/20 Unknown Urine Urobilinogen < 2.0 mg/dL (<2.0) 06/18/20 Unknown Ur Leukocyte Esterase Moderate (Negative) 06/18/20 Unknown Urine WBC (Auto) > 182.0 /HPF (0.0-6.0) H 06/18/20 Unknown Urine RBC (Auto) > 182.0 /HPF (0.0-6.0) 06/18/20 Unknown Urine Bacteria (Auto) 4+ /HPF (Negative) 06/18/20 Unknown Urine WBC Clumps 3+ /HPF 06/18/20 Unknown Salicylates < 0.3 mg/dL (2.8-20.0) L 06/18/20 14:19 Urine Opiates Screen Negative 06/18/20 Unknown Urine Methadone Screen Negative 06/18/20 Unknown Acetaminophen 5.0 ug/mL (10.0-30.0) L 06/18/20 14:19 Ur Barbiturates Screen Negative 06/18/20 Unknown Ur Phencyclidine Scrn Negative 06/18/20 Unknown Ur Amphetamines Screen Negative 06/18/20 Unknown U Benzodiazepines Scrn Negative 06/18/20 Unknown Urine Cocaine Screen Negative 06/18/20 Unknown U Marijuana (THC) Screen Negative 06/18/20 Unknown Drugs of Abuse Note Disclamer 06/18/20 Unknown Plasma/Serum Alcohol < 0.01 % (0-0.07) 06/18/20 14:19 Microbiology: Microbiology 06/18/20 14:19 Peripheral/Venous Blood Culture - Preliminary Culture in Progress 06/18/20 14:19 Peripheral/Venous Blood Culture - Preliminary Culture in Progress Calderon/IV: Voiding Method Condom Catheter IV Catheter Type [Left Peripheral IV Antecubital] Active Medications - Current Medications Current Medications: Generic Name Dose Route Start Last Admin Trade Name Freq PRN Reason Stop Dose Admin Acetaminophen 650 mg 06/18/20 22:32 Acetaminophen 325 Mg Tab PO Q4H PRN Pain MILD(1-3)/Fever >100.5/PRADHAN Dextrose 0 ml 06/18/20 23:00 Dextrose 50% In Water (25gm) 50 Ml Syringe IV Q30MIN PRN Hypoglycemia Protocol Cefepime HCl 1 gm in 100 mls @ 200 mls/hr 06/18/20 20:00 06/18/20 21:39 Cefepime/Ns 1 Gm/100 Ml IV Not Given Q12H [facility] Sodium Chloride 1,000 mls @ 125 mls/hr 06/18/20 22:45 Nacl 0.9% 1000 Ml IV DIRECT [facility] Insulin Human Lispro 0 unit 06/19/20 07:30 Insulin Lispro 100 Unit/Ml Vial 3 Ml SUB-Q ACHS [facility] Protocol Magnesium Hydroxide 30 ml 06/18/20 22:32 Magnesium Hydroxide (Mom) Oral Liqd Udc PO Q4H PRN Constipation Morphine Sulfate 2 mg 06/18/20 22:32 Morphine 2 Mg/1 Ml Inj IV Q4H PRN Pain, Moderate (4-6) Ondansetron HCl 4 mg 06/18/20 22:32 Ondansetron 4 Mg/2 Ml Inj IV Q8H PRN Nausea And Vomiting Sodium Chloride 10 ml 06/19/20 10:00 Sodium Chloride 0.9% 10 Ml Flush Syringe IV BID MADELIN Sodium Chloride 10 ml 06/18/20 22:32 Sodium Chloride 0.9% 10 Ml Flush Syringe IV PRN PRN LINE FLUSH
[2020-06-19] MEDS: CEFEPIME/NS 1 GM/100 ML 1 GM/100 ML BAG IV SCH (09:50)
[2020-06-19] MEDS: INSULIN LISPRO 100 UNIT/ML VIAL 3 mL SUB-Q SCH ×4 (09:51→21:15)
[2020-06-19] MEDS: SODIUM CHLORIDE 0.9% 1000 ML 1,000 ML IV SCH ×2 (09:51→18:27)
--- NOTE | 2020-06-19 10:18 | Consultation ---
History of Present Illness - Reason for Consult Consult date: 06/19/20 Requesting physician: AGATA GIRARD - History of Present Illness The patient is a 64 YO AAM with history significant for DM type 2, HTN, HFpEF, h/o MV replacement on Coumadin, GERD, Pulmonary hypertension, Atrial fibrillation and LE weakness from neck injury who was brought into the [facility] ED via EMS (06/18) with AMS and elevated blood glucose. Patient is a poor hsitorian. He was evaluated by telehealth nurse who noted that patient had changes in mental status and the blood glucose greater than 500. Patient had recently been discharged from [facility] where he was treate d for elevated INR, Cirrhosis and hyperglycemia. Work-up in the ED revealed blood glucose 569, Hyponatremia, ELIZABETH and UTI. Patient was commenced on empiric IV antibiotics and IV fluids. Nephrology was consulted for further evaluation and treatment of ELIZABETH and hyponatremia. Past History Past Medical History: atrial fib, diabetes, GERD, heart failure (Diastolic), hypertension, other (Liver Cirrhosis, Pulmonary hypertension,) Past Surgical History: Other (Mitral valve replacement,Pacemaker placement,Left ankle surgery.) Social history: no significant social history Family history: no significant family history Medications and Allergies Allergies Allergy/AdvReac Type Severity Reaction Status Date / Time propoxyphene napsylate Allergy Intermediate Rash Verified 02/12/20 13:48 [From Darvocet-N 100] Sulfa (Sulfonamide Allergy Intermediate Rash Verified 02/12/20 13:48 Antibiotics) Home Medications Medication Instructions Recorded Confirmed Last Taken Type Esomeprazole Magnesium [NexIUM] 40 mg PO DAILY 10/29/13 06/19/20 1 Day Ago History ~02/04/20 40 mg Gabapentin 1 cap PO TID 09/04/14 06/19/20 1 Day Ago History ~02/04/20 1 cap Aspirin EC [Halfprin EC] 81 mg PO QDAY #30 tablet. 05/12/18 06/19/20 1 Day Ago Rx ~02/04/20 81 mg Colchicine 0.6 mg PO DAILY #15 powder 05/12/18 06/19/20 1 Day Ago Rx ~02/04/20 0.6 mg Nitroglycerin [Nitrostat] 0.4 mg SL Q5M PRN #30 tablet 05/12/18 06/19/2019 10:00 Rx Tamsulosin [Flomax] 0.4 mg PO QDAY #30 capsule 05/12/18 06/19/20 1 Day Ago Rx ~02/04/20 0.4 mg Amiodarone [Cordarone 200 MG TAB] 200 mg PO BID 11/24/19 06/19/20 1 Day Ago History ~02/04/20 200 mg Pravastatin [Pravachol] 20 mg PO QHS 11/24/19 06/19/20 1 Day Ago History ~02/04/20 20 mg Warfarin [Coumadin] 5 mg PO QDAY 11/24/19 06/19/20 1 Day Ago History ~02/04/20 5 mg ALBUTEROL NEB's [Proventil 0.083% 2.5 mg IH QIDRT PRN nebu 02/06/20 06/19/20 Unknown Rx NEBS] Albuterol Mdi (or & Nicu Only) 2 puff IH QID PRN #1 02/06/20 06/19/20 Unknown Rx [ProAir HFA Inhaler] Insulin Aspart (Nf) [NovoLOG 100 10 unit SQ QAC #5 pen 02/06/20 06/19/20 Unknown Rx UNITS/ML VIAL] Ipratropium (Nf) [Atrovent HFA 2 puff IH Q6HR PRN 30 Days #10 inha 02/06/20 06/19/20 Unknown Rx 17MCG/PUFF] oxyCODONE [roxiCODONE] 10 mg PO Q4H PRN tablet 02/06/20 06/19/20 Unknown Rx metOLazone [Zaroxolyn] 5 mg PO QDAY #30 tablet 02/14/20 06/19/20 Unknown Rx ALPRAZolam [Xanax TAB] 2 mg PO QDAY 06/19/20 06/19/20 Unknown History Bumetanide 2 mg PO QDAY 06/19/20 06/19/20 Unknown History Insulin Glargine,Hum.rec.anlog 16 units SQ QHS 06/19/20 06/19/20 Unknown History [Lantus Solostar] Spironolactone [Aldactone] 12.5 mg PO QDAY 06/19/20 06/19/20 Unknown History metOLazone [Zaroxolyn] 2.5 mg PO QDAY 06/19/20 06/19/20 Unknown History Active Meds: Active Medications Acetaminophen (Acetaminophen 325 Mg Tab) 650 mg PO Q4H PRN PRN Reason: Pain MILD(1-3)/Fever >100.5/PRADHAN Dextrose (Dextrose 50% In Water (25gm) 50 Ml Syringe) 0 ml IV Q30MIN PRN; Protocol PRN Reason: Hypoglycemia Cefepime HCl (Cefepime/Ns 1 Gm/100 Ml) 1 gm in 100 mls @ 200 mls/hr IV Q12H [facility] Last Admin: 06/19/20 09:50 Dose: 200 mls/hr Documented by: Sodium Chloride (Nacl 0.9% 1000 Ml) 1,000 mls @ 125 mls/hr IV DIRECT [facility] Last Admin: 06/19/20 09:51 Dose: 125 mls/hr Documented by: Insulin Human Lispro (Insulin Lispro 100 Unit/Ml Vial 3 Ml) 0 unit SUB-Q ACHS [facility]; Protocol Last Admin: 06/19/20 09:51 Dose: 8 unit Documented by: Magnesium Hydroxide (Magnesium Hydroxide (Mom) Oral Liqd Udc) 30 ml PO Q4H PRN PRN Reason: Constipation Morphine Sulfate (Morphine 2 Mg/1 Ml Inj) 2 mg IV Q4H PRN PRN Reason: Pain, Moderate (4-6) Ondansetron HCl (Ondansetron 4 Mg/2 Ml Inj) 4 mg IV Q8H PRN PRN Reason: Nausea And Vomiting Sodium Chloride (Sodium Chloride 0.9% 10 Ml Flush Syringe) 10 ml IV BID [facility] Last Admin: 06/19/20 09:58 Dose: Not Given Documented by: Sodium Chloride (Sodium Chloride 0.9% 10 Ml Flush Syringe) 10 ml IV PRN PRN PRN Reason: LINE FLUSH Review of Systems Constitutional: fatigue, weakness, poor appetite, no weight loss, no weight gain, no fever, no chills Cardiovascular: high blood pressure, no chest pain, no orthopnea, no edema, no syncope, no lightheadedness, no shortness of breath, no leg edema Respiratory: no cough Gastrointestinal: loss of appetite, no abdominal pain, no nausea, no vomiting, no diarrhea Genitourinary Male: no dysuria, no hematuria Neurological: no seizures, no syncope Exam - Vital Signs Vital signs: Vital Signs Temp Pulse Resp BP 98.0 F 72 13 95/46 06/18/20 13:15 06/18/20 13:15 06/18/20 13:15 06/18/20 13:15 Results - Lab Results 06/19/20 14:48 06/19/20 14:48 Most recent lab results Calcium 8.5 mg/dL (8.4-10.2) 06/18/20 14:19 Assessment and Plan 1. Acute kidney injury: Likely vasomotor nephropathy in the setting of hypotension and volume depletion. CT abdomen negative for hydro. Urine studies ordered. Continue IV fluids. Monitor renal function. Creatinine level is 3.1 from 3.7. Avoid nephrotoxic agents. Meds dosage based on GFR. 2. FEN: Hyponatremia, ?2/2 volume depletion, continue IV fluids. Hypokalemia, replete K. Anion-gap metabolic acidosis, Sod bicarb, monitor. Monitor lytes and volume status. 3. Diabetic hyperosmolar state: Insulin and IV fluids. 4. Sepsis, POA: 2/2 UTI and +/-infected sacral decubitus ulcer. Continue IV antibiotics and ID Consult ID. 5. Toxic metabolic encephalopathy, POA: 2/2 to sepsis/UTI/hyponatremia. Continue to treat underlying causes. 6. Atrial fibrillation: Continue medications for rate control and anticoagulation. 7. Diastolic heart failure/severe Cor pulmonale. 8. Sacral decubitus ulcer, POA. 9. Cirrhosis. 10. Mitral valve replacement/mechanical heart valve. 11. Anemia of chronic disease. Subjective: Patient was seen and examined at the bedside. Examination: General appearance: alert, well-developed, appears stated age, not in distress HEENT: Pupil reacting to light Neck: Trachea midline Respiratory: ctab Cardiology: S1S2, no murmur Abdomen: soft, normoactive bowel sounds, no tenderness, ND Integumentary: L foot dressing Neurologic: AO, LE weakness noted Ext: trace LE edema
--- NOTE | 2020-06-19 11:08 | Consultation ---
<SAULO CAGE - Last Filed: 06/19/20 11:42> History of Present Illness Consult date: 06/19/20 Consult reason: atrial fibrillation History of present illness: This is a 64-year old male known to [facility]. There is no coronary artery disease. He has had multiple cardiac catheterizations most recently June 2018, all showed normal coronary arteries. Patient has a history of mechanical mitral valve for which he is on warfarin therapy. He has an indwelling cardiac pacemaker for heart block which occurred following his mitral valve surgery. An echocardiogram done at this hospital showed evidence of cor pulmonale with dilated right heart chambers, severe pulmonary hypertension with a pulmonary artery systolic pressure of 74. Well-functioning mechanical mitral valve, and normal left ventricular systolic function with ejection fraction 60-65%. Co-morbidities includes sleep apnea, chronic lung disease, chronic cor pulmonale, chronic hypertension, chronic venous insufficiency with chronic lower extremity edema and paraplegia following a poorly documented spinal column pathology. Patient was brought to this hospital with altered mental status. On presentation found hypotensive with systolic blood pressure ranging mid 80's to 90's. Laboratory measurement showed severe hyponatremia with a sodium of 115, acute renal failure with a creatinine of 3.7. There was also uncontrolled diabetes with a glucose near 600. INR is at 2.1. Head CT scan is negative for acute process. An ECG done is ventricular paced rhythm. Past History Past Medical History: diabetes, GERD, heart failure (diastolic), hypertension, other (Liver Cirrhosis, Pulmonary hypertension,) Past Surgical History: Other (Mitral valve replacement,Pacemaker placement,Left ankle surgery.) Social history: no significant social history Family history: no significant family history Medications and Allergies Allergies Allergy/AdvReac Type Severity Reaction Status Date / Time propoxyphene napsylate Allergy Intermediate Rash Verified 02/12/20 13:48 [From Darvocet-N 100] Sulfa (Sulfonamide Allergy Intermediate Rash Verified 02/12/20 13:48 Antibiotics) Home Medications Medication Instructions Recorded Confirmed Last Taken Type Esomeprazole Magnesium [NexIUM] 40 mg PO DAILY 10/29/13 06/19/20 1 Day Ago History ~02/04/20 40 mg Gabapentin 1 cap PO TID 09/04/14 06/19/20 1 Day Ago History ~02/04/20 1 cap Aspirin EC [Halfprin EC] 81 mg PO QDAY #30 tablet. 05/12/18 06/19/20 1 Day Ago Rx ~02/04/20 81 mg Colchicine 0.6 mg PO DAILY #15 powder 05/12/18 06/19/20 1 Day Ago Rx ~02/04/20 0.6 mg Nitroglycerin [Nitrostat] 0.4 mg SL Q5M PRN #30 tablet 05/12/18 06/19/20 10/30/18 10:00 Rx Tamsulosin [Flomax] 0.4 mg PO QDAY #30 capsule 05/12/18 06/19/20 1 Day Ago Rx ~02/04/20 0.4 mg Amiodarone [Cordarone 200 MG TAB] 200 mg PO BID 11/24/19 06/19/20 1 Day Ago History ~02/04/20 200 mg Pravastatin [Pravachol] 20 mg PO QHS 11/24/19 06/19/20 1 Day Ago History ~02/04/20 20 mg Warfarin [Coumadin] 5 mg PO QDAY 11/24/19 06/19/20 1 Day Ago History ~02/04/20 5 mg ALBUTEROL NEB's [Proventil 0.083% 2.5 mg IH QIDRT PRN nebu 02/06/20 06/19/20 Unknown Rx NEBS] Albuterol Mdi (or & Nicu Only) 2 puff IH QID PRN #1 02/06/20 06/19/20 Unknown Rx [ProAir HFA Inhaler] Insulin Aspart (Nf) [NovoLOG 100 10 unit SQ QAC #5 pen 02/06/20 06/19/20 Unknown Rx UNITS/ML VIAL] Ipratropium (Nf) [Atrovent HFA 2 puff IH Q6HR PRN 30 Days #10 inha 02/06/20 06/19/20 Unknown Rx 17MCG/PUFF] oxyCODONE [roxiCODONE] 10 mg PO Q4H PRN tablet 02/06/20 06/19/20 Unknown Rx metOLazone [Zaroxolyn] 5 mg PO QDAY #30 tablet 02/14/20 06/19/20 Unknown Rx ALPRAZolam [Xanax TAB] 2 mg PO QDAY 06/19/20 06/19/20 Unknown History Bumetanide 2 mg PO QDAY 06/19/20 06/19/20 Unknown History Insulin Glargine,Hum.rec.anlog 16 units SQ QHS 06/19/20 06/19/20 Unknown History [Lantus Solostar] Spironolactone [Aldactone] 12.5 mg PO QDAY 06/19/20 06/19/20 Unknown History metOLazone [Zaroxolyn] 2.5 mg PO QDAY 06/19/20 06/19/20 Unknown History Active Meds: Active Medications Acetaminophen (Acetaminophen 325 Mg Tab) 650 mg PO Q4H PRN PRN Reason: Pain MILD(1-3)/Fever >100.5/PRADHAN Dextrose (Dextrose 50% In Water (25gm) 50 Ml Syringe) 0 ml IV Q30MIN PRN; Protocol PRN Reason: Hypoglycemia Cefepime HCl (Cefepime/Ns 1 Gm/100 Ml) 1 gm in 100 mls @ 200 mls/hr IV Q12H MADELIN Last Admin: 06/19/20 09:50 Dose: 200 mls/hr Documented by: Sodium Chloride (Nacl 0.9% 1000 Ml) 1,000 mls @ 125 mls/hr IV DIRECT MADELIN Last Admin: 06/19/20 09:51 Dose: 125 mls/hr Documented by: Insulin Human Lispro (Insulin Lispro 100 Unit/Ml Vial 3 Ml) 0 unit SUB-Q ACHS MADELIN; Protocol Last Admin: 06/19/20 09:51 Dose: 8 unit Documented by: Magnesium Hydroxide (Magnesium Hydroxide (Mom) Oral Liqd Udc) 30 ml PO Q4H PRN PRN Reason: Constipation Morphine Sulfate (Morphine 2 Mg/1 Ml Inj) 2 mg IV Q4H PRN PRN Reason: Pain, Moderate (4-6) Ondansetron HCl (Ondansetron 4 Mg/2 Ml Inj) 4 mg IV Q8H PRN PRN Reason: Nausea And Vomiting Sodium Chloride (Sodium Chloride 0.9% 10 Ml Flush Syringe) 10 ml IV BID [facility] Last Admin: 06/19/20 09:58 Dose: Not Given Documented by: Sodium Chloride (Sodium Chloride 0.9% 10 Ml Flush Syringe) 10 ml IV PRN PRN PRN Reason: LINE FLUSH Review of Systems Cardiovascular: edema, no chest pain, no palpitations, no syncope, no lightheadedness, no shortness of breath Physical Examination Vital Signs Temp Pulse Resp BP 98.0 F 72 13 95/46 06/18/20 13:15 06/18/20 13:15 06/18/20 13:15 06/18/20 13:15 General appearance: no acute distress HEENT: Positive: PERRL Cardiac: Positive: Other (v paced) Lungs: Positive: Decreased Breath Sounds Results 06/18/20 14:19 06/18/20 14:19 Cardiac Enzymes 06/18/20 Range/Units 14:19 AST 17 (5-40) units/L Coagulation 06/18/20 Range/Units 14:19 PT 23.9 H (12.2-14.9) Sec. INR 2.14 H (0.87-1.13) APTT 48.7 H (24.2-36.6) Sec. CBC 06/18/20 Range/Units 14:19 WBC 9.8 (4.5-11.0) K/mm3 RBC 2.75 L (3.65-5.03) M/mm3 Hgb 7.6 L (11.8-15.2) gm/dl Hct 22.3 L (35.5-45.6) % Plt Count 153 (140-440) K/mm3 Lymph # (Auto) 0.4 L (1.2-5.4) K/mm3 [place] # (Auto) 0.8 (0.0-0.8) K/mm3 Eos # (Auto) 0.1 (0.0-0.4) K/mm3 Baso # (Auto) 0.0 (0.0-0.1) K/mm3 Comprehensive Metabolic Panel 06/18/20 06/18/20 Range/Units 14:19 14:19 Sodium 115 L* (137-145) mmol/L Potassium 3.4 L (3.6-5.0) mmol/L Chloride 79.5 L (98-107) mmol/L Carbon Dioxide 19 L (22-30) mmol/L BUN 52 H (9-20) mg/dL Creatinine 3.7 H (0.8-1.3) mg/dL Glucose 569 H* (75-100) mg/dL Calcium 8.5 (8.4-10.2) mg/dL Direct Bilirubin 1.3 H (0-0.2) mg/dL Indirect Bilirubin 1.2 mg/dL AST 17 (5-40) units/L ALT 19 (7-56) units/L Alkaline Phosphatase 154 H (35-129) units/L Total Protein 6.7 (6.3-8.2) g/dL Albumin 3.2 L (3.9-5) g/dL Assessment and Plan Mechanical mitral valve replacement for mitral regurgitation normal function by echo 11/2019 he is on Coumadin with therapeutic range of INR recommended at 2.5-3.5. normal coronaries by C 05/2018 Severe hyponatremia Acute renal failure UTI Decubitus ulcer Diabetes, uncontrolled Hx of sleep apnea Chronic lower extremity edema Paraplegia following a poorly documented spinal column pathology Cor-pulmonale Echocardiogram 11/2019 reports dilated right heart chambers with severe pulmonary hypertension, PASP 74mmHg. Findings consistent with cor-pulmonale. Normal left ventricular systolic function, EF 55-60%. Hx of heart block s/p indwelling pacemaker Recommend: Continue warfarin therapy with a target INR of 2.5-3.5. <BRETT OLMOS - Last Filed: 06/19/20 12:37> History of Present Illness History of present illness: I SAW THIS PT & AGREE WITH THE Dx & Tx PLAN. Medications and Allergies Active Meds: Active Medications Acetaminophen (Acetaminophen 325 Mg Tab) 650 mg PO Q4H PRN PRN Reason: Pain MILD(1-3)/Fever >100.5/PRADHAN Dextrose (Dextrose 50% In Water (25gm) 50 Ml Syringe) 0 ml IV Q30MIN PRN; Protocol PRN Reason: Hypoglycemia Sodium Chloride (Nacl 0.9% 1000 Ml) 1,000 mls @ 125 mls/hr IV DIRECT MADELIN Last Admin: 06/19/20 09:51 Dose: 125 mls/hr Documented by: Cefepime HCl (Cefepime/Ns 1 Gm/100 Ml) 1 gm in 100 mls @ 200 mls/hr IV Q24H MADELIN Insulin Human Lispro (Insulin Lispro 100 Unit/Ml Vial 3 Ml) 0 unit SUB-Q ACHS MADELIN; Protocol Last Admin: 06/19/20 11:45 Dose: 6 unit Documented by: Magnesium Hydroxide (Magnesium Hydroxide (Mom) Oral Liqd Udc) 30 ml PO Q4H PRN PRN Reason: Constipation Morphine Sulfate (Morphine 2 Mg/1 Ml Inj) 2 mg IV Q4H PRN PRN Reason: Pain, Moderate (4-6) Last Admin: 06/19/20 11:15 Dose: 2 mg Documented by: Ondansetron HCl (Ondansetron 4 Mg/2 Ml Inj) 4 mg IV Q8H PRN PRN Reason: Nausea And Vomiting Sodium Chloride (Sodium Chloride 0.9% 10 Ml Flush Syringe) 10 ml IV BID [facility] Last Admin: 06/19/20 09:58 Dose: Not Given Documented by: Sodium Chloride (Sodium Chloride 0.9% 10 Ml Flush Syringe) 10 ml IV PRN PRN PRN Reason: LINE FLUSH Warfarin Sodium (Warfarin 5 Mg Tab) 5 mg PO DAILY@1700 MADELIN Physical Examination Vital Signs Temp Pulse Resp BP 98.0 F 72 13 95/46 06/18/20 13:15 06/18/20 13:15 06/18/20 13:15 06/18/20 13:15 Results 06/18/20 14:19 06/18/20 14:19 Cardiac Enzymes 06/18/20 Range/Units 14:19 AST 17 (5-40) units/L Coagulation 06/18/20 Range/Units 14:19 PT 23.9 H (12.2-14.9) Sec. INR 2.14 H (0.87-1.13) APTT 48.7 H (24.2-36.6) Sec. CBC 06/18/20 Range/Units 14:19 WBC 9.8 (4.5-11.0) K/mm3 RBC 2.75 L (3.65-5.03) M/mm3 Hgb 7.6 L (11.8-15.2) gm/dl Hct 22.3 L (35.5-45.6) % Plt Count 153 (140-440) K/mm3 Lymph # (Auto) 0.4 L (1.2-5.4) K/mm3 [place] # (Auto) 0.8 (0.0-0.8) K/mm3 Eos # (Auto) 0.1 (0.0-0.4) K/mm3 Baso # (Auto) 0.0 (0.0-0.1) K/mm3 Comprehensive Metabolic Panel 06/18/20 06/18/20 Range/Units 14:19 14:19 Sodium 115 L* (137-145) mmol/L Potassium 3.4 L (3.6-5.0) mmol/L Chloride 79.5 L (98-107) mmol/L Carbon Dioxide 19 L (22-30) mmol/L BUN 52 H (9-20) mg/dL Creatinine 3.7 H (0.8-1.3) mg/dL Glucose 569 H* (75-100) mg/dL Calcium 8.5 (8.4-10.2) mg/dL Direct Bilirubin 1.3 H (0-0.2) mg/dL Indirect Bilirubin 1.2 mg/dL AST 17 (5-40) units/L ALT 19 (7-56) units/L Alkaline Phosphatase 154 H (35-129) units/L Total Protein 6.7 (6.3-8.2) g/dL Albumin 3.2 L (3.9-5) g/dL
[2020-06-19] MEDS: MORPHINE 2 MG/1 ML INJ IV PRN (11:15)
[2020-06-19 16:12] LABS: Hematocrit 21.2 % (35.5-45.6); Hemoglobin 7.1 gm/dl (11.8-15.2); Mean Corpuscular HGB Conc 33 % (32-34); Mean Corpuscular Volume 80 fl (84-94); Red Blood Count 2.63 M/mm3 (3.65-5.03)
[2020-06-19 16:13] LABS: Platelet Count 138 K/mm3 (140-440); Red Cell Distribution Width 20.7 % (13.2-15.2)
[2020-06-19 16:18] LABS: Calcium 8.3 mg/dL (8.4-10.2)
[2020-06-19 16:22] LABS: INR 2.16 (0.87-1.13)
[2020-06-19] MEDS: WARFARIN 5 MG TAB PO SCH (16:22)
[2020-06-19] MEDS ORDERED: POTASSIUM CHLORIDE ER 20 MEQ TAB PO ONE ×2 (17:03→21:00)
[2020-06-19 17:20] LABS: Total Cells Counted 100
[2020-06-19 17:21] LABS: Anisocytosis 1+; Hypochromasia Few; Schistocytes Few
[2020-06-19] MEDS ORDERED: SODIUM BICARB 8.4% 50 MEQ/50 ML SYRINGE IV ONE (18:28)
[2020-06-19] MEDS: SODIUM BICARBONATE 650 MG TAB PO SCH (21:12)
[2020-06-19] MEDS: ACETAMINOPHEN 325 MG TAB PO PRN (21:13)
[2020-06-19] MEDS: INSULIN GLARGINE 100 UNITS/ML SUB-Q SCH (21:14)
[2020-06-19 21:44] LABS: Calcium 8.4 mg/dL (8.4-10.2)
[2020-06-19 23:09] LABS: Creatinine,Urine 18.3 mg/dL (0.1-20.0)
[2020-06-19] MEDS ORDERED: KETOROLAC 30 MG/1 ML INJ IM ONE (23:15)
[2020-06-19] MEDS ORDERED: KETOROLAC 30 MG/1 ML INJ IV ONE (23:55)
[2020-06-20] MEDS: SODIUM CHLORIDE 0.9% 1000 ML 1,000 ML IV SCH ×3 (03:00→23:12)
[2020-06-20 08:07] LABS: INR 2.29 (0.87-1.13)
[2020-06-20 08:13] LABS: Calcium 8.3 mg/dL (8.4-10.2)
[2020-06-20 08:35] LABS: Hematocrit 23.1 % (35.5-45.6); Hemoglobin 7.3 gm/dl (11.8-15.2); Mean Corpuscular HGB Conc 32 % (32-34); Mean Corpuscular Volume 83 fl (84-94)
[2020-06-20 08:36] LABS: Basophils % (Auto) 0.5 % (0.0-1.8); Eosinophils # (Auto) 0.1 K/mm3 (0.0-0.4); Eosinophils % (Auto) 1.3 % (0.0-4.3); Lymphocytes # (Auto) 0.6 K/mm3 (1.2-5.4); Lymphocytes % (Auto) 7.3 % (13.4-35.0); Monocytes # (Auto) 0.8 K/mm3 (0.0-0.8); Monocytes % (Auto) 10.2 % (0.0-7.3); Platelet Count 147 K/mm3 (140-440)
[2020-06-20] MEDS ORDERED: POTASSIUM CHLORIDE ER 20 MEQ TAB PO SCH (09:00)
--- NOTE | 2020-06-20 09:05 | Progress Note ---
Assessment and Plan Hypotension Altered mental status Hyponatremia - improving Mechanical mitral valve replacement for mitral regurgitation Normal function by echo 11/2019 he is on Coumadin with therapeutic range of INR recommended at 2.5-3.5. Normal coronaries by [facility] 05/2018 Hx of sleep apnea Chronic lower extremity edema Paraplegia following a poorly documented spinal column pathology. 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 Findings consistent with cor-pulmonale. Normal left ventricular systolic function, EF 55-60%. Hx of heart block s/p indwelling pacemaker Recommendations: Chronically ill patient with several comorbidities and severe deconditioning Continue warfarin therapy Continue intravenous resuscitation No further cardiac work-up needed Subjective Date of service: 06/20/20 Principal diagnosis: Hypotension Interval history: Patient denies chest pain or shortness of breath. Patient is asking to eat this morning. Objective Vital Signs Temp Pulse Resp BP BP Pulse Ox 06/20/20 05:56 98.3 F 79 18 92/47 06/20/20 05:41 20 06/20/20 05:39 79 100 06/20/20 00:52 78 99 06/20/20 00:05 97.8 F 88 92/42 98 06/19/20 22:00 83 20 98 06/19/20 19:30 98.9 F 76 20 97/48 100 06/19/20 16:10 98.9 F 96 H 18 100/68 92 06/19/20 12:29 98.9 F 80 20 78/40 100 - Physical Examination HEENT: Positive: PERRL Cardiac: Positive: irregularly irregular Lungs: Positive: Decreased Breath Sounds Abdomen: Positive: Firm Extremities: Present: edema - Labs and Meds Coagulation 06/19/20 06/20/20 Range/Units 14:48 06:48 PT 24.1 H 25.2 H (12.2-14.9) Sec. INR 2.16 H 2.29 H (0.87-1.13) CBC 06/19/20 06/20/20 Range/Units 14:48 06:48 WBC 9.8 7.9 (4.5-11.0) K/mm3 RBC 2.63 L 2.80 L (3.65-5.03) M/mm3 Hgb 7.1 L 7.3 L (11.8-15.2) gm/dl Hct 21.2 L 23.1 L (35.5-45.6) % Plt Count 138 L 147 (140-440) K/mm3 Lymph # (Auto) 0.6 L (1.2-5.4) K/mm3 [place] # (Auto) 0.8 (0.0-0.8) K/mm3 Eos # (Auto) 0.1 (0.0-0.4) K/mm3 Baso # (Auto) 0.0 (0.0-0.1) K/mm3 Comprehensive Metabolic Panel 06/19/20 06/19/20 06/20/20 Range/Units 14:48 20:45 06:48 Sodium 121 L D 124 L 127 L (137-145) mmol/L Potassium 2.9 L* 3.4 L 3.3 L (3.6-5.0) mmol/L Chloride 88.2 L 91.0 L 93.7 L (98-107) mmol/L Carbon Dioxide 16 L 19 L 19 L (22-30) mmol/L BUN 55 H 52 H 52 H (9-20) mg/dL Creatinine 3.1 H 3.0 H 2.9 H (0.8-1.3) mg/dL Glucose 191 H 127 H 209 H (75-100) mg/dL Calcium 8.3 L 8.4 8.3 L (8.4-10.2) mg/dL
[2020-06-20] MEDS: SODIUM BICARBONATE 650 MG TAB PO SCH ×3 (09:28→21:47)
[2020-06-20] MEDS: INSULIN LISPRO 100 UNIT/ML VIAL 3 mL SUB-Q SCH ×4 (09:29→21:48)
--- NOTE | 2020-06-20 09:45 | Progress Note ---
Assessment and Plan 1. Acute kidney injury: Likely vasomotor nephropathy in the setting of hypotension and volume depletion. CT abdomen negative for hydro. Continue IV fluids. Monitor renal function. Creatinine level is 2.9 from 3.1 from 3.7. Avoid nephrotoxic agents. Meds dosage based on GFR. 2. FEN: Hyponatremia, ?2/2 volume depletion, continue IV fluids. Sodium level is improving appropriately. Hypokalemia, replete K. Anion-gap metabolic acidosis, Sod bicarb, monitor. Monitor lytes and volume status. 3. Diabetic hyperosmolar state: Insulin and IV fluids. 4. Sepsis, POA: 2/2 UTI and +/-infected sacral decubitus ulcer. Continue IV antibiotics. 5. Toxic metabolic encephalopathy, POA: 2/2 to sepsis/UTI/hyponatremia. Continue to treat underlying causes. 6. Atrial fibrillation: Continue medications for rate control and anticoagulation. 7. Diastolic heart failure/severe Cor pulmonale. 8. Sacral decubitus ulcer, POA. 9. Cirrhosis. 10. Mitral valve replacement/mechanical heart valve. 11. Anemia of chronic disease. Subjective: Patient was seen and examined at the bedside. Examination: General appearance: alert, well-developed, appears stated age, not in distress HEENT: Pupil reacting to light Neck: Trachea midline Respiratory: ctab Cardiology: S1S2, no murmur Abdomen: soft, normoactive bowel sounds, no tenderness, ND Integumentary: L leg dressing Neurologic: AO, LE weakness noted Ext: trace LE edema Subjective Date of service: 06/20/20 Principal diagnosis: Hypotension Objective - Vital Signs Vital signs: Vital Signs - 12hr 06/19/20 06/20/20 06/20/20 22:00 00:05 00:52 Temperature 97.8 F Pulse Rate 83 88 78 Respiratory 20 Rate Blood Pressure Blood Pressure 92/42 [Right] O2 Sat by Pulse 98 98 99 Oximetry 06/20/20 06/20/20 06/20/20 05:39 05:41 05:56 Temperature 98.3 F Pulse Rate 79 79 Respiratory 20 18 Rate Blood Pressure Blood Pressure 92/47 [Right] O2 Sat by Pulse 100 Oximetry 06/20/20 07:26 Temperature 97.5 F L Pulse Rate 79 Respiratory 18 Rate Blood Pressure 108/60 Blood Pressure [Right] O2 Sat by Pulse 57 L Oximetry - Lab 06/20/20 06:48 12/12/20 06:48 Most recent lab results Calcium 8.3 mg/dL (8.4-10.2) L 06/20/20 06:48 Urine Creatinine 18.3 mg/dL (0.1-20.0) 06/19/20 Unknown Urine Sodium 66 mmol/L 06/19/20 Unknown Medications & Allergies - Medications Allergies/Adverse Reactions: Allergies propoxyphene napsylate [From Darvocet-N 100] Allergy (Intermediate, Verified 02/12/20 13:48) Rash Sulfa (Sulfonamide Antibiotics) Allergy (Intermediate, Verified 02/12/20 13:48) Rash Home Medications: Home Medications Medication Instructions Recorded Confirmed Last Taken Type Esomeprazole Magnesium [NexIUM] 40 mg PO DAILY 10/29/13 06/19/20 1 Day Ago History ~02/04/20 40 mg Gabapentin 1 cap PO TID 09/04/14 06/19/20 1 Day Ago History ~02/04/20 1 cap Aspirin EC [Halfprin EC] 81 mg PO QDAY #30 tablet. 05/12/18 06/19/20 1 Day Ago Rx ~02/04/20 81 mg Colchicine 0.6 mg PO DAILY #15 powder 05/12/18 06/19/20 1 Day Ago Rx ~02/04/20 0.6 mg Nitroglycerin [Nitrostat] 0.4 mg SL Q5M PRN #30 tablet 05/12/18 06/19/20 10/30/18 10:00 Rx Tamsulosin [Flomax] 0.4 mg PO QDAY #30 capsule 05/12/18 06/19/20 1 Day Ago Rx ~02/04/20 0.4 mg Amiodarone [Cordarone 200 MG TAB] 200 mg PO BID 11/24/19 06/19/20 1 Day Ago History ~02/04/20 200 mg Pravastatin [Pravachol] 20 mg PO QHS 11/24/19 06/19/20 1 Day Ago History ~02/04/20 20 mg Warfarin [Coumadin] 5 mg PO QDAY 11/24/19 06/19/20 1 Day Ago History ~02/04/20 5 mg ALBUTEROL NEB's [Proventil 0.083% 2.5 mg IH QIDRT PRN nebu 02/06/20 06/19/20 Unknown Rx NEBS] Albuterol Mdi (or & Nicu Only) 2 puff IH QID PRN #1 02/06/20 06/19/20 Unknown Rx [ProAir HFA Inhaler] Insulin Aspart (Nf) [NovoLOG 100 10 unit SQ QAC #5 pen 02/06/20 06/19/20 Unknown Rx UNITS/ML VIAL] Ipratropium (Nf) [Atrovent HFA 2 puff IH Q6HR PRN 30 Days #10 inha 02/06/20 06/19/20 Unknown Rx 17MCG/PUFF] oxyCODONE [roxiCODONE] 10 mg PO Q4H PRN tablet 02/06/20 06/19/20 Unknown Rx metOLazone [Zaroxolyn] 5 mg PO QDAY #30 tablet 02/14/20 06/19/20 Unknown Rx ALPRAZolam [Xanax TAB] 2 mg PO QDAY 06/19/20 06/19/20 Unknown History Bumetanide 2 mg PO QDAY 06/19/20 06/19/20 Unknown History Insulin Glargine,Hum.rec.anlog 16 units SQ QHS 06/19/20 06/19/20 Unknown History [Lantus Solostar] Spironolactone [Aldactone] 12.5 mg PO QDAY 06/19/20 06/19/20 Unknown History metOLazone [Zaroxolyn] 2.5 mg PO QDAY 06/19/20 06/19/20 Unknown History Active Medications: Generic Name Dose Route Start Last Admin Trade Name Cezarq PRN Reason Stop Dose Admin Acetaminophen 650 mg 06/18/20 22:32 06/19/20 21:13 Acetaminophen 325 Mg Tab PO 650 mg Q4H PRN Administration Pain MILD(1-3)/Fever >100.5/PRADHAN Dextrose 0 ml 06/18/20 23:00 Dextrose 50% In Water (25gm) 50 Ml Syringe IV Q30MIN PRN Hypoglycemia Protocol Sodium Chloride 1,000 mls @ 125 mls/hr 06/18/20 22:45 06/20/20 03:00 Nacl 0.9% 1000 Ml IV 125 mls/hr DIRECT MADELIN Administration Cefepime HCl 1 gm in 100 mls @ 200 mls/hr 12/12/20 12:00 Cefepime/Ns 1 Gm/100 Ml IV Q24H MADELIN Insulin Glargine 5 units 06/19/20 22:00 06/19/20 21:14 Insulin Glargine 100 Units/Ml SUB-Q 5 units QHS MADELIN Administration Insulin Human Lispro 0 unit 06/19/20 07:30 06/20/20 09:29 Insulin Lispro 100 Unit/Ml Vial 3 Ml SUB-Q 3 unit ACHS [facility] Administration Protocol Magnesium Hydroxide 30 ml 06/18/20 22:32 Magnesium Hydroxide (Mom) Oral Liqd Udc PO Q4H PRN Constipation Morphine Sulfate 2 mg 06/18/20 22:32 06/19/20 11:15 Morphine 2 Mg/1 Ml Inj IV 2 mg Q4H PRN Administration Pain, Moderate (4-6) Ondansetron HCl 4 mg 06/18/20 22:32 Ondansetron 4 Mg/2 Ml Inj IV Q8H PRN Nausea And Vomiting Potassium Chloride 40 meq 06/20/20 09:00 06/20/20 09:28 Potassium Chloride Er 20 Meq Tab PO 06/20/20 12:00 40 meq ONCE MADELIN Administration Sodium Bicarbonate 1,300 mg 06/19/20 20:00 06/20/20 09:28 Sodium Bicarbonate 650 Mg Tab PO 1,300 mg TID MADELIN Administration Sodium Chloride 10 ml 06/19/20 10:00 06/20/20 09:29 Sodium Chloride 0.9% 10 Ml Flush Syringe IV 10 ml BID MADELIN Administration Sodium Chloride 10 ml 06/18/20 22:32 Sodium Chloride 0.9% 10 Ml Flush Syringe IV PRN PRN LINE FLUSH Warfarin Sodium 5 mg 06/19/20 17:00 06/19/20 16:22 Warfarin 5 Mg Tab PO 5 mg DAILY@1700 MADELIN Administration
--- NOTE | 2020-06-20 10:01 | Progress Note ---
Assessment and Plan Assessment and plan: Sepsis. Etiology secondary to UTI and +/-infected sacral decubitus ulcer. Continue IV antibiotics and consult ID for further evaluation. UTI. Follow-up urine and blood cultures. Continue IV antibiotics. Toxic metabolic encephalopathy. Etiology secondary to sepsis/UTI/hyponatremia. Continue to treat underlying causes. Atrial fibrillation. Continue medications for rate control and anticoagulation. Acute kidney injury. Patient's baseline creatinine is 1.0 in February 2020. Diastolic heart failure/severe cor pulmonale. Continue diuretics. Cardiology consultation Diabetes mellitus type 2, uncontrolled. Continue Accu-Cheks and sliding scale insulin. Sacral decubitus ulcer. Continue per wound team. Liver cirrhosis. Continue supportive care. Hyponatremia. Etiology likely secondary to volume depletion. Mitral valve replacement/mechanical heart valve. Continue anticoagulation with target INR 2.5-3.5. Coagulopathy. As above. Anemia of chronic disease. Follow-up H&H and transfuse for hemoglobin less than 7. Venous stasis dermatitis bilateral lower extremities/leg ulcers. Pulmonary hypertension. Supportive care. GERD. PPI. 06/20/2020. Continue to monitor BMP closely and volume status as related to hyponatremia. Etiology of acute kidney injury likely secondary to vasomotor nephropathy from hypotension/dehydration +/-ATN from sepsis. CT scan of the abdomen negative for hydronephrosis. Continue IV fluid hydration per nephrology recommendations. Continue warfarin therapy per cardiology recommendations. Follow-up urine and blood cultures. Continue cefepime and vancomycin. History Interval history: No new issues overnight. Hospitalist Physical - Constitutional Vitals: Temp Pulse Resp BP Pulse Ox 97.5 F L 79 18 108/60 57 L 06/20/20 07:26 06/20/20 07:26 06/20/20 07:26 06/20/20 07:26 06/20/20 07:26 General appearance: Present: no acute distress - EENT Eyes: Present: PERRL, EOM intact ENT: hearing intact, clear oral mucosa, dentition normal - Neck Neck: Present: supple, normal ROM - Respiratory Respiratory effort: normal Respiratory: bilateral: CTA - Cardiovascular Rhythm: regular Heart Sounds: Present: S1 & S2. Absent: gallop, rub - Extremities Extremities: no ischemia, No edema, Full ROM - Abdominal General gastrointestinal: soft, non-tender, non-distended, normal bowel sounds - Integumentary Integumentary: Present: clear, warm, dry - Neurologic Neurologic: CNII-XII intact, moves all extremities Results - Labs CBC & Chem 7: 06/20/20 06:48 06/20/20 06:48 Labs: Laboratory Last Values WBC 7.9 K/mm3 (4.5-11.0) 06/20/20 06:48 RBC 2.80 M/mm3 (3.65-5.03) L 06/20/20 06:48 Hgb 7.3 gm/dl (11.8-15.2) L 06/20/20 06:48 Hct 23.1 % (35.5-45.6) L 06/20/20 06:48 MCV 83 fl (84-94) L 06/20/20 06:48 MCH 26 pg (28-32) L 06/20/20 06:48 MCHC 32 % (32-34) 06/20/20 06:48 RDW 21.0 % (13.2-15.2) H 06/20/20 06:48 Plt Count 147 K/mm3 (140-440) 06/20/20 06:48 Lymph % (Auto) 7.3 % (13.4-35.0) L 06/20/20 06:48 [place] % (Auto) 10.2 % (0.0-7.3) H 06/20/20 06:48 Eos % (Auto) 1.3 % (0.0-4.3) 06/20/20 06:48 Baso % (Auto) 0.5 % (0.0-1.8) 06/20/20 06:48 Lymph # (Auto) 0.6 K/mm3 (1.2-5.4) L 06/20/20 06:48 [place] # (Auto) 0.8 K/mm3 (0.0-0.8) 06/20/20 06:48 Eos # (Auto) 0.1 K/mm3 (0.0-0.4) 06/20/20 06:48 Baso # (Auto) 0.0 K/mm3 (0.0-0.1) 06/20/20 06:48 Add Manual Diff Complete 06/19/20 14:48 Total Counted 100 06/19/20 14:48 Seg Neutrophils % 80.7 % (40.0-70.0) H 06/20/20 06:48 Seg Neuts % (Manual) 84.0 % (40.0-70.0) H 06/19/20 14:48 Lymphocytes % (Manual) 7.0 % (13.4-35.0) L 06/19/20 14:48 Monocytes % (Manual) 9.0 % (0.0-7.3) H 06/19/20 14:48 Nucleated RBC % Not Reportable 06/19/20 14:48 Seg Neutrophils # 6.4 K/mm3 (1.8-7.7) 06/20/20 06:48 Seg Neutrophils # Man 8.2 K/mm3 (1.8-7.7) H 06/19/20 14:48 Band Neutrophils # 0.0 K/mm3 06/19/20 14:48 Lymphocytes # (Manual) 0.7 K/mm3 (1.2-5.4) L 06/19/20 14:48 Abs React Lymphs (Man) 0.0 K/mm3 06/19/20 14:48 Monocytes # (Manual) 0.9 K/mm3 (0.0-0.8) H 06/19/20 14:48 Eosinophils # (Manual) 0.0 K/mm3 (0.0-0.4) 06/19/20 14:48 Basophils # (Manual) 0.0 K/mm3 (0.0-0.1) 06/19/20 14:48 Metamyelocytes # 0.0 K/mm3 06/19/20 14:48 Myelocytes # 0.0 K/mm3 06/19/20 14:48 Promyelocytes # 0.0 K/mm3 06/19/20 14:48 Blast Cells # 0.0 K/mm3 06/19/20 14:48 WBC Morphology Not Reportable 06/19/20 14:48 Hypersegmented Neuts Not Reportable 06/19/20 14:48 Hyposegmented Neuts Not Reportable 06/19/20 14:48 Hypogranular Neuts Not Reportable 06/19/20 14:48 Smudge Cells Not Reportable 06/19/20 14:48 Toxic Granulation Not Reportable 06/19/20 14:48 Toxic Vacuolation Not Reportable 06/19/20 14:48 Dohle Bodies Not Reportable 06/19/20 14:48 Pelger-Huet Anomaly Not Reportable 06/19/20 14:48 Merry Rods Not Reportable 06/19/20 14:48 Platelet Estimate Not Reportable 06/19/20 14:48 Clumped Platelets Not Reportable 06/19/20 14:48 Plt Clumps, EDTA Not Reportable 06/19/20 14:48 Large Platelets Not Reportable 06/19/20 14:48 Giant Platelets Not Reportable 06/19/20 14:48 Platelet Satelliting Not Reportable 06/19/20 14:48 Plt Morphology Comment Not Reportable 06/19/20 14:48 RBC Morphology Not Reportable 06/19/20 14:48 Dimorphic RBCs Not Reportable 06/19/20 14:48 Polychromasia Not Reportable 06/19/20 14:48 Hypochromasia Few 06/19/20 14:48 Poikilocytosis Not Reportable 06/19/20 14:48 Anisocytosis 1+ 06/19/20 14:48 Microcytosis Few 06/19/20 14:48 Macrocytosis Not Reportable 06/19/20 14:48 Spherocytes Not Reportable 06/19/20 14:48 Pappenheimer Bodies Not Reportable 06/19/20 14:48 Sickle Cells Not Reportable 06/19/20 14:48 Target Cells Not Reportable 06/19/20 14:48 Tear Drop Cells Not Reportable 06/19/20 14:48 Ovalocytes Not Reportable 06/19/20 14:48 Helmet Cells Not Reportable 06/19/20 14:48 [place] Bodies Not Reportable 06/19/20 14:48 Howard Rings Not Reportable 06/19/20 14:48 Lalo Cells Not Reportable 06/19/20 14:48 Bite Cells Not Reportable 06/19/20 14:48 Crenated Cell Not Reportable 06/19/20 14:48 Elliptocytes Not Reportable 06/19/20 14:48 Acanthocytes (Spur) Not Reportable 06/19/20 14:48 Rouleaux Not Reportable 06/19/20 14:48 Hemoglobin C Crystals Not Reportable 06/19/20 14:48 Schistocytes Few 06/19/20 14:48 Malaria parasites Not Reportable 06/19/20 14:48 Jaison Bodies Not Reportable 06/19/20 14:48 Hem Pathologist Commnt No 06/19/20 14:48 PT 25.2 Sec. (12.2-14.9) H 06/20/20 06:48 INR 2.29 (0.87-1.13) H 06/20/20 06:48 APTT 48.7 Sec. (24.2-36.6) H 06/18/20 14:19 VBG pH 7.310 (7.320-7.420) L 06/18/20 14:19 Sodium 127 mmol/L (137-145) L 06/20/20 06:48 Potassium 3.3 mmol/L (3.6-5.0) L 06/20/20 06:48 Chloride 93.7 mmol/L (98-107) L 06/20/20 06:48 Carbon Dioxide 19 mmol/L (22-30) L 06/20/20 06:48 Anion Gap 18 mmol/L 06/20/20 06:48 BUN 52 mg/dL (9-20) H 06/20/20 06:48 Creatinine 2.9 mg/dL (0.8-1.3) H 06/20/20 06:48 Estimated GFR 27 ml/min 06/20/20 06:48 BUN/Creatinine Ratio 18 % 06/20/20 06:48 Glucose 209 mg/dL (75-100) H 06/20/20 06:48 POC Glucose 188 mg/dL (70-105) H 06/20/20 07:29 Hemoglobin A1c 7.0 % (4-6) H 06/19/20 14:48 Lactic Acid 2.20 mmol/L (0.7-2.0) H* 06/18/20 19:57 Calcium 8.3 mg/dL (8.4-10.2) L 06/20/20 06:48 Total Bilirubin 2.50 mg/dL (0.1-1.2) H 06/18/20 14:19 Direct Bilirubin 1.3 mg/dL (0-0.2) H 06/18/20 14:19 Indirect Bilirubin 1.2 mg/dL 06/18/20 14:19 AST 17 units/L (5-40) 06/18/20 14:19 ALT 19 units/L (7-56) 06/18/20 14:19 Alkaline Phosphatase 154 units/L (35-129) H 06/18/20 14:19 Ammonia 69.0 umol/L (25-60) H 06/18/20 17:09 Total Protein 6.7 g/dL (6.3-8.2) 06/18/20 14:19 Albumin 3.2 g/dL (3.9-5) L 06/18/20 14:19 Albumin/Globulin Ratio 0.9 % 06/18/20 14:19 TSH 2.480 mlU/mL (0.270-4.200) 06/18/20 14:19 Free T4 1.66 ng/dL (0.76-1.46) H 06/18/20 14:19 Urine Color Yellow (Yellow) 06/18/20 Unknown Urine Turbidity Turbid (Clear) 06/18/20 Unknown Urine pH 5.0 (5.0-7.0) 06/18/20 Unknown Ur Specific [place] 1.011 (1.003-1.030) 06/18/20 Unknown Urine Protein >500 mg/dL (Negative) 06/18/20 Unknown Urine Glucose (UA) 150 mg/dL (Negative) 06/18/20 Unknown Urine Ketones Negative mg/dL (Negative) 06/18/20 Unknown Urine Blood Moderate (Negative) A 06/18/20 Unknown Urine Nitrite Negative (Negative) 06/18/20 Unknown Urine Bilirubin Negative (Negative) 06/18/20 Unknown Urine Urobilinogen < 2.0 mg/dL (<2.0) 06/18/20 Unknown Ur Leukocyte Esterase Moderate (Negative) 06/18/20 Unknown Urine WBC (Auto) > 182.0 /HPF (0.0-6.0) H 06/18/20 Unknown Urine RBC (Auto) > 182.0 /HPF (0.0-6.0) 06/18/20 Unknown Urine Bacteria (Auto) 4+ /HPF (Negative) 06/18/20 Unknown Urine WBC Clumps 3+ /HPF 06/18/20 Unknown Urine Eosinophils <5% (None Seen) 06/19/20 Unknown Urine Creatinine 18.3 mg/dL (0.1-20.0) 06/19/20 Unknown Urine Sodium 66 mmol/L 06/19/20 Unknown Random Vancomycin 9.9 ug/mL (0-40.0) 06/20/20 06:48 Salicylates < 0.3 mg/dL (2.8-20.0) L 06/18/20 14:19 Urine Opiates Screen Negative 06/18/20 Unknown Urine Methadone Screen Negative 06/18/20 Unknown Acetaminophen 5.0 ug/mL (10.0-30.0) L 06/18/20 14:19 Ur Barbiturates Screen Negative 06/18/20 Unknown Ur Phencyclidine Scrn Negative 06/18/20 Unknown Ur Amphetamines Screen Negative 06/18/20 Unknown U Benzodiazepines Scrn Negative 06/18/20 Unknown Urine Cocaine Screen Negative 06/18/20 Unknown U Marijuana (THC) Screen Negative 06/18/20 Unknown Drugs of Abuse Note Disclamer 06/18/20 Unknown Plasma/Serum Alcohol < 0.01 % (0-0.07) 06/18/20 14:19 Microbiology: Microbiology 06/18/20 14:19 Peripheral/Venous Blood Culture - Preliminary 06/18/20 14:19 Peripheral/Venous Blood Culture - Preliminary 06/18/20 14:50 Urine,Catheterized - Straight Catheter Urine Culture - Preliminary Calder[place]/IV: Voiding Method Condom Catheter IV Catheter Type [Left Peripheral IV Antecubital] Active Medications - Current Medications Current Medications: Generic Name Dose Route Start Last Admin Trade Name Freq PRN Reason Stop Dose Admin Acetaminophen 650 mg 06/18/20 22:32 06/19/20 21:13 Acetaminophen 325 Mg Tab PO 650 mg Q4H PRN Administration Pain MILD(1-3)/Fever >100.5/PRADHAN Dextrose 0 ml 06/18/20 23:00 Dextrose 50% In Water (25gm) 50 Ml Syringe IV Q30MIN PRN Hypoglycemia Protocol Sodium Chloride 1,000 mls @ 125 mls/hr 06/18/20 22:45 06/20/20 03:00 Nacl 0.9% 1000 Ml IV 125 mls/hr DIRECT MADELIN Administration Cefepime HCl 1 gm in 100 mls @ 200 mls/hr 06/20/20 12:00 Cefepime/Ns 1 Gm/100 Ml IV Q24H MADELIN Insulin Glargine 5 units 06/19/20 22:00 06/19/20 21:14 Insulin Glargine 100 Units/Ml SUB-Q 5 units QHS MADELIN Administration Insulin Human Lispro 0 unit 06/19/20 07:30 06/20/20 09:29 Insulin Lispro 100 Unit/Ml Vial 3 Ml SUB-Q 3 unit ACHS MADELIN Administration Protocol Magnesium Hydroxide 30 ml 06/18/20 22:32 Magnesium Hydroxide (Mom) Oral Liqd Udc PO Q4H PRN Constipation Morphine Sulfate 2 mg 06/18/20 22:32 06/19/20 11:15 Morphine 2 Mg/1 Ml Inj IV 2 mg Q4H PRN Administration Pain, Moderate (4-6) Ondansetron HCl 4 mg 06/18/20 22:32 Ondansetron 4 Mg/2 Ml Inj IV Q8H PRN Nausea And Vomiting Potassium Chloride 40 meq 06/20/20 09:00 06/20/20 09:28 Potassium Chloride Er 20 Meq Tab PO 06/20/20 12:00 40 meq ONCE MADELIN Administration Sodium Bicarbonate 1,300 mg 06/19/20 20:00 06/20/20 09:28 Sodium Bicarbonate 650 Mg Tab PO 1,300 mg TID MADELIN Administration Sodium Chloride 10 ml 06/19/20 10:00 06/20/20 09:29 Sodium Chloride 0.9% 10 Ml Flush Syringe IV 10 ml BID MADELIN Administration Sodium Chloride 10 ml 06/18/20 22:32 Sodium Chloride 0.9% 10 Ml Flush Syringe IV PRN PRN LINE FLUSH Warfarin Sodium 5 mg 06/19/20 17:00 06/19/20 16:22 Warfarin 5 Mg Tab PO 5 mg DAILY@1700 MADELIN Administration Nutrition/Malnutrition Assess - Dietary Evaluation Nutrition/Malnutrition Findings: Nutrition Notes Start: 06/19/20 11:17 Freq: Status: Active Protocol: Document 06/19/20 11:17 AT (Rec: 06/19/20 11:32 AT [id number]) Co-Sign 06/19/20 11:17 LP Nutrition Notes Need for Assessment generated from: dam tender assistant Initial or Follow up Assessment Current Diagnosis Acute Kidney Injury,COPD, Decubitus(Pressure Ulcer), Diabetes,Sepsis,Hypertension, Heart Failure Other Pertinent Diagnosis AMS, Cirrohsis, UTI, Cellulitis, Wound Infection Current Diet Cardiac/Consistent CHO Labs/Tests BG 569 Na 115 Pertinent Medications Humalog NS at 125 mL/hr Height 5 ft 9 in Weight 89.176 kg [place] Body Weight (kg) 72.72 BMI 29.0 Intake Prior to Admission Good Weight Status Overweight Subjective/Other Information Screen for skin risk, pt has Sacral Decubitis Ulcer (Stage II) with a wound infection. Clay score of 15. Pt has AMS , was unable to obtain accurate nutrition hx. Per chart, pt has a distended abdomen and bilat ankle edema. Visited pt at bedside, and pt had consumed 0 - 25% of breakfast. Pt states that he needs assistance to eat. Pt reports no changes in appetite , but reports possible weight loss. Visited patient after lunch, pt reports consuming 75 % without any difficulties swallowing. Burn Absent Trauma Absent GI Symptoms None Difficulty In Swallowing Current % PO Negligible Minimum of two criteria Yes Fluid Accumulation Mild (non-severe) Reduced Glass Cleaner Strength Measurably Reduced (severe) #3 Nutrition Diagnosis Increased nutrient needs ( specify in comment below) Comments: protein Etiology increased demand for wound healing As Evidenced by Signs and Symptoms Sacral pressure ulcer (stage II) #2 Nutrition Diagnosis Malnutrition Etiology chronic illness As Evidenced by Signs and Symptoms bilateral edema and measurably reduced pharmacy specialist strength #1 Nutrition Diagnosis Inadequate oral intake Etiology chronic illness As Evidenced by Signs and Symptoms negligible intake at breakfast Is patient on ventilator? No Is Patient Ambulatory and/or Out of Bed No REE-(Barnhart-St. Jeor-confined to bed) 2022.440 Calculation Used for Recommendations [facility] Additional Notes PRO needs: 111-134g (1.25-1.5 g/kg) Fluid needs: 1500-1900mL or per MD Nutrition Intervention Change Diet Order: Continue Add Supplement/Snack (indicate name/kcal [place] BID /protein ) Provides kCal: 190 Provides Protein (gm) 5 Goal #1 Meet at least 75% of estimated energy and protein needs Goal #2 Wound healing Follow-Up By: 06/22/20 Additional Comments F/U on intakes and Waylon administration
[2020-06-20] MEDS ORDERED: VANCOMYCIN 1,250 MG in SODIUM CHLORIDE 0.9% 250ML 250 ML IV ONE (12:00)
[2020-06-20] MEDS: CEFEPIME/NS 1 GM/100 ML 1 GM/100 ML BAG IV SCH (13:06)
[2020-06-20] MEDS: WARFARIN 5 MG TAB PO SCH (17:46)
[2020-06-20] MEDS: INSULIN GLARGINE 100 UNITS/ML SUB-Q SCH (21:48)
[2020-06-21] MEDS: ACETAMINOPHEN 325 MG TAB PO PRN ×3 (02:00→21:45)
[2020-06-21 06:50] LABS: INR 2.42 (0.87-1.13)
[2020-06-21 07:03] LABS: Calcium 8.2 mg/dL (8.4-10.2)
[2020-06-21] MEDS: SODIUM CHLORIDE 0.9% 1000 ML 1,000 ML IV SCH ×2 (07:23→17:37)
[2020-06-21] MEDS: INSULIN LISPRO 100 UNIT/ML VIAL 3 mL SUB-Q SCH ×4 (07:30→21:44)
--- NOTE | 2020-06-21 09:30 | Progress Note ---
Assessment and Plan Assessment and plan: Sepsis. Etiology secondary to UTI and +/-infected sacral decubitus ulcer. Continue IV antibiotics and consult ID for further evaluation. UTI. Follow-up urine and blood cultures. Continue IV antibiotics. Toxic metabolic encephalopathy. Etiology secondary to sepsis/UTI/hyponatremia. Continue to treat underlying causes. Atrial fibrillation. Continue medications for rate control and anticoagulation. Acute kidney injury. Patient's baseline creatinine is 1.0 in February 2020. Diastolic heart failure/severe cor pulmonale. Continue diuretics. Cardiology consultation Diabetes mellitus type 2, uncontrolled. Continue Accu-Cheks and sliding scale insulin. Sacral decubitus ulcer. Continue per wound team. Liver cirrhosis. Continue supportive care. Hyponatremia. Etiology likely secondary to volume depletion. Mitral valve replacement/mechanical heart valve. Continue anticoagulation with target INR 2.5-3.5. Coagulopathy. As above. Anemia of chronic disease. Follow-up H&H and transfuse for hemoglobin less than 7. Venous stasis dermatitis bilateral lower extremities/leg ulcers. Pulmonary hypertension. Supportive care. GERD. PPI. 06/20/2020. Continue to monitor BMP closely and volume status as related to hyponatremia. Etiology of acute kidney injury likely secondary to vasomotor nephropathy from hypotension/dehydration +/-ATN from sepsis. CT scan of the abdomen negative for hydronephrosis. Continue IV fluid hydration per nephrology recommendations. Continue warfarin therapy per cardiology recommendations. Follow-up urine and blood cultures. Continue cefepime and vancomycin. 06/21/2020. Creatinine slowly improving with IV fluid hydration. Nephrology fo llowing. Replete potassium. Blood culture reveals coag negative staph which is likely a contaminant. Patient with no leukocytosis and remains afebrile. Urine culture unremarkable. Continue antibiotics for now. Continue warfarin therapy per cardiology. History Interval history: No new issues overnight. Hospitalist Physical - Constitutional Vitals: Temp Pulse Resp BP Pulse Ox 98.2 F 83 18 96/44 99 06/21/20 03:17 06/21/20 03:17 06/21/20 03:17 06/21/20 03:17 06/21/20 03:17 General appearance: Present: no acute distress - EENT Eyes: Present: PERRL, EOM intact ENT: hearing intact, clear oral mucosa, dentition normal - Neck Neck: Present: supple, normal ROM - Respiratory Respiratory effort: normal Respiratory: bilateral: CTA - Cardiovascular Rhythm: regular Heart Sounds: Present: S1 & S2. Absent: gallop, rub - Extremities Extremities: no ischemia, No edema, Full ROM - Abdominal General gastrointestinal: soft, non-tender, non-distended, normal bowel sounds - Integumentary Integumentary: Present: clear, warm, dry - Neurologic Neurologic: CNII-XII intact, moves all extremities Results - Labs CBC & Chem 7: 06/20/20 06:48 06/21/20 05:14 Labs: Laboratory Last Values WBC 7.9 K/mm3 (4.5-11.0) 06/20/20 06:48 RBC 2.80 M/mm3 (3.65-5.03) L 06/20/20 06:48 Hgb 7.3 gm/dl (11.8-15.2) L 06/20/20 06:48 Hct 23.1 % (35.5-45.6) L 06/20/20 06:48 MCV 83 fl (84-94) L 06/20/20 06:48 MCH 26 pg (28-32) L 06/20/20 06:48 MCHC 32 % (32-34) 06/20/20 06:48 RDW 21.0 % (13.2-15.2) H 06/20/20 06:48 Plt Count 147 K/mm3 (140-440) 06/20/20 06:48 Lymph % (Auto) 7.3 % (13.4-35.0) L 06/20/20 06:48 Travis % (Auto) 10.2 % (0.0-7.3) H 06/20/20 06:48 Eos % (Auto) 1.3 % (0.0-4.3) 06/20/20 06:48 Baso % (Auto) 0.5 % (0.0-1.8) 06/20/20 06:48 Lymph # (Auto) 0.6 K/mm3 (1.2-5.4) L 06/20/20 06:48 Travis # (Auto) 0.8 K/mm3 (0.0-0.8) 06/20/20 06:48 Eos # (Auto) 0.1 K/mm3 (0.0-0.4) 06/20/20 06:48 Baso # (Auto) 0.0 K/mm3 (0.0-0.1) 06/20/20 06:48 Add Manual Diff Complete 06/19/20 14:48 Total Counted 100 06/19/20 14:48 Seg Neutrophils % 80.7 % (40.0-70.0) H 06/20/20 06:48 Seg Neuts % (Manual) 84.0 % (40.0-70.0) H 06/19/20 14:48 Lymphocytes % (Manual) 7.0 % (13.4-35.0) L 06/19/20 14:48 Monocytes % (Manual) 9.0 % (0.0-7.3) H 06/19/20 14:48 Nucleated RBC % Not Reportable 06/19/20 14:48 Seg Neutrophils # 6.4 K/mm3 (1.8-7.7) 06/20/20 06:48 Seg Neutrophils # Man 8.2 K/mm3 (1.8-7.7) H 06/19/20 14:48 Band Neutrophils # 0.0 K/mm3 06/19/20 14:48 Lymphocytes # (Manual) 0.7 K/mm3 (1.2-5.4) L 06/19/20 14:48 Abs React Lymphs (Man) 0.0 K/mm3 06/19/20 14:48 Monocytes # (Manual) 0.9 K/mm3 (0.0-0.8) H 06/19/20 14:48 Eosinophils # (Manual) 0.0 K/mm3 (0.0-0.4) 06/19/20 14:48 Basophils # (Manual) 0.0 K/mm3 (0.0-0.1) 06/19/20 14:48 Metamyelocytes # 0.0 K/mm3 06/19/20 14:48 Myelocytes # 0.0 K/mm3 06/19/20 14:48 Promyelocytes # 0.0 K/mm3 06/19/20 14:48 Blast Cells # 0.0 K/mm3 06/19/20 14:48 WBC Morphology Not Reportable 06/19/20 14:48 Hypersegmented Neuts Not Reportable 06/19/20 14:48 Hyposegmented Neuts Not Reportable 06/19/20 14:48 Hypogranular Neuts Not Reportable 06/19/20 14:48 Smudge Cells Not Reportable 06/19/20 14:48 Toxic Granulation Not Reportable 06/19/20 14:48 Toxic Vacuolation Not Reportable 06/19/20 14:48 Dohle Bodies Not Reportable 06/19/20 14:48 Pelger-Huet Anomaly Not Reportable 06/19/20 14:48 Merry Rods Not Reportable 06/19/20 14:48 Platelet Estimate Not Reportable 06/19/20 14:48 Clumped Platelets Not Reportable 06/19/20 14:48 Plt Clumps, EDTA Not Reportable 06/19/20 14:48 Large Platelets Not Reportable 06/19/20 14:48 Giant Platelets Not Reportable 06/19/20 14:48 Platelet Satelliting Not Reportable 06/19/20 14:48 Plt Morphology Comment Not Reportable 06/19/20 14:48 RBC Morphology Not Reportable 06/19/20 14:48 Dimorphic RBCs Not Reportable 06/19/20 14:48 Polychromasia Not Reportable 06/19/20 14:48 Hypochromasia Few 06/19/20 14:48 Poikilocytosis Not Reportable 06/19/20 14:48 Anisocytosis 1+ 06/19/20 14:48 Microcytosis Few 06/19/20 14:48 Macrocytosis Not Reportable 06/19/20 14:48 Spherocytes Not Reportable 06/19/20 14:48 Pappenheimer Bodies Not Reportable 06/19/20 14:48 Sickle Cells Not Reportable 06/19/20 14:48 Target Cells Not Reportable 06/19/20 14:48 Tear Drop Cells Not Reportable 06/19/20 14:48 Ovalocytes Not Reportable 06/19/20 14:48 Helmet Cells Not Reportable 06/19/20 14:48 [place] Bodies Not Reportable 06/19/20 14:48 [place] Rings Not Reportable 06/19/20 14:48 [place] Cells Not Reportable 06/19/20 14:48 Bite Cells Not Reportable 06/19/20 14:48 Crenated Cell Not Reportable 06/19/20 14:48 Elliptocytes Not Reportable 06/19/20 14:48 Acanthocytes (Spur) Not Reportable 06/19/20 14:48 Rouleaux Not Reportable 06/19/20 14:48 Hemoglobin C Crystals Not Reportable 06/19/20 14:48 Schistocytes Few 06/19/20 14:48 Malaria parasites Not Reportable 06/19/20 14:48 Jaison Bodies Not Reportable 06/19/20 14:48 Hem Pathologist Commnt No 06/19/20 14:48 PT 26.4 Sec. (12.2-14.9) H 06/21/20 05:14 INR 2.42 (0.87-1.13) H 06/21/20 05:14 APTT 48.7 Sec. (24.2-36.6) H 06/18/20 14:19 VBG pH 7.310 (7.320-7.420) L 06/18/20 14:19 Sodium 133 mmol/L (137-145) L 06/21/20 05:14 Potassium 3.2 mmol/L (3.6-5.0) L 06/21/20 05:14 Chloride 98.6 mmol/L (98-107) 06/21/20 05:14 Carbon Dioxide 18 mmol/L (22-30) L 06/21/20 05:14 Anion Gap 20 mmol/L 06/21/20 05:14 BUN 53 mg/dL (9-20) H 06/21/20 05:14 Creatinine 2.7 mg/dL (0.8-1.3) H 06/21/20 05:14 Estimated GFR 29 ml/min 06/21/20 05:14 BUN/Creatinine Ratio 20 % 06/21/20 05:14 Glucose 119 mg/dL (75-100) H 06/21/20 05:14 POC Glucose 104 mg/dL (70-105) 06/21/20 08:06 Hemoglobin A1c 7.0 % (4-6) H 06/19/20 14:48 Lactic Acid 2.20 mmol/L (0.7-2.0) H* 06/18/20 19:57 Calcium 8.2 mg/dL (8.4-10.2) L 06/21/20 05:14 Phosphorus 3.30 mg/dL (2.5-4.5) 06/21/20 05:14 Total Bilirubin 2.50 mg/dL (0.1-1.2) H 06/18/20 14:19 Direct Bilirubin 1.3 mg/dL (0-0.2) H 06/18/20 14:19 Indirect Bilirubin 1.2 mg/dL 06/18/20 14:19 AST 17 units/L (5-40) 06/18/20 14:19 ALT 19 units/L (7-56) 06/18/20 14:19 Alkaline Phosphatase 154 units/L (35-129) H 06/18/20 14:19 Ammonia 69.0 umol/L (25-60) H 06/18/20 17:09 Total Protein 6.7 g/dL (6.3-8.2) 06/18/20 14:19 Albumin 3.2 g/dL (3.9-5) L 06/18/20 14:19 Albumin/Globulin Ratio 0.9 % 06/18/20 14:19 TSH 2.480 mlU/mL (0.270-4.200) 06/18/20 14:19 Free T4 1.66 ng/dL (0.76-1.46) H 06/18/20 14:19 Urine Color Yellow (Yellow) 06/18/20 Unknown Urine Turbidity Turbid (Clear) 06/18/20 Unknown Urine pH 5.0 (5.0-7.0) 06/18/20 Unknown Ur Specific [place] 1.011 (1.003-1.030) 06/18/20 Unknown Urine Protein >500 mg/dL (Negative) 06/18/20 Unknown Urine Glucose (UA) 150 mg/dL (Negative) 06/18/20 Unknown Urine Ketones Negative mg/dL (Negative) 06/18/20 Unknown Urine Blood Moderate (Negative) A 06/18/20 Unknown Urine Nitrite Negative (Negative) 06/18/20 Unknown Urine Bilirubin Negative (Negative) 06/18/20 Unknown Urine Urobilinogen < 2.0 mg/dL (<2.0) 06/18/20 Unknown Ur Leukocyte Esterase Moderate (Negative) 06/18/20 Unknown Urine WBC (Auto) > 182.0 /HPF (0.0-6.0) H 06/18/20 Unknown Urine RBC (Auto) > 182.0 /HPF (0.0-6.0) 06/18/20 Unknown Urine Bacteria (Auto) 4+ /HPF (Negative) 06/18/20 Unknown Urine WBC Clumps 3+ /HPF 06/18/20 Unknown Urine Eosinophils <5% (None Seen) 06/19/20 Unknown Urine Creatinine 18.3 mg/dL (0.1-20.0) 06/19/20 Unknown Urine Sodium 66 mmol/L 06/19/20 Unknown Random Vancomycin 9.9 ug/mL (0-40.0) 06/20/20 06:48 Salicylates < 0.3 mg/dL (2.8-20.0) L 06/18/20 14:19 Urine Opiates Screen Negative 06/18/20 Unknown Urine Methadone Screen Negative 06/18/20 Unknown Acetaminophen 5.0 ug/mL (10.0-30.0) L 06/18/20 14:19 Ur Barbiturates Screen Negative 06/18/20 Unknown Ur Phencyclidine Scrn Negative 06/18/20 Unknown Ur Amphetamines Screen Negative 06/18/20 Unknown U Benzodiazepines Scrn Negative 06/18/20 Unknown Urine Cocaine Screen Negative 06/18/20 Unknown U Marijuana (THC) Screen Negative 06/18/20 Unknown Drugs of Abuse Note Disclamer 06/18/20 Unknown Plasma/Serum Alcohol < 0.01 % (0-0.07) 06/18/20 14:19 Microbiology: Microbiology 06/18/20 14:19 Peripheral/Venous Blood Culture - Preliminary Coag Negative Staphylococcus 06/18/20 14:19 Peripheral/Venous Blood Culture - Preliminary Coag Negative Staphylococcus 06/19/20 Unknown Nares - Right MRSA Culture - Preliminary 06/18/20 14:50 Urine,Catheterized - Straight Catheter Urine Culture - Final Calder[place]/IV: Voiding Method Condom Catheter IV Catheter Type [Right INT / Saline Lock Forearm] IV Catheter Type [Left Peripheral IV Antecubital] Active Medications - Current Medications Current Medications: Generic Name Dose Route Start Last Admin Trade Name Freq PRN Reason Stop Dose Admin Acetaminophen 650 mg 06/18/20 22:32 06/21/20 02:00 Acetaminophen 325 Mg Tab PO 650 mg Q4H PRN Administration Pain MILD(1-3)/Fever >100.5/PRADHAN Dextrose 0 ml 06/18/20 23:00 Dextrose 50% In Water (25gm) 50 Ml Syringe IV Q30MIN PRN Hypoglycemia Protocol Sodium Chloride 1,000 mls @ 125 mls/hr 06/18/20 22:45 06/21/20 07:23 Nacl 0.9% 1000 Ml IV 125 mls/hr DIRECT MADELIN Administration Cefepime HCl 1 gm in 100 mls @ 200 mls/hr 06/20/20 12:00 06/20/20 13:06 Cefepime/Ns 1 Gm/100 Ml IV 200 mls/hr Q24H MADELIN Administration Insulin Glargine 5 units 06/19/20 22:00 06/20/20 21:48 Insulin Glargine 100 Units/Ml SUB-Q 5 units QHS MADELIN Administration Insulin Human Lispro 0 unit 06/19/20 07:30 06/20/20 21:48 Insulin Lispro 100 Unit/Ml Vial 3 Ml SUB-Q 3 unit ACHS MADELIN Administration Protocol Magnesium Hydroxide 30 ml 06/18/20 22:32 Magnesium Hydroxide (Mom) Oral Liqd Udc PO Q4H PRN Constipation Morphine Sulfate 2 mg 06/18/20 22:32 06/19/20 11:15 Morphine 2 Mg/1 Ml Inj IV 2 mg Q4H PRN Administration Pain, Moderate (4-6) Ondansetron HCl 4 mg 06/18/20 22:32 Ondansetron 4 Mg/2 Ml Inj IV Q8H PRN Nausea And Vomiting Sodium Bicarbonate 1,300 mg 06/19/20 20:00 06/20/20 21:47 Sodium Bicarbonate 650 Mg Tab PO 1,300 mg TID MADELIN Administration Sodium Chloride 10 ml 06/19/20 10:00 06/20/20 21:47 Sodium Chloride 0.9% 10 Ml Flush Syringe IV 10 ml BID MADELIN Administration Sodium Chloride 10 ml 06/18/20 22:32 Sodium Chloride 0.9% 10 Ml Flush Syringe IV PRN PRN LINE FLUSH Warfarin Sodium 5 mg 06/19/20 17:00 06/20/20 17:46 Warfarin 5 Mg Tab PO 5 mg DAILY@1700 MADELIN Administration Nutrition/Malnutrition Assess - Dietary Evaluation Nutrition/Malnutrition Findings: Nutrition Notes Start: 06/19/20 11:17 Freq: Status: Active Protocol: Document 06/19/20 11:17 AT (Rec: 06/19/20 11:32 AT [id number]) Co-Sign 06/19/20 11:17 LP Nutrition Notes Need for 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 Clay score of 15. Pt has AMS , was unable to obtain accurate nutrition hx. Per chart, pt has a distended abdomen and bilat ankle edema. Visited pt at bedside, and pt had consumed 0 - 25% of breakfast. Pt states that he needs assistance to eat. Pt reports no changes in appetite , but reports possible weight loss. Visited patient after lunch, pt reports consuming 75 % without any difficulties swallowing. Burn Absent Trauma Absent GI Symptoms None Difficulty In Swallowing Current % PO Negligible Minimum of two criteria Yes Fluid Accumulation Mild (non-severe) Reduced Plastics Fitter Strength Measurably Reduced (severe) #3 Nutrition Diagnosis Increased nutrient needs ( specify in comment below) Comments: protein Etiology increased demand for wound healing As Evidenced by Signs and Symptoms Sacral pressure ulcer (stage II) #2 Nutrition Diagnosis Malnutrition Etiology chronic illness As Evidenced by Signs and Symptoms bilateral edema and measurably reduced braid cutter strength #1 Nutrition Diagnosis Inadequate oral intake Etiology chronic illness As Evidenced by Signs and Symptoms negligible intake at breakfast Is patient on ventilator? No Is Patient Ambulatory and/or Out of Bed No REE-([facility]-confined to bed) 2022.440 Calculation Used for Recommendations [facility] Additional Notes PRO needs: 111-134g (1.25-1.5 g/kg) Fluid needs: 1500-1900mL or per MD Nutrition Intervention Change Diet Order: Continue Add Supplement/Snack (indicate name/kcal Waylon BID /protein ) Provides kCal: 190 Provides Protein (gm) 5 Goal #1 Meet at least 75% of estimated energy and protein needs Goal #2 Wound healing Follow-Up By: 06/22/20 Additional Comments F/U on intakes and Waylon administration
--- NOTE | 2020-06-21 09:51 | Progress Note ---
Assessment and Plan Hypotension Altered mental status Hyponatremia - improving Mechanical mitral valve replacement for mitral regurgitation Normal function by echo 11/2019 he is on Coumadin with therapeutic range of INR recommended at 2.5-3.5. Normal coronaries by [facility] 05/2018 Hx of sleep apnea Chronic lower extremity edema Paraplegia following a poorly documented spinal column pathology. 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 Findings consistent with cor-pulmonale. Normal left ventricular systolic function, EF 55-60%. Hx of heart block s/p indwelling pacemaker Recommendations: Continue warfarin therapy Decrease IVF to 50 ml/hour Patient requires wound care to his lower extremities. Consider wound nurse consult. No further cardiac work-up needed Subjective Date of service: 06/21/20 Principal diagnosis: Hypotension Interval history: Patient denies chest pain or shortness of breath. No cardiac events overnight. Objective Vital Signs Temp Pulse Resp BP Pulse Ox 06/21/20 03:17 98.2 F 83 18 96/44 99 06/20/20 23:05 98.1 F 79 17 90/35 99 06/20/20 19:43 97.7 F 80 16 91/37 100 06/20/20 19:25 81 06/20/20 15:43 97.7 F 81 18 110/54 98 06/20/20 10:58 97.6 F 81 18 98/35 99 06/20/20 10:00 78 20 99 - Physical Examination HEENT: Positive: PERRL Cardiac: Positive: irregularly irregular Lungs: Positive: Decreased Breath Sounds Abdomen: Positive: Firm Extremities: Present: edema - Labs and Meds Coagulation 06/21/20 Range/Units 05:14 PT 26.4 H (12.2-14.9) Sec. INR 2.42 H (0.87-1.13) Comprehensive Metabolic Panel 06/21/20 Range/Units 05:14 Sodium 133 L (137-145) mmol/L Potassium 3.2 L (3.6-5.0) mmol/L Chloride 98.6 (98-107) mmol/L Carbon Dioxide 18 L (22-30) mmol/L BUN 53 H (9-20) mg/dL Creatinine 2.7 H (0.8-1.3) mg/dL Glucose 119 H (75-100) mg/dL Calcium 8.2 L (8.4-10.2) mg/dL
--- NOTE | 2020-06-21 10:28 | Progress Note ---
Assessment and Plan 1. Acute kidney injury: Likely vasomotor nephropathy in the setting of hypotension and volume depletion. CT abdomen negative for hydro. Continue IV fluids. Monitor renal function. Creatinine level is 2.7 from 2.9 from 3.1 from 3.7. Avoid nephrotoxic agents. Meds dosage based on GFR. 2. FEN: Hyponatremia, ?2/2 volume depletion, continue IV fluids. Sodium level is improving appropriately. Hypokalemia, replete K. Anion-gap metabolic acidosis, Sod bicarb, monitor. Monitor lytes and volume status. 3. Diabetic hyperosmolar state: Bl glucose is better. Insulin and IV fluids. 4. Sepsis, POA: 2/2 UTI and +/-infected sacral decubitus ulcer. Continue IV antibiotics. 5. Toxic metabolic encephalopathy, POA: 2/2 to sepsis/UTI/hyponatremia. Continue to treat underlying causes. 6. Atrial fibrillation: Continue medications for rate control and anticoagulation. 7. Diastolic heart failure/severe Cor pulmonale. 8. Sacral decubitus ulcer, POA. 9. Cirrhosis. 10. Mitral valve replacement/mechanical heart valve. 11. Anemia of chronic disease. Subjective: Patient was seen and examined at the bedside. Doing ok. Examination: General appearance: alert, well-developed, appears stated age, not in distress HEENT: Pupil reacting to light Neck: Trachea midline Respiratory: ctab Cardiology: S1S2, no murmur Abdomen: soft, normoactive bowel sounds, no tenderness, ND Integumentary: L leg dressing Neurologic: AO, LE weakness noted Ext: trace LE edema Subjective Date of service: 06/21/20 Principal diagnosis: Hypotension Objective - Vital Signs Vital signs: Vital Signs - 12hr 06/20/20 06/21/20 23:05 03:17 Temperature 98.1 F 98.2 F Pulse Rate 79 83 Respiratory 17 18 Rate Blood Pressure 90/35 96/44 O2 Sat by Pulse 99 99 Oximetry - Lab 06/20/20 06:48 06/21/20 05:14 Most recent lab results Calcium 8.2 mg/dL (8.4-10.2) L 06/21/20 05:14 Phosphorus 3.30 mg/dL (2.5-4.5) 06/21/20 05:14 Urine Creatinine 18.3 mg/dL (0.1-20.0) 06/19/20 Unknown Urine Sodium 66 mmol/L 06/19/20 Unknown Medications & Allergies - Medications Allergies/Adverse Reactions: Allergies propoxyphene napsylate [From Darvocet-N 100] Allergy (Intermediate, Verified 02/12/20 13:48) Rash Sulfa (Sulfonamide Antibiotics) Allergy (Intermediate, Verified 02/12/20 13:48) Rash Home Medications: Home Medications Medication Instructions Recorded Confirmed Last Taken Type Esomeprazole Magnesium [NexIUM] 40 mg PO DAILY 10/29/13 06/19/20 1 Day Ago History ~02/04/20 40 mg Gabapentin 1 cap PO TID 09/04/14 06/19/20 1 Day Ago History ~02/04/20 1 cap Aspirin EC [Halfprin EC] 81 mg PO QDAY #30 tablet. 05/12/18 06/19/20 1 Day Ago Rx ~02/04/20 81 mg Colchicine 0.6 mg PO DAILY #15 powder 05/12/18 06/19/20 1 Day Ago Rx ~02/04/20 0.6 mg Nitroglycerin [Nitrostat] 0.4 mg SL Q5M PRN #30 tablet 05/12/18 06/19/20 10/30/18 10:00 Rx Tamsulosin [Flomax] 0.4 mg PO QDAY #30 capsule 05/12/18 06/19/20 1 Day Ago Rx ~02/04/20 0.4 mg Amiodarone [Cordarone 200 MG TAB] 200 mg PO BID 11/24/19 06/19/20 1 Day Ago History ~02/04/20 200 mg Pravastatin [Pravachol] 20 mg PO QHS 11/24/19 06/19/20 1 Day Ago History ~02/04/20 20 mg Warfarin [Coumadin] 5 mg PO QDAY 11/24/19 06/19/20 1 Day Ago History ~02/04/20 5 mg ALBUTEROL NEB's [Proventil 0.083% 2.5 mg IH QIDRT PRN nebu 02/06/20 06/19/20 Unknown Rx NEBS] Albuterol Mdi (or & Nicu Only) 2 puff IH QID PRN #1 02/06/20 06/19/20 Unknown Rx [ProAir HFA Inhaler] Insulin Aspart (Nf) [NovoLOG 100 10 unit SQ QAC #5 pen 02/06/20 06/19/20 Unknown Rx UNITS/ML VIAL] Ipratropium (Nf) [Atrovent HFA 2 puff IH Q6HR PRN 30 Days #10 inha 02/06/20 06/19/20 Unknown Rx 17MCG/PUFF] oxyCODONE [roxiCODONE] 10 mg PO Q4H PRN tablet 02/06/20 06/19/20 Unknown Rx metOLazone [Zaroxolyn] 5 mg PO QDAY #30 tablet 02/14/20 06/19/20 Unknown Rx ALPRAZolam [Xanax TAB] 2 mg PO QDAY 06/19/20 06/19/20 Unknown History Bumetanide 2 mg PO QDAY 06/19/20 06/19/20 Unknown History Insulin Glargine,Hum.rec.anlog 16 units SQ QHS 06/19/20 06/19/20 Unknown History [Lantus Solostar] Spironolactone [Aldactone] 12.5 mg PO QDAY 06/19/20 06/19/20 Unknown History metOLazone [Zaroxolyn] 2.5 mg PO QDAY 06/19/20 06/19/20 Unknown History Active Medications: Generic Name Dose Route Start Last Admin Trade Name Freq PRN Reason Stop Dose Admin Acetaminophen 650 mg 06/18/20 22:32 06/21/20 02:00 Acetaminophen 325 Mg Tab PO 650 mg Q4H PRN Administration Pain MILD(1-3)/Fever >100.5/PRADHAN Dextrose 0 ml 06/18/20 23:00 Dextrose 50% In Water (25gm) 50 Ml Syringe IV Q30MIN PRN Hypoglycemia Protocol Sodium Chloride 1,000 mls @ 50 mls/hr 06/18/20 22:45 06/21/20 07:23 Nacl 0.9% 1000 Ml IV 125 mls/hr DIRECT MADELIN Administration Cefepime HCl 1 gm in 100 mls @ 200 mls/hr 06/20/20 12:00 06/20/20 13:06 Cefepime/Ns 1 Gm/100 Ml IV 200 mls/hr Q24H MADELIN Administration Insulin Glargine 5 units 06/19/20 22:00 06/20/20 21:48 Insulin Glargine 100 Units/Ml SUB-Q 5 units QHS MADELIN Administration Insulin Human Lispro 0 unit 06/19/20 07:30 06/20/20 21:48 Insulin Lispro 100 Unit/Ml Vial 3 Ml SUB-Q 3 unit ACHS MADELIN Administration Protocol Magnesium Hydroxide 30 ml 06/18/20 22:32 Magnesium Hydroxide (Mom) Oral Liqd Udc PO Q4H PRN Constipation Morphine Sulfate 2 mg 06/18/20 22:32 06/19/20 11:15 Morphine 2 Mg/1 Ml Inj IV 2 mg Q4H PRN Administration Pain, Moderate (4-6) Ondansetron HCl 4 mg 06/18/20 22:32 Ondansetron 4 Mg/2 Ml Inj IV Q8H PRN Nausea And Vomiting Sodium Bicarbonate 1,300 mg 06/19/20 20:00 06/20/20 21:47 Sodium Bicarbonate 650 Mg Tab PO 1,300 mg TID MADELIN Administration Sodium Chloride 10 ml 06/19/20 10:00 06/20/20 21:47 Sodium Chloride 0.9% 10 Ml Flush Syringe IV 10 ml BID MADELIN Administration Sodium Chloride 10 ml 06/18/20 22:32 Sodium Chloride 0.9% 10 Ml Flush Syringe IV PRN PRN LINE FLUSH Warfarin Sodium 5 mg 06/19/20 17:00 06/20/20 17:46 Warfarin 5 Mg Tab PO 5 mg DAILY@1700 MADELIN Administration
[2020-06-21] MEDS: SODIUM BICARBONATE 650 MG TAB PO SCH ×3 (10:58→21:43)
[2020-06-21] MEDS ORDERED: POTASSIUM CHLORIDE ER 20 MEQ TAB PO SCH (11:00)
[2020-06-21] MEDS: CEFEPIME/NS 1 GM/100 ML 1 GM/100 ML BAG IV SCH (12:23)
--- NOTE | 2020-06-21 12:40 | Consultation ---
History of Present Illness - Reason for Consult Consult date: 06/21/20 - History of Present Illness 64-year-old man past medical history hypertension, diastolic heart failure, mitral valve replacement on Coumadin, diabetes, A. fib brought to the hospital due to altered mental status and hypoglycemia. Is found to have blood glucose greater than 500, and was unable to give history on admission. Also found to have an ELIZABETH. Afebrile since admission, currently receiving cefepime and vancomycin. White count is normal. GFR slowly improving from 20-29 today. Glucose has improved. Blood cultures with coag negative staph in 2 of 4 bottles and 2 sets. Both appear to be collected at same time. Imaging personally reviewed: Chest, abdomen, pelvis CT: No acute abnormalities Lower extremity CT: No evidence of abscess, possible cellulitis. Past History Past Medical History: atrial fib, diabetes, GERD, heart failure (Diastolic), hypertension, other (Liver Cirrhosis, Pulmonary hypertension,) Past Surgical History: Other (Mitral valve replacement,Pacemaker placement,Left ankle surgery.) Social history: no significant social history Family history: no significant family history Medications and Allergies Allergies Allergy/AdvReac Type Severity Reaction Status Date / Time propoxyphene napsylate Allergy Intermediate Rash Verified 02/12/20 13:48 [From Darvocet-N 100] Sulfa (Sulfonamide Allergy Intermediate Rash Verified 02/12/20 13:48 Antibiotics) Home Medications Medication Instructions Recorded Confirmed Last Taken Type Esomeprazole Magnesium [NexIUM] 40 mg PO DAILY 10/29/13 06/19/20 1 Day Ago History ~02/04/20 40 mg Gabapentin 1 cap PO TID 09/04/14 06/19/20 1 Day Ago History ~02/04/20 1 cap Aspirin EC [Halfprin EC] 81 mg PO QDAY #30 tablet. 05/12/18 06/19/20 1 Day Ago Rx ~02/04/20 81 mg Colchicine 0.6 mg PO DAILY #15 powder 05/12/18 06/19/20 1 Day Ago Rx ~02/04/20 0.6 mg Nitroglycerin [Nitrostat] 0.4 mg SL Q5M PRN #30 tablet 05/12/18 06/19/20 10/30/18 10:00 Rx Tamsulosin [Flomax] 0.4 mg PO QDAY #30 capsule 05/12/18 06/19/20 1 Day Ago Rx ~02/04/20 0.4 mg Amiodarone [Cordarone 200 MG TAB] 200 mg PO BID 11/24/19 06/19/20 1 Day Ago History ~02/04/20 200 mg Pravastatin [Pravachol] 20 mg PO QHS 11/24/19 06/19/20 1 Day Ago History ~02/04/20 20 mg Warfarin [Coumadin] 5 mg PO QDAY 11/24/19 06/19/20 1 Day Ago History ~02/04/20 5 mg ALBUTEROL NEB's [Proventil 0.083% 2.5 mg IH QIDRT PRN nebu 02/06/20 06/19/20 Unknown Rx NEBS] Albuterol Mdi (or & Nicu Only) 2 puff IH QID PRN #1 02/06/20 06/19/20 Unknown Rx [ProAir HFA Inhaler] Insulin Aspart (Nf) [NovoLOG 100 10 unit SQ QAC #5 pen 02/06/20 06/19/20 Unknown Rx UNITS/ML VIAL] Ipratropium (Nf) [Atrovent HFA 2 puff IH Q6HR PRN 30 Days #10 inha 02/06/20 06/19/20 Unknown Rx 17MCG/PUFF] oxyCODONE [roxiCODONE] 10 mg PO Q4H PRN tablet 02/06/20 06/19/20 Unknown Rx metOLazone [Zaroxolyn] 5 mg PO QDAY #30 tablet 02/14/20 06/19/20 Unknown Rx ALPRAZolam [Xanax TAB] 2 mg PO QDAY 06/19/20 06/19/20 Unknown History Bumetanide 2 mg PO QDAY 06/19/20 06/19/20 Unknown History Insulin Glargine,Hum.rec.anlog 16 units SQ QHS 06/19/20 06/19/20 Unknown History [Lantus Solostar] Spironolactone [Aldactone] 12.5 mg PO QDAY 06/19/20 06/19/20 Unknown History metOLazone [Zaroxolyn] 2.5 mg PO QDAY 06/19/20 06/19/20 Unknown History Active Meds: Active Medications Acetaminophen (Acetaminophen 325 Mg Tab) 650 mg PO Q4H PRN PRN Reason: Pain MILD(1-3)/Fever >100.5/PRADHAN Last Admin: 06/21/20 02:00 Dose: 650 mg Documented by: Dextrose (Dextrose 50% In Water (25gm) 50 Ml Syringe) 0 ml IV Q30MIN PRN; Protocol PRN Reason: Hypoglycemia Sodium Chloride (Nacl 0.9% 1000 Ml) 1,000 mls @ 50 mls/hr IV DIRECT [facility] Last Admin: 06/21/20 07:23 Dose: 125 mls/hr Documented by: Cefepime HCl (Cefepime/Ns 1 Gm/100 Ml) 1 gm in 100 mls @ 200 mls/hr IV Q24H [facility] Last Admin: 06/21/20 12:23 Dose: 200 mls/hr Documented by: Insulin Glargine (Insulin Glargine 100 Units/Ml) 5 units SUB-Q QHS [facility] Last Admin: 06/20/20 21:48 Dose: 5 units Documented by: Insulin Human Lispro (Insulin Lispro 100 Unit/Ml Vial 3 Ml) 0 unit SUB-Q ACHS S ; Protocol Last Admin: 06/21/20 07:30 Dose: Not Given Documented by: Magnesium Hydroxide (Magnesium Hydroxide (Mom) Oral Liqd Udc) 30 ml PO Q4H PRN PRN Reason: Constipation Morphine Sulfate (Morphine 2 Mg/1 Ml Inj) 2 mg IV Q4H PRN PRN Reason: Pain, Moderate (4-6) Last Admin: 06/19/20 11:15 Dose: 2 mg Documented by: Ondansetron HCl (Ondansetron 4 Mg/2 Ml Inj) 4 mg IV Q8H PRN PRN Reason: Nausea And Vomiting Potassium Chloride (Potassium Chloride Er 20 Meq Tab) 40 meq PO ONCE [facility] Stop: 06/21/20 14:00 Last Admin: 06/21/20 10:58 Dose: 40 meq Documented by: Sodium Bicarbonate (Sodium Bicarbonate 650 Mg Tab) 1,300 mg PO TID [facility] Last Admin: 06/21/20 10:58 Dose: 1,300 mg Documented by: Sodium Chloride (Sodium Chloride 0.9% 10 Ml Flush Syringe) 10 ml IV BID [facility] Last Admin: 06/21/20 12:25 Dose: 10 ml Documented by: Sodium Chloride (Sodium Chloride 0.9% 10 Ml Flush Syringe) 10 ml IV PRN PRN PRN Reason: LINE FLUSH Warfarin Sodium (Warfarin 5 Mg Tab) 5 mg PO DAILY@1700 MADELIN Last Admin: 06/20/20 17:46 Dose: 5 mg Documented by: Physical Examination - Physical Exam Narrative exam: Physical Exam: Constitutional: Alert, cooperative. No acute distress Head, Ears, Nose: Normocephalic, atraumatic. External ears, nose normal Eyes: Conjunctivae/corneas clear. No icterus. No ptosis. Neck: Supple, no meningeal signs Oral: dentition fair, no thrush Cardiovascular: S1, S2 normal. Respiratory: Good air entry, clear to auscultation bilaterally GI: Soft, non-tender; bowel sounds normal. No peritoneal signs. Musculoskeletal: No pedal edema, no cyanosis. + edema Skin: No rash or abscess Hem/Lymphatic: No palpable cervical or supraclavicular nodes. No lymphangitis Psych: Mood ok. Affect normal Neurological: Awake, alert, oriented. No gross abnormality - Constitutional Vitals: Vital Signs Temp Pulse Resp BP Pulse Ox 98.2 F 83 18 96/44 99 06/21/20 03:17 06/21/20 03:17 06/21/20 03:17 06/21/20 03:17 06/21/20 03:17 Temperature -Last 24 Hours Temperature 98.2 F Temperature 98.1 F Temperature 97.7 F Temperature 97.7 F Results - Labs CBC & Chem 7: 06/20/20 06:48 06/21/20 05:14 Labs: Abnormal lab results 06/20/20 06/20/20 06/21/20 Range/Units 15:45 20:18 05:14 PT 26.4 H (12.2-14.9) Sec. INR 2.42 H (0.87-1.13) Sodium (137-145) mmol/L Potassium (3.6-5.0) mmol/L Carbon Dioxide (22-30) mmol/L BUN (9-20) mg/dL Creatinine (0.8-1.3) mg/dL Glucose (75-100) mg/dL POC Glucose 246 H 171 H (70-105) mg/dL Calcium (8.4-10.2) mg/dL 12/13/20 12/13/20 Range/Units 05:14 10:37 PT (12.2-14.9) Sec. INR (0.87-1.13) Sodium 133 L (137-145) mmol/L Potassium 3.2 L (3.6-5.0) mmol/L Carbon Dioxide 18 L (22-30) mmol/L BUN 53 H (9-20) mg/dL Creatinine 2.7 H (0.8-1.3) mg/dL Glucose 119 H (75-100) mg/dL POC Glucose 157 H (70-105) mg/dL Calcium 8.2 L (8.4-10.2) mg/dL Assessment and Plan Cultures: Blood culture 06/18/2020 coag negative staph A/P: 64-year-old man past medical history hypertension, diastolic heart failure, mitral valve replacement on Coumadin, diabetes, A. fib #Coag negative staph bacteremia: 2 of 4 bottles and 2 sets, though both sets obtained at same time. Patient appears to be not septic and stable, possible contaminant. #Diabetes: tight glycemic control for best outcomes. #History of mitral valve replacement #ELIZABETH: Renally dose antibiotics Recs: -While coag negative staph may be a contaminant as both positive but at the same time, given presence of mechanical mitral valve would obtain TTE to ensure no vegetations. -Stop cefepime -Continue vancomycin dosed per pharmacy for now Dr. Reyna taking over tomorrow. Thank you for the consult, we will continue to follow. Jessica Hill MD [facility] O: [phone] F: [phone]
[2020-06-21] MEDS: MORPHINE 2 MG/1 ML INJ IV PRN (15:11)
[2020-06-21] MEDS: WARFARIN 5 MG TAB PO SCH (17:47)
[2020-06-21] MEDS: INSULIN GLARGINE 100 UNITS/ML SUB-Q SCH (21:45)
[2020-06-22 05:57] LABS: Calcium 8.3 mg/dL (8.4-10.2); INR 2.3 (0.87-1.13)
[2020-06-22] MEDS: INSULIN LISPRO 100 UNIT/ML VIAL 3 mL SUB-Q SCH ×4 (08:37→21:55)
--- NOTE | 2020-06-22 08:43 | Progress Note ---
Assessment and Plan 1. Acute kidney injury: Likely vasomotor nephropathy in the setting of hypotension and volume depletion. CT abdomen negative for hydro. Continue IV fluids. Monitor renal function. Creatinine level is 2.1 from 2.7 from 2.9 from 3.1 from 3.7. Avoid nephrotoxic agents. Meds dosage based on GFR. 2. FEN: Hyponatremia, ?2/2 volume depletion, continue IV fluids. Sodium level is improving appropriately. Hypokalemia, replete K. Anion-gap metabolic acidosis, Sod bicarb, monitor. Monitor lytes and volume status. 3. Diabetic hyperosmolar state: Bl glucose is better. Insulin and IV fluids. 4. Sepsis, POA: 2/2 UTI and +/-infected sacral decubitus ulcer. Continue IV antibiotics. 5. Toxic metabolic encephalopathy, POA: 2/2 to sepsis/UTI/hyponatremia. Continue to treat underlying causes. 6. Atrial fibrillation: Continue medications for rate control and anticoagulation. 7. Diastolic heart failure/severe Cor pulmonale. 8. Sacral decubitus ulcer, POA. 9. Cirrhosis. 10. Mitral valve replacement/mechanical heart valve. 11. Anemia of chronic disease. Subjective: Patient was seen and examined at the bedside. Doing ok. Examination: General appearance: alert, well-developed, appears stated age, not in distress HEENT: Pupil reacting to light Neck: Trachea midline Respiratory: ctab Cardiology: S1S2, no murmur Abdomen: soft, normoactive bowel sounds, no tenderness, ND Integumentary: L leg dressing Neurologic: AO, LE weakness noted Ext: trace LE edema Subjective Date of service: 06/22/20 Principal diagnosis: Hypotension Objective - Vital Signs Vital signs: Vital Signs - 12hr 06/22/20 06/22/20 06/22/20 00:49 04:17 07:39 Temperature 97.6 F 97.5 F L 97.7 F Pulse Rate 79 79 80 Respiratory 14 16 18 Rate Blood Pressure 97/51 93/35 91/44 O2 Sat by Pulse 99 99 100 Oximetry - Lab 06/20/20 06:48 06/22/20 04:49 Most recent lab results Calcium 8.3 mg/dL (8.4-10.2) L 06/22/20 04:49 Phosphorus 3.30 mg/dL (2.5-4.5) 06/21/20 05:14 Urine Creatinine 18.3 mg/dL (0.1-20.0) 06/19/20 Unknown Urine Sodium 66 mmol/L 06/19/20 Unknown Medications & Allergies - Medications Allergies/Adverse Reactions: Allergies propoxyphene napsylate [From Darvocet-N 100] Allergy (Intermediate, Verified 02/12/20 13:48) Rash Sulfa (Sulfonamide Antibiotics) Allergy (Intermediate, Verified 02/12/20 13:48) Rash Home Medications: Home Medications Medication Instructions Recorded Confirmed Last Taken Type Esomeprazole Magnesium [NexIUM] 40 mg PO DAILY 10/29/13 06/19/20 1 Day Ago History ~02/04/20 40 mg Gabapentin 1 cap PO TID 09/04/14 06/19/20 1 Day Ago History ~02/04/20 1 cap Aspirin EC [Halfprin EC] 81 mg PO QDAY #30 tablet. 05/12/18 06/19/20 1 Day Ago Rx ~02/04/20 81 mg Colchicine 0.6 mg PO DAILY #15 powder 05/12/18 06/19/20 1 Day Ago Rx ~02/04/20 0.6 mg Nitroglycerin [Nitrostat] 0.4 mg SL Q5M PRN #30 tablet 05/12/18 06/19/20 10/30/18 10:00 Rx Tamsulosin [Flomax] 0.4 mg PO QDAY #30 capsule 05/12/18 06/19/20 1 Day Ago Rx ~02/04/20 0.4 mg Amiodarone [Cordarone 200 MG TAB] 200 mg PO BID 11/24/19 06/19/20 1 Day Ago History ~02/04/20 200 mg Pravastatin [Pravachol] 20 mg PO QHS 11/24/19 06/19/20 1 Day Ago History ~02/04/20 20 mg Warfarin [Coumadin] 5 mg PO QDAY 11/24/19 06/19/20 1 Day Ago History ~02/04/20 5 mg ALBUTEROL NEB's [Proventil 0.083% 2.5 mg IH QIDRT PRN nebu 02/06/20 06/19/20 Unknown Rx NEBS] Albuterol Mdi (or & Nicu Only) 2 puff IH QID PRN #1 02/06/20 06/19/20 Unknown Rx [ProAir HFA Inhaler] Insulin Aspart (Nf) [NovoLOG 100 10 unit SQ QAC #5 pen 02/06/20 06/19/20 Unknown Rx UNITS/ML VIAL] Ipratropium (Nf) [Atrovent HFA 2 puff IH Q6HR PRN 30 Days #10 inha 02/06/20 06/19/20 Unknown Rx 17MCG/PUFF] oxyCODONE [roxiCODONE] 10 mg PO Q4H PRN tablet 02/06/20 06/19/20 Unknown Rx metOLazone [Zaroxolyn] 5 mg PO QDAY #30 tablet 02/14/20 06/19/20 Unknown Rx ALPRAZolam [Xanax TAB] 2 mg PO QDAY 06/19/20 06/19/20 Unknown History Bumetanide 2 mg PO QDAY 06/19/20 06/19/20 Unknown History Insulin Glargine,Hum.rec.anlog 16 units SQ QHS 06/19/20 06/19/20 Unknown History [Lantus Solostar] Spironolactone [Aldactone] 12.5 mg PO QDAY 06/19/20 06/19/20 Unknown History metOLazone [Zaroxolyn] 2.5 mg PO QDAY 06/19/20 06/19/20 Unknown History Active Medications: Generic Name Dose Route Start Last Admin Trade Name Freq PRN Reason Stop Dose Admin Acetaminophen 650 mg 06/18/20 22:32 06/21/20 21:45 Acetaminophen 325 Mg Tab PO 650 mg Q4H PRN Administration Pain MILD(1-3)/Fever >100.5/PRADHAN Dextrose 0 ml 06/18/20 23:00 Dextrose 50% In Water (25gm) 50 Ml Syringe IV Q30MIN PRN Hypoglycemia Protocol Sodium Chloride 1,000 mls @ 50 mls/hr 06/18/20 22:45 06/21/20 21:13 Nacl 0.9% 1000 Ml IV 50 mls/hr DIRECT MADELIN Infusion Insulin Glargine 5 units 06/19/20 22:00 06/21/20 21:45 Insulin Glargine 100 Units/Ml SUB-Q 5 units QHS MADELIN Administration Insulin Human Lispro 0 unit 06/19/20 07:30 06/22/20 08:37 Insulin Lispro 100 Unit/Ml Vial 3 Ml SUB-Q Not Given ACHS [facility] Protocol Magnesium Hydroxide 30 ml 06/18/20 22:32 Magnesium Hydroxide (Mom) Oral Liqd Udc PO Q4H PRN Constipation Morphine Sulfate 2 mg 06/18/20 22:32 06/21/20 15:11 Morphine 2 Mg/1 Ml Inj IV 2 mg Q4H PRN Administration Pain, Moderate (4-6) Ondansetron HCl 4 mg 06/18/20 22:32 Ondansetron 4 Mg/2 Ml Inj IV Q8H PRN Nausea And Vomiting Sodium Bicarbonate 1,300 mg 06/19/20 20:00 06/21/20 21:43 Sodium Bicarbonate 650 Mg Tab PO 1,300 mg TID MADELIN Administration Sodium Chloride 10 ml 06/19/20 10:00 06/21/20 21:45 Sodium Chloride 0.9% 10 Ml Flush Syringe IV 10 ml BID MADELIN Administration Sodium Chloride 10 ml 06/18/20 22:32 06/21/20 15:13 Sodium Chloride 0.9% 10 Ml Flush Syringe IV 10 ml PRN PRN Administration LINE FLUSH Warfarin Sodium 5 mg 06/19/20 17:00 06/21/20 17:47 Warfarin 5 Mg Tab PO 5 mg DAILY@1700 MADELIN Administration
--- NOTE | 2020-06-22 08:53 | Progress Note ---
Assessment and Plan Assessment and plan: Sepsis. Etiology secondary to UTI and +/-infected sacral decubitus ulcer. Continue IV antibiotics and consult ID for further evaluation. UTI. Follow-up urine and blood cultures. Continue IV antibiotics. Toxic metabolic encephalopathy. Etiology secondary to sepsis/UTI/hyponatremia. Continue to treat underlying causes. Atrial fibrillation. Continue medications for rate control and anticoagulation. Acute kidney injury. Patient's baseline creatinine is 1.0 in February 2020. Diastolic heart failure/severe cor pulmonale. Continue diuretics. Cardiology consultation Diabetes mellitus type 2, uncontrolled. Continue Accu-Cheks and sliding scale insulin. Sacral decubitus ulcer. Continue per wound team. Liver cirrhosis. Continue supportive care. Hyponatremia. Etiology likely secondary to volume depletion. Mitral valve replacement/mechanical heart valve. Continue anticoagulation with target INR 2.5-3.5. Coagulopathy. As above. Anemia of chronic disease. Follow-up H&H and transfuse for hemoglobin less than 7. Venous stasis dermatitis bilateral lower extremities/leg ulcers. Pulmonary hypertension. Supportive care. GERD. PPI. 06/20/2020. Continue to monitor BMP closely and volume status as related to hyponatremia. Etiology of acute kidney injury likely secondary to vasomotor nephropathy from hypotension/dehydration +/-ATN from sepsis. CT scan of the abdomen negative for hydronephrosis. Continue IV fluid hydration per nephrology recommendations. Continue warfarin therapy per cardiology recommendations. Follow-up urine and blood cultures. Continue cefepime and vancomycin. 06/21/2020. Creatinine slowly improving with IV fluid hydration. Nephrology fo llowing. Replete potassium. Blood culture reveals coag negative staph which is likely a contaminant. Patient with no leukocytosis and remains afebrile. Urine culture unremarkable. Continue antibiotics for now. Continue warfarin therapy per cardiology. 06/22/2020. Patient with blood cultures revealing coag negative staph which may be a contaminant. However, given patient's history of a mechanical mitral valve, we will obtain echocardiogram to rule out vegetations. Continue vancomycin per ID recommendations. Etiology of acute kidney injury likely secondary to vasomotor nephropathy in the setting of hypotension/volume depletion. CT scan of the abdomen was negative for hydronephrosis. Continue IV fluids per nephrology recommendations. Creatinine has improved to 2.1 History Interval history: No new issues overnight. Hospitalist Physical - Constitutional Vitals: Temp Pulse Resp BP Pulse Ox 97.7 F 80 18 91/44 100 06/22/20 07:39 06/22/20 07:39 06/22/20 07:39 06/22/20 07:39 06/22/20 07:39 General appearance: Present: no acute distress - EENT Eyes: Present: PERRL, EOM intact ENT: hearing intact, clear oral mucosa, dentition normal - Neck Neck: Present: supple, normal ROM - Respiratory Respiratory effort: normal Respiratory: bilateral: CTA - Cardiovascular Rhythm: regular Heart Sounds: Present: S1 & S2. Absent: gallop, rub - Extremities Extremities: no ischemia, No edema, Full ROM - Abdominal General gastrointestinal: soft, non-tender, non-distended, normal bowel sounds - Integumentary Integumentary: Present: clear, warm, dry - Neurologic Neurologic: CNII-XII intact, moves all extremities Results - Labs CBC & Chem 7: 06/20/20 06:48 06/22/20 04:49 Labs: Laboratory Last Values WBC 7.9 K/mm3 (4.5-11.0) 06/20/20 06:48 RBC 2.80 M/mm3 (3.65-5.03) L 06/20/20 06:48 Hgb 7.3 gm/dl (11.8-15.2) L 06/20/20 06:48 Hct 23.1 % (35.5-45.6) L 06/20/20 06:48 MCV 83 fl (84-94) L 06/20/20 06:48 MCH 26 pg (28-32) L 06/20/20 06:48 MCHC 32 % (32-34) 06/20/20 06:48 RDW 21.0 % (13.2-15.2) H 06/20/20 06:48 Plt Count 147 K/mm3 (140-440) 06/20/20 06:48 Lymph % (Auto) 7.3 % (13.4-35.0) L 06/20/20 06:48 [place] % (Auto) 10.2 % (0.0-7.3) H 06/20/20 06:48 Eos % (Auto) 1.3 % (0.0-4.3) 06/20/20 06:48 Baso % (Auto) 0.5 % (0.0-1.8) 06/20/20 06:48 Lymph # (Auto) 0.6 K/mm3 (1.2-5.4) L 06/20/20 06:48 [place] # (Auto) 0.8 K/mm3 (0.0-0.8) 06/20/20 06:48 Eos # (Auto) 0.1 K/mm3 (0.0-0.4) 06/20/20 06:48 Baso # (Auto) 0.0 K/mm3 (0.0-0.1) 06/20/20 06:48 Add Manual Diff Complete 06/19/20 14:48 Total Counted 100 06/19/20 14:48 Seg Neutrophils % 80.7 % (40.0-70.0) H 06/20/20 06:48 Seg Neuts % (Manual) 84.0 % (40.0-70.0) H 06/19/20 14:48 Lymphocytes % (Manual) 7.0 % (13.4-35.0) L 06/19/20 14:48 Monocytes % (Manual) 9.0 % (0.0-7.3) H 06/19/20 14:48 Nucleated RBC % Not Reportable 06/19/20 14:48 Seg Neutrophils # 6.4 K/mm3 (1.8-7.7) 06/20/20 06:48 Seg Neutrophils # Man 8.2 K/mm3 (1.8-7.7) H 06/19/20 14:48 Band Neutrophils # 0.0 K/mm3 06/19/20 14:48 Lymphocytes # (Manual) 0.7 K/mm3 (1.2-5.4) L 06/19/20 14:48 Abs React Lymphs (Man) 0.0 K/mm3 06/19/20 14:48 Monocytes # (Manual) 0.9 K/mm3 (0.0-0.8) H 06/19/20 14:48 Eosinophils # (Manual) 0.0 K/mm3 (0.0-0.4) 06/19/20 14:48 Basophils # (Manual) 0.0 K/mm3 (0.0-0.1) 06/19/20 14:48 Metamyelocytes # 0.0 K/mm3 06/19/20 14:48 Myelocytes # 0.0 K/mm3 06/19/20 14:48 Promyelocytes # 0.0 K/mm3 06/19/20 14:48 Blast Cells # 0.0 K/mm3 06/19/20 14:48 WBC Morphology Not Reportable 06/19/20 14:48 Hypersegmented Neuts Not Reportable 06/19/20 14:48 Hyposegmented Neuts Not Reportable 06/19/20 14:48 Hypogranular Neuts Not Reportable 06/19/20 14:48 Smudge Cells Not Reportable 06/19/20 14:48 Toxic Granulation Not Reportable 06/19/20 14:48 Toxic Vacuolation Not Reportable 06/19/20 14:48 Dohle Bodies Not Reportable 06/19/20 14:48 Pelger-Huet Anomaly Not Reportable 06/19/20 14:48 Merry Rods Not Reportable 06/19/20 14:48 Platelet Estimate Not Reportable 06/19/20 14:48 Clumped Platelets Not Reportable 06/19/20 14:48 Plt Clumps, EDTA Not Reportable 06/19/20 14:48 Large Platelets Not Reportable 06/19/20 14:48 Giant Platelets Not Reportable 06/19/20 14:48 Platelet Satelliting Not Reportable 06/19/20 14:48 Plt Morphology Comment Not Reportable 06/19/20 14:48 RBC Morphology Not Reportable 06/19/20 14:48 Dimorphic RBCs Not Reportable 06/19/20 14:48 Polychromasia Not Reportable 06/19/20 14:48 Hypochromasia Few 06/19/20 14:48 Poikilocytosis Not Reportable 06/19/20 14:48 Anisocytosis 1+ 06/19/20 14:48 Microcytosis Few 06/19/20 14:48 Macrocytosis Not Reportable 06/19/20 14:48 Spherocytes Not Reportable 06/19/20 14:48 Pappenheimer Bodies Not Reportable 06/19/20 14:48 Sickle Cells Not Reportable 06/19/20 14:48 Target Cells Not Reportable 06/19/20 14:48 Tear Drop Cells Not Reportable 06/19/20 14:48 Ovalocytes Not Reportable 06/19/20 14:48 Helmet Cells Not Reportable 06/19/20 14:48 Rajan-Simms Bodies Not Reportable 06/19/20 14:48 [place] Rings Not Reportable 06/19/20 14:48 Lalo Cells Not Reportable 06/19/20 14:48 Bite Cells Not Reportable 06/19/20 14:48 Crenated Cell Not Reportable 06/19/20 14:48 Elliptocytes Not Reportable 06/19/20 14:48 Acanthocytes (Spur) Not Reportable 06/19/20 14:48 Rouleaux Not Reportable 06/19/20 14:48 Hemoglobin C Crystals Not Reportable 06/19/20 14:48 Schistocytes Few 06/19/20 14:48 Malaria parasites Not Reportable 06/19/20 14:48 Jaison Bodies Not Reportable 06/19/20 14:48 Hem Pathologist Commnt No 06/19/20 14:48 PT 25.5 Sec. (12.2-14.9) H 06/22/20 04:49 INR 2.30 (0.87-1.13) H 06/22/20 04:49 APTT 48.7 Sec. (24.2-36.6) H 06/18/20 14:19 VBG pH 7.310 (7.320-7.420) L 06/18/20 14:19 Sodium 134 mmol/L (137-145) L 06/22/20 04:49 Potassium 3.1 mmol/L (3.6-5.0) L 06/22/20 04:49 Chloride 100.5 mmol/L (98-107) 06/22/20 04:49 Carbon Dioxide 18 mmol/L (22-30) L 06/22/20 04:49 Anion Gap 19 mmol/L 06/22/20 04:49 BUN 50 mg/dL (9-20) H 06/22/20 04:49 Creatinine 2.1 mg/dL (0.8-1.3) H 06/22/20 04:49 Estimated GFR 39 ml/min 06/22/20 04:49 BUN/Creatinine Ratio 24 % 06/22/20 04:49 Glucose 143 mg/dL (75-100) H 06/22/20 04:49 POC Glucose 137 mg/dL (70-105) H 06/22/20 08:12 Hemoglobin A1c 7.0 % (4-6) H 06/19/20 14:48 Lactic Acid 2.20 mmol/L (0.7-2.0) H* 06/18/20 19:57 Calcium 8.3 mg/dL (8.4-10.2) L 06/22/20 04:49 Phosphorus 3.30 mg/dL (2.5-4.5) 06/21/20 05:14 Total Bilirubin 2.50 mg/dL (0.1-1.2) H 06/18/20 14:19 Direct Bilirubin 1.3 mg/dL (0-0.2) H 06/18/20 14:19 Indirect Bilirubin 1.2 mg/dL 06/18/20 14:19 AST 17 units/L (5-40) 06/18/20 14:19 ALT 19 units/L (7-56) 06/18/20 14:19 Alkaline Phosphatase 154 units/L (35-129) H 06/18/20 14:19 Ammonia 69.0 umol/L (25-60) H 06/18/20 17:09 Total Protein 6.7 g/dL (6.3-8.2) 06/18/20 14:19 Albumin 3.2 g/dL (3.9-5) L 06/18/20 14:19 Albumin/Globulin Ratio 0.9 % 06/18/20 14:19 TSH 2.480 mlU/mL (0.270-4.200) 06/18/20 14:19 Free T4 1.66 ng/dL (0.76-1.46) H 06/18/20 14:19 Urine Color Yellow (Yellow) 06/18/20 Unknown Urine Turbidity Turbid (Clear) 06/18/20 Unknown Urine pH 5.0 (5.0-7.0) 06/18/20 Unknown Ur Specific [place] 1.011 (1.003-1.030) 06/18/20 Unknown Urine Protein >500 mg/dL (Negative) 06/18/20 Unknown Urine Glucose (UA) 150 mg/dL (Negative) 06/18/20 Unknown Urine Ketones Negative mg/dL (Negative) 06/18/20 Unknown Urine Blood Moderate (Negative) A 06/18/20 Unknown Urine Nitrite Negative (Negative) 06/18/20 Unknown Urine Bilirubin Negative (Negative) 06/18/20 Unknown Urine Urobilinogen < 2.0 mg/dL (<2.0) 06/18/20 Unknown Ur Leukocyte Esterase Moderate (Negative) 06/18/20 Unknown Urine WBC (Auto) > 182.0 /HPF (0.0-6.0) H 06/18/20 Unknown Urine RBC (Auto) > 182.0 /HPF (0.0-6.0) 06/18/20 Unknown Urine Bacteria (Auto) 4+ /HPF (Negative) 06/18/20 Unknown Urine WBC Clumps 3+ /HPF 06/18/20 Unknown Urine Eosinophils <5% (None Seen) 06/19/20 Unknown Urine Creatinine 18.3 mg/dL (0.1-20.0) 06/19/20 Unknown Urine Sodium 66 mmol/L 06/19/20 Unknown Random Vancomycin 9.9 ug/mL (0-40.0) 06/20/20 06:48 Salicylates < 0.3 mg/dL (2.8-20.0) L 06/18/20 14:19 Urine Opiates Screen Negative 06/18/20 Unknown Urine Methadone Screen Negative 06/18/20 Unknown Acetaminophen 5.0 ug/mL (10.0-30.0) L 06/18/20 14:19 Ur Barbiturates Screen Negative 06/18/20 Unknown Ur Phencyclidine Scrn Negative 06/18/20 Unknown Ur Amphetamines Screen Negative 06/18/20 Unknown U Benzodiazepines Scrn Negative 06/18/20 Unknown Urine Cocaine Screen Negative 06/18/20 Unknown U Marijuana (THC) Screen Negative 06/18/20 Unknown Drugs of Abuse Note Disclamer 06/18/20 Unknown Plasma/Serum Alcohol < 0.01 % (0-0.07) 06/18/20 14:19 Microbiology: Microbiology 06/19/20 Unknown Nares - Right MRSA Culture - Final Calderon/IV: Voiding Method Condom Catheter IV Catheter Type [Right INT / Saline Lock Forearm] IV Catheter Type [Left Peripheral IV Antecubital] Active Medications - Current Medications Current Medications: Generic Name Dose Route Start Last Admin Trade Name Freq PRN Reason Stop Dose Admin Acetaminophen 650 mg 06/18/20 22:32 06/21/20 21:45 Acetaminophen 325 Mg Tab PO 650 mg Q4H PRN Administration Pain MILD(1-3)/Fever >100.5/PRADHAN Dextrose 0 ml 06/18/20 23:00 Dextrose 50% In Water (25gm) 50 Ml Syringe IV Q30MIN PRN Hypoglycemia Protocol Sodium Chloride 1,000 mls @ 50 mls/hr 06/18/20 22:45 06/21/20 21:13 Nacl 0.9% 1000 Ml IV 50 mls/hr DIRECT MADELIN Infusion Insulin Glargine 5 units 06/19/20 22:00 06/21/20 21:45 Insulin Glargine 100 Units/Ml SUB-Q 5 units QHS MADELIN Administration Insulin Human Lispro 0 unit 06/19/20 07:30 06/22/20 08:37 Insulin Lispro 100 Unit/Ml Vial 3 Ml SUB-Q Not Given A[facility]S [facility] Protocol Magnesium Hydroxide 30 ml 06/18/20 22:32 Magnesium Hydroxide (Mom) Oral Liqd Udc PO Q4H PRN Constipation Morphine Sulfate 2 mg 06/18/20 22:32 06/21/20 15:11 Morphine 2 Mg/1 Ml Inj IV 2 mg Q4H PRN Administration Pain, Moderate (4-6) Ondansetron HCl 4 mg 06/18/20 22:32 Ondansetron 4 Mg/2 Ml Inj IV Q8H PRN Nausea And Vomiting Potassium Chloride 40 meq 06/22/20 09:00 Potassium Chloride Er 20 Meq Tab PO 06/22/20 12:01 Q6HR MADELIN Sodium Bicarbonate 1,300 mg 06/19/20 20:00 06/21/20 21:43 Sodium Bicarbonate 650 Mg Tab PO 1,300 mg TID MADELIN Administration Sodium Chloride 10 ml 06/19/20 10:00 06/21/20 21:45 Sodium Chloride 0.9% 10 Ml Flush Syringe IV 10 ml BID MADELIN Administration Sodium Chloride 10 ml 06/18/20 22:32 06/21/20 15:13 Sodium Chloride 0.9% 10 Ml Flush Syringe IV 10 ml PRN PRN Administration LINE FLUSH Warfarin Sodium 5 mg 06/19/20 17:00 06/21/20 17:47 Warfarin 5 Mg Tab PO 5 mg DAILY@1700 MADELIN Administration Nutrition/Malnutrition Assess - Dietary Evaluation Nutrition/Malnutrition Findings: Nutrition Notes Start: 06/19/20 11:17 Freq: Status: Active Protocol: Document 06/19/20 11:17 AT (Rec: 06/19/20 11:32 AT [id number]) Co-Sign 06/19/20 11:17 LP Nutrition Notes 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 Clay score of 15. Pt has AMS , was unable to obtain accurate nutrition hx. Per chart, pt has a distended abdomen and bilat ankle edema. Visited pt at bedside, and pt had consumed 0 - 25% of breakfast. Pt states that he needs assistance to eat. Pt reports no changes in appetite , but reports possible weight loss. Visited patient after lunch, pt reports consuming 75 % without any difficulties swallowing. 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 No Is Patient Ambulatory and/or Out of Bed No REE-(Dawson-St. Jeor-confined to bed) 2022.440 Calculation [facility]ations [facility] Additional Notes PRO needs: 111-134g (1.25-1.5 g/kg) Fluid needs: 1500-1900mL or per MD Nutrition Intervention Change Diet Order: Continue Add Supplement/Snack (indicate name/kcal Waylon BID /protein ) Provides kCal: 190 Provides Protein (gm) 5 Goal #1 Meet at least 75% of estimated energy and protein needs Goal #2 Wound healing Follow-Up By: 06/22/20 Additional Comments F/U on intakes and Waylon administration
--- NOTE | 2020-06-22 09:37 | Progress Note ---
Assessment and Plan Mechanical mitral valve replacement for mitral regurgitation normal function by echo 11/2019 he is on Coumadin with therapeutic range of INR recommended at 2.5-3.5. 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 Findings consistent with cor-pulmonale. Normal left ventricular systolic function, EF 55-60%. Hx of heart block s/p indwelling pacemaker Recommend: Continue warfarin therapy with a target INR of 2.5-3.5. Subjective Date of service: 06/22/20 Principal diagnosis: Hypotension Interval history: Patient is resting in bed, has no cardiac complaints. Objective Vital Signs Temp Pulse Pulse Resp BP Pulse Ox 06/22/20 07:39 97.7 F 80 18 91/44 100 06/22/20 04:17 97.5 F L 79 16 93/35 99 06/22/20 00:49 97.6 F 79 14 97/51 99 06/21/20 19:12 97.9 F 83 16 114/54 100 06/21/20 15:56 97.7 F 82 18 105/50 99 06/21/20 10:36 97.5 F L 80 18 101/42 100 06/21/20 10:00 80 80 100 - Physical Examination General: No Apparent Distress HEENT: Positive: PERRL Cardiac: Positive: Other (v-paced) Lungs: Positive: Decreased Breath Sounds - Labs and Meds Coagulation 06/22/20 Range/Units 04:49 PT 25.5 H (12.2-14.9) Sec. INR 2.30 H (0.87-1.13) Comprehensive Metabolic Panel 06/22/20 Range/Units 04:49 Sodium 134 L (137-145) mmol/L Potassium 3.1 L (3.6-5.0) mmol/L Chloride 100.5 (98-107) mmol/L Carbon Dioxide 18 L (22-30) mmol/L BUN 50 H (9-20) mg/dL Creatinine 2.1 H (0.8-1.3) mg/dL Glucose 143 H (75-100) mg/dL Calcium 8.3 L (8.4-10.2) mg/dL
[2020-06-22] MEDS: SODIUM BICARBONATE 650 MG TAB PO SCH ×3 (10:02→21:55)
[2020-06-22] MEDS: POTASSIUM CHLORIDE ER 20 MEQ TAB PO SCH ×2 (10:02→13:11)
--- NOTE | 2020-06-22 11:05 | Progress Note ---
Assessment and Plan Cultures: Blood culture 06/18/2020 coag negative staph 2 out of 4 Urine culture mixed bacteria A/P: 64-year-old man past medical history hypertension, diastolic heart failure, mitral valve replacement on Coumadin, diabetes, A. fib #Coag negative staph bacteremia: 2 of 4 bottles and 2 sets, though both sets obtained at same time. Contaminant versus real. Patient is status post MVR. Source likely left arm cellulitis vs sacral decubitus. #Left arm cellulitis: CT shows no abscess. #UTI: Urine culture grows mixed bacteria. #Multiple decubiti: With the left ischial stage III pressure ulcer 8.5 x 7.5 x 0.1 cm per wound care, understandable sacral pressure injury 9.5 x 8 x 0.5 cm, not grossly infected ? cellulitis #Diabetes: tight glycemic control for best outcomes. #History of mitral valve replacement #ELIZABETH: Renally dose antibiotics, improving. Recs: -Follow-up transthoracic echo -pending -Repeat blood cultures today -Continue vancomycin with PK consult, -Continue cefepime renally adjusted total 5 days for UTI and sacral decubitus cellulitis -Anticipate to discharge on IV vancomycin for 2 weeks at least if blood cultures cleared and TTE neg -Offloading sacral decubitus, continue wound care will follow Tammy Reyna MD [facility] ([facility]) Office [phone] Subjective Date of service: 06/22/20 Principal diagnosis: Hypotension Interval history: Patient reported feeling okay complaining of left arm pain, no fever Objective - Exam Narrative Exam: General appearance: Alert in NAD pleasant Eyes: anicteric sclerae, moist conjunctivae; no lid-lag; PERRLA HENT: Normocephalic, Atraumatic; normal external ears, nares open, oropharynx clear Neck: supple, tracheal midline, no JVD Lungs: CTA, with normal respiratory effort and no intercostal retractions CV: RRR no murmur Abdomen: Soft, non-tender; no masses or hepatosplenomegaly Extremities: Marked edema and discoloration of the left arm; bilateral legs edema Skin: Multiple sacral decubiti no purulence Psych: no agitated Neuro: alert and oriented x 3. Moving all extermities - Constitutional Vitals: Vital Signs Temp Pulse Resp BP Pulse Ox 97.7 F 80 18 91/44 100 06/22/20 07:39 06/22/20 07:39 06/22/20 07:39 06/22/20 07:39 06/22/20 07:39 Temperature -Last 24 Hours Temperature 97.7 F Temperature 97.5 F Temperature 97.6 F Temperature 97.9 F Temperature 97.7 F - Labs CBC & Chem 7: 06/20/20 06:48 06/22/20 04:49 Labs: Abnormal lab results 06/21/20 06/21/20 06/22/20 Range/Units 15:58 21:00 04:49 PT 25.5 H (12.2-14.9) Sec. INR 2.30 H (0.87-1.13) Sodium (137-145) mmol/L Potassium (3.6-5.0) mmol/L Carbon Dioxide (22-30) mmol/L BUN (9-20) mg/dL Creatinine (0.8-1.3) mg/dL Glucose (75-100) mg/dL POC Glucose 236 H 237 H (70-105) mg/dL Calcium (8.4-10.2) mg/dL 06/22/20 06/22/20 Range/Units 04:49 08:12 PT (12.2-14.9) Sec. INR (0.87-1.13) Sodium 134 L (137-145) mmol/L Potassium 3.1 L (3.6-5.0) mmol/L Carbon Dioxide 18 L (22-30) mmol/L BUN 50 H (9-20) mg/dL Creatinine 2.1 H (0.8-1.3) mg/dL Glucose 143 H (75-100) mg/dL POC Glucose 137 H (70-105) mg/dL Calcium 8.3 L (8.4-10.2) mg/dL
[2020-06-22] MEDS ORDERED: CEFEPIME/NS 1 GM/100 ML 1 GM/100 ML BAG IV SCH (12:00)
[2020-06-22] MEDS: SODIUM CHLORIDE 0.9% 1000 ML 1,000 ML IV SCH (13:22)
[2020-06-22] MEDS: ACETAMINOPHEN 325 MG TAB PO PRN (16:42)
[2020-06-22] MEDS: WARFARIN 5 MG TAB PO SCH (16:42)
[2020-06-22] MEDS: INSULIN GLARGINE 100 UNITS/ML SUB-Q SCH (21:54)
[2020-06-23] MEDS: ACETAMINOPHEN 325 MG TAB PO PRN ×2 (00:43→21:37)
[2020-06-23 04:26] LABS: Hematocrit 20.1 % (35.5-45.6); Hemoglobin 6.7 gm/dl (11.8-15.2); Mean Corpuscular HGB Conc 33 % (32-34); Mean Corpuscular Volume 81 fl (84-94); Red Blood Count 2.48 M/mm3 (3.65-5.03)
[2020-06-23 04:32] LABS: Calcium 8.4 mg/dL (8.4-10.2); INR 3.01 (0.87-1.13)
[2020-06-23 04:35] LABS: Platelet Count 129 K/mm3 (140-440); Red Cell Distribution Width 21.4 % (13.2-15.2)
[2020-06-23 06:34] LABS: Total Cells Counted 100
[2020-06-23 06:35] LABS: Anisocytosis 1+; Schistocytes 1+; Spherocytes Few
[2020-06-23 06:36] LABS: Platelet Estimate Consistent w Auto; Stomatocytes Rare
[2020-06-23] MEDS ORDERED: SODIUM CHLORIDE 0.9% 500 ML 500 ML IV NR ×2 (07:55→14:00)
[2020-06-23] MEDS: INSULIN LISPRO 100 UNIT/ML VIAL 3 mL SUB-Q SCH ×4 (08:08→22:21)
--- NOTE | 2020-06-23 08:38 | Progress Note ---
Assessment and Plan 1. Acute kidney injury: Likely vasomotor nephropathy in the setting of hypotension and volume depletion. CT abdomen negative for hydro. Continue IV fluids. Monitor renal function. Creatinine level is 1.8 from 2.1 from 2.7 from 2.9 from 3.1 from 3.7. Avoid nephrotoxic agents. Meds dosage based on GFR. 2. FEN: Hyponatremia, ?2/2 volume depletion, continue IV fluids, monitor. Hypokalemia, replete K. Anion-gap metabolic acidosis, Sod bicarb, monitor. Monitor lytes and volume status. 3. Diabetic hyperosmolar state: Bl glucose is better. Insulin and IV fluids. 4. Sepsis, POA: 2/2 UTI and +/-infected sacral decubitus ulcer. Continue IV antibiotics. 5. Toxic metabolic encephalopathy, POA: 2/2 to sepsis/UTI/hyponatremia. Continue to treat underlying causes. 6. Atrial fibrillation: Continue medications for rate control and anticoagulation. 7. Diastolic heart failure/severe Cor pulmonale. 8. Sacral decubitus ulcer, POA. 9. Cirrhosis. 10. Mitral valve replacement/mechanical heart valve. 11. Anemia of chronic disease. Subjective: Patient was seen and examined at the bedside. Doing ok. Examination: General appearance: alert, well-developed, appears stated age, not in distress HEENT: Pupil reacting to light Neck: Trachea midline Respiratory: ctab Cardiology: S1S2, no murmur Abdomen: soft, normoactive bowel sounds, no tenderness, ND Integumentary: L leg dressing Neurologic: AO, LE weakness noted Ext: trace LE edema Subjective Date of service: 06/23/20 Principal diagnosis: Hypotension Objective - Vital Signs Vital signs: Vital Signs - 12hr 06/23/20 04:18 Temperature 97.5 F L Pulse Rate 82 Respiratory 16 Rate Blood Pressure 102/55 O2 Sat by Pulse 100 Oximetry - Lab 06/23/20 03:36 06/23/20 03:36 Most recent lab results Calcium 8.4 mg/dL (8.4-10.2) 06/23/20 03:36 Phosphorus 3.30 mg/dL (2.5-4.5) 06/21/20 05:14 Urine Creatinine 18.3 mg/dL (0.1-20.0) 06/19/20 Unknown Urine Sodium 66 mmol/L 06/19/20 Unknown Medications & Allergies - Medications Allergies/Adverse Reactions: Allergies propoxyphene napsylate [From Darvocet-N 100] Allergy (Intermediate, Verified 02/12/20 13:48) Rash Sulfa (Sulfonamide Antibiotics) Allergy (Intermediate, Verified 02/12/20 13:48) Rash Home Medications: Home Medications Medication Instructions Recorded Confirmed Last Taken Type Esomeprazole Magnesium [NexIUM] 40 mg PO DAILY 10/29/13 06/19/20 1 Day Ago History ~02/04/20 40 mg Gabapentin 1 cap PO TID 09/04/14 06/19/20 1 Day Ago History ~02/04/20 1 cap Aspirin EC [Halfprin EC] 81 mg PO QDAY #30 tablet. 05/12/18 06/19/20 1 Day Ago Rx ~02/04/20 81 mg Colchicine 0.6 mg PO DAILY #15 powder 05/12/18 06/19/20 1 Day Ago Rx ~02/04/20 0.6 mg Nitroglycerin [Nitrostat] 0.4 mg SL Q5M PRN #30 tablet 05/12/18 06/19/20 10/30/18 10:00 Rx Tamsulosin [Flomax] 0.4 mg PO QDAY #30 capsule 05/12/18 06/19/20 1 Day Ago Rx ~02/04/20 0.4 mg Amiodarone [Cordarone 200 MG TAB] 200 mg PO BID 11/24/19 06/19/20 1 Day Ago History ~02/04/20 200 mg Pravastatin [Pravachol] 20 mg PO QHS 11/24/19 06/19/20 1 Day Ago History ~02/04/20 20 mg Warfarin [Coumadin] 5 mg PO QDAY 11/24/19 06/19/20 1 Day Ago History ~02/04/20 5 mg ALBUTEROL NEB's [Proventil 0.083% 2.5 mg IH QIDRT PRN nebu 02/06/20 06/19/20 Unknown Rx NEBS] Albuterol Mdi (or & Nicu Only) 2 puff IH QID PRN #1 02/06/20 06/19/20 Unknown Rx [ProAir HFA Inhaler] Insulin Aspart (Nf) [NovoLOG 100 10 unit SQ QAC #5 pen 02/06/20 06/19/20 Unknown Rx UNITS/ML VIAL] Ipratropium (Nf) [Atrovent HFA 2 puff IH Q6HR PRN 30 Days #10 inha 02/06/20 06/19/20 Unknown Rx 17MCG/PUFF] oxyCODONE [roxiCODONE] 10 mg PO Q4H PRN tablet 02/06/20 06/19/20 Unknown Rx metOLazone [Zaroxolyn] 5 mg PO QDAY #30 tablet 02/14/20 06/19/20 Unknown Rx ALPRAZolam [Xanax TAB] 2 mg PO QDAY 06/19/20 06/19/20 Unknown History Bumetanide 2 mg PO QDAY 06/19/20 06/19/20 Unknown History Insulin Glargine,Hum.rec.anlog 16 units SQ QHS 06/19/20 06/19/20 Unknown History [Lantus Solostar] Spironolactone [Aldactone] 12.5 mg PO QDAY 06/19/20 06/19/20 Unknown History metOLazone [Zaroxolyn] 2.5 mg PO QDAY 06/19/20 06/19/20 Unknown History Active Medications: Generic Name Dose Route Start Last Admin Trade Name Freq PRN Reason Stop Dose Admin Acetaminophen 650 mg 06/18/20 22:32 06/23/20 00:43 Acetaminophen 325 Mg Tab PO 650 mg Q4H PRN Administration Pain MILD(1-3)/Fever >100.5/PRADHAN Dextrose 0 ml 06/18/20 23:00 Dextrose 50% In Water (25gm) 50 Ml Syringe IV Q30MIN PRN Hypoglycemia Protocol Sodium Chloride 1,000 mls @ 50 mls/hr 06/18/20 22:45 06/22/20 13:22 Nacl 0.9% 1000 Ml IV 50 mls/hr DIRECT MADELIN Administration Vancomycin HCl 1,250 mg/ 275 mls @ 166.667 mls/hr 06/23/20 22:00 Sodium Chloride IV Q24H MADELIN Sodium Chloride 500 mls @ 0 mls/hr 06/23/20 07:55 Nacl 0.9% 500 Ml IV 06/23/20 10:00 ONCE NR As Directed Insulin Glargine 5 units 06/19/20 22:00 06/22/20 21:54 Insulin Glargine 100 Units/Ml SUB-Q 5 units QHS MADELIN Administration Insulin Human Lispro 0 unit 06/19/20 07:30 06/22/20 21:55 Insulin Lispro 100 Unit/Ml Vial 3 Ml SUB-Q 6 unit ACHS MADELIN Administration Protocol Magnesium Hydroxide 30 ml 06/18/20 22:32 Magnesium Hydroxide (Mom) Oral Liqd Udc PO Q4H PRN Constipation Morphine Sulfate 2 mg 06/18/20 22:32 06/21/20 15:11 Morphine 2 Mg/1 Ml Inj IV 2 mg Q4H PRN Administration Pain, Moderate (4-6) Ondansetron HCl 4 mg 06/18/20 22:32 Ondansetron 4 Mg/2 Ml Inj IV Q8H PRN Nausea And Vomiting Sodium Bicarbonate 1,300 mg 06/19/20 20:00 06/22/20 21:55 Sodium Bicarbonate 650 Mg Tab PO 1,300 mg TID MADELIN Administration Sodium Chloride 10 ml 06/19/20 10:00 06/22/20 21:55 Sodium Chloride 0.9% 10 Ml Flush Syringe IV 10 ml BID MADELIN Administration Sodium Chloride 10 ml 06/18/20 22:32 06/21/20 15:13 Sodium Chloride 0.9% 10 Ml Flush Syringe IV 10 ml PRN PRN Administration LINE FLUSH
[2020-06-23] MEDS: SODIUM BICARBONATE 650 MG TAB PO SCH ×3 (09:00→21:37)
--- NOTE | 2020-06-23 09:53 | Progress Note ---
Assessment and Plan Cultures: Blood culture 06/18/2020 coag negative staph 2 out of 4 Urine culture mixed bacteria A/P: 64-year-old man past medical history hypertension, diastolic heart failure, mitral valve replacement on Coumadin, diabetes, A. fib #Coag negative staph bacteremia: 2 of 4 bottles and 2 sets, though both sets obtained at same time. Contaminant versus real. Patient is status post MVR. Source likely left arm cellulitis vs sacral decubitus. #Left arm cellulitis: CT shows no abscess. #UTI: Urine culture grows mixed bacteria. #Multiple decubiti: With the left ischial stage III pressure ulcer 8.5 x 7.5 x 0.1 cm per wound care, understandable sacral pressure injury 9.5 x 8 x 0.5 cm, not grossly infected ? cellulitis #Diabetes: tight glycemic control for best outcomes. #History of mitral valve replacement #ELIZABETH: Renally dose antibiotics, improving. Recs: -Follow-up transthoracic echo -pending/reorder stat -Follow-up repeat blood cultures today -Continue vancomycin with PK consult -Asked micro lab to release coagulase-negative staph ID and SAM -Completed 5 days of cefepime for UTI -Anticipate to discharge on IV vancomycin for 2 weeks at least if blood cultures cleared and TTE neg -Offloading sacral decubitus, continue wound care -Hold off on placing PICC line until coagulase-negative staph is identified will follow Tammy Reyna MD [facility] ([facility]) Office [phone] Subjective Date of service: 06/23/20 Principal diagnosis: Hypotension Interval history: Patient feels good, no complaints. No new fever. Objective - Exam Narrative Exam: General appearance: Alert in NAD pleasant Eyes: anicteric sclerae, moist conjunctivae; no lid-lag; PERRLA HENT: Normocephalic, Atraumatic; normal external ears, nares open, oropharynx clear Neck: supple, tracheal midline, no JVD Lungs: CTA, with normal respiratory effort and no intercostal retractions CV: RRR no murmur Abdomen: Soft, non-tender; no masses or hepatosplenomegaly Extremities: Marked edema and discoloration of the left arm; bilateral legs edema Skin: Multiple sacral decubiti no purulence Psych: no agitated Neuro: alert and oriented x 3. Moving all extermities - Constitutional Vitals: Vital Signs Temp Pulse Resp BP Pulse Ox 98.0 F 86 18 106/50 99 06/23/20 08:20 06/23/20 08:20 06/23/20 08:20 06/23/20 08:20 06/23/20 08:20 Temperature -Last 24 Hours Temperature 98.0 F Temperature 97.5 F Temperature 98.4 F Temperature 98.7 F Temperature 97.8 F - Labs CBC & Chem 7: 06/23/20 03:36 06/23/20 03:36 Labs: Abnormal lab results 06/22/20 06/22/20 06/22/20 Range/Units 11:41 16:36 21:00 RBC (3.65-5.03) M/mm3 Hgb (11.8-15.2) gm/dl Hct (35.5-45.6) % MCV (84-94) fl MCH (28-32) pg RDW (13.2-15.2) % Plt Count (140-440) K/mm3 Seg Neuts % (Manual) (40.0-70.0) % Lymphocytes % (Manual) (13.4-35.0) % Monocytes % (Manual) (0.0-7.3) % Nucleated RBC % (0.0-0.9) % Seg Neutrophils # Man (1.8-7.7) K/mm3 Lymphocytes # (Manual) (1.2-5.4) K/mm3 PT (12.2-14.9) Sec. INR (0.87-1.13) Sodium (137-145) mmol/L Potassium (3.6-5.0) mmol/L Carbon Dioxide (22-30) mmol/L BUN (9-20) mg/dL Creatinine (0.8-1.3) mg/dL Glucose (75-100) mg/dL POC Glucose 176 H 171 H 278 H (70-105) mg/dL 06/23/20 06/23/20 06/23/20 Range/Units 03:36 03:36 03:36 RBC 2.48 L (3.65-5.03) M/mm3 Hgb 6.7 L (11.8-15.2) gm/dl Hct 20.1 L (35.5-45.6) % MCV 81 L (84-94) fl MCH 27 L (28-32) pg RDW 21.4 H (13.2-15.2) % Plt Count 129 L (140-440) K/mm3 Seg Neuts % (Manual) 83.0 H (40.0-70.0) % Lymphocytes % (Manual) 8.0 L (13.4-35.0) % Monocytes % (Manual) 8.0 H (0.0-7.3) % Nucleated RBC % 5.0 H (0.0-0.9) % Seg Neutrophils # Man 8.1 H (1.8-7.7) K/mm3 Lymphocytes # (Manual) 0.8 L (1.2-5.4) K/mm3 PT 31.6 H (12.2-14.9) Sec. INR 3.01 H (0.87-1.13) Sodium 131 L (137-145) mmol/L Potassium 3.5 L (3.6-5.0) mmol/L Carbon Dioxide 18 L (22-30) mmol/L BUN 52 H (9-20) mg/dL Creatinine 1.8 H (0.8-1.3) mg/dL Glucose 195 H (75-100) mg/dL POC Glucose (70-105) mg/dL 06/23/20 Range/Units 07:22 RBC (3.65-5.03) M/mm3 Hgb (11.8-15.2) gm/dl Hct (35.5-45.6) % MCV (84-94) fl MCH (28-32) pg RDW (13.2-15.2) % Plt Count (140-440) K/mm3 Seg Neuts % (Manual) (40.0-70.0) % Lymphocytes % (Manual) (13.4-35.0) % Monocytes % (Manual) (0.0-7.3) % Nucleated RBC % (0.0-0.9) % Seg Neutrophils # Man (1.8-7.7) K/mm3 Lymphocytes # (Manual) (1.2-5.4) K/mm3 PT (12.2-14.9) Sec. INR (0.87-1.13) Sodium (137-145) mmol/L Potassium (3.6-5.0) mmol/L Carbon Dioxide (22-30) mmol/L BUN (9-20) mg/dL Creatinine (0.8-1.3) mg/dL Glucose (75-100) mg/dL POC Glucose 141 H (70-105) mg/dL
[2020-06-23] MEDS: POTASSIUM CHLORIDE ER 20 MEQ TAB PO SCH ×2 (10:11→13:53)
--- NOTE | 2020-06-23 10:18 | Progress Note ---
Assessment and Plan Mechanical mitral valve replacement for mitral regurgitation normal function by echo 11/2019 he is on Coumadin with therapeutic range of INR recommended at 2.5-3.5. 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 Findings consistent with cor-pulmonale. Normal left ventricular systolic function, EF 55-60%. Hx of heart block s/p indwelling pacemaker Subjective Date of service: 06/23/20 Principal diagnosis: Hypotension Interval history: Patient is resting in bed, has no cardiac complaints. HCT is trending downwards, today 20.1. INR at 3.0 Objective Vital Signs Temp Pulse Resp BP BP Pulse Ox 06/23/20 08:20 98.0 F 86 18 106/50 99 06/23/20 04:18 97.5 F L 82 16 102/55 100 06/22/20 20:14 98.4 F 83 18 92/42 100 06/22/20 16:59 98.7 F 86 18 100/43 91 06/22/20 12:00 97.8 F 82 18 94/50 98 - Physical Examination General: No Apparent Distress HEENT: Positive: PERRL Neck: Positive: trachea midline Cardiac: Positive: Other (paced) Lungs: Positive: Decreased Breath Sounds - Labs and Meds Coagulation 06/23/20 Range/Units 03:36 PT 31.6 H (12.2-14.9) Sec. INR 3.01 H (0.87-1.13) CBC 06/23/20 Range/Units 03:36 WBC 9.7 (4.5-11.0) K/mm3 RBC 2.48 L (3.65-5.03) M/mm3 Hgb 6.7 L (11.8-15.2) gm/dl Hct 20.1 L (35.5-45.6) % Plt Count 129 L (140-440) K/mm3 Comprehensive Metabolic Panel 06/23/20 Range/Units 03:36 Sodium 131 L (137-145) mmol/L Potassium 3.5 L (3.6-5.0) mmol/L Chloride 99.7 (98-107) mmol/L Carbon Dioxide 18 L (22-30) mmol/L BUN 52 H (9-20) mg/dL Creatinine 1.8 H (0.8-1.3) mg/dL Glucose 195 H (75-100) mg/dL Calcium 8.4 (8.4-10.2) mg/dL
[2020-06-23] MEDS ORDERED: POLYETHYLENE GLYCOL 3350 17 GM POWDER PO ONE (13:00)
--- NOTE | 2020-06-23 14:15 | Progress Note ---
Assessment and Plan Assessment and plan: Sepsis. Etiology secondary to UTI and +/-infected sacral decubitus ulcer. Continue IV antibiotics and consult ID for further evaluation. UTI. Follow-up urine and blood cultures. Continue IV antibiotics. Toxic metabolic encephalopathy. Etiology secondary to sepsis/UTI/hyponatremia. Continue to treat underlying causes. Atrial fibrillation. Continue medications for rate control and anticoagulation. Acute kidney injury. Patient's baseline creatinine is 1.0 in February 2020. Diastolic heart failure/severe cor pulmonale. Continue diuretics. Cardiology consultation Diabetes mellitus type 2, uncontrolled. Continue Accu-Cheks and sliding scale insulin. Sacral decubitus ulcer. Continue per wound team. Liver cirrhosis. Continue supportive care. Hyponatremia. Etiology likely secondary to volume depletion. Mitral valve replacement/mechanical heart valve. Continue anticoagulation with target INR 2.5-3.5. Coagulopathy. As above. Anemia of chronic disease. Follow-up H&H and transfuse for hemoglobin less than 7. Venous stasis dermatitis bilateral lower extremities/leg ulcers. Pulmonary hypertension. Supportive care. GERD. PPI. 06/20/2020. Continue to monitor BMP closely and volume status as related to hyponatremia. Etiology of acute kidney injury likely secondary to vasomotor nephropathy from hypotension/dehydration +/-ATN from sepsis. CT scan of the abdomen negative for hydronephrosis. Continue IV fluid hydration per nephrology recommendations. Continue warfarin therapy per cardiology recommendations. Follow-up urine and blood cultures. Continue cefepime and vancomycin. 06/21/2020. Creatinine slowly improving with IV fluid hydration. Nephrology f olnanetteing. Replete potassium. Blood culture reveals coag negative staph which is likely a contaminant. Patient with no leukocytosis and remains afebrile. Urine culture unremarkable. Continue antibiotics for now. Continue warfarin therapy per cardiology. 06/22/2020. Patient with blood cultures revealing coag negative staph which may be a contaminant. However, given patient's history of a mechanical mitral valve, we will obtain echocardiogram to rule out vegetations. Continue vancomycin per ID recommendations. Etiology of acute kidney injury likely secondary to vasomotor nephropathy in the setting of hypotension/volume depletion. CT scan of the abdomen was negative for hydronephrosis. Continue IV fluids per nephrology recommendations. Creatinine has improved to 2.1. 06/23/2020. Hb drop noted. Transfuse to hb 7. Awaiting TTE to rule out IE. ID on board History Interval history: No overnight events noted Hospitalist Physical - Physical exam Narrative exam: VITAL SIGNS: Reviewed. GENERAL: Awake HEAD: No signs of head trauma. EYES: Pupils are equal. Extraocular motions intact. MOUTH: Oropharynx is normal. NECK: No adenopathy, no JVD. CHEST: Chest with diminished breath sounds bilaterally. No wheezes, rales, or rhonchi. CARDIAC: normal S1 and S2, without murmurs, gallops, or rubs. ABDOMEN: Soft, non tender and non distended. No rebound or guarding, and no masses palpated. Bowel Sounds normal. MUSCULOSKELETAL: No edema NEUROLOGIC EXAM: Alert and oriented x3. No focal neurologic deficits SKIN: No obvious lesions - Constitutional Vitals: Temp Pulse Resp BP Pulse Ox 98.0 F 86 18 106/50 99 06/23/20 08:20 06/23/20 08:20 06/23/20 08:20 06/23/20 08:20 06/23/20 10:00 Results - Labs CBC & Chem 7: 06/23/20 03:36 06/23/20 03:36 Labs: Laboratory Last Values WBC 9.7 K/mm3 (4.5-11.0) 06/23/20 03:36 RBC 2.48 M/mm3 (3.65-5.03) L 06/23/20 03:36 Hgb 6.7 gm/dl (11.8-15.2) L 06/23/20 03:36 Hct 20.1 % (35.5-45.6) L 06/23/20 03:36 MCV 81 fl (84-94) L 06/23/20 03:36 MCH 27 pg (28-32) L 06/23/20 03:36 MCHC 33 % (32-34) 06/23/20 03:36 RDW 21.4 % (13.2-15.2) H 06/23/20 03:36 Plt Count 129 K/mm3 (140-440) L 06/23/20 03:36 Lymph % (Auto) 7.3 % (13.4-35.0) L 06/20/20 06:48 [place] % (Auto) 10.2 % (0.0-7.3) H 06/20/20 06:48 Eos % (Auto) 1.3 % (0.0-4.3) 06/20/20 06:48 Baso % (Auto) 0.5 % (0.0-1.8) 06/20/20 06:48 Lymph # (Auto) 0.6 K/mm3 (1.2-5.4) L 06/20/20 06:48 [place] # (Auto) 0.8 K/mm3 (0.0-0.8) 06/20/20 06:48 Eos # (Auto) 0.1 K/mm3 (0.0-0.4) 06/20/20 06:48 Baso # (Auto) 0.0 K/mm3 (0.0-0.1) 06/20/20 06:48 Add Manual Diff Complete 06/23/20 03:36 Total Counted 100 06/23/20 03:36 Seg Neutrophils % 80.7 % (40.0-70.0) H 06/20/20 06:48 Seg Neuts % (Manual) 83.0 % (40.0-70.0) H 06/23/20 03:36 Lymphocytes % (Manual) 8.0 % (13.4-35.0) L 06/23/20 03:36 Monocytes % (Manual) 8.0 % (0.0-7.3) H 06/23/20 03:36 Eosinophils % (Manual) 1.0 % (0.0-4.3) 06/23/20 03:36 Nucleated RBC % 5.0 % (0.0-0.9) H 06/23/20 03:36 Seg Neutrophils # 6.4 K/mm3 (1.8-7.7) 06/20/20 06:48 Seg Neutrophils # Man 8.1 K/mm3 (1.8-7.7) H 06/23/20 03:36 Band Neutrophils # 0.0 K/mm3 06/23/20 03:36 Lymphocytes # (Manual) 0.8 K/mm3 (1.2-5.4) L 06/23/20 03:36 Abs React Lymphs (Man) 0.0 K/mm3 06/23/20 03:36 Monocytes # (Manual) 0.8 K/mm3 (0.0-0.8) 06/23/20 03:36 Eosinophils # (Manual) 0.1 K/mm3 (0.0-0.4) 06/23/20 03:36 Basophils # (Manual) 0.0 K/mm3 (0.0-0.1) 06/23/20 03:36 Metamyelocytes # 0.0 K/mm3 06/23/20 03:36 Myelocytes # 0.0 K/mm3 06/23/20 03:36 Promyelocytes # 0.0 K/mm3 06/23/20 03:36 Blast Cells # 0.0 K/mm3 06/23/20 03:36 WBC Morphology Not Reportable 06/23/20 03:36 Hypersegmented Neuts Not Reportable 06/23/20 03:36 Hyposegmented Neuts Not Reportable 06/23/20 03:36 Hypogranular Neuts Not Reportable 06/23/20 03:36 Smudge Cells Not Reportable 06/23/20 03:36 Toxic Granulation Not Reportable 06/23/20 03:36 Toxic Vacuolation Not Reportable 06/23/20 03:36 Dohle Bodies Not Reportable 06/23/20 03:36 Pelger-Huet Anomaly Not Reportable 06/23/20 03:36 Merry Rods Not Reportable 06/23/20 03:36 Platelet Estimate Consistent w auto 06/23/20 03:36 Clumped Platelets Not Reportable 06/23/20 03:36 Plt Clumps, EDTA Not Reportable 06/23/20 03:36 Large Platelets Not Reportable 06/23/20 03:36 Giant Platelets Not Reportable 06/23/20 03:36 Platelet Satelliting Not Reportable 06/23/20 03:36 Plt Morphology Comment Not Reportable 06/23/20 03:36 RBC Morphology Not Reportable 06/23/20 03:36 Dimorphic RBCs Not Reportable 06/23/20 03:36 Polychromasia Few 06/23/20 03:36 Hypochromasia Not Reportable 06/23/20 03:36 Poikilocytosis Not Reportable 06/23/20 03:36 Anisocytosis 1+ 06/23/20 03:36 Microcytosis Not Reportable 06/23/20 03:36 Macrocytosis Not Reportable 06/23/20 03:36 Spherocytes Few 06/23/20 03:36 Pappenheimer Bodies Not Reportable 06/23/20 03:36 Sickle Cells Not Reportable 06/23/20 03:36 Target Cells Not Reportable 06/23/20 03:36 Tear Drop Cells Not Reportable 06/23/20 03:36 Ovalocytes Not Reportable 06/23/20 03:36 Stomatocytes Rare 06/23/20 03:36 Helmet Cells Not Reportable 06/23/20 03:36 [place] Bodies Not Reportable 06/23/20 03:36 [place] Rings Not Reportable 06/23/20 03:36 [place] Cells Not Reportable 06/23/20 03:36 Bite Cells Not Reportable 06/23/20 03:36 Crenated Cell Not Reportable 06/23/20 03:36 Elliptocytes Not Reportable 06/23/20 03:36 Acanthocytes (Spur) Not Reportable 06/23/20 03:36 Rouleaux Not Reportable 06/23/20 03:36 Hemoglobin C Crystals Not Reportable 06/23/20 03:36 Schistocytes 1+ 06/23/20 03:36 Malaria parasites Not Reportable 06/23/20 03:36 Jaison Bodies Not Reportable 06/23/20 03:36 Hem Pathologist Commnt No 06/23/20 03:36 PT 31.6 Sec. (12.2-14.9) H 06/23/20 03:36 INR 3.01 (0.87-1.13) H 06/23/20 03:36 APTT 48.7 Sec. (24.2-36.6) H 06/18/20 14:19 VBG pH 7.310 (7.320-7.420) L 06/18/20 14:19 Sodium 131 mmol/L (137-145) L 06/23/20 03:36 Potassium 3.5 mmol/L (3.6-5.0) L 06/23/20 03:36 Chloride 99.7 mmol/L (98-107) 06/23/20 03:36 Carbon Dioxide 18 mmol/L (22-30) L 06/23/20 03:36 Anion Gap 17 mmol/L 06/23/20 03:36 BUN 52 mg/dL (9-20) H 06/23/20 03:36 Creatinine 1.8 mg/dL (0.8-1.3) H 06/23/20 03:36 Estimated GFR 46 ml/min 06/23/20 03:36 BUN/Creatinine Ratio 29 % 06/23/20 03:36 Glucose 195 mg/dL (75-100) H 06/23/20 03:36 POC Glucose 188 mg/dL (70-105) H 06/23/20 11:15 Hemoglobin A1c 7.0 % (4-6) H 06/19/20 14:48 Lactic Acid 2.20 mmol/L (0.7-2.0) H* 06/18/20 19:57 Calcium 8.4 mg/dL (8.4-10.2) 06/23/20 03:36 Phosphorus 3.30 mg/dL (2.5-4.5) 06/21/20 05:14 Total Bilirubin 2.50 mg/dL (0.1-1.2) H 06/18/20 14:19 Direct Bilirubin 1.3 mg/dL (0-0.2) H 06/18/20 14:19 Indirect Bilirubin 1.2 mg/dL 06/18/20 14:19 AST 17 units/L (5-40) 06/18/20 14:19 ALT 19 units/L (7-56) 06/18/20 14:19 Alkaline Phosphatase 154 units/L (35-129) H 06/18/20 14:19 Ammonia 69.0 umol/L (25-60) H 06/18/20 17:09 Total Protein 6.7 g/dL (6.3-8.2) 06/18/20 14:19 Albumin 3.2 g/dL (3.9-5) L 06/18/20 14:19 Albumin/Globulin Ratio 0.9 % 06/18/20 14:19 TSH 2.480 mlU/mL (0.270-4.200) 06/18/20 14:19 Free T4 1.66 ng/dL (0.76-1.46) H 06/18/20 14:19 Urine Color Yellow (Yellow) 06/18/20 Unknown Urine Turbidity Turbid (Clear) 06/18/20 Unknown Urine pH 5.0 (5.0-7.0) 06/18/20 Unknown Ur Specific [place] 1.011 (1.003-1.030) 06/18/20 Unknown Urine Protein >500 mg/dL (Negative) 06/18/20 Unknown Urine Glucose (UA) 150 mg/dL (Negative) 06/18/20 Unknown Urine Ketones Negative mg/dL (Negative) 06/18/20 Unknown Urine Blood Moderate (Negative) A 06/18/20 Unknown Urine Nitrite Negative (Negative) 06/18/20 Unknown Urine Bilirubin Negative (Negative) 06/18/20 Unknown Urine Urobilinogen < 2.0 mg/dL (<2.0) 06/18/20 Unknown Ur Leukocyte Esterase Moderate (Negative) 06/18/20 Unknown Urine WBC (Auto) > 182.0 /HPF (0.0-6.0) H 06/18/20 Unknown Urine RBC (Auto) > 182.0 /HPF (0.0-6.0) 06/18/20 Unknown Urine Bacteria (Auto) 4+ /HPF (Negative) 06/18/20 Unknown Urine WBC Clumps 3+ /HPF 06/18/20 Unknown Urine Eosinophils <5% (None Seen) 06/19/20 Unknown Urine Creatinine 18.3 mg/dL (0.1-20.0) 06/19/20 Unknown Urine Sodium 66 mmol/L 06/19/20 Unknown Random Vancomycin 14.5 ug/mL (0-40.0) 06/23/20 03:36 Salicylates < 0.3 mg/dL (2.8-20.0) L 06/18/20 14:19 Urine Opiates Screen Negative 06/18/20 Unknown Urine Methadone Screen Negative 06/18/20 Unknown Acetaminophen 5.0 ug/mL (10.0-30.0) L 06/18/20 14:19 Ur Barbiturates Screen Negative 06/18/20 Unknown Ur Phencyclidine Scrn Negative 06/18/20 Unknown Ur Amphetamines Screen Negative 06/18/20 Unknown U Benzodiazepines Scrn Negative 06/18/20 Unknown Urine Cocaine Screen Negative 06/18/20 Unknown U Marijuana (THC) Screen Negative 06/18/20 Unknown Drugs of Abuse Note Disclamer 06/18/20 Unknown Plasma/Serum Alcohol < 0.01 % (0-0.07) 06/18/20 14:19 Blood Type O POSITIVE 06/23/20 09:25 Antibody Screen Negative 06/23/20 09:25 Crossmatch See Detail 06/23/20 09:25 Microbiology: Microbiology 06/23/20 03:36 Peripheral/Venous Blood Culture - Preliminary Culture in Progress 06/23/20 01:26 Peripheral/Venous Blood Culture - Preliminary Culture in Progress [place]/IV: Voiding Method Condom Catheter IV Catheter Type [Right INT / Saline Lock Forearm] IV Catheter Type [Left Peripheral IV Antecubital] Active Medications - Current Medications Current Medications: Generic Name Dose Route Start Last Admin Trade Name Freq PRN Reason Stop Dose Admin Acetaminophen 650 mg 06/18/20 22:32 06/23/20 00:43 Acetaminophen 325 Mg Tab PO 650 mg Q4H PRN Administration Pain MILD(1-3)/Fever >100.5/PRADHAN Dextrose 0 ml 06/18/20 23:00 Dextrose 50% In Water (25gm) 50 Ml Syringe IV Q30MIN PRN Hypoglycemia Protocol Sodium Chloride 1,000 mls @ 50 mls/hr 06/18/20 22:45 06/22/20 13:22 Nacl 0.9% 1000 Ml IV 50 mls/hr DIRECT MADELIN Administration Vancomycin HCl 1,250 mg/ 275 mls @ 166.667 mls/hr 06/23/20 22:00 Sodium Chloride IV Q24H MADELIN Insulin Glargine 5 units 06/19/20 22:00 06/22/20 21:54 Insulin Glargine 100 Units/Ml SUB-Q 5 units QHS MADELIN Administration Insulin Human Lispro 0 unit 06/19/20 07:30 06/23/20 11:43 Insulin Lispro 100 Unit/Ml Vial 3 Ml SUB-Q 3 unit ACHS MADELIN Administration Protocol Magnesium Hydroxide 30 ml 06/18/20 22:32 Magnesium Hydroxide (Mom) Oral Liqd Udc PO Q4H PRN Constipation Morphine Sulfate 2 mg 06/18/20 22:32 06/21/20 15:11 Morphine 2 Mg/1 Ml Inj IV 2 mg Q4H PRN Administration Pain, Moderate (4-6) Ondansetron HCl 4 mg 06/18/20 22:32 Ondansetron 4 Mg/2 Ml Inj IV Q8H PRN Nausea And Vomiting Sodium Bicarbonate 1,300 mg 06/19/20 20:00 06/23/20 13:52 Sodium Bicarbonate 650 Mg Tab PO 1,300 mg TID MADELIN Administration Sodium Chloride 10 ml 06/19/20 10:00 06/23/20 10:11 Sodium Chloride 0.9% 10 Ml Flush Syringe IV 10 ml BID MADELIN Administration Sodium Chloride 10 ml 06/18/20 22:32 06/21/20 15:13 Sodium Chloride 0.9% 10 Ml Flush Syringe IV 10 ml PRN PRN Administration LINE FLUSH Nutrition/Malnutrition Assess - Dietary Evaluation Nutrition/Malnutrition Findings: Nutrition Notes Start: 06/19/20 11:17 Freq: Status: Active Protocol: Document 06/22/20 12:35 LM (Rec: 06/22/20 12:41 LM [email or web address]) Nutrition Notes Initial or Follow up Reassessment Current Diagnosis Acute Kidney Injury,COPD, Decubitus(Pressure Ulcer), Diabetes,Sepsis,Hypertension, Heart Failure Other Pertinent Diagnosis AMS, Cirrohsis, UTI, Cellulitis, Wound Infection Current Diet Cardiac/Consistent CHO Labs/Tests Na 134 K 3.1 BUN 50 Cr 2.1 Pertinent Medications RCoumadin Height 5 ft 9 in Weight 97.4 kg [place] Body Weight (kg) 72.72 BMI 31.7 Weight Status Overweight Subjective/Other Information Screen for DNI and F/U. Pt stated he ate 100% of breakfast this AM and is drinking Way[place]. pt stated he has been on Coumadin for years and did not need any education. Percent of energy/protein needs met: 100%/82% Burn Absent Trauma Absent GI Symptoms None Current % PO Good (75-100%) Minimum of two criteria Yes Fluid Accumulation Mild (non-severe) Reduced Psychologist Research Assistant Strength Measurably Reduced (severe) #3 Nutrition Diagnosis Increased nutrient needs ( specify in comment below) Diagnosis Progress(for reassessment Continues documentation) #2 Nutrition Diagnosis Malnutrition Diagnosis Progress(for reassessment Continues documentation) #1 Nutrition Diagnosis Inadequate oral intake As Evidenced by Signs and Symptoms 100% breakfast intakes Diagnosis Progress(for reassessment Improved documentation) Is patient on ventilator? No Is Patient Ambulatory and/or Out of Bed No REE-([facility]-confined to bed) 2.032 Calculation Used for Recommendations [facility] Additional Notes PRO needs: 111-134g (1.25-1.5 g/kg) Fluid needs: 1500-1900mL or per MD Nutrition Intervention Change Diet Order: Continue Add Supplement/Snack (indicate name/kcal Waylon BID /protein ) Provides kCal: 190 Provides Protein (gm) 5 Goal #1 Meet at least 75% of estimated energy and protein needs Goal #2 Wound healing Follow-Up By: 06/29/20 Additional Comments F/U for stable intakes
[2020-06-23] MEDS ORDERED: WARFARIN NO DOSE TODAY PO ONE (17:00)
[2020-06-23 20:22] LABS: Hemoglobin 7.7 gm/dl (11.8-15.2)
[2020-06-23] MEDS ORDERED: VANCOMYCIN 1,250 MG in SODIUM CHLORIDE 0.9% 250ML 250 ML IV SCH (22:00)
[2020-06-23] MEDS: INSULIN GLARGINE 100 UNITS/ML SUB-Q SCH (22:21)
[2020-06-24 05:51] LABS: Calcium 8.4 mg/dL (8.4-10.2)
[2020-06-24 05:53] LABS: INR 2.97 (0.87-1.13)
[2020-06-24 07:04] VITALS: BP 91/46
[2020-06-24] MEDS: INSULIN LISPRO 100 UNIT/ML VIAL 3 mL SUB-Q SCH ×2 (09:00→13:00)
[2020-06-24] MEDS: SODIUM BICARBONATE 650 MG TAB PO SCH ×2 (09:25→16:50)
[2020-06-24] MEDS: SODIUM CHLORIDE 0.9% 1000 ML 1,000 ML IV SCH (09:25)
--- NOTE | 2020-06-24 09:39 | Progress Note ---
Assessment and Plan 1. Acute kidney injury: Likely vasomotor nephropathy in the setting of hypotension and volume depletion. CT abdomen negative for hydro. Continue IV fluids. Monitor renal function. Creatinine level is 1.7 from 1.8 from 2.1 from 2.7 from 2.9 from 3.1 from 3.7. Avoid nephrotoxic agents. Meds dosage based on GFR. 2. FEN: Hyponatremia, ?2/2 volume depletion, continue IV fluids, monitor. Hypokalemia, replete K as needed. Anion-gap metabolic acidosis, Sod bicarb, monitor. Monitor lytes and volume status. 3. Diabetic hyperosmolar state: Bl glucose is better. 4. Sepsis, POA: 2/2 UTI and +/-infected sacral decubitus ulcer. Continue IV antibiotics. 5. Toxic metabolic encephalopathy, POA: 2/2 to sepsis/UTI/hyponatremia. Continue to treat underlying causes. 6. Atrial fibrillation: Continue medications for rate control and anticoagulation. 7. Diastolic heart failure/severe Cor pulmonale. 8. Sacral decubitus ulcer, POA. 9. Cirrhosis. 10. Mitral valve replacement/mechanical heart valve. 11. Anemia of chronic disease. Subjective: Patient was seen and examined at the bedside. Doing ok. Examination: General appearance: alert, well-developed, appears stated age, not in distress HEENT: Pupil reacting to light Neck: Trachea midline Respiratory: ctab Cardiology: S1S2, no murmur Abdomen: soft, normoactive bowel sounds, no tenderness, ND Integumentary: L leg dressing Neurologic: AO, LE weakness noted Ext: trace LE edema Subjective Date of service: 06/24/20 Principal diagnosis: Hypotension Objective - Vital Signs Vital signs: Vital Signs - 12hr 06/23/20 06/24/20 06/24/20 22:00 00:11 07:03 Temperature 98.1 F 98.2 F Pulse Rate 86 86 Respiratory 20 20 Rate Blood Pressure 112/69 91/46 O2 Sat by Pulse 99 99 98 Oximetry - Lab 06/23/20 19:30 06/24/20 04:47 Most recent lab results Calcium 8.4 mg/dL (8.4-10.2) 06/24/20 04:47 Phosphorus 3.30 mg/dL (2.5-4.5) 06/21/20 05:14 Urine Creatinine 18.3 mg/dL (0.1-20.0) 06/19/20 Unknown Urine Sodium 66 mmol/L 06/19/20 Unknown Medications & Allergies - Medications Allergies/Adverse Reactions: Allergies propoxyphene napsylate [From Darvocet-N 100] Allergy (Intermediate, Verified 02/12/20 13:48) Rash Sulfa (Sulfonamide Antibiotics) Allergy (Intermediate, Verified 02/12/20 13:48) Rash Home Medications: Home Medications Medication Instructions Recorded Confirmed Last Taken Type Esomeprazole Magnesium [NexIUM] 40 mg PO DAILY 10/29/13 06/19/20 1 Day Ago History ~02/04/20 40 mg Gabapentin 1 cap PO TID 09/04/14 06/19/20 1 Day Ago History ~02/04/20 1 cap Aspirin EC [Halfprin EC] 81 mg PO QDAY #30 tablet. 05/12/18 06/19/20 1 Day Ago Rx ~02/04/20 81 mg Tamsulosin [Flomax] 0.4 mg PO QDAY #30 capsule 05/12/18 06/19/20 1 Day Ago Rx ~02/04/20 0.4 mg Amiodarone [Cordarone 200 MG TAB] 200 mg PO BID 11/24/19 06/19/20 1 Day Ago History ~02/04/20 200 mg Pravastatin [Pravachol] 20 mg PO QHS 11/24/19 06/19/20 1 Day Ago History ~02/04/20 20 mg Warfarin [Coumadin] 5 mg PO QDAY 11/24/19 06/19/20 1 Day Ago History ~02/04/20 5 mg ALBUTEROL NEB's [Proventil 0.083% 2.5 mg IH QIDRT PRN nebu 02/06/20 06/19/20 Unknown Rx NEBS] Albuterol Mdi (or & Nicu Only) 2 puff IH QID PRN #1 02/06/20 06/19/20 Unknown Rx [ProAir HFA Inhaler] Insulin Aspart (Nf) [NovoLOG 100 10 unit SQ QAC #5 pen 02/06/20 06/19/20 Unknown Rx UNITS/ML VIAL] Ipratropium (Nf) [Atrovent HFA 2 puff IH Q6HR PRN 30 Days #10 inha 02/06/20 06/19/20 Unknown Rx 17MCG/PUFF] oxyCODONE [roxiCODONE] 10 mg PO Q4H PRN tablet 02/06/20 06/19/20 Unknown Rx metOLazone [Zaroxolyn] 5 mg PO QDAY #30 tablet 02/14/20 06/19/20 Unknown Rx ALPRAZolam [Xanax TAB] 2 mg PO QDAY 06/19/20 06/19/20 Unknown History Insulin Glargine,Hum.rec.anlog 16 units SQ QHS 06/19/20 06/19/20 Unknown History [Lantus Solostar] Spironolactone [Aldactone] 12.5 mg PO QDAY 06/19/20 06/19/20 Unknown History metOLazone [Zaroxolyn] 2.5 mg PO QDAY 06/19/20 06/19/20 Unknown History Sodium Bicarbonate 1,300 mg PO TID #90 tablet 06/24/20 Unknown Rx Active Medications: Generic Name Dose Route Start Last Admin Trade Name Freq PRN Reason Stop Dose Admin Acetaminophen 650 mg 06/18/20 22:32 06/23/20 21:37 Acetaminophen 325 Mg Tab PO 650 mg Q4H PRN Administration Pain MILD(1-3)/Fever >100.5/PRADHAN Dextrose 0 ml 06/18/20 23:00 Dextrose 50% In Water (25gm) 50 Ml Syringe IV Q30MIN PRN Hypoglycemia Protocol Sodium Chloride 1,000 mls @ 50 mls/hr 06/18/20 22:45 06/24/20 09:25 Nacl 0.9% 1000 Ml IV 50 mls/hr DIRECT MADELIN Administration Vancomycin HCl 1,250 mg/ 275 mls @ 166.667 mls/hr 06/23/20 22:00 06/23/20 21:38 Sodium Chloride IV 166.667 mls/hr Q24H MADELIN Administration Insulin Glargine 5 units 06/19/20 22:00 06/23/20 22:21 Insulin Glargine 100 Units/Ml SUB-Q 5 units QHS MADELIN Administration Insulin Human Lispro 0 unit 06/19/20 07:30 06/23/20 22:21 Insulin Lispro 100 Unit/Ml Vial 3 Ml SUB-Q 4 unit ACHS MADELIN Administration Protocol Magnesium Hydroxide 30 ml 06/18/20 22:32 Magnesium Hydroxide (Mom) Oral Liqd Udc PO Q4H PRN Constipation Morphine Sulfate 2 mg 06/18/20 22:32 06/21/20 15:11 Morphine 2 Mg/1 Ml Inj IV 2 mg Q4H PRN Administration Pain, Moderate (4-6) Ondansetron HCl 4 mg 06/18/20 22:32 Ondansetron 4 Mg/2 Ml Inj IV Q8H PRN Nausea And Vomiting Sodium Bicarbonate 1,300 mg 06/19/20 20:00 06/24/20 09:25 Sodium Bicarbonate 650 Mg Tab PO 1,300 mg TID MADELIN Administration Sodium Chloride 10 ml 06/19/20 10:00 06/23/20 22:46 Sodium Chloride 0.9% 10 Ml Flush Syringe IV 10 ml BID MADELIN Administration Sodium Chloride 10 ml 06/18/20 22:32 06/21/20 15:13 Sodium Chloride 0.9% 10 Ml Flush Syringe IV 10 ml PRN PRN Administration LINE FLUSH Warfarin Sodium 3 mg 06/24/20 17:00 Warfarin 1 Mg Tab PO DAILY@1700 [facility]
--- NOTE | 2020-06-24 10:23 | Progress Note ---
Assessment and Plan Mechanical mitral valve replacement for mitral regurgitation normal function by echo 11/2019 he is on Coumadin with therapeutic range of INR recommended at 2.5-3.5. 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 Findings consistent with cor-pulmonale. Normal left ventricular systolic function, EF 55-60%. Hx of heart block s/p indwelling pacemaker Continue warfarin for mechanical mitral valve. Pharmacy is dosing. Monitor H&H closely and for any signs of bleeding. Subjective Date of service: 06/24/20 Principal diagnosis: Hypotension Interval history: No interval cardiac changes. INR today is at 2.97. Objective Vital Signs Temp Pulse Resp BP Pulse Ox 06/24/20 07:03 98.2 F 86 20 91/46 98 06/24/20 00:11 98.1 F 86 20 112/69 99 06/23/20 22:00 99 06/23/20 19:53 99.1 F 89 20 99/38 99 06/23/20 18:23 98.4 F 79 15 104/87 98 06/23/20 17:53 98.1 F 86 17 101/56 98 06/23/20 17:23 98.2 F 87 16 105/77 98 06/23/20 16:53 98.4 F 87 17 102/77 97 06/23/20 16:23 98.1 F 79 17 100/52 98 06/23/20 15:53 98.2 F 87 101 H 101/65 98 06/23/20 15:38 98.5 F 78 16 104/74 99 06/23/20 11:20 98.2 F 82 18 111/56 99 - Physical Examination General: No Apparent Distress HEENT: Positive: PERRL Neck: Positive: trachea midline Cardiac: Positive: Other (paced) Lungs: Positive: Decreased Breath Sounds Abdomen: Positive: Firm Extremities: Present: edema - Labs and Meds Coagulation 06/24/20 Range/Units 04:47 PT 31.3 H (12.2-14.9) Sec. INR 2.97 H (0.87-1.13) CBC 06/23/20 Range/Units 19:30 Hgb 7.7 L (11.8-15.2) gm/dl Hct 24.0 L (35.5-45.6) % Comprehensive Metabolic Panel 06/24/20 Range/Units 04:47 Sodium 133 L (137-145) mmol/L Potassium 3.8 (3.6-5.0) mmol/L Chloride 102.6 (98-107) mmol/L Carbon Dioxide 20 L (22-30) mmol/L BUN 45 H (9-20) mg/dL Creatinine 1.7 H (0.8-1.3) mg/dL Glucose 211 H (75-100) mg/dL Calcium 8.4 (8.4-10.2) mg/dL
--- NOTE | 2020-06-24 12:41 | Progress Note ---
Assessment and Plan Cultures: Blood culture 06/18/2020 coag negative staph 2 out of 4 Urine culture mixed bacteria Blood cultures 06/23/2020 no growth today A/P: 64-year-old man past medical history hypertension, diastolic heart failure, mitral valve replacement on Coumadin, diabetes, A. fib #Coag negative staph bacteremia: 2 of 4 bottles and 2 sets, though both sets obtained at same time. Contaminant versus real. Patient is status post MVR. Source likely left arm cellulitis vs sacral decubitus. #Left arm cellulitis: CT shows no abscess. #UTI: Urine culture grows mixed bacteria. #Multiple decubiti: With the left ischial stage III pressure ulcer 8.5 x 7.5 x 0.1 cm per wound care, understandable sacral pressure injury 9.5 x 8 x 0.5 cm, not grossly infected ? cellulitis #Diabetes: tight glycemic control for best outcomes. #History of mitral valve replacement #ELIZABETH: Renally dose antibiotics, improving. #Severe anemia per primary team Recs: -Follow-up transthoracic echo -pending -Continue vancomycin with PK consult -Asked micro lab to release coagulase-negative staph ID and SAM -Completed 5 days of cefepime for UTI -Anticipate to discharge on IV vancomycin for 2 weeks at least if blood cultures cleared and TTE neg -Offloading sacral decubitus, continue wound care -Hold off on placing PICC line until coagulase-negative staph is identified and TTE is back will follow MD [facility] ([facility]) Office [phone] Subjective Date of service: 06/24/20 Principal diagnosis: Hypotension Interval history: Patient feels good, no complaints. No new fever. Patient wants to go home. Objective - Exam Narrative Exam: General appearance: Alert in NAD pleasant Eyes: anicteric sclerae, moist conjunctivae; no lid-lag; PERRLA HENT: Normocephalic, Atraumatic; normal external ears, nares open, oropharynx clear Neck: supple, tracheal midline, no JVD Lungs: CTA, with normal respiratory effort and no intercostal retractions CV: RRR no murmur Abdomen: Soft, non-tender; no masses or hepatosplenomegaly Extremities: Marked edema and discoloration of the left arm; bilateral legs edema Skin: Multiple sacral decubiti no purulence Psych: no agitated Neuro: alert and oriented x 3. Moving all extermities - Constitutional Vitals: Vital Signs Temp Pulse Resp BP Pulse Ox 98.2 F 86 20 91/46 98 06/24/20 07:03 06/24/20 07:03 06/24/20 07:03 06/24/20 07:03 06/24/20 07:03 Temperature -Last 24 Hours Temperature 98.2 F Temperature 98.1 F Temperature 99.1 F Temperature 98.4 F Temperature 98.1 F Temperature 98.2 F Temperature 98.4 F Temperature 98.1 F Temperature 98.2 F Temperature 98.5 F - Labs CBC & Chem 7: 06/23/20 19:30 06/24/20 04:47 Labs: Abnormal lab results 06/23/20 06/23/20 06/23/20 Range/Units 09:25 16:08 19:30 Hgb 7.7 L (11.8-15.2) gm/dl Hct 24.0 L (35.5-45.6) % PT (12.2-14.9) Sec. INR (0.87-1.13) Sodium (137-145) mmol/L Carbon Dioxide (22-30) mmol/L BUN (9-20) mg/dL Creatinine (0.8-1.3) mg/dL Glucose (75-100) mg/dL POC Glucose 198 H (70-105) mg/dL Crossmatch See Detail 06/23/20 06/24/20 06/24/20 Range/Units 22:06 04:47 04:47 Hgb (11.8-15.2) gm/dl Hct (35.5-45.6) % PT 31.3 H (12.2-14.9) Sec. INR 2.97 H (0.87-1.13) Sodium 133 L (137-145) mmol/L Carbon Dioxide 20 L (22-30) mmol/L BUN 45 H (9-20) mg/dL Creatinine 1.7 H (0.8-1.3) mg/dL Glucose 211 H (75-100) mg/dL POC Glucose 233 H (70-105) mg/dL Crossmatch 06/24/20 Range/Units 08:31 Hgb (11.8-15.2) gm/dl Hct (35.5-45.6) % PT (12.2-14.9) Sec. INR (0.87-1.13) Sodium (137-145) mmol/L Carbon Dioxide (22-30) mmol/L BUN (9-20) mg/dL Creatinine (0.8-1.3) mg/dL Glucose (75-100) mg/dL POC Glucose 205 H (70-105) mg/dL Crossmatch
--- NOTE | 2020-06-24 14:12 | Discharge Summary ---
Providers - Providers Date of Admission: 06/18/20 21:14 Date of discharge: 06/24/20 Attending physician: SHELBY TRIPLETT 06/18/20 15:08 Consult to Wound/ET Nurse [CONS] Routine Reason For Exam: wound eval 06/18/20 22:32 Consult to Dietitian/Nutrition [CONS] Routine Physician Instructions: Reason For Exam: Reason for Consult: Diet education Consult to Physician [CONS] Routine Comment: Consulting Provider: DOTTY LEVY Physician Instructions: Reason For Exam: ELIZABETH 06/19/20 09:46 Consult to Physician [CONS] Routine Comment: Consulting Provider: NATALIIA MCNALLY Physician Instructions: Reason For Exam: afib 06/20/20 09:05 Consult to Physician [CONS] Routine Comment: Consulting Provider: KYRA GABRIEL Physician Instructions: Reason For Exam: sepsis, uti 06/24/20 09:56 Physical Therapy Evaluation and Treat [CONS] Urgent Comment: Reason For Exam: hx cva ,Lt sided weakness Mode of Transport?: Wheelchair 06/24/20 10:23 Occupational Therapy Evaluate and Treat [CONS] Routine Comment: Reason For Exam: hx cva 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 Patient was evaluated by telehealth nurse who noted that patient had changes in mental status and the blood glucose greater than 500. Most of the history was gotten from the ER staff as patient is not able to give any coherent history. Patient had recently been discharged from [facility] where he was treated for elevated INR, liver cirrhosis and hyperglycemia. Work-up in the emergency room today reveals hyperglycemia, dehydration, hyponatremia and UTI. Patient was commenced on empiric IV antibiotics and IV fluid. 06/20/2020. Continue to monitor BMP closely and volume status as related to hyponatremia. Etiology of acute kidney injury likely secondary to vasomotor nephropathy from hypotension/dehydration +/-ATN from sepsis. CT scan of the abdomen negative for hydronephrosis. Continue IV fluid hydration per nephrology recommendations. Continue warfarin therapy per cardiology recommendations. Follow-up urine and blood cultures. Continue cefepime and vancomycin. 06/21/2020. Creatinine slowly improving with IV fluid hydration. Nephrology following. Replete potassium. Blood culture reveals coag negative staph which is likely a contaminant. Patient with no leukocytosis and remains afebrile. Urine culture unremarkable. Continue antibiotics for now. Continue warfarin therapy per cardiology. 06/22/2020. Patient with blood cultures revealing coag negative staph which may be a contaminant. However, given patient's history of a mechanical mitral valve, we will obtain echocardiogram to rule out vegetations. Continue vancomycin per ID recommendations. Etiology of acute kidney injury likely secondary to vasomotor nephropathy in the setting of hypotension/volume depletion. CT scan of the abdomen was negative for hydronephrosis. Continue IV fluids per nephrology recommendations. Creatinine has improved to 2.1. 06/23/2020. Hb drop noted. Transfuse to hb 7. Awaiting TTE to rule out IE. ID on board 06/24/2020. As per ID, patients culture is likely a contaminant. He has been cleared from ID standpoint for discharge. His renal function has also improved and Cr 1.7. He will follow up with nephrology for CKD management and cardiology for management of heart failure. Disposition: DC/TX-06 HOME UNDER HOME [facility] Core Measure Documentation - Palliative Care Palliative Care/ Comfort Measures: Not Applicable - Core Measures Any of the following diagnoses?: none Exam - Constitutional Vitals: Temp Pulse Resp BP Pulse Ox 98.2 F 86 20 91/46 98 06/24/20 07:03 06/24/20 07:03 06/24/20 07:03 06/24/20 07:03 06/24/20 07:03 Plan Additional Instructions: Follow-up with cardiology in the office in 1 week. Follow-up with nephrology in the office in 1 week for repeat labs. Follow-up with PCP in a week for monitoring of labs - sodium, renal function and INR. Continue home medications as prescribed Follow up with: DOREEN FERREIRA MD [Primary Care Provider] - 7 Days NATALIIA MCNALLY MD [Staff Physician] - 7 Days DOTTY LEVY MD [Staff Physician] - 7 Days Forms: Warfarin Discharge Instruction Prescriptions: Sodium Bicarbonate 1,300 mg PO TID #90 tablet
[2020-06-24] MEDS ORDERED: WARFARIN 1 MG TAB PO SCH (17:00)
== END 2020-06-24 19:42 | disposition home health service (06) | DRG 871 ==
LOC: ED 13:02 → 4A 21:14
PROVIDERS: ADMIT Internal Medicine Geriatric Medicine; ATTEND Internal Medicine
PROC: 30233N1 Transfusion of Nonautologous Red Blood Cells into Peripheral Vein, Percutaneous Approach (ICD-10-PCS; principal; 2020-06-23)
DX: A41.9 Sepsis, unspecified organism (principal); G92 Toxic encephalopathy; L89.323 Pressure ulcer of left buttock, stage 3; R65.21 Severe sepsis with septic shock; N17.0 Acute kidney failure with tubular necrosis; N39.0 Urinary tract infection, site not specified; E87.1 Hypo-osmolality and hyponatremia; I50.30 Unspecified diastolic (congestive) heart failure; G82.20 Paraplegia, unspecified; I48.19 Other persistent atrial fibrillation; L03.114 Cellulitis of left upper limb; I13.0 Hypertensive heart and chronic kidney disease with heart failure and stage 1 through stage 4 chronic kidney disease, or unspecified chronic kidney disease; D68.9 Coagulation defect, unspecified; K74.60 Unspecified cirrhosis of liver; K21.9 Gastro-esophageal reflux disease without esophagitis; L89.152 Pressure ulcer of sacral region, stage 2; G47.30 Sleep apnea, unspecified; R60.0 Localized edema; E87.6 Hypokalemia; D63.8 Anemia in other chronic diseases classified elsewhere; J44.9 Chronic obstructive pulmonary disease, unspecified; I27.20 Pulmonary hypertension, unspecified; E11.22 Type 2 diabetes mellitus with diabetic chronic kidney disease; N18.9 Chronic kidney disease, unspecified; E11.65 Type 2 diabetes mellitus with hyperglycemia; Z95.2 Presence of prosthetic heart valve; Z79.01 Long term (current) use of anticoagulants; Z88.2 Allergy status to sulfonamides; Z79.82 Long term (current) use of aspirin; Z79.899 Other long term (current) drug therapy; Z79.4 Long term (current) use of insulin; Z95.0 Presence of cardiac pacemaker
CPT/HCPCS: 36415; 70450; 71045; 71250; 74176; 80048; 80076; 80202; 80307; 80320; 81001; 82140; 82570; 82805; 82962; 83036; 84100; 84300; 84439; 84443; 85007; 85014; 85018; 85025; 85610; 85730; 86850; 86900; 86901; 86920; 87040; 87086; 87116; 89050; 93005; 96365; 96375; G0378; G0480; J0692; J1815; J1885; J2270; J3370; J7030; J7040; J7050; P9016

== ENCOUNTER 2020-06-29 16:05 | Emergency (ER) | payer MEDICARE ==
--- NOTE | 2020-06-29 16:30 | Emergency Department Report ---
ED CPR HPI - General Stated Complaint: CARDIAC ARREST Time Seen by Provider: 06/29/20 16:26 - History of Present Illness Initial Comments: Patient is a 64-year-old F Malag[place] male with multiple past medical problems including congestive heart failure diabetes hypertension with recent admissions to our hospital as well as Marcus Mccormick who is been out of the hospital for approximately half a week. Family had him in a car and they were on their way to get some food on the patient went to cardiac arrest. Patient passed out without warning. No family is unable to revive. Paramedics arrived and stated the patient was in V. fib. He was given 3 rounds of epinephrine 300 mg of amiodarone and defibrillated 5 times. - Related Data Home Medications Medication Instructions Recorded Confirmed Last Taken Esomeprazole Magnesium [NexIUM] 40 mg PO DAILY 10/29/13 06/19/20 1 Day Ago ~02/04/20 40 mg Gabapentin 1 cap PO TID 09/04/14 06/19/20 1 Day Ago ~02/04/20 1 cap Amiodarone [Cordarone 200 MG TAB] 200 mg PO BID 11/24/19 06/19/20 1 Day Ago ~02/04/20 200 mg Pravastatin [Pravachol] 20 mg PO QHS 11/24/19 06/19/20 1 Day Ago ~02/04/20 20 mg Warfarin [Coumadin] 5 mg PO QDAY 11/24/19 06/19/20 1 Day Ago ~02/04/20 5 mg ALPRAZolam [Xanax TAB] 2 mg PO QDAY 06/19/20 06/19/20 Unknown Insulin Glargine,Hum.rec.anlog 16 units SQ QHS 06/19/20 06/19/20 Unknown [Lantus Solostar] Spironolactone [Aldactone] 12.5 mg PO QDAY 06/19/20 06/19/20 Unknown metOLazone [Zaroxolyn] 2.5 mg PO QDAY 06/19/20 06/19/20 Unknown Previous Rx's Medication Instructions Recorded Last Taken Type Aspirin EC [Halfprin EC] 81 mg PO QDAY #30 tablet. 05/12/18 1 Day Ago Rx ~02/04/20 81 mg Tamsulosin [Flomax] 0.4 mg PO QDAY #30 capsule 05/12/18 1 Day Ago Rx ~02/04/20 0.4 mg ALBUTEROL NEB's [Proventil 0.083% 2.5 mg IH QIDRT PRN nebu 02/06/20 Unknown Rx NEBS] Albuterol Mdi (or & Nicu Only) 2 puff IH QID PRN #1 02/06/20 Unknown Rx [ProAir HFA Inhaler] Insulin Aspart (Nf) [NovoLOG 100 10 unit SQ QAC #5 pen 02/06/20 Unknown Rx UNITS/ML VIAL] Ipratropium (Nf) [Atrovent HFA 2 puff IH Q6HR PRN 30 Days #10 inha 02/06/20 Unknown Rx 17MCG/PUFF] oxyCODONE [roxiCODONE] 10 mg PO Q4H PRN tablet 02/06/20 Unknown Rx metOLazone [Zaroxolyn] 5 mg PO QDAY #30 tablet 02/14/20 Unknown Rx Sodium Bicarbonate 1,300 mg PO TID #90 tablet 06/24/20 Unknown Rx Allergies Allergy/AdvReac Type Severity Reaction Status Date / Time propoxyphene napsylate Allergy Intermediate Rash Verified 02/12/20 13:48 [From Darvocet-N 100] Sulfa (Sulfonamide Allergy Intermediate Rash Verified 02/12/20 13:48 Antibiotics) ED Review of Systems ROS: Stated complaint: CARDIAC ARREST Other details as noted in HPI Comment: All other systems reviewed and negative ED Past Medical Hx - Past Medical History Hx Hypertension: Yes Hx Heart Attack/AMI: No Hx Congestive Heart Failure: Yes Hx Diabetes: Yes Hx Deep Vein Thrombosis: No Hx Pulmonary Embolism: No Hx GERD: Yes Hx Liver Disease: Yes (Cirrosis) Hx Renal Disease: Yes Hx Asthma: Yes Hx COPD: Yes Hx Tuberculosis: No Hx HIV: No Additional medical history: high cholesterol, paraplegic, bronchitis, A Fib - Surgical History Hx Coronary Stent: No Hx Open Heart Surgery: Yes Hx Pacemaker: Yes Hx Internal Defibrillator: No Additional Surgical History: Mitral valve replacement (mechanical), left ankle surgery, Pace maker - Social History Smoking Status: Former Smoker - Medications Home Medications: Home Medications Medication Instructions Recorded Confirmed Last Taken Type Esomeprazole Magnesium [NexIUM] 40 mg PO DAILY 10/29/13 06/19/20 1 Day Ago History ~02/04/20 40 mg Gabapentin 1 cap PO TID 09/04/14 06/19/20 1 Day Ago History ~02/04/20 1 cap Aspirin EC [Halfprin EC] 81 mg PO QDAY #30 tablet. 05/12/18 06/19/20 1 Day Ago Rx ~02/04/20 81 mg Tamsulosin [Flomax] 0.4 mg PO QDAY #30 capsule 05/12/18 06/19/20 1 Day Ago Rx ~02/04/20 0.4 mg Amiodarone [Cordarone 200 MG TAB] 200 mg PO BID 11/24/19 06/19/20 1 Day Ago History ~02/04/20 200 mg Pravastatin [Pravachol] 20 mg PO QHS 11/24/19 06/19/20 1 Day Ago History ~02/04/20 20 mg Warfarin [Coumadin] 5 mg PO QDAY 11/24/19 06/19/20 1 Day Ago History ~02/04/20 5 mg ALBUTEROL NEB's [Proventil 0.083% 2.5 mg IH QIDRT PRN nebu 02/06/20 06/19/20 Unknown Rx NEBS] Albuterol Mdi (or & Nicu Only) 2 puff IH QID PRN #1 02/06/20 06/19/20 Unknown Rx [ProAir HFA Inhaler] Insulin Aspart (Nf) [NovoLOG 100 10 unit SQ QAC #5 pen 02/06/20 06/19/20 Unknown Rx UNITS/ML VIAL] Ipratropium (Nf) [Atrovent HFA 2 puff IH Q6HR PRN 30 Days #10 inha 02/06/20 06/19/20 Unknown Rx 17MCG/PUFF] oxyCODONE [roxiCODONE] 10 mg PO Q4H PRN tablet 02/06/20 06/19/20 Unknown Rx metOLazone [Zaroxolyn] 5 mg PO QDAY #30 tablet 02/14/20 06/19/20 Unknown Rx ALPRAZolam [Xanax TAB] 2 mg PO QDAY 06/19/20 06/19/20 Unknown History Insulin Glargine,Hum.rec.anlog 16 units SQ QHS 06/19/20 06/19/20 Unknown History [Lantus Solostar] Spironolactone [Aldactone] 12.5 mg PO QDAY 06/19/20 06/19/20 Unknown History metOLazone [Zaroxolyn] 2.5 mg PO QDAY 06/19/20 06/19/20 Unknown History Sodium Bicarbonate 1,300 mg PO TID #90 tablet 06/24/20 Unknown Rx ED Physical Exam - General General appearance: obtunded - Head Head exam: Present: atraumatic, normocephalic - Eye Eye exam: Present: other (Pupils are fixed and dilated). Absent: normal appearance - ENT ENT exam: Present: mucous membranes moist - Neck Neck exam: Present: normal inspection - Respiratory Respiratory exam: Present: other (Patient is being bagged. Breath sounds right greater than left. There Rales bilateral.). Absent: normal lung sounds bilaterally - Cardiovascular Cardiovascular Exam: Present: other (No spontaneous heart tones) - GI/Abdominal GI/Abdominal exam: Present: soft, distended - Rectal Rectal exam: Present: deferred - Extremities Exam Extremities exam: Present: normal inspection - Back Exam Back exam: Present: normal inspection - Skin Skin exam: Present: warm, dry, intact, normal color. Absent: rash ED Medical Decision Making - Medical Decision Making Patient given additional epinephrine and with continued CPR. Patient is still in the 5 V. fib. Checked with ultrasound machine does not see if the patient had any cardiac activity and there was none. Patient was pronounced at 1617. Discussed the patient's outcome with his family. Critical care attestation.: If time is entered above; I have spent that time in minutes in the direct care of this critically ill patient, excluding procedure time. ED Disposition Clinical Impression: Cardiopulmonary arrest Disposition: DC-20 Is pt being admited?: No Does the pt Need Aspirin: No Condition: Stable Referrals: PRIMARY CARE, [Primary Care Provider] - 3-5 Days Time of Disposition: 16:35
[2020-06-30] MEDS ORDERED: EPINEPHrine 1 MG/10 ML SYRINGE ONE (08:30)
== END 2020-06-29 21:36 ==
LOC: ED 16:05
DX: I46.9 Cardiac arrest, cause unspecified (principal); I11.0 Hypertensive heart disease with heart failure; I50.9 Heart failure, unspecified; E11.9 Type 2 diabetes mellitus without complications; K21.9 Gastro-esophageal reflux disease without esophagitis; J44.9 Chronic obstructive pulmonary disease, unspecified; Z98.890 Other specified postprocedural states; Z87.891 Personal history of nicotine dependence; Z79.4 Long term (current) use of insulin; Z79.899 Other long term (current) drug therapy; Z88.2 Allergy status to sulfonamides; Z88.8 Allergy status to other drugs, medicaments and biological substances
CPT/HCPCS: 92950; J0171